=== PATIENT | female | born 1945 | race Caucasian/White ===

== ENCOUNTER 2020-05-02 13:46 | Outpatient (CLI) | payer MEDICARE, SELFPAY ==
--- NOTE | 2020-05-02 14:16 | XR_ITS ---
WS: [id number] DEXA (DUAL ENERGY X-RAY ABSORPTIOMETRY) Bone mineral density was performed using a Mavin machine. HISTORY: HISTORY OF TRAUMATIC VERTEBRAL FRACTURE, OSTEOPOROSIS COMPARISON: None available. Lumbar spine BMD (L1-L4): 1.082 g/cm2 T score: -0.8 Z score: 0.8 Total hip BMD: Left: 0.765 g/cm2. T score: -1.9 Z score: -0.2 Right: 0.757 g/cm2. T score: -2.0 Z score: -0.2 10 year probability of a major osteoporotic fracture is 25%. Suspect mild compression fracture at L2. XR/XR DEXA axial skeleton* [id number] IMPRESSION: OSTEOPENIA based upon the WHO classification for females.
== END 2020-05-02 13:47 | disposition home or self-care (01) ==
LOC: RADWPI 13:51
PROVIDERS: Visit Provider Electrodiagnostic Medicine
DX: Z87.81 Personal history of (healed) traumatic fracture (principal); M81.0 Age-related osteoporosis without current pathological fracture; M85.89 Other specified disorders of bone density and structure, multiple sites
CPT/HCPCS: 77080

== ENCOUNTER 2021-01-09 12:25 | Outpatient (CLI) | payer MEDICARE, SELFPAY ==
--- NOTE | 2021-01-09 12:31 | XRR_ITS ---
PROCEDURE INFORMATION: Exam: XR Chest Exam date and time: 01/09/2021 12:31 PM Age: 75 years old Clinical indication: Condition or disease; Other: Acute bronchitis; Cough and shortness of breath TECHNIQUE: Imaging protocol: XR of the chest. Views: Frontal and lateral upright, views. COMPARISON: No relevant prior studies available. FINDINGS: Lungs: Medial-posterior right basilar pulmonary infiltrate. Left mid lung zone calcified pulmonary parenchymal granuloma. The pulmonary vasculature is normal. The lungs are otherwise peripherally clear bilaterally. Pleural spaces: No pleural effusion. No pneumothorax. Heart/Mediastinum: The heart is normal in size and contour. Bones/joints: Right proximal humeral greater tuberosity suture anchors. Diffuse osteopenia. XR/XR chest 2V* [id number] IMPRESSION: Medial-posterior right basilar pulmonary infiltrate. Pneumonitis is difficult to exclude. Clinical correlation is recommended.
== END 2021-01-09 12:26 | disposition home or self-care (01) ==
PROVIDERS: PCP Electrodiagnostic Medicine; Visit Provider Electrodiagnostic Medicine
DX: J20.9 Acute bronchitis, unspecified (principal); R05 Cough; R06.02 Shortness of breath; R91.8 Other nonspecific abnormal finding of lung field
CPT/HCPCS: 71046

== ENCOUNTER 2021-01-11 12:05 | Inpatient (IN) | payer MEDICARE, OTHER, SELFPAY ==
[2021-01-11] VITALS (11 sets, daily range): BP systolic 149–180; BP diastolic 77–114; PULSE 87–101; RESP 16–26; TEMP 36.6–36.9; O2SAT 94–98; BMI 28.3
--- NOTE | 2021-01-11 12:54 | CT_ITS ---
WS: [id number] CT CHEST TECHNIQUE: Noncontrast CT of the chest with coronal and sagittal reformatted images. CLINICAL INFORMATION: RLL PNA. PE? presents with Covid/bronchitis/pna sx. COMPARISON: None. DLP: 362.[address] scans at [facility] use at least one of these dose optimization techniques: automat ed exposure control; mA and/or kV adjustment per patient size (includes targeted exams where dose is matched to clinical indication); or iterative reconstruction. FINDINGS: Moderate chronic emphysematous changes. Patchy infiltrates in the right greater than left lung base w ith partially consolidation and hazy groundglass infiltrates. Additional patchy infiltrates in the ri ght hilum. Hazy groundglass infiltrates in the subpleural upper lobes bilaterally. No mediastinal or hilar lymphadenopathy. A few reactive mediastinal lymph nodes. No axillary lymphade nopathy. Small esophageal hiatal hernia with air-fluid level. Cholecystectomy clips. Left hepatic cys t measuring 2.4 cm. Splenic granulomas. Thoracic curve. Chronic compression fracture L1. Mild retropulsion with mild central canal stenosis a t this level with loss of approximately 70% vertebral body height centrally. CT/CT chest wo con [id number] IMPRESSION: 1. Patchy ground glass infiltrates within the right greater than left lower lo bes with partial airspace consolidation 2. Additional patchy groundglass infiltrates along the right hilum and right f issure. 3. Additional hazy groundglass infiltrates in the subpleural upper lobes bilat erally. 4. Above findings suspicious for COVID 19 pneumonia. 5. A few reactive mediastinal lymph nodes. 6. Chronic appearing compression fracture L1 with loss of approximately 70% ve rtebral body height centrally and mild central canal stenosis.
--- NOTE | 2021-01-11 12:56 | ECG_ITS ---
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 Measurements Intervals [place] Rate: 98 P: 72 OR: 156 QRS: 30 QRSD: 113 T: 83 QT: 354 QTc: 452 Interpretive Statements SINUS RHYTHM MODERATE INTRAVENTRICULAR CONDUCTION DELAY [110+ ms QRS DURATION] No previous ECG available for comparison Electronically Signed On 01-12-2021 7:02:15 CDT by Tiffanie Leija M.D. [id number]
--- NOTE | 2021-01-11 13:08 | W.ED.SOB ---
HPI - SOB/Dyspnea General: Chief Complaint: Shortness of Breath/Dyspnea Stated Complaint: SOB, WEAK Time Seen by Provider: 01/11/21 12:41 History of Present Illness: HPI Narrative: The patient is a 75-year-old female with past medical history hypertension, coronary artery disease, and old [place] in 2007. She is been complaining of shortness of breath on and off for the past month. She was seen by her primary care physician Saturday and swabbed for Covid which came back negative during the visit. Also did a chest x-ray. My review of the chest x-ray today shows right lower lobe pneumonia or pneumonitis. She was started on prednisone and levofloxacin at that visit. She comes to the ER short of breath, tachypneic, satting 96 on room air. Blood pressure is elevated 220/103 shortly after arrival. She denies chest pain and headache. She admits to taking her metoprolol and lisinopril this morning. She says sometimes she coughs until she vomits at home and she admits a couple loose bowels here and there over the last several days. She was previously a smoker of 20 years but has not smoked for more than a decade. Denies COPD history. Denies CHF as well. MD elicited complaint: shortness of breath Pertinent past history: pneumonia Context: recent illness Severity: moderate Exacerbating factors: exertion and coughing Relieving factors: nothing Associated symptoms: Reports cough; Deny abdominal pain, chest pain, dizziness, extremity pain, fever(s), nausea, polyuria or vomiting Review of Systems General: Reports: 10 or more systems reviewed and unremarkable except in HPI and below Const: Denies: fever(s) Eyes: Denies: change in vision, blurry vision or eye redness ENMT: Denies: throat pain, swelling of lips/tongue, ear or mastoid pain or nasal congestion Card: Denies: chest pain Resp: Reports: dyspnea and non-productive cough; Denies: productive cough or wheezing GI: Denies: abdominal pain, nausea or vomiting : Denies: flank pain, difficulty voiding, urinary frequency or urinary urgency Musc: Denies: neck pain, back pain, extremity pain, joint pain, joint redness, limited range of motion or muscle weakness Skin/Breast: Denies: rash, pruritus, erythema, skin pain or skin tenderness Neuro: Denies: headache(s), numbness in extremities, weakness in extremities, sensory changes, difficulty walking, dizziness, confusion or Slurred speech present Psych: Denies: anxiety or depression Endo: Denies: polyuria All/Imm: Denies: urticaria, throat swelling or tongue swelling PFSH ED PFSH: Medical History (Updated 01/11/21 @ 18:26 by Zay Belle MD) CAD (coronary artery disease) Depression with anxiety Hypertension Surgical History (Updated 01/11/21 @ 16:31 by Dar Dutta MD) History of cholecystectomy History of total hysterectomy Family History (Updated 01/11/21 @ 16:32 by Dar Dutta MD) Mother CAD (coronary artery disease) Diabetes Hypertension Alzheimer's dementia Father CAD (coronary artery disease) Diabetes Hypertension Dementia Social History (Updated 01/11/21 @ 16:32 by Dar Dutta MD) Smoking and tobacco status: former smoker Alcohol intake: never Substance/Drug Use: never Physical Exam Const: COMMON NORMALS: no acute distress, average body habitus, patient oriented x3, no limitations, healthy appearing, alert and well nourished GENERAL APPEARANCE: cooperative, comfortable, well kempt and well developed ORIENTATION/CONSCIOUSNESS: Yes awake, Yes oriented to person, Yes oriented to place and Yes oriented to time HENMT: COMMON NORMALS: normocephalic, external ears normal and Normal external nose present HEAD & SCALP: normal to inspection and normocephalic NOSE: Normal external nose present EXTERNAL EAR: Yes external ears normal MOUTH: Normal oral and palatal mucosa present THROAT: posterior oropharynx normal Eye: COMMON NORMALS: Equal, round and reactive pupils present and EOMs intact bilaterally GENERAL EYE: appearance normal, both eyes and all related structures PUPIL: Yes Equal, round and reactive pupils present Neck/C-Spine: COMMON NORMALS: full ROM, no lymphadenopathy, no meningeal signs and no JVD GENERAL: Yes normal visual inspection Lymph: LYMPHATIC: no lymphadenopathy noted Chest: COMMONS NORMALS: normal inspection of the chest and normal palpation of entire chest wall Resp: COMMON NORMALS: normal respiratory effort, No retractions, No use of accessory muscles, clear to auscultation bilaterally and percussion normal EFFORT & INSPECTION: Yes able to speak in complete sentences AUSCULTATION: clear to auscultation bilaterally PERCUSSION: percussion normal Cardio: COMMON NORMALS: no JVD, regular rate, regular rhythm, S1 normal heart sound present, S2 normal heart sound present and Peripheral pulses 2+ throughout RATE: regular rate RHYTHM: regular rhythm HEART SOUNDS: S1 normal heart sound present and S2 normal heart sound present PERIPHERAL PULSES: Peripheral pulses 2+ throughout GI: COMMON NORMALS: Normal to inspection, nondistended, normoactive bowel sounds present, Soft to palpation, non-tender and no masses INSPECTION: Yes normal to inspection PALPATION: Yes Soft to palpation : COMMON NORMALS: Yes no CVA tenderness BLADDER/KIDNEY EXAM: Yes no CVA tenderness Back/Pelvis: COMMON NORMALS: no CVA tenderness, thoracic and lumbar spine normal to inspection, no thoracic nor lumbar tenderness and thoraco-lumbar ROM normal Extremity: COMMON NORMALS: normal to inspection, full ROM, capillary refill normal, no joint enlargement and no pedal edema GENERAL: Yes normal exam except as noted Neuro: COMMON NORMALS: patient oriented x3, CN's II-XII intact bilaterally, moves all extremities, no focal motor deficits, no sensory deficits noted and gait normal SENSORIUM/ORIENTATION: Yes alert, Yes oriented to person, Yes oriented to place and Yes oriented to time MENINGEAL SIGNS: Yes no meningeal signs Psych: COMMON NORMALS: mental status grossly normal, Normal thought process present, cooperative, normal affect and speech normal APPEARANCE: Yes well kempt ATTITUDE: Yes calm SPEECH: Yes normal speech THOUGHT PROCESS: Normal thought process present Skin: COMMON NORMALS: no rashes or lesions noted GENERAL SKIN EXAM: no rashes or lesions noted Course Vital Signs: Vital signs: Vital Signs Temperature 98.3 F 01/11/21 12:32 Pulse Rate 101 H 01/11/21 17:48 Respiratory Rate 22 H 01/11/21 17:48 Blood Pressure 178/92 01/11/21 17:48 Pulse Oximetry 98 01/11/21 17:48 MDM - SOB/Dyspnea MDM Narrative: Medical decision making narrative: Patient is a 75-year-old female who came to the ER feeling sick for the past month. She says she is coughing and it makes her vomit as well as having loose stools. Likely very dehydrated and she is sick enough not requiring oxygen but sick enough to cause significant metabolic abnormalities. Creatinine 3.4 and BUN 49. No history of acute renal failure. Potassium 5.3 as well. Sodium 127. White count 16.9. She was started on outpatient levofloxacin and prednisone 2 days ago. Started azithromycin here, IV fluids, and admitted to the hospitalist Dr. Luzmaria echeverria. Lab Data: Labs: Lab Results 01/11/21 01/11/21 01/11/21 Range/Units 13:00 13:00 13:00 WBC 16.9 H (4.0-10.0) 10^3/ uL RBC 3.87 L (4.1-5.3) 10^6/u L Hgb 11.4 L (11.5-15.3) g/dL Hct 35.3 L (37.0-47.0) % MCV 91.2 (81-99) fL MCH 29.5 (28.0-34.0) pg MCHC 32.3 (30.0-36.0) g/dL RDW 14.8 (12.1-15.1) % Plt Count 322 (130-400) 10^3/c mm MPV 9.6 (7.4-10.4) fL Neut % (Auto) 93.0 % Lymph % (Auto) 3.1 % Burnett % (Auto) 2.3 % Eos % (Auto) 0.0 % Baso % (Auto) 0.2 % Neut # (Auto) 15.74 H (1.8-7.7) 10^3/u L Lymph # (Auto) 0.5 L (0.8-4.8) 10^3/u L Burnett # (Auto) 0.4 (0.2-0.9) 10^3/u L Eos # (Auto) 0.0 (0.0-0.8) 10^3/u L Baso # (Auto) 0.0 (0.0-0.1) 10^3/u L Nucleated RBC % (a uto) 0 % Nucleated RBCs # 0.0 /100WBC D-Dimer (0-0.59) ug/mIFE U Specimen Type Sample Site ABG pH (7.35-7.45) ABG pCO2 (35-45) mmHg ABG pO2 (80.0-100.0) mmH g ABG HCO3 (22-26) mmol/L ABG O2 Saturation ABG Base Excess (-2.0-2.0) mmol/ L [place] Test A-a O2 Gradient (5-10) mmHg Hematocrit (37-47) % Hgb O2 Saturation (95-100) % Carboxyhemoglobin (0.4-20.1) %THgb Methemoglobin (0.4-1.5) % Total Hemoglobin (12-16) g/dL Ionized Calcium (1.1-1.4) mmol/L O2 Delivery Device FiO2 % Automobile Body Worker ID Sodium Cancelled Potassium Cancelled Chloride Cancelled Carbon Dioxide Cancelled Anion Gap Cancelled BUN Cancelled Creatinine Cancelled GFR Calculation Cancelled Glucose Cancelled Calculated Osmolal ity Cancelled Lactic Acid Cancelled Lactic Acid (Sepsi s) (0.5-2.2) mmol/L Lactate (0.5-2.2) mmol/L Calcium Cancelled Total Bilirubin Cancelled AST Cancelled ALT Cancelled Alkaline Phosphata se Cancelled Creatine Kinase (26-192) U/L Troponin T Baselin e Troponin T 120 Min [place] (0-10) ng/L Delta Troponin T (0-10) ABS# NT-Pro-B Natriuret Pep Cancelled Total Protein Cancelled Albumin Cancelled Globulin Cancelled Procalcitonin (0-0.5) ng/mL 01/11/21 01/11/21 01/11/21 Range/Units 13:00 13:17 13:38 WBC (4.0-10.0) 10^3/ uL RBC (4.1-5.3) 10^6/u L Hgb (11.5-15.3) g/dL Hct (37.0-47.0) % MCV (81-99) fL MCH (28.0-34.0) pg MCHC (30.0-36.0) g/dL RDW (12.1-15.1) % Plt Count (130-400) 10^3/c mm MPV (7.4-10.4) fL Neut % (Auto) % Lymph % (Auto) % Burnett % (Auto) % Eos % (Auto) % Baso % (Auto) % Neut # (Auto) (1.8-7.7) 10^3/u L Lymph # (Auto) (0.8-4.8) 10^3/u L Burnett # (Auto) (0.2-0.9) 10^3/u L Eos # (Auto) (0.0-0.8) 10^3/u L Baso # (Auto) (0.0-0.1) 10^3/u L Nucleated RBC % (a uto) % Nucleated RBCs # /100WBC D-Dimer 2.21 H (0-0.59) ug/mIFE U Specimen Type Sample Site ABG pH (7.35-7.45) ABG pCO2 (35-45) mmHg ABG pO2 (80.0-100.0) mmH g ABG HCO3 (22-26) mmol/L ABG O2 Saturation ABG Base Excess (-2.0-2.0) mmol/ L Jefferson Test A-a O2 Gradient (5-10) mmHg Hematocrit (37-47) % Hgb O2 Saturation (95-100) % Carboxyhemoglobin (0.4-20.1) %THgb Methemoglobin (0.4-1.5) % Total Hemoglobin (12-16) g/dL Ionized Calcium (1.1-1.4) mmol/L O2 Delivery Device FiO2 % Automobile Body Worker ID Sodium Potassium Chloride Carbon Dioxide Anion Gap BUN Creatinine GFR Calculation Glucose Calculated Osmolal ity Lactic Acid Lactic Acid (Sepsi s) (0.5-2.2) mmol/L Lactate (0.5-2.2) mmol/L Calcium Total Bilirubin AST ALT Alkaline Phosphata se Creatine Kinase (26-192) U/L Troponin T Baselin e Cancelled 27 H Troponin T 120 Min [place] (0-10) ng/L Delta Troponin T (0-10) ABS# NT-Pro-B Natriuret Pep Total Protein Albumin Globulin Procalcitonin (0-0.5) ng/mL 01/11/21 01/11/21 01/11/21 Range/Units 13:38 13:38 13:38 WBC (4.0-10.0) 10^3/ uL RBC (4.1-5.3) 10^6/u L Hgb (11.5-15.3) g/dL Hct (37.0-47.0) % MCV (81-99) fL MCH (28.0-34.0) pg MCHC (30.0-36.0) g/dL RDW (12.1-15.1) % Plt Count (130-400) 10^3/c mm MPV (7.4-10.4) fL Neut % (Auto) % Lymph % (Auto) % Burnett % (Auto) % Eos % (Auto) % Baso % (Auto) % Neut # (Auto) (1.8-7.7) 10^3/u L Lymph # (Auto) (0.8-4.8) 10^3/u L Burnett # (Auto) (0.2-0.9) 10^3/u L Eos # (Auto) (0.0-0.8) 10^3/u L Baso # (Auto) (0.0-0.1) 10^3/u L Nucleated RBC % (a uto) % Nucleated RBCs # /100WBC D-Dimer (0-0.59) ug/mIFE U Specimen Type Sample Site ABG pH (7.35-7.45) ABG pCO2 (35-45) mmHg ABG pO2 (80.0-100.0) mmH g ABG HCO3 (22-26) mmol/L ABG O2 Saturation ABG Base Excess (-2.0-2.0) mmol/ L Jefferson Test A-a O2 Gradient (5-10) mmHg Hematocrit (37-47) % Hgb O2 Saturation (95-100) % Carboxyhemoglobin (0.4-20.1) %THgb Methemoglobin (0.4-1.5) % Total Hemoglobin (12-16) g/dL Ionized Calcium (1.1-1.4) mmol/L O2 Delivery Device FiO2 % Automobile Body Worker ID Sodium 127 L Potassium 5.3 H Chloride 94 L Carbon Dioxide 16 L Anion Gap 22.3 H BUN 49 H Creatinine 3.4 H GFR Calculation Not Reportable Glucose 125 H Calculated Osmolal ity 278 L Lactic Acid Lactic Acid (Sepsi s) (0.5-2.2) mmol/L Lactate 1.6 (0.5-2.2) mmol/L Calcium 9.0 Total Bilirubin 0.2 AST 20 ALT 10 Alkaline Phosphata se 71 Creatine Kinase 110 (26-192) U/L Troponin T Baselin e Troponin T 120 Min [place] (0-10) ng/L Delta Troponin T (0-10) ABS# NT-Pro-B Natriuret Pep 8143 H Total Protein 7.4 Albumin 3.3 L Globulin 4.1 Procalcitonin 1.01 H (0-0.5) ng/mL 01/11/21 01/11/21 01/11/21 Range/Units 13:53 14:50 16:25 WBC (4.0-10.0) 10^3/ uL RBC (4.1-5.3) 10^6/u L Hgb (11.5-15.3) g/dL Hct (37.0-47.0) % MCV (81-99) fL MCH (28.0-34.0) pg MCHC (30.0-36.0) g/dL RDW (12.1-15.1) % Plt Count (130-400) 10^3/c mm MPV (7.4-10.4) fL Neut % (Auto) % Lymph % (Auto) % Burnett % (Auto) % Eos % (Auto) % Baso % (Auto) % Neut # (Auto) (1.8-7.7) 10^3/u L Lymph # (Auto) (0.8-4.8) 10^3/u L Burnett # (Auto) (0.2-0.9) 10^3/u L Eos # (Auto) (0.0-0.8) 10^3/u L Baso # (Auto) (0.0-0.1) 10^3/u L Nucleated RBC % (a uto) % Nucleated RBCs # /100WBC D-Dimer (0-0.59) ug/mIFE U Specimen Type Arterial Sample Site Radial, left ABG pH 7.36 (7.35-7.45) ABG pCO2 25.9 L (35-45) mmHg ABG pO2 71.9 L (80.0-100.0) mmH g ABG HCO3 14.7 L (22-26) mmol/L ABG O2 Saturation 94.9 ABG Base Excess -9.0 L (-2.0-2.0) mmol/ L Jefferson Test Pos A-a O2 Gradient 5.8 (5-10) mmHg Hematocrit 42.6 (37-47) % Hgb O2 Saturation 93.7 L (95-100) % Carboxyhemoglobin 0.4 (0.4-20.1) %THgb Methemoglobin 0.9 (0.4-1.5) % Total Hemoglobin 13.9 (12-16) g/dL Ionized Calcium 1.2 (1.1-1.4) mmol/L O2 Delivery Device Room air FiO2 21.0 % Automobile Body Worker ID glc Sodium 127.0 L Potassium 5.0 Chloride Carbon Dioxide Anion Gap BUN Creatinine GFR Calculation Glucose 113.0 Calculated Osmolal ity Lactic Acid Lactic Acid (Sepsi s) 1.8 (0.5-2.2) mmol/L Lactate (0.5-2.2) mmol/L Calcium Total Bilirubin AST ALT Alkaline Phosphata se Creatine Kinase (26-192) U/L Troponin T Baselin e Troponin T 120 Min [place] 23.80 H (0-10) ng/L Delta Troponin T -3.20 L (0-10) ABS# NT-Pro-B Natriuret Pep Total Protein Albumin Globulin Procalcitonin (0-0.5) ng/mL Discharge Plan Discharge Patient Disposition: Admitted As Inpatient Admit Provider: Dar Dutta Clinical Impression: Hyponatremia, Hyperkalemia, Hypertension, Pneumonia, Acute kidney injury Condition: Stable Coding Level of Care Code ED Engine Assembly Supervisor for Kaitling Fwd Exam Comprehensive
[2021-01-11 13:14] LABS: Basophils % 0.2 %; Hematocrit 35.3 % (37.0-47.0); Hemoglobin 11.4 g/dL (11.5-15.3); Lymphocytes # 0.5 10^3/uL (0.8-4.8); Lymphocytes % 3.1 %; Mean Corpuscular HGB Conc 32.3 g/dL (30.0-36.0); Mean Corpuscular Hemoglobin 29.5 pg (28.0-34.0); Mean Corpuscular Volume 91.2 fL (81-99); Mean Platelet Volume 9.6 fL (7.4-10.4); Monocytes # 0.4 10^3/uL (0.2-0.9); Monocytes % 2.3 %; Neutrophils # 15.74 10^3/uL (1.8-7.7); Nucleated Red Blood Cells % 0 %; Platelet Count 322 10^3/cmm (130-400); Red Blood Count 3.87 10^6/uL (4.1-5.3); Red Cell Distribution Width 14.8 % (12.1-15.1); White Blood Count 16.9 10^3/uL (4.0-10.0)
[2021-01-11] MEDS: albuterol 8 gm MDI 2 PUFF INHALATION (13:36)
[2021-01-11 13:38] LABS: D Dimer 2.21 ug/mIFEU (0-0.59)
[2021-01-11] MEDS: labetalol 5 mg/mL SDV 20mL 10 MG IVP (13:38)
[2021-01-11 14:03] LABS: Lactate (Lactic Acid level) 1.6 mmol/L (0.5-2.2)
[2021-01-11 14:05] LABS: ABG PCO2 25.9 mmHg (35-45); ABG PH Result 7.36 (7.35-7.45); Alveolar-Arterial Oxygen Gradi 5.8 mmHg (5-10); Arterial Blood Gas Hematocrit 42.6 % (37-47); Blood Gas Allen Test Pos; Blood Gas Operator Identificat glc; Blood Gas Sample Site Radial, left; Blood Gas Sample Type Arterial; Carboxyhemoglobin 0.4 %THgb (0.4-20.1); HCO3 ABG 14.7 mmol/L (22-26); HGB O2 Sat 93.7 % (95-100); Ionized Calcium Level - ABG 1.2 mmol/L (1.1-1.4); Methemoglobin 0.9 % (0.4-1.5); Oxygen Device ROOM AIR; Oxygen Saturation ABG 94.9; PO2 ABG 71.9 mmHg (80.0-100.0); Total Hemoglobin 13.9 g/dL (12-16)
[2021-01-11 14:13] LABS: Alanine Aminotransferase 10 U/L (0-33); Albumin Level 3.3 g/dL (3.5-5.2); Alkaline Phosphatase 71 IU/L (35-105); Anion Gap 22.3 (5-19); Aspartate Amino Transferase 20 U/L (0-32); Blood Urea Nitrogen 49 mg/dL (8-23); Carbon Dioxide 16 mmol/L (22-29); Chloride 94 mmol/L (98-107); Globulin 4.1 g/dL (1.3-4.6); Glucose 125 mg/dL (65-115); NT Pro B Type Natriuretic Pept 8143 pg/mL (0-450); Osmolality Calculated 278 mOsm/kg (285-295); Potassium 5.3 mmol/L (3.5-5.1); Sodium 127 mmol/L (136-145); Total Bilirubin 0.2 mg/dL (0.15-1.2); Total Protein 7.4 g/dL (6.6-8.7)
[2021-01-11 14:32] LABS: Troponin(5th) Baseline 27 ng/L (0-10)
--- NOTE | 2021-01-11 14:56 | ECG_ITS ---
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 Measurements Intervals [place] Rate: 95 P: 87 MA: 160 QRS: 76 QRSD: 104 T: 89 QT: 372 QTc: 468 Interpretive Statements SINUS RHYTHM INCOMPLETE RIGHT BUNDLE BRANCH BLOCK [90+ ms QRS DURATION, TERMINAL R IN V1/V2, 40+ ms S IN I/aVL/V4/V5/V6] Compared to ECG 01/11/2021 13:32:52 Incomplete right bundle-branch block now present Intraventricular conduction delay no longer present Electronically Signed On 01-12-2021 7:15:00 CDT by Tiffanie Lejia M.D. [id number]
[2021-01-11] MEDS: sodium chloride 0.9% 1,000 ML 999 ML IV (15:12)
[2021-01-11 15:28] LABS: Reflex Lactate Order REFLEX LACTIC ORDERD
[2021-01-11] MEDS: azithromycin 500 MG in sodium chloride 0.9% 250 ML 250 MG IV (16:01)
--- NOTE | 2021-01-11 16:26 | P.HP_ITS ---
Providers/Chief Complaint Primary Care Provider: Clayton Umana DO Chief Complaint: SOB, WEAK History of Present Illness Hamida Saha is a 75 year old female with a past medical history of CAD, history of [place] in 2007, history of smoking quit over 20 years ago, hypertension, depression, who presents to [facility] due to complaints of cough, shortness of breath, fatigue, malaise, diarrhea. Patient tells me that her symp toms started roughly 3 to 4 weeks ago with coughing and sneezing, which progressed to fatigue, malaise, shortness of breath. She currently tells me that her cough is quite severe, quite productive, yellow-green sputum, she tells me that her shortness of breath has progressed to shortness of breath at the end of sentences, when she is talking with me, she has to take long pauses that she feels short of breath, but her saturations are in the high 90s on room air. She denies any known exposure to COVID-19, did not get the Covid vaccine, did get the flu vaccine. No recent travel, no calf pain, no calf swelling, no hemoptysis. No recent surgery. No history of heart failure, no orthopnea, no proximal nocturnal dyspnea, no lower extremity edema. No history of COPD, quit smoking over 20 years ago. Review of Systems Const: Reports: fatigue and malaise; Denies: fever(s) or chills Eyes: Denies: change in vision or blurry vision ENMT: Reports: nasal congestion Resp: Reports: dyspnea and productive cough; Denies: non-productive cough or wheezing GI: Reports: diarrhea; Denies: abdominal pain, nausea, vomiting, hematemesis, constipation, hematochezia or melena : Denies: flank pain, dysuria or urinary frequency Musc: Denies: neck pain or back pain Skin/Breast: Denies: rash Neuro: Denies: headache(s), dizziness or vertigo Endo: Denies: polyuria or polydipsia Medications/Allergies Home Medications Medication Instructions Recorded Confirmed Last Taken Type amitriptyline 25 mg PO DAILY 01/11/21 01/11/21 01/10/21 History fluoxetine 40 mg PO DAILY 01/11/21 01/11/21 01/11/21 History levofloxacin 500 mg PO DAILY 01/11/21 01/11/21 01/11/21 History lisinopril 10 mg PO BID 01/11/21 01/11/21 01/11/21 History metoprolol tartrate 25 mg PO BID 01/11/21 01/11/21 01/11/21 History naproxen 500 mg PO BID 01/11/21 01/11/21 01/10/21 History omeprazole 20 mg PO DAILY 01/11/21 01/11/21 01/11/21 History prednisone 40 mg PO DAILY 01/11/21 01/11/21 01/11/21 History tizanidine See Rx Instructions .ROUTE .COMPLEX 01/11/21 01/11/21 01/10/21 H istory Allergies Allergy/AdvReac Type Severity Reaction Status Date / Time codeine Allergy Intermediate ALGY-Joint Verified 01/11/21 15:09 Pain Penicillins Allergy Intermediate ALGY-Rash Verified 01/11/21 15:09 propoxyphene [From Darvon] Allergy Intermediate Unknown Verified 01/11/21 15:09 PFSH Acute PFSH: Medical History (Updated 01/11/21 @ 16:33 by Dar Dutta MD) CAD (coronary artery disease) Depression with anxiety Hypertension Surgical History (Updated 01/11/21 @ 16:31 by Dar Dutta MD) History of cholecystectomy History of total hysterectomy Family History (Updated 01/11/21 @ 16:32 by Dar Dutta MD) Mother CAD (coronary artery disease) Diabetes Hypertension Alzheimer's dementia Father CAD (coronary artery disease) Diabetes Hypertension Dementia Social History (Updated 01/11/21 @ 16:32 by Dar Dutta MD) Smoking and tobacco status: former smoker Alcohol intake: never Substance/Drug Use: never Vitals/I&O/Wt Last Vital Signs Temp 98.3 F 01/11/21 12:32 Pulse 95 01/11/21 16:14 Resp 20 H 01/11/21 16:14 BP 171/98 01/11/21 16:14 Pulse Ox 95 01/11/21 16:14 01/11/21 01/11/21 01/11/21 06:59 14:59 22:59 Intake Total 1000 / 1000 Balance 1000 / 1000 Weight last 48 hrs Weight 72.575 kg Physical Exam Const: COMMON NORMALS: no acute distress and patient oriented x3 GENERAL APPEARANCE: cooperative and comfortable Eye: COMMON NORMALS: Equal, round and reactive pupils present GENERAL EYE: appearance normal, both eyes and all related structures Neck/C-Spine: COMMON NORMALS: no lymphadenopathy THYROID: Thyroid normal Lymph: LYMPHATIC: no lymphadenopathy noted Resp: COMMON NORMALS: normal respiratory effort, No retractions and No use of accessory muscles AUSCULTATION: diminished lung sounds diffuse Cardio: COMMON NORMALS: regular rate, regular rhythm, S1 normal heart sound present, S2 normal heart sound present, No gallops present (Cardio), No clicks present (Cardio) and No murmurs present (Cardio) RATE: regular rate RHYTHM: regular rhythm HEART SOUNDS: S1 normal heart sound present and S2 normal heart sound present GI: COMMON NORMALS: Normal to inspection, nondistended, normoactive bowel s ounds present and Soft to palpation Extremity: COMMON NORMALS: no pedal edema Neuro: COMMON NORMALS: patient oriented x3, CN's II-XII intact bilaterally, moves all extremities and no focal motor deficits Psych: COMMON NORMALS: mental status grossly normal, Normal thought process present and cooperative THOUGHT PROCESS: Normal thought process present Data : 01/11/21 13:00 01/11/21 13:38 A&P Assessment and plan (1) Pneumonia: -With white blood cell count over 16,000, sodium 127, creatinine 3.4, BNP 843, rapid Covid negative, -Currently on room air, short of breath with a few words, no evidence of respiratory distress, -CT of the chest 1. Patchy ground glass infiltrates within the right greater than left lower lobes with partial airspace consolidation 2. Additional patchy groundglass infiltrates along the right hilum and right fissure. 3. Additional hazy groundglass infiltrates in the subpleural upper lobes gunjan aterally. 4. Above findings suspicious for COVID 19 pneumonia. 5. A few reactive mediastinal lymph nodes. Plan: -Admit to general medical floors -COVID-19 precautions, Covid PCR pending -Rocephin, azithromycin -Sputum cultures, blood cultures, urine cultures -Monitor respiratory status, oxygen therapy, albuterol, Advair -Vitamin C, zinc, vitamin D -Continue gentle IV hydration -Cardiac echocardiogram, telemetry monitoring -Receiving Kayexalate for hyperkalemia - full code -Lovenox for DVT prophylaxis Status: Acute (2) Acute kidney injury: Status: Acute (3) Hyponatremia: Status: Acute (4) Hyperkalemia: Status: Acute Attestations Medical Necessity Statement*: Patient requires hospital inpatient, greater than 2 midnights, for pneumonia, acute kidney injury, hyponatremia Coding Level of Care Code Acute Weight Reduction Specialist for [facility] Diagnoses Pneumonia J18.9 Acute kidney injury N17.9 Hyponatremia E87.1 Hyperkalemia E87.5
[2021-01-11 16:57] LABS: Creatine Phosphokinase 110 U/L (26-192)
[2021-01-11 16:58] LABS: Procalcitonin 1.01 ng/mL (0-0.5)
[2021-01-11 17:03] LABS: Lactic Acid level (Lactate) 1.8 mmol/L (0.5-2.2)
[2021-01-11] MEDS: sodium polystyrene sulfonate 15 gm/60 mL Btl PO (17:47)
--- NOTE | 2021-01-11 18:19 | PC.NURSE ---
Patient admitted from ER, transferred to stretcher X2 assist, patient is coughing and oxygen is applied at 2L NC, lab in to see patient, [facility] DIRECTOR obtained vitals, stable as documented. Discussed plan of care and safety precautions, patient placed on bed alarm due to weakness with ambulation.
[2021-01-11] MEDS: dexamethasone 4 mg/mL INJ 6 MG IVP (18:31)
[2021-01-11] MEDS: benzonatate 100 mg Capsule 200 MG PO (18:32)
[2021-01-11] MEDS: sodium chloride 0.9% 1,000 ML 100 ML IV (18:32)
[2021-01-11] MEDS: enoxaparin 40 mg/0.4 mL Syringe SUBCUT (18:32)
[2021-01-11] MEDS: ascorbic acid 500 mg Tablet 1000 MG PO (18:32)
[2021-01-11] MEDS: metoprolol tartrate 25 mg Tablet PO (18:37)
[2021-01-11] MEDS: cefTRIAXone 1,000 MG in sodium chloride 0.9% (plus) 50 ML 100 MG IV (18:55)
[2021-01-11 18:56] LABS: Troponin 5 6HR 30.46 ng/L (0-10); Troponin 5 6HR Delta 3.46 ng/L (0-12)
--- NOTE | 2021-01-11 18:56 | ECG_ITS ---
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 Measurements Intervals [place] Rate: 95 P: 56 IA: 171 QRS: 39 QRSD: 110 T: 73 QT: 394 QTc: 497 Interpretive Statements SINUS RHYTHM Compared to ECG 01/11/2021 15:46:31 Incomplete right bundle-branch block no longer present Electronically Signed On 01-12-2021 7:06:27 CDT by Tiffanie Leija M.D. [id number]
[2021-01-11 19:43] LABS: Add Urine Microscopic? YES; Amorphous Sediment Urine 1+ /hpf; Bacteria Urine 1+ /hpf; Bilirubin Urine 1+ (Negative); Blood Urine 2+ (Negative); Glucose Urine UA Norm (Normal); Ketones Urine Negative (Negative); Leukocyte Esterase Urine Negative (Negative); Mucus Urine 1+ /hpf; Nitrate Urine Negative (Negative); Protein Urine 1+ (Negative); RBC Urine 0-4 /hpf (0-2); Specific Gravity, Urine 1.005 (1.005-1.030); Squamous Epithelial Cell Urine 0-4 /hpf (0-5); Urine Appearance SL Hazy (CLEAR); Urine Color Yellow (Yellow); Urobilinogen Urine Norm (Negative); WBC Urine 0-4 /hpf (0-5); pH Urine 5 (5-7)
[2021-01-11 20:17] LABS: Thyroid Stimulating Hormone 6.98 uIU/mL (0.27-4.20)
[2021-01-11] MEDS: albuterol 8 gm MDI 1 PUFF INHALATION (21:13)
[2021-01-12] VITALS (13 sets, daily range): BP systolic 122–180; BP diastolic 72–96; PULSE 63–104; RESP 17–21; TEMP 36.6–37.4; O2SAT 92–98
--- NOTE | 2021-01-12 05:00 | USCV_ITS ---
Hamida Saha Age: 75 Gender: F : 1945 Exam Date: 01/12/2021 09:43 Ordering Phys: Dar Dutta MD Technologist: Jose Angel Nelson Exam Location: [facility] [place] Indication: SOB, WEAK BP: 147 / 82 HR: 96 Rhythm: Sinus Technical Quality: Adequate MEASUREMENTS (Male / Female) Normal Values 2D ECHO LV Diastolic Diameter PLAX 4.6 cm 4.2 - 5.9 / 3.9 - 5.3 cm LV Systolic Diameter PLAX 2.8 cm IVS Diastolic Thickness 1.0 cm 0.6 - 1.0 / 0.6 - 0.9 cm IVS Systolic Thickness 1.3 cm LVPW Diastolic Thickness 0.9 cm 0.6 - 1.0 / 0.6 - 0.9 cm LVPW Systolic Thickness 1.6 cm LVOT Diameter 2.0 cm LV Ejection Fraction 2D Teich 70.6 % LV Ejection Fraction MOD 2C 59.9 % LV Ejection Fraction 2C AL 58.3 % LA Diameter 3.4 cm LA Width 3.8 cm LA Height 4.7 cm RA Width 3.5 cm RA Height 4.8 cm DOPPLER AV Peak Velocity 113.4 cm/s LVOT Peak Velocity 71.8 cm/s AV Area Cont Eq vti 2.1 cm squared AV Area Cont Eq pk 2.0 cm squared MV Area PHT 5.5 cm squared Mitral E to A Ratio 1.0 MV E' Velocity 55.5 cm/s Mitral E to MV E' Ratio 9.2 Mitral E to LV E' Lateral Ratio 10.6 Mitral E to LV E' Septal Ratio 8.3 TR Peak Velocity 313.0 cm/s TR Peak Gradient 39.2 mmHg TV Peak E Velocity 100.0 cm/s Right Atrial Pressure 3.0 mmHg Pulmonary Artery Systolic Pressu 42.2 mmHg PV Peak Velocity 135.0 cm/s FINDINGS Left Ventricle Normal left ventricular size. LV systolic function is normal with EF of 55-60%. No regional wall motion abnormalities. Normal diastolic filling pattern. Right Ventricle The right ventricle is normal in size and function. Right Atrium The right atrium is normal in size. Left Atrium The left atrium is normal in size. Mitral Valve Structurally normal mitral valve without significant stenosis or prolapse. There is mild mitral regurgitation. Aortic Valve Structurally normal aortic valve without significant sclerosis or stenosis. There is no aortic regurgitation. Tricuspid Valve Structurally normal tricuspid valve without significant stenosis or regurgitation. Insufficient TR jet to calculate RVSP Pulmonic Valve Structurally normal pulmonic valve without significant stenosis. There is no pulmonic regurgitation. Pericardium Normal pericardium without effusion. Aorta Normal ascending aorta dimension. CONCLUSIONS LV systolic function is normal with EF of 55-60% Diastolic function is normal Mild mitral regurgitation No comparison study available Alexy Guillen MD (Electronically Signed) Final Date: 12 January 2021 17:03 S
--- NOTE | 2021-01-12 05:00 | US_ITS ---
WS: [id number] ULTRASOUND RENAL TECHNIQUE: Ultrasound examination of both kidneys. CLINICAL INFORMATION: richard COMPARISON: None. FINDINGS: RIGHT: Right kidney is normal in size and appearance. Echogenicity: Normal. Hydronephrosis: None. Perinephric fluid: None. Right kidney measures: 11.4 cm x 4.6 cm x 3.8 cm. LEFT: Left kidney is normal in size and appearance. Echogenicity: Normal. Hydronephrosis: None. Perinephric fluid: None. Left kidney measures: 9.9 cm x 5.2 cm x 4.9 cm. Normal visualized aorta. Normal bladder. US/US renal BI* [id number] IMPRESSION: Normal renal ultrasound
[2021-01-12] MEDS: sodium chloride 0.9% 1,000 ML 100 ML IV (05:13)
[2021-01-12 06:26] LABS: Basophils % 0.2 %; Hematocrit 32.5 % (37.0-47.0); Hemoglobin 10.1 g/dL (11.5-15.3); Lymphocytes # 0.5 10^3/uL (0.8-4.8); Lymphocytes % 4.1 %; Mean Corpuscular HGB Conc 31.1 g/dL (30.0-36.0); Mean Corpuscular Hemoglobin 28.9 pg (28.0-34.0); Mean Corpuscular Volume 93.1 fL (81-99); Mean Platelet Volume 9.3 fL (7.4-10.4); Monocytes # 0.6 10^3/uL (0.2-0.9); Monocytes % 4.9 %; Neutrophils # 11.45 10^3/uL (1.8-7.7); Neutrophils % 90.1 %; Nucleated Red Blood Cells % 0 %; Platelet Count 301 10^3/cmm (130-400); Red Blood Count 3.49 10^6/uL (4.1-5.3); White Blood Count 12.7 10^3/uL (4.0-10.0)
[2021-01-12 06:50] LABS: Alanine Aminotransferase 9 U/L (0-33); Albumin Level 2.2 g/dL (3.5-5.2); Alkaline Phosphatase 54 IU/L (35-105); Anion Gap 18.7 (5-19); Aspartate Amino Transferase 15 U/L (0-32); Blood Urea Nitrogen 44 mg/dL (8-23); Calcium 7.9 mg/dL (8.5-10.5); Carbon Dioxide 13 mmol/L (22-29); Chloride 104 mmol/L (98-107); Globulin 3.6 g/dL (1.3-4.6); Glucose 128 mg/dL (65-115); Magnesium 1.9 mg/dL (1.7-2.3); Osmolality Calculated 285 mOsm/kg (285-295); Phosphorus 4.7 mg/dL (2.5-4.5); Potassium 4.7 mmol/L (3.5-5.1); Sodium 131 mmol/L (136-145); Total Bilirubin 0.2 mg/dL (0.15-1.2); Total Protein 5.8 g/dL (6.6-8.7)
[2021-01-12 07:54] LABS: NT Pro B Type Natriuretic Pept 35521 pg/mL (0-450)
[2021-01-12] MEDS: albuterol 8 gm MDI 1 PUFF INHALATION ×2 (08:14→19:34)
[2021-01-12] MEDS: amlodipine 10 mg Tablet PO (09:03)
[2021-01-12] MEDS: zinc gluconate 50 mg Tablet PO (09:03)
[2021-01-12] MEDS: metoprolol tartrate 25 mg Tablet PO ×2 (09:03→17:37)
[2021-01-12] MEDS: ascorbic acid 500 mg Tablet 1000 MG PO ×2 (09:03→17:36)
[2021-01-12] MEDS: cholecalciferol (vitamin D3) 1,000 unit Tablet 1000 UNIT PO (09:03)
[2021-01-12] MEDS: pantoprazole DR 40 mg Tablet PO (09:04)
[2021-01-12] MEDS: benzonatate 100 mg Capsule 200 MG PO ×2 (09:07→21:19)
--- NOTE | 2021-01-12 11:11 | PC.CHAP ---
Pastoral Care Encounter/Spiritual Assessment Type of Contact [] Declined engine installer visit [] Patient/Family/Request visit [] Outpatient visit [] Follow-up visit [] Physician referral [] Code/Alert [] Routine visit [] Staff referral [] Actively dying [] Patient sleeping [] Family support [] [] Out of room [] Palliative care [] [] Receiving care in room [] Pre-surgical visit [] Trauma [] Long length of stay [] ICU visit [x] Other: Isolation Relational/Emotional Strength [] Patient feels connected with others/family/visitors/staff [] Distress [] Loneliness/isolation [] Abandonment Spirituality of Patient [] Person of Trisha [] Attends Baptist of their Trisha [] Believes in Prayer [] Reads Bible or Restorationism materials [] There are Spiritual issues to be addressed Wing Commander Interventions [] Prayer [] Active listening [] Non-anxious presence [] Spiritual/emotional support [] Crisis/trauma care [] Spiritual counseling [] Bereavement support [] Provided bereavement packet [] Provided Bible/devotional materials [] Provided toy/stuffed animal, coloring book to patient or family member [] Provided Communion [] Anointing/[place] [] Salvation [] Completed spiritual assessment [] Other: Impact on Illness or Injury [] Angry [] Fearful [] Anxious [] Often cries [] Exhaustion [] Unable to work [] Unable to attend rastafari [] Unable to walk/stand [] Unable to read [] Unable to drive [] Unable to eat/drink [] Unable to sleep [] Unable to be with family [] Patient intubated [] Other: Summary Isolation Time spent with patient 5 mins
--- NOTE | 2021-01-12 15:07 | P.PN_ITS ---
Subjective Subjective: Interval history: Patient was seen this morning, she tells me that she continues to feel unwell, she is on 2 L, has a cough, no chest pain, has some shortness of breath this morning Vitals/I&O/Wt Last Vital Signs Temp 99.3 F 01/12/21 11:49 Pulse 63 01/12/21 11:49 Resp 18 01/12/21 11:49 BP 122/76 01/12/21 11:49 Pulse Ox 92 01/12/21 11:49 01/12/21 01/12/21 01/12/21 06:59 14:59 22:59 Intake Total 1000 / 2540 868.333 / 868.333 Output Total 500 / 900 100 / 100 Balance 500 / 1640 768.333 / 768.333 Weight last 48 hrs Weight 72.575 kg Physical Exam Const: COMMON NORMALS: no acute distress and patient oriented x3 Resp: COMMON NORMALS: normal respiratory effort, No retractions and No use of accessory muscles AUSCULTATION: crackles Cardio: COMMON NORMALS: regular rate, regular rhythm, S1 normal heart sound present and S2 normal heart sound present RATE: regular rate RHYTHM: regular rhythm HEART SOUNDS: S1 normal heart sound present and S2 normal heart sound present GI: COMMON NORMALS: Normal to inspection, nondistended, normoactive bowel sounds present, Soft to palpation, non-tender and No hepatosplenomegaly present PALPATION: Yes Soft to palpation and Yes No hepatosplenomegaly present Extremity: COMMON NORMALS: no pedal edema Neuro: COMMON NORMALS: patient oriented x3 Psych: COMMON NORMALS: mental status grossly normal Data : 01/12/21 06:18 01/12/21 06:18 Micro: Microbiology 01/11/21 19:07 Blood Culture - Preliminary Blood SPECIMEN COLLECTED 01/11/21 13:38 Blood Culture - Preliminary Blood SPECIMEN COLLECTED A&P Assessment and plan (1) Pneumonia: -With white blood cell count over 12.7, sodium 131, creatinine 2.6, BNP 05498, rapid Covid negative, -Currently on 2L, short of breath with a few words, no evidence of respiratory distress, has crackles on exam, evidence of fluid overload -CT of the chest 1. Patchy ground glass infiltrates within the right greater than left lower lobes with partial airspace consolidation 2. Additional patchy groundglass infiltrates along the right hilum and right fissure. 3. Additional hazy groundglass infiltrates in the subpleural upper lobes bilaterally. 4. Above findings suspicious for COVID 19 pneumonia. 5. A few reactive mediastinal lymph nodes. Plan: -Admit to general medical floors -COVID-19 precautions, Covid PCR pending -Rocephin, azithromycin -Continue Decadron -Sputum cultures, blood cultures, urine cultures -Monitor respiratory status, oxygen therapy, albuterol, Advair -Vitamin C, zinc, vitamin D - hold IV hydration as concerns for fluid overload, creatinine 2.6, continue to monitor, will hold off on Lasix therapy -Cardiac echocardiogram, telemetry monitoring -Renal ultrasound - full code -Lovenox for DVT prophylaxis Plan for today discontinue fluids, encourage oral hydration, monitor for respiratory distress, monitor for fluid overload, cardiac echo, renal ultrasound, follow cultures, continue antibiotics, await Covid PCR Status: Acute (2) Acute kidney injury: Status: Acute (3) Hyponatremia: Status: Acute (4) Hyperkalemia: Status: Acute Attestations Medical Necessity Statement*: Patient requires hospitalization for pneumonia, hyponatremia, HAKEEM Coding Level of Care Code Acute Assistant Statistician for [facility] Diagnoses Pneumonia J18.9 Acute kidney injury N17.9 Hyponatremia E87.1 Hyperkalemia E87.5
[2021-01-12 15:36] LABS: Coronavirus Test Green County Not Detected
[2021-01-12] MEDS: enoxaparin 40 mg/0.4 mL Syringe SUBCUT (17:37)
[2021-01-12] MEDS: dexamethasone 4 mg/mL INJ 6 MG IVP (17:37)
[2021-01-12] MEDS: cefTRIAXone 1,000 MG in sodium chloride 0.9% (plus) 50 ML 100 MG IV (17:37)
--- NOTE | 2021-01-12 19:28 | PC.NURSE ---
[facility]
[2021-01-12] MEDS: acetaminophen 325 mg Tablet 650 MG PO (23:22)
[2021-01-13] VITALS (13 sets, daily range): BP systolic 120–159; BP diastolic 67–88; PULSE 80–108; RESP 14–20; TEMP 36.6–36.9; O2SAT 91–98
[2021-01-13 05:32] LABS: Basophils % 0.1 %; Hematocrit 31.8 % (37.0-47.0); Hemoglobin 10.2 g/dL (11.5-15.3); Lymphocytes # 0.5 10^3/uL (0.8-4.8); Lymphocytes % 4.1 %; Mean Corpuscular HGB Conc 32.1 g/dL (30.0-36.0); Mean Corpuscular Volume 90.3 fL (81-99); Mean Platelet Volume 9.2 fL (7.4-10.4); Monocytes # 0.7 10^3/uL (0.2-0.9); Monocytes % 6.7 %; Neutrophils # 9.78 10^3/uL (1.8-7.7); Neutrophils % 88.4 %; Nucleated Red Blood Cells % 0 %; Platelet Count 309 10^3/cmm (130-400); Red Blood Count 3.52 10^6/uL (4.1-5.3); Red Cell Distribution Width 15.1 % (12.1-15.1); White Blood Count 11.1 10^3/uL (4.0-10.0)
[2021-01-13 05:48] LABS: Alanine Aminotransferase 10 U/L (0-33); Albumin Level 2.7 g/dL (3.5-5.2); Alkaline Phosphatase 49 IU/L (35-105); Anion Gap 18.5 (5-19); Aspartate Amino Transferase 12 U/L (0-32); Blood Urea Nitrogen 34 mg/dL (8-23); C Reactive Protein 81.2 mg/L (0.0-4.9); Calcium 8.3 mg/dL (8.5-10.5); Carbon Dioxide 18 mmol/L (22-29); Chloride 104 mmol/L (98-107); Globulin 3.1 g/dL (1.3-4.6); Glucose 131 mg/dL (65-115); Magnesium 1.9 mg/dL (1.7-2.3); Osmolality Calculated 291 mOsm/kg (285-295); Phosphorus 3.2 mg/dL (2.5-4.5); Potassium 4.5 mmol/L (3.5-5.1); Sodium 136 mmol/L (136-145); Total Bilirubin 0.2 mg/dL (0.15-1.2); Total Protein 5.8 g/dL (6.6-8.7)
[2021-01-13] MEDS: albuterol 8 gm MDI 1 PUFF INHALATION ×2 (07:40→19:37)
[2021-01-13] MEDS: benzonatate 100 mg Capsule 200 MG PO ×3 (08:04→22:39)
[2021-01-13] MEDS: ascorbic acid 500 mg Tablet 1000 MG PO ×2 (08:04→17:26)
[2021-01-13] MEDS: amlodipine 10 mg Tablet PO (08:04)
[2021-01-13] MEDS: zinc gluconate 50 mg Tablet PO (08:05)
[2021-01-13] MEDS: pantoprazole DR 40 mg Tablet PO (08:05)
[2021-01-13] MEDS: cholecalciferol (vitamin D3) 1,000 unit Tablet 1000 UNIT PO (08:05)
[2021-01-13] MEDS: metoprolol tartrate 25 mg Tablet PO ×2 (08:05→17:26)
[2021-01-13] MEDS: levothyroxine 25 mcg Tablet PO (10:33)
[2021-01-13] MEDS: azithromycin 500 MG in sodium chloride 0.9% 250 ML 250 MG IV (10:33)
--- NOTE | 2021-01-13 13:37 | P.PN_ITS ---
Subjective Subjective: Interval history: Patient was seen this morning, her daughter and granddaughter at bedside, she tells me that she is feeling better, she is on 1 to 2 L, continues to have some shortness of breath with exertion, tiredness, but overall doing better, Vitals/I&O/Wt Last Vital Signs Temp 98.2 F 01/13/21 12:00 Pulse 95 01/13/21 12:00 Resp 16 01/13/21 12:00 BP 147/84 01/13/21 12:00 Pulse Ox 92 01/13/21 12:00 01/12/21 01/13/21 01/13/21 22:59 06:59 14:59 Intake Total 410 / 1278.333 480 / 480 Output Total 500 / 600 1300 / 1900 300 / 300 Balance -90 / 678.333 -1300 / -621.667 180 / 180 Physical Exam Const: COMMON NORMALS: no acute distress and patient oriented x3 Neck/C-Spine: COMMON NORMALS: no JVD Resp: COMMON NORMALS: normal respiratory effort, No retractions, No use of accessory muscles and clear to auscultation bilaterally AUSCULTATION: clear to auscultation bilaterally Cardio: COMMON NORMALS: no JVD, regular rate, regular rhythm, S1 normal heart sound present and S2 normal heart sound present RATE: regular rate RHYTHM: regular rhythm HEART SOUNDS: S1 normal heart sound present and S2 normal heart sound present GI: COMMON NORMALS: Normal to inspection, nondistended, normoactive bowel sounds present, Soft to palpation and non-tender PALPATION: Yes Soft to palpation Extremity: COMMON NORMALS: no pedal edema Neuro: COMMON NORMALS: patient oriented x3 Psych: COMMON NORMALS: mental status grossly normal Data : 01/13/21 04:57 01/13/21 04:57 Micro: Microbiology 01/11/21 19:07 Blood Culture - Preliminary Blood NEGATIVE TO DATE 01/11/21 13:38 Blood Culture - Preliminary Blood NEGATIVE TO DATE A&P Assessment and plan (1) Pneumonia: -With white blood cell count over 11.1, sodium 136, creatinine 1.8, BNP 62838, rapid Covid negative, Covid PCR negative -Currently on 1-2L, short of breath with a few words, no evidence of respiratory distress, has crackles on exam, evidence of fluid overload -CT of the chest 1. Patchy ground glass infiltrates within the right greater than left lower lobes with partial airspace consolidation 2. Additional patchy groundglass infiltrates along the right hilum and right fissure. 3. Additional hazy groundglass infiltrates in the subpleural upper lobes bilaterally. 4. Above findings suspicious for COVID 19 pneumonia. 5. A few reactive mediastinal lymph nodes. Plan: -Admit to general medical floors -Rocephin, azithromycin -Has a history of smoking, continue Decadron -Sputum cultures, blood cultures, urine cultures -Monitor respiratory status, oxygen therapy, albuterol, Advair -Vitamin C, zinc, vitamin D - hold IV hydration as concerns for fluid overload, creatinine 1.8, renal ultrasound within normal limits, continue to monitor, will hold off on Lasix th erapy -Cardiac echocardiogram shows an EF of 55 to 60%, normal diastolic function - full code -Lovenox for DVT prophylaxis Plan for today encourage oral hydration, monitor for respiratory distress, monitor for fluid overload, continue antibiotics Status: Acute (2) Acute kidney injury: Status: Acute (3) Hyponatremia: Status: Acute (4) Hyperkalemia: Status: Acute Attestations Medical Necessity Statement*: Patient requires hospitalization for pneumonia, HAKEEM Coding Level of Care Code Acute Breakfast Server for [facility] Diagnoses Pneumonia J18.9 Acute kidney injury N17.9 Hyponatremia E87.1 Hyperkalemia E87.5
[2021-01-13] MEDS: enoxaparin 30 mg/0.3 mL Syringe SUBCUT (17:26)
[2021-01-13] MEDS: dexamethasone 4 mg/mL INJ 6 MG IVP (17:26)
[2021-01-13] MEDS: cefTRIAXone 1,000 MG in sodium chloride 0.9% (plus) 50 ML 100 MG IV (17:27)
--- NOTE | 2021-01-13 19:26 | PC.NURSE ---
Report to Juan J FRANZ at this time.
[2021-01-13] MEDS: acetaminophen 325 mg Tablet 650 MG PO (22:39)
[2021-01-14] VITALS (12 sets, daily range): BP systolic 135–172; BP diastolic 73–96; PULSE 69–108; RESP 14–20; TEMP 36.6–37.1; O2SAT 90–96
[2021-01-14 06:40] LABS: Basophils % 0.1 %; Lymphocytes # 0.4 10^3/uL (0.8-4.8); Mean Corpuscular HGB Conc 32.3 g/dL (30.0-36.0); Mean Corpuscular Volume 89.9 fL (81-99); Mean Platelet Volume 9.3 fL (7.4-10.4); Monocytes # 0.8 10^3/uL (0.2-0.9); Neutrophils # 6.69 10^3/uL (1.8-7.7); Neutrophils % 83.6 %; Nucleated Red Blood Cells % 0 %; Platelet Count 278 10^3/cmm (130-400); Red Blood Count 3.45 10^6/uL (4.1-5.3); Red Cell Distribution Width 15.1 % (12.1-15.1)
[2021-01-14] MEDS: levothyroxine 25 mcg Tablet PO (07:06)
[2021-01-14 07:12] LABS: Alanine Aminotransferase 10 U/L (0-33); Albumin Level 2.6 g/dL (3.5-5.2); Alkaline Phosphatase 50 IU/L (35-105); Anion Gap 17.8 (5-19); Aspartate Amino Transferase 12 U/L (0-32); Blood Urea Nitrogen 26 mg/dL (8-23); C Reactive Protein 30.6 mg/L (0.0-4.9); Calcium 8.7 mg/dL (8.5-10.5); Carbon Dioxide 18 mmol/L (22-29); Chloride 106 mmol/L (98-107); Globulin 3.4 g/dL (1.3-4.6); Glucose 141 mg/dL (65-115); Magnesium 1.7 mg/dL (1.7-2.3); NT Pro B Type Natriuretic Pept 8472 pg/mL (0-450); Osmolality Calculated 291 mOsm/kg (285-295); Phosphorus 2.7 mg/dL (2.5-4.5); Potassium 4.8 mmol/L (3.5-5.1); Sodium 137 mmol/L (136-145); Total Bilirubin 0.2 mg/dL (0.15-1.2)
[2021-01-14] MEDS: albuterol 8 gm MDI 1 PUFF INHALATION ×2 (07:57→19:46)
[2021-01-14] MEDS: zinc gluconate 50 mg Tablet PO (08:54)
[2021-01-14] MEDS: ascorbic acid 500 mg Tablet 1000 MG PO ×2 (08:54→17:31)
[2021-01-14] MEDS: pantoprazole DR 40 mg Tablet PO (08:54)
[2021-01-14] MEDS: amlodipine 10 mg Tablet PO (08:54)
[2021-01-14] MEDS: cholecalciferol (vitamin D3) 1,000 unit Tablet 1000 UNIT PO (08:54)
[2021-01-14] MEDS: metoprolol tartrate 25 mg Tablet PO ×2 (08:54→17:31)
[2021-01-14] MEDS: benzonatate 100 mg Capsule 200 MG PO ×2 (08:55→21:44)
[2021-01-14] MEDS: azithromycin 500 MG in sodium chloride 0.9% 250 ML 250 MG IV (10:03)
[2021-01-14] MEDS: FUROsemide 10 mg/mL SDV 4mL 40 MG IVP (10:03)
--- NOTE | 2021-01-14 11:13 | PC.SOCIAL ---
IMM UPDATE Gave patient IMM update with son at bedside. Provided copy of pg 2. Verbalized understanding. 01/14/21 @ 0698 Initialed, dated, timed and placed in chart.
--- NOTE | 2021-01-14 12:40 | PC.PT ---
Patient declined additional PT activity, due to fatigue & she did appear rather fatigued. Nurse reported they had assisted patient to / from restroom this AM & she had done very well. patient may have over done her activity yesterday , as nursing also confirmed patient had been up in the chair most of yesterday.
[2021-01-14] MEDS: acetaminophen 325 mg Tablet 650 MG PO ×2 (13:00→21:44)
--- NOTE | 2021-01-14 13:27 | P.PN_ITS ---
Subjective Subjective: Interval history: Patient was seen this morning, she tells me that she is not feeling well this morning, has some shortness of breath, cough, no fevers, chills, nausea, vomiting, Vitals/I&O/Wt Last Vital Signs Temp 98.6 F 01/14/21 11:23 Pulse 96 01/14/21 11:23 Resp 16 01/14/21 11:23 BP 139/76 01/14/21 11:23 Pulse Ox 92 01/14/21 11:23 01/13/21 01/14/21 01/14/21 22:59 06:59 14:59 Intake Total 250 / 1580 240 / 1820 200 / 200 Balance 250 / 1280 240 / 1520 200 / 200 Physical Exam Const: COMMON NORMALS: no acute distress and patient oriented x3 Resp: COMMON NORMALS: normal respiratory effort, No retractions and No use of accessory muscles AUSCULTATION: crackles Cardio: COMMON NORMALS: regular rate, regular rhythm, S1 normal heart sound present and S2 normal heart sound present RATE: regular rate RHYTHM: regular rhythm HEART SOUNDS: S1 normal heart sound present and S2 normal heart sound present GI: COMMON NORMALS: Normal to inspection, nondistended, normoactive bowel sounds present, Soft to palpation and non-tender PALPATION: Yes Soft to palpation Extremity: COMMON NORMALS: no pedal edema Neuro: COMMON NORMALS: patient oriented x3 Psych: COMMON NORMALS: mental status grossly normal Data : 01/14/21 04:53 01/14/21 04:53 A&P Assessment and plan (1) Pneumonia: -Currently on 1-2L, no evidence of respiratory distress, has crackles on exam, evidence of fluid overload -CT of the chest 1. Patchy ground glass infiltrates within the right greater than left lower lobes with partial airspace consolidation 2. Additional patchy groundglass infiltrates along the right hilum and right fissure. 3. Additional hazy groundglass infiltrates in the subpleural upper lobes bilaterally. 4. Above findings suspicious for COVID 19 pneumonia. 5. A few reactive mediastinal lymph nodes. Plan: -Admit to general medical floors -Rocephin, azithromycin -Has a history of smoking, continue Decadron -Sputum cultures, blood cultures, urine cultures -Monitor respiratory status, oxygen therapy, albuterol, Advair -Vitamin C, zinc, vitamin D - creatinine down to 1.3, will give 1 dose of Lasix -Cardiac echocardiogram shows an EF of 55 to 60%, normal diastolic function - full code -Lovenox for DVT prophylaxis Plan for today monitor respiratory status, will give dose of Lasix, Status: Acute (2) Acute kidney injury: Status: Acute (3) Hyponatremia: Status: Acute (4) Hyperkalemia: Status: Acute Attestations Medical Necessity Statement*: Patient has hospitalization for pneumonia, fluid overload Coding Level of Care Code Acute Outside Sales Representative for [facility] [employer] Diagnoses Pneumonia J18.9 Acute kidney injury N17.9 Hyponatremia E87.1 Hyperkalemia E87.5
[2021-01-14] MEDS: dexamethasone 4 mg/mL INJ 6 MG IVP (17:31)
[2021-01-14] MEDS: enoxaparin 40 mg/0.4 mL Syringe SUBCUT (17:31)
[2021-01-14] MEDS: cefTRIAXone 1,000 MG in sodium chloride 0.9% (plus) 50 ML 100 MG IV (17:37)
--- NOTE | 2021-01-14 19:10 | PC.NURSE ---
Report to Juan J FRANZ at this time.
[2021-01-15] VITALS (16 sets, daily range): BP systolic 119–164; BP diastolic 79–90; PULSE 78–108; RESP 16–22; TEMP 36.4–37; O2SAT 88–97
[2021-01-15 05:26] LABS: Basophils % 0.1 %; Hematocrit 31.9 % (37.0-47.0); Hemoglobin 10.2 g/dL (11.5-15.3); Lymphocytes # 0.4 10^3/uL (0.8-4.8); Lymphocytes % 5.3 %; Mean Corpuscular Hemoglobin 28.7 pg (28.0-34.0); Mean Corpuscular Volume 89.6 fL (81-99); Mean Platelet Volume 9.3 fL (7.4-10.4); Monocytes # 0.8 10^3/uL (0.2-0.9); Monocytes % 10.5 %; Neutrophils # 5.91 10^3/uL (1.8-7.7); Neutrophils % 82.7 %; Nucleated Red Blood Cells % 0 %; Platelet Count 275 10^3/cmm (130-400); Red Blood Count 3.56 10^6/uL (4.1-5.3); Red Cell Distribution Width 14.6 % (12.1-15.1); White Blood Count 7.2 10^3/uL (4.0-10.0)
[2021-01-15 06:03] LABS: NT Pro B Type Natriuretic Pept 5315 pg/mL (0-450); Procalcitonin 0.13 ng/mL (0-0.5)
[2021-01-15 06:16] LABS: Alanine Aminotransferase 9 U/L (0-33); Albumin Level 2.8 g/dL (3.5-5.2); Alkaline Phosphatase 47 IU/L (35-105); Anion Gap 16.1 (5-19); Aspartate Amino Transferase 9 U/L (0-32); Blood Urea Nitrogen 21 mg/dL (8-23); C Reactive Protein 19.3 mg/L (0.0-4.9); Calcium 8.6 mg/dL (8.5-10.5); Carbon Dioxide 22 mmol/L (22-29); Chloride 103 mmol/L (98-107); Globulin 3.3 g/dL (1.3-4.6); Glucose 151 mg/dL (65-115); Magnesium 1.4 mg/dL (1.7-2.3); Osmolality Calculated 290 mOsm/kg (285-295); Phosphorus 2.7 mg/dL (2.5-4.5); Potassium 4.1 mmol/L (3.5-5.1); Sodium 137 mmol/L (136-145); Total Bilirubin 0.3 mg/dL (0.15-1.2); Total Protein 6.1 g/dL (6.6-8.7)
[2021-01-15] MEDS: levothyroxine 25 mcg Tablet PO (06:21)
--- NOTE | 2021-01-15 07:00 | XRR_ITS ---
PROCEDURE INFORMATION: Exam: XR Chest Exam date and time: 01/15/2021 7:00 AM Age: 75 years old Clinical indication: Shortness of breath; Additional info: SOB TECHNIQUE: Imaging protocol: XR of the chest. Views: 1 view. COMPARISON: 1. CT chest wo con [id number] 01/11/2021 2:56 PM 2. CR XR chest 2V* [id number] 01/09/2021 12:44:29 PM FINDINGS: Lungs: There are bilateral worsening interstitial pulmonary infiltrates in the right lung. There are milder hazy interstitial infiltrates in the left upper lobe. These may be consistent with worsening interstitial pneumonia. This may be viral in etiology. Pleural spaces: Unremarkable. No pleural effusion. No pneumothorax. Heart/Mediastinum: Unremarkable. No cardiomegaly. Bones/joints: Unremarkable. XR/XR chest 1V portable [id number] IMPRESSION: Worsening interstitial pulmonary infiltrates especially in the right lung. This may be due to an interstitial viral pneumonia.
[2021-01-15] MEDS: albuterol 8 gm MDI 1 PUFF INHALATION ×3 (08:42→20:00)
[2021-01-15] MEDS: FUROsemide 10 mg/mL SDV 4mL 40 MG IVP ×2 (10:07→18:22)
--- NOTE | 2021-01-15 11:13 | PC.PT ---
Patient much more well rested presentation today, recommended remaining here for continued lasix to get her fluid reduced further before d/c. Patient request holding additional PT activity as she had already had to complete muliple trips to restroom , which she was doing independently with her w/w. Shanon had aquired a b/s commode for patient if it got to be too difficult to complete the mobility to the restroom. Formal PT held , however patient completing plenty of mobility.
[2021-01-15] MEDS: pantoprazole DR 40 mg Tablet PO (11:26)
[2021-01-15] MEDS: amlodipine 10 mg Tablet PO (11:28)
[2021-01-15] MEDS: azithromycin 500 MG in sodium chloride 0.9% 250 ML 250 MG IV (11:37)
[2021-01-15] MEDS: metoprolol tartrate 25 mg Tablet PO ×2 (11:49→20:33)
[2021-01-15] MEDS: zinc gluconate 50 mg Tablet PO (11:50)
[2021-01-15] MEDS: ascorbic acid 500 mg Tablet 1000 MG PO ×2 (11:50→18:22)
[2021-01-15] MEDS: cholecalciferol (vitamin D3) 1,000 unit Tablet 1000 UNIT PO (12:03)
[2021-01-15] MEDS: ondansetron 2 mg/ML SDV 2 mL 4 MG IVP (12:15)
--- NOTE | 2021-01-15 12:29 | PM.PN ---
Subjective Subjective: Interval history: This morning patient was examined, she is 1 to 2 L nasal cannula, afebrile overnight, she does complain of some shortness of breath, swelling of her legs, continues to feel fatigued, but was able to ambulate to the bathroom a few times Vitals/I&O/Wt Last Vital Signs Temp 97.5 F L 01/15/21 11:27 Pulse 79 01/15/21 11:27 Resp 18 01/15/21 11:27 BP 119/80 01/15/21 11:27 Pulse Ox 97 01/15/21 11:27 01/14/21 01/15/21 01/15/21 22:59 06:59 14:59 Intake Total 370 / 1070 120 / 120 Output Total 500 / 800 300 / 300 Balance -130 / 270 -180 / -180 Physical Exam Const: COMMON NORMALS: no acute distress and patient oriented x3 Resp: COMMON NORMALS: normal respiratory effort, No retractions and No use of accessory muscles AUSCULTATION: crackles Cardio: COMMON NORMALS: regular rate, regular rhythm, S1 normal heart sound present and S2 normal heart sound present RATE: regular rate RHYTHM: regular rhythm HEART SOUNDS: S1 normal heart sound present and S2 normal heart sound present GI: COMMON NORMALS: Normal to inspection, nondistended, normoactive bowel sounds present, Soft to palpation and non-tender PALPATION: Yes Soft to palpation Extremity: NARRATIVE EXTREMITY EXAM: 1+ edema Neuro: COMMON NORMALS: patient oriented x3 Psych: COMMON NORMALS: mental status grossly normal Data : 01/15/21 04:40 01/15/21 04:40 A&P Assessment and plan (1) Pneumonia: -Currently on 1-2L, no evidence of respiratory distress, has crackles on exam, evidence of fluid overload -CT of the chest 1. Patchy ground glass infiltrates within the right greater than left lower lobes with partial airspace consolidation 2. Additional patchy groundglass infiltrates along the right hilum and right fissure. 3. Additional hazy groundglass infiltrates in the subpleural upper lobes bilaterally. 4. Above findings suspicious for COVID 19 pneumonia. 5. A few reactive mediastinal lymph nodes. Plan: -Admit to general medical floors -Rocephin, azithromycin -Has a history of smoking, hold Decadron -Sputum cultures, blood cultures, urine cultures -Monitor respiratory status, oxygen therapy, albuterol, Advair -Vitamin C, zinc, vitamin D - creatinine down to 1.0, will give 2 doses of Lasix -Cardiac echocardiogram shows an EF of 55 to 60%, normal diastolic function - full code -Lovenox for DVT prophylaxis Plan for today monitor respiratory status, dose Lasix, likely discharge the next 24 hours Status: Acute (2) Acute kidney injury: Status: Acute (3) Hyponatremia: Status: Acute (4) Hyperkalemia: Status: Acute Attestations Medical Necessity Statement*: Patient requires hospitalization due to pneumonia, fluid overload Coding Level of Care Code Acute 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
[2021-01-15] MEDS: magnesium sulfate premix 2 GM/50 ML PIGGYBACK IV (13:31)
[2021-01-15] MEDS: potassium chloride ER 20 mEq Tablet PO (18:22)
[2021-01-15] MEDS: cefTRIAXone 1,000 MG in sodium chloride 0.9% (plus) 50 ML 100 MG IV (18:22)
[2021-01-15] MEDS: enoxaparin 40 mg/0.4 mL Syringe SUBCUT (18:22)
[2021-01-15] MEDS: acetaminophen 325 mg Tablet 650 MG PO (20:32)
[2021-01-15] MEDS: benzonatate 100 mg Capsule 200 MG PO (20:33)
[2021-01-16] VITALS (12 sets, daily range): BP systolic 106–145; BP diastolic 69–83; PULSE 86–110; RESP 15–20; TEMP 36.6–37.3; O2SAT 90–94
[2021-01-16] MEDS: levothyroxine 25 mcg Tablet PO (06:31)
[2021-01-16 07:06] LABS: Basophils % 0.1 %; Eosinophils % 0.2 %; Hematocrit 36.6 % (37.0-47.0); Hemoglobin 11.8 g/dL (11.5-15.3); Lymphocytes # 0.6 10^3/uL (0.8-4.8); Lymphocytes % 5.6 %; Mean Corpuscular HGB Conc 32.2 g/dL (30.0-36.0); Mean Corpuscular Hemoglobin 28.8 pg (28.0-34.0); Mean Corpuscular Volume 89.3 fL (81-99); Monocytes % 9.5 %; Neutrophils # 8.71 10^3/uL (1.8-7.7); Neutrophils % 81.5 %; Nucleated Red Blood Cells % 0 %; Platelet Count 321 10^3/cmm (130-400); Red Cell Distribution Width 14.5 % (12.1-15.1); White Blood Count 10.7 10^3/uL (4.0-10.0)
[2021-01-16 07:31] LABS: NT Pro B Type Natriuretic Pept 1769 pg/mL (0-450); Procalcitonin 0.11 ng/mL (0-0.5)
[2021-01-16 07:42] LABS: Alanine Aminotransferase 8 U/L (0-33); Albumin Level 3.1 g/dL (3.5-5.2); Alkaline Phosphatase 45 IU/L (35-105); Anion Gap 16.8 (5-19); Aspartate Amino Transferase 10 U/L (0-32); Blood Urea Nitrogen 20 mg/dL (8-23); C Reactive Protein 19.8 mg/L (0.0-4.9); Calcium 8.5 mg/dL (8.5-10.5); Carbon Dioxide 27 mmol/L (22-29); Chloride 97 mmol/L (98-107); Globulin 3.4 g/dL (1.3-4.6); Glucose 96 mg/dL (65-115); Magnesium 1.8 mg/dL (1.7-2.3); Osmolality Calculated 286 mOsm/kg (285-295); Phosphorus 2.7 mg/dL (2.5-4.5); Potassium 3.8 mmol/L (3.5-5.1); Sodium 137 mmol/L (136-145); Total Bilirubin 0.3 mg/dL (0.15-1.2); Total Protein 6.5 g/dL (6.6-8.7)
[2021-01-16] MEDS: albuterol 8 gm MDI 1 PUFF INHALATION ×2 (08:15→20:01)
[2021-01-16] MEDS: ascorbic acid 500 mg Tablet 1000 MG PO ×2 (09:13→18:24)
[2021-01-16] MEDS: pantoprazole DR 40 mg Tablet PO (09:14)
[2021-01-16] MEDS: cholecalciferol (vitamin D3) 1,000 unit Tablet 1000 UNIT PO (09:14)
[2021-01-16] MEDS: metoprolol tartrate 25 mg Tablet PO ×2 (09:14→20:15)
[2021-01-16] MEDS: amlodipine 10 mg Tablet PO (09:14)
[2021-01-16] MEDS: zinc gluconate 50 mg Tablet PO (09:14)
[2021-01-16] MEDS: azithromycin 500 MG in sodium chloride 0.9% 250 ML 250 MG IV (09:15)
--- NOTE | 2021-01-16 09:32 | CTR_ITS ---
PROCEDURE INFORMATION: Exam: CTA Chest With Contrast Exam date and time: 01/16/2021 9:32 AM Age: 75 years old Clinical indication: Dyspnea and shortness of breath; Additional info: SOB TECHNIQUE: Imaging protocol: Computed tomographic angiography of the chest with contrast. 3D rendering (Not supervised by radiologist): MIP and/or 3D reconstructed images were created by the technologist. Radiation optimization: All CT scans at this facility use at least one of these dose optimization techniques: automated exposure control; mA and/or kV adjustment per patient size (includes targeted exams where dose is matched to clinical indication); or iterative reconstruction. Contrast material: VISI 320; Contrast volume: 95 ml; Contrast route: INTRAVENOUS (IV); COMPARISON: CT chest [facility] [id number] 01/11/2021 2:56 PM RADIATION DOSE METRICS: Total DLP (mGy-cm): 551.67 FINDINGS: Pulmonary arteries: Normal. No pulmonary emboli. Aorta: Unremarkable. No aortic aneurysm. No aortic dissection. Lungs: Patulous peripheral ground-glass opacities within both lungs, right greater than left, which is increased from the recent comparison study 01/11/2021. Calcified granuloma noted in the left upper lobe. Pleural spaces: Unremarkable. No pneumothorax. No pleural effusion. Heart: Unremarkable. No cardiomegaly. No pericardial effusion. Lymph nodes: Mildly prominent mediastinal and right hilar lymph nodes again noted which are not significantly changed from previous examination and are likely reactive. Liver: Simple appearing cyst measuring 2.2 cm in the left hepatic lobe. Spleen: Numerous punctate calcifications within the spleen suggestive of prior granulomatous disease. Bones/joints: Severe chronic appearing compression deformity of T12, similar to previous exam. Soft tissues: Unremarkable. CT/CT angio chest PE protcl [id number] IMPRESSION: 1. Negative for pulmonary embolism. 2. Increasing patulous ground-glass opacities within both lungs from 01/11/2021 study. Imaging appearance is nonspecific but resembles a viral pneumonitis including but not limited to COVID-19 infection. Radiation Dose CTDIVOL = (mGy): DLP = 551.67 (mGy-cm)
[2021-01-16] MEDS: FUROsemide 10 mg/mL SDV 4mL 40 MG IVP ×2 (11:12→18:00)
[2021-01-16] MEDS: ondansetron 2 mg/ML SDV 2 mL 4 MG IVP (12:19)
[2021-01-16] MEDS: vancomycin 1,000 MG in sodium chloride 0.9% 250 ML 250 MG IV (12:54)
--- NOTE | 2021-01-16 13:25 | PM.PN ---
Subjective Subjective: Interval history: This morning, patient looks a bit short of breath, mild retractions, she does complain of some shortness of breath with exertion, she feels tired, proximal records have increased to 3 L, remains afebrile overnight, continues to have productive cough, appetite is improving somewhat, Vitals/I&O/Wt Last Vital Signs Temp 98.0 F 01/16/21 11:52 Pulse 108 H 01/16/21 11:52 Resp 19 H 01/16/21 11:52 BP 106/69 01/16/21 11:52 Pulse Ox 90 01/16/21 11:52 01/15/21 01/16/21 01/16/21 22:59 06:59 14:59 Intake Total 290 / 710 200 / 910 830 / 830 Output Total 400 / 1050 Balance 290 / 60 -200 / -140 830 / 830 Physical Exam Const: COMMON NORMALS: patient oriented x3 GENERAL APPEARANCE: ill appearing and frail appearing ORIENTATION/CONSCIOUSNESS: Yes awake, Yes oriented to person, Yes oriented to place and Yes oriented to time Resp: COMMON NORMALS: normal respiratory effort EFFORT & INSPECTION: Yes uses accessory muscles (Slight accessory muscle use, suprasternal retractions, internal retractions) AUSCULTATION: crackles and wheezes Cardio: COMMON NORMALS: regular rate, regular rhythm, S1 normal heart sound present and S2 normal heart sound present RATE: regular rate RHYTHM: regular rhythm HEART SOUNDS: S1 normal heart sound present and S2 normal heart sound present GI: COMMON NORMALS: Normal to inspection, nondistended, normoactive bowel sounds present, Soft to palpation and non-tender PALPATION: Yes Soft to palpation Extremity: COMMON NORMALS: no pedal edema Neuro: COMMON NORMALS: patient oriented x3 SENSORIUM/ORIENTATION: Yes oriented to person, Yes oriented to place and Yes oriented to time Data : 01/16/21 06:54 01/16/21 06:54 Micro: Microbiology 01/16/21 11:21 Blood Culture - Preliminary Blood SPECIMEN COLLECTED 01/16/21 11:10 Blood Culture - Preliminary Blood SPECIMEN COLLECTED A&P Assessment and plan (1) Pneumonia: -Currently on 3 L, has complaints of shortness of breath, has slight suprasternal retractions, internal retractions, nasal flaring, has crackles on exam, chest x-ray shows worsening pulmonary infiltrates especially right lung -CT of the chest 1. Patchy ground glass infiltrates within the right greater than left lower lobes with partial airspace consolidation 2. Additional patchy groundglass infiltrates along the right hilum and right fissure. 3. Additional hazy groundglass infiltrates in the subpleural upper lobes bilaterally. 4. Above findings suspicious for COVID 19 pneumonia. 5. A few reactive mediastinal lymph nodes. -Rapid Covid negative, first Covid PCR negative Plan: -Admit to general medical floors -Continue oxygen therapy, monitor respiratory status closely -As she has increased infiltrates on the right lung, possible aspiration, start aspiration precautions, dysphagia diet, consult speech therapy -Broaden antibiotic coverage to vancomycin and Zosyn, and azithromycin -Repeat blood cultures, sputum cultures -Continue to hold Decadron -Repeat COVID-19 PCR, start COVID-19 isolation -CT angiogram of the chest to evaluate for possible pulmonary emboli -Monitor respiratory status, oxygen therapy, albuterol, Advair -Vitamin C, zinc, vitamin D - is +3 L, BNP 1769, creatinine down to 1.0, will give 40 mg twice daily for today -Cardiac echocardiogram shows an EF of 55 to 60%, normal diastolic function - full code -Lovenox for DVT prophylaxis Plan for today monitor respiratory status, dose Lasix, broaden antibiotic coverage, repeat Covid testing, repeat blood cultures, sputum culture, CT angiogram of the chest Status: Acute (2) Acute kidney injury: Status: Acute (3) Hyponatremia: Status: Acute (4) Hyperkalemia: Status: Acute Attestations Medical Necessity Statement*: Patient requires hospitalization for pneumonia, worsening respiratory status, Coding Level of Care Code Acute 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
--- NOTE | 2021-01-16 13:30 | PC.SOCIAL ---
IMM UPDATE IMM updated with patient. Left copy at bedside. Verbalized understanding. Initialed, dated, timed and placed in chart.
--- NOTE | 2021-01-16 15:07 | ECG_ITS ---
[facility] ED Test Date: 2021-01-16 Pat Name: Hamida Saha Department: Room: 262 Gender: Female Drug Safety Specialist: : 1945 Requested By: Dar Dutta Order Number: [id number] Jeffy MD: Tiffanie Leija M.D. Measurements Intervals [place] Rate: 111 P: 35 [place]: 124 QRS: -26 QRSD: 95 T: 102 QT: 356 QTc: 484 Interpretive Statements SINUS TACHYCARDIA POSSIBLE LEFT ATRIAL ENLARGEMENT [-0.1mV P WAVE IN V1/V2] BORDERLINE LEFT AXIS DEVIATION [QRS AXIS < -20] ST DEVIATION AND MODERATE T-WAVE ABNORMALITY, CONSIDER LATERAL ISCHEMIA [-0.1+ mV T WAVE IN I/aVL/V5/V6] Compared to ECG 01/11/2021 21:32:37 T-wave abnormality now present Possible ischemia now present Sinus rhythm no longer present Electronically Signed On 01-20-2021 6:19:27 CDT by Tiffanie Leija M.D. [id number]
[2021-01-16] MEDS: iodixanol 320 mg/mL 100mL Btl IV (15:31)
--- NOTE | 2021-01-16 15:37 | PC.OT ---
OT attempted at 1500. Pt is off the floor to CT. Will attempt again later if possible.
[2021-01-16 16:41] LABS: Troponin(5th) Baseline 25 ng/L (0-10)
--- NOTE | 2021-01-16 17:07 | ECG_ITS ---
[facility] Test Date: 2021-01-16 Pat Name: Hamida Saha Department: Room: 262 Gender: Female Insolvency Consultant: : 1945 Requested By: Dar Dutta Order Number: [id number] Reading MD: KAREN GARRETT Measurements Intervals [place] Rate: 111 P: 26 [place]: 126 QRS: -18 QRSD: 101 T: 55 QT: 371 QTc: 506 Interpretive Statements SINUS TACHYCARDIA WITH FREQUENT SUPRAVENTRICULAR PREMATURE COMPLEXES POSSIBLE LEFT ATRIAL ENLARGEMENT [-0.1mV P WAVE IN V1/V2] NONSPECIFIC ST & T-WAVE ABNORMALITY ABNORMAL RHYTHM ECG Compared to ECG 01/16/2021 15:29:51 Possible ischemia no longer present T-wave abnormality still present Electronically Signed On 01-16-2021 18:51:17 CDT by KAREN GARRETT [id number]
[2021-01-16] MEDS: potassium chloride ER 20 mEq Tablet 40 MEQ PO (18:25)
[2021-01-16] MEDS: enoxaparin 40 mg/0.4 mL Syringe SUBCUT (18:25)
[2021-01-16 18:41] LABS: Troponin 5 2HR 26.93 ng/L (0-10); Troponin 5 2HR Delta 1.93 ABS# (0-10)
--- NOTE | 2021-01-16 21:07 | ECG_ITS ---
[facility] ED Test Date: 2021-01-16 Pat Name: Hamida Saha Department: Room: 262 Gender: Female Silver Cleaner: : 1945 Requested By: Dar Dutta Order Number: [id number] Jeffy MD: Tiffanie Leija M.D. Measurements Intervals [place] Rate: 121 P: 38 [place]: 177 QRS: -25 QRSD: 100 T: 76 QT: 404 QTc: 574 Interpretive Statements SINUS TACHYCARDIA WITH OCCASIONAL SUPRAVENTRICULAR PREMATURE COMPLEXES BORDERLINE LEFT AXIS DEVIATION [QRS AXIS < -20] MINIMAL VOLTAGE CRITERIA FOR LVH, CONSIDER NORMAL VARIANT ST DEVIATION AND MODERATE T-WAVE ABNORMALITY, CONSIDER LATERAL ISCHEMIA Compared to ECG 01/16/2021 17:45:40 Possible ischemia now present T-wave abnormality still present Electronically Signed On 01-20-2021 6:41:29 CDT by Tiffanie Leija M.D. [id number]
[2021-01-16 22:45] LABS: Troponin 5 6HR 28.07 ng/L (0-10); Troponin 5 6HR Delta 3.07 ng/L (0-12)
[2021-01-16] MEDS: acetaminophen 325 mg Tablet 650 MG PO (23:46)
[2021-01-17] VITALS (24 sets, daily range): BP systolic 103–145; BP diastolic 61–92; PULSE 87–130; RESP 15–22; TEMP 36.5–37.3; O2SAT 79–96
[2021-01-17] MEDS: levothyroxine 25 mcg Tablet PO (05:27)
[2021-01-17 07:00] LABS: Basophils % 0.1 %; Eosinophils # 0.1 10^3/uL (0.0-0.8); Eosinophils % 1.9 %; Hematocrit 34.8 % (37.0-47.0); Lymphocytes # 0.7 10^3/uL (0.8-4.8); Lymphocytes % 9.2 %; Mean Corpuscular HGB Conc 31.6 g/dL (30.0-36.0); Mean Corpuscular Hemoglobin 28.5 pg (28.0-34.0); Mean Corpuscular Volume 90.2 fL (81-99); Mean Platelet Volume 9.7 fL (7.4-10.4); Monocytes # 1.1 10^3/uL (0.2-0.9); Neutrophils # 5.27 10^3/uL (1.8-7.7); Nucleated Red Blood Cells % 0 %; Platelet Count 301 10^3/cmm (130-400); Red Blood Count 3.86 10^6/uL (4.1-5.3); Red Cell Distribution Width 14.4 % (12.1-15.1); White Blood Count 7.5 10^3/uL (4.0-10.0)
[2021-01-17 07:20] LABS: Alanine Aminotransferase 7 U/L (0-33); Alkaline Phosphatase 39 IU/L (35-105); Anion Gap 16.5 (5-19); Aspartate Amino Transferase 10 U/L (0-32); Blood Urea Nitrogen 23 mg/dL (8-23); C Reactive Protein 55.3 mg/L (0.0-4.9); Calcium 8.2 mg/dL (8.5-10.5); Carbon Dioxide 27 mmol/L (22-29); Chloride 100 mmol/L (98-107); Globulin 3.4 g/dL (1.3-4.6); Glucose 116 mg/dL (65-115); Magnesium 1.6 mg/dL (1.7-2.3); Osmolality Calculated 295 mOsm/kg (285-295); Phosphorus 3.5 mg/dL (2.5-4.5); Potassium 3.5 mmol/L (3.5-5.1); Sodium 140 mmol/L (136-145); Total Bilirubin 0.3 mg/dL (0.15-1.2); Total Protein 6.4 g/dL (6.6-8.7)
[2021-01-17 07:27] LABS: NT Pro B Type Natriuretic Pept 1328 pg/mL (0-450); Procalcitonin 0.25 ng/mL (0-0.5)
[2021-01-17] MEDS: metoprolol tartrate 25 mg Tablet PO ×2 (08:35→21:34)
[2021-01-17 08:41] LABS: ABG PCO2 37.5 mmHg (35-45); ABG PH Result 7.48 (7.35-7.45); Alveolar-Arterial Oxygen Gradi 3.5 mmHg (5-10); Arterial Blood Gas Hematocrit 36.6 % (37-47); Base Excess ABG 3.8 mmol/L (-2.0-2.0); Blood Gas Allen Test Pos; Blood Gas Operator Identificat MONRO; Blood Gas Sample Site Brachial, right; Blood Gas Sample Type Arterial; Carboxyhemoglobin 0.6 %THgb (0.4-20.1); HCO3 ABG 27.5 mmol/L (22-26); HGB O2 Sat 94.3 % (95-100); Ionized Calcium Level - ABG 1.1 mmol/L (1.1-1.4); Methemoglobin 0.8 % (0.4-1.5); Oxygen Device NRB; Oxygen Saturation ABG 95.7; PO2 ABG 76.1 mmHg (80.0-100.0); Potassium Level - ABG 3.3 mmol/L (3.5-5.0); Total Hemoglobin 11.9 g/dL (12-16)
[2021-01-17] MEDS: FUROsemide 10 mg/mL SDV 4mL 40 MG IVP (08:41)
[2021-01-17] MEDS: pantoprazole DR 40 mg Tablet PO (08:47)
[2021-01-17] MEDS: zinc gluconate 50 mg Tablet PO (08:47)
[2021-01-17] MEDS: cholecalciferol (vitamin D3) 1,000 unit Tablet 1000 UNIT PO (08:47)
[2021-01-17] MEDS: ascorbic acid 500 mg Tablet 1000 MG PO ×2 (08:47→17:33)
[2021-01-17] MEDS: azithromycin 500 MG in sodium chloride 0.9% 250 ML 250 MG IV (10:35)
--- NOTE | 2021-01-17 11:30 | ECG_ITS ---
[facility] ED Test Date: 2021-01-17 Pat Name: Hamida Saha Department: Room: 262 Gender: Female Net Mender: : 1945 Requested By: Dar Dutta Order Number: [id number] Bardales MD: Tiffanie Leija M.D. Measurements Intervals [place] Rate: 131 P: 29 [place]: 175 QRS: -9 QRSD: 92 T: 107 QT: 360 QTc: 532 Interpretive Statements SINUS TACHYCARDIA WITH OCCASIONAL SUPRAVENTRICULAR PREMATURE COMPLEXES LEFT VENTRICULAR HYPERTROPHY AND ST-T CHANGE [VOLTAGE CRITERIA PLUS ST/T ABNORMALITY] Compared to ECG 01/16/2021 20:09:54 ST (T wave) deviation now present T-wave abnormality no longer present Possible ischemia no longer present Electronically Signed On 01-20-2021 6:19:16 CDT by Tiffanie Leija M.D. [id number]
[2021-01-17] MEDS: diphenhydrAMINE 50 mg/mL SDV 1mL 25 MG IVP ×2 (12:20→19:15)
[2021-01-17] MEDS: vancomycin 1,000 MG in sodium chloride 0.9% 250 ML 250 MG IV (12:26)
--- NOTE | 2021-01-17 12:55 | P.PN_ITS ---
Subjective Subjective: Interval history: Early this morning, patient was sitting up in a chair, when her oxygen saturations dropped into the low 70s, was put on 7 L nonrebreather, but saturations were still in the low 80s, rapid response was called, I was able to see the patient, she was denied any shortness of breath, alert oriented x3, following all commands, some crackles on examination, kym erating nonrebreather well, her saturations were in the low 90s, no fevers overnight, still having a cough, still reporting fatigue, malaise, no diarrhea, still having some shortness of breath with exertion, she did have a diffuse macular rash over her back, none on her chest, and on her arms, and on her face, no swelling of her face, no swelling over throat, Vitals/I&O/Wt Last Vital Signs Temp 97.7 F 01/17/21 11:48 Pulse 98 01/17/21 11:59 Resp 20 H 01/17/21 11:59 BP 103/61 01/17/21 11:48 Pulse Ox 94 01/17/21 11:59 01/16/21 01/17/21 01/17/21 22:59 06:59 14:59 Intake Total 340 / 1420 250 / 1670 490 / 490 Output Total 600 / 1700 Balance -260 / -280 250 / -30 490 / 490 Physical Exam Const: COMMON NORMALS: no acute distress and patient oriented x3 GENERAL APPEARANCE: ill appearing and frail appearing Resp: COMMON NORMALS: normal respiratory effort, No retractions and No use of accessory muscles AUSCULTATION: crackles Cardio: COMMON NORMALS: regular rate, regular rhythm, S1 normal heart sound present and S2 normal heart sound present RATE: regular rate RHYTHM: regular rhythm HEART SOUNDS: S1 normal heart sound present and S2 normal heart sound present GI: COMMON NORMALS: Normal to inspection, nondistended, normoactive bowel sounds present, Soft to palpation and non-tender PALPATION: Yes Soft to palpation Extremity: COMMON NORMALS: no pedal edema Neuro: COMMON NORMALS: patient oriented x3 Psych: COMMON NORMALS: mental status grossly normal Skin: NARRATIVE SKIN EXAM: Diffuse macular rash, slightly raised, irregular, over back, sacrum, Data : 01/17/21 06:30 01/17/21 06:30 Micro: Microbiology 01/16/21 11:10 Blood Culture - Preliminary Blood NEGATIVE TO DATE 01/16/21 11:21 Blood Culture - Preliminary Blood NEGATIVE TO DATE 01/11/21 19:07 Blood Culture - Final Blood NO GROWTH AFTER 5 DAYS 01/11/21 13:38 Blood Culture - Final Blood NO GROWTH AFTER 5 DAYS A&P Assessment and plan (1) Pneumonia: -Currently on heated high flow, 30 L, has complaints of shortness of breath, no evidence of respiratory distress this morning, has crackles on exam -CT of the chest 1. Patchy ground glass infiltrates within the right greater than left lower lobes with partial airspace consolidation 2. Additional patchy groundglass infiltrates along the right hilum and right fissure. 3. Additional hazy groundglass infiltrates in the subpleural upper lobes bilaterally. 4. Above findings suspicious for COVID 19 pneumonia. 5. A few reactive mediastinal lymph nodes. -Rapid Covid negative, first Covid PCR negative -CT angiogram of the chest does not show pulmonary embolism, Increasing patulous ground-glass opacities within both lungs from 01/11/2021 study. Imaging ap pearance is nonspecific but resembles a viral pneumonitis including but not limited to COVID-19 infection. Plan: -We will moved to ICU for closer monitoring -Continue Covid 19 isolation, until second Covid PCR comes back hopefully later on tonight -Continue oxygen therapy, monitor respiratory status closely -As she has increased infiltrates on the right lung, possible aspiration, start aspiration precautions, dysphagia diet, consult speech therapy -Broaden antibiotic coverage to Zosyn, Levaquin -Repeat blood cultures, sputum cultures, MRSA PCR, viral respiratory panel -Continue Decadron 6 mg IV push daily -Monitor respiratory status, oxygen therapy, albuterol, Advair -Vitamin C, zinc, vitamin D - is +3 L, BNP 1328, creatinine 1.1, will give another 40 mg of IV Lasix today -Cardiac echocardiogram shows an EF of 55 to 60%, normal diastolic function -Consult pulmonary service - full code -Lovenox for DVT prophylaxis Plan for today monitor respiratory status, dose Lasix, broaden antibiotic coverage, repeat Covid testing pending, moved to ICU Status: Acute (2) Acute kidney injury: Status: Acute (3) Hyponatremia: Status: Acute (4) Hyperkalemia: Status: Acute Additional A&P Information TSH, 6.8, start 25 mcg of levothyroxine Diffuse macular rash over the back, possible contact rashes only over the back, will give 125 mg of Solu-Medrol with Benadryl, continue to monitor Attestations Medical Necessity Statement*: Patient requires hospitalization for acute respiratory failure secondary to pneumonia, possible COVID-19 Coding Level of Care Code Acute Info Specialist for [employer] [facility] Diagnoses Pneumonia J18.9 Acute kidney injury N17.9 Hyponatremia E87.1 Hyperkalemia E87.5
[2021-01-17] MEDS: levofloxacin-dextrose 5 % 750 MG/150 ML PREMIX 100 MG IV (14:19)
[2021-01-17 15:53] LABS: Coronavirus Test Green County Not Detected
--- NOTE | 2021-01-17 17:14 | PC.OT ---
Rapid response called on pt this morning and she has been transferred to ICU for monitoring. OT services held at this time due to decline in status. OTR to reassess pts status/OT goals to determine continuation of services.
--- NOTE | 2021-01-17 17:33 | P.CONIM_ITS ---
Providers/Reason For Consult Consulting Physician/Specialty*: Pulmonary critical care medicine Reason for Consult*: Bilateral multilobar pneumonia with acute hypoxic respiratory failure. Attending Physician: Dar Dutta MD Primary Care Provider: Clayton Umana DO History of Present Illness History of Present Illness Hamida Saha is a 75 year old female who presented to the hospital on January 11 with cough, shortness of breath, fatigue, malaise and diarrhea. According to the patient, she had been suffering from cough and fatigue for more than 6 weeks. The patient went to see her primary care doctor approximately 3 days prior to presenting to the hospital. The chest x-ray obtained on January 09 revealed questionable right lower lung zone infiltrate. In addition, she was found to have bilateral hyperinflation and flattened diaphragm likely consistent with emphysema. The patient was given levofloxacin and prednisone. However, her respiratory status worsened prompting her hospital admission on January 11. The patient has a past history of smoking. She smoked for about 40 years and quit in . The patient does not give any history of respiratory difficulty from before. She does not carry a diagnosis of COPD and I could not find any previous pulmonary function test. CT scan of the chest on January 11 revealed patchy groundglass opacities in bilateral upper lobes. In addition there was an area of consolidation in the posterior segment of the right upper lobe abutting on the fissure. There was also right lower lobe infiltrates. The patient was tested for COVID-19 several times that have all returned negative. She was treated with antibiotics and diuresis with some improvement of her respiratory status. She received ceftriaxone and azithromycin. The patient was on 1 to 2 L of oxygen but over the past 24 to 36 hours her oxygen requirement has increased significantly. Currently the patient is on 50% oxygen with 35 L flow on high flow nasal cannula. Her procalcitonin level had been negative. CT scan of the chest obtained on January 16 revealed significant progression of bilateral infiltrate. The patient primarily has right lung infiltrate. The areas of consolidation has resolved. The patient primarily has groundglass opacities. There is also some involvement of the left lung. There is no evidence of pulmonary embolism. When the patient first came in, she had elevated creatinine. Urinalysis revealed 2+ hemoglobin. No dysmorphic RBCs or reported. Since then, the hemoglobin has improved to 1.1. A renal ultrasound was normal. [place] work-up revealed resolution of mild neutrophilia. Elevated BNP which has come down with diuresis. The patient has a history of coronary artery disease. She suffered from myocardial infarction in 2007. The patient could not verify whether she had heart failure. However, according to the patient, she was told that her heart function was never going to get better but it did. The patient was seen and examined in the ICU today. She was resting in bed. She was tachypneic. She was not in acute distress. The patient reported some improvement in her overall condition since she presented to the hospital. I have performed a bedside ultrasound. The patient has bilateral B-lines. There is no pleural effusion. The IVC was less than 1.5 cm. The cardiac contractility was good. No significant valvular disease. There was no evidence of elevated E/E prime Review of Systems Narrative: Unable to obtain detailed review of system because of clinical condition. She however denied any chest pain, sputum production, hemoptysis, wheezing. Meds/Allergies Home Medications and Allergies Home Medications Medication Instructions Recorded Confirmed Last Taken Type amitriptyline 25 mg PO DAILY 01/11/21 01/11/21 01/10/21 History fluoxetine 40 mg PO DAILY 01/11/21 01/11/21 01/11/21 History levofloxacin 500 mg PO DAILY 01/11/21 01/11/21 01/11/21 History lisinopril 10 mg PO BID 01/11/21 01/11/21 01/11/21 History metoprolol tartrate 25 mg PO BID 01/11/21 01/11/21 01/11/21 History naproxen 500 mg PO BID 01/11/21 01/11/21 01/10/21 History omeprazole 20 mg PO DAILY 01/11/21 01/11/21 01/11/21 History prednisone 40 mg PO DAILY 01/11/21 01/11/21 01/11/21 History tizanidine See Rx Instructions .ROUTE .COMPLEX 01/11/21 01/11/21 01/10/21 History Allergies Allergy/AdvReac Type Severity Reaction Status Date / Time codeine Allergy Intermediate ALGY-Joint Verified 01/11/21 15:09 Pain Penicillins Allergy Intermediate ALGY-Rash Verified 01/11/21 15:09 propoxyphene [From Darvon] Allergy Intermediate Unknown Verified 01/11/21 15:09 Current Medications Current Medications Generic Name Dose Route Start Last Admin Trade Name Freq PRN Reason Stop Dose Admin Acetaminophen 650 mg 01/11/21 18:14 01/16/21 23:46 Acetaminophen 325 Mg Tablet PO 650 mg Q6H PRN Administration Mild/Mod Pain Or Temp >/= 101 Albuterol Sulfate 1 puff 01/11/21 18:14 01/16/21 20:01 Albuterol 8 Gm Mdi INHALATION 1 puff Q4H.RESPIRATORY PRN Administration sob Amlodipine Besylate 10 mg 01/12/21 09:00 01/17/21 08:48 Amlodipine 10 Mg Tablet PO Not Given DAILY OSVALDO Ascorbic Acid 1,000 mg 01/15/21 10:00 01/17/21 08:47 Ascorbic Acid 500 Mg Tablet PO 1,000 mg BID OSVALDO Administration Benzonatate 200 mg 01/11/21 18:14 01/15/21 20:33 Benzonatate 100 Mg Capsule PO 200 mg TID PRN Administration COUGH Diphenhydramine HCl 25 mg 01/17/21 11:45 01/17/21 12:20 Diphenhydramine 50 Mg/Ml Sdv 1ml IVP 25 mg Q6H PRN Administration ITCHING Enoxaparin Sodium 40 mg 01/14/21 17:00 01/16/21 18:25 Enoxaparin 40 Mg/0.4 Ml Syringe SUBCUT 40 mg Q24H OSVALDO Administration Imipenem/Cilastatin Sodium 500 100 mls @ 200 mls/hr 01/16/21 11:30 01/17/21 12:51 mg/ Sodium Chloride IV Infused Q8H OSVALDO Infusion Protocol Levofloxacin/Dextrose 750 mg in 150 mls @ 100 mls/hr 01/17/21 13:00 01/17/21 15:49 Levaquin-D5w IV Infused Q24H OSVALDO Infusion Protocol Levothyroxine Sodium 25 mcg 01/13/21 10:00 01/17/21 05:27 Levothyroxine 25 Mcg Tablet PO 25 mcg QAM OSVALDO Administration Metoprolol Tartrate 25 mg 01/15/21 11:30 01/17/21 08:35 Metoprolol Tartrate 25 Mg Tablet PO 25 mg BID@0900,2100 OSVALDO Administration Ondansetron HCl 4 mg 01/11/21 18:14 01/16/21 12:19 Ondansetron 2 Mg/Ml Sdv 2 Ml IVP 4 mg Q8H PRN Administration vomiting, or N/V if npo Pantoprazole Sodium 40 mg 01/12/21 09:00 01/17/21 08:[address] 40 Mg Tablet PO 40 mg DAILY OSVALDO Administration Fluticasone/Salmeterol 1 puff 01/11/21 20:00 01/17/21 08:54 Fluticasone-Salmeterol 250-50 Diskus INHALATION Not Given BID.RESPIRATORY OSVALDO Vitamin D 1,000 unit 01/12/21 09:00 01/17/21 08:47 Cholecalciferol (Vitamin D3) 1,000 Unit Tablet PO 1,000 unit DAILY OSVALDO Administration Zinc Gluconate 50 mg 01/15/21 11:30 01/17/21 08:47 Zinc Gluconate 50 Mg Tablet PO 50 mg DAILY OSVALDO Administration PFSH Acute PFSH: Medical History CAD (coronary artery disease) Depression with anxiety Hypertension Surgical History History of cholecystectomy History of total hysterectomy Family History Mother CAD (coronary artery disease) Diabetes Hypertension Alzheimer's dementia Father CAD (coronary artery disease) Diabetes Hypertension Dementia Social History Smoking and tobacco status: former smoker Alcohol intake: never Substance/Drug Use: never Vitals/I&O/Wt Last Vital Signs Temp 98.3 F 01/17/21 15:00 Pulse 99 01/17/21 17:00 Resp 19 H 01/17/21 17:00 BP 104/70 01/17/21 17:00 Pulse Ox 96 01/17/21 16:31 01/17/21 01/17/21 01/17/21 06:59 14:59 22:59 Intake Total 250 / 1670 1080 / 1080 150 / 1230 Output Total 500 / 500 Balance 250 / -30 580 / 580 150 / 730 Physical Exam Narrative: EXAM NARRATIVE: General: Patient is awake alert and oriented, in no significant distress Neck: No JVD Respiratory: Auscultation: Reduced breath sound bilaterally, no crackles or wheezing, occasional rhonchi Cardiovascular: Regular rate and rhythm, S1-S2 present, no murmur, no peripheral edema. Abdomen: Soft, nontender, nondistended, positive bowel sound Musculoskeletal: No obvious joint deformity Skin: No rash, no evidence of erythema nodosum or multiforme. Neuro: Mental status is normal, no gross cranial nerve deficit, normal motor and coordination. Data Micro: Micro: Microbiology 01/17/21 10:57 C.difficile Toxin B Gene (PCR) - Fin al Stool Routine Col lection 01/16/21 12:32 MRSA Culture - Fin al Nose 01/16/21 11:10 Blood Culture - Pr eliminary Blood NEGATIVE TO CHAUNCEY E 01/16/21 11:21 Blood Culture - Pr eliminary Blood NEGATIVE TO CHAUNCEY E 01/11/21 19:07 Blood Culture - Fi nal Blood NO GROWTH AFTER 5 DAYS 01/11/21 13:38 Blood Culture - Fi nal Blood NO GROWTH AFTER 5 DAYS Other Data: Attestation for Other Data: I personally reviewed and interpreted the following: Other data: I have reviewed the patient's laboratory, microbiologic and radiologic data. Please see the HPI for detail A&P Assessment and plan (1) Pneumonia: Status: Acute (2) Acute respiratory failure with hypoxia: This is a 75-year-old lady who has presented leading to acute hypoxic respiratory failure. There are several concerning parts in this patient's presentation. It appears that her symptoms have been ongoing for a few weeks prior to her presenting to the hospital. Moreover, although she had been treated for community-acquired pneumonia with appropriate antibiotics, there had been radiologic progression of disease as well as clinical worsening of the patient's status. The patient was requiring only 1 to 2 L of oxygen on admission, currently she is requiring 50% oxygen on high flow nasal cannula. The chest infiltrate has worsened significantly on the repeat imaging. The concerns are whether the patient is not getting treated with appropriate antibiotics or if the patient has a pathogen for which the appropriate antimicrobial has not been introduced. Moreover, a noninfectious inflammatory condition could also be responsible. I did have concerns for pulmonary renal syndrome however her creatinine is improving. There had also been no documentation of dysmorphic RBC. The patient had a normal CPK level on admission. This is unusual as she had 2+ blood on urine analysis without significant RBCs. She had been tested negative for Covid multiple times. Her nasal MRSA PCR is negative. Her anti-MRSA coverage has been discontinued. The patient is currently on Primaxin. She had been on steroid for more than a week. I do have concerns whether the patient had a fungal infection that has worsened with the use of systemic corticosteroid. This is a histoplasma endemic area and he would not be unusual for the patient to suffer for a few weeks with systemic symptoms with histoplasma. I am going to discontinue the corticosteroid. We are going to start the patient on levofloxacin in addition to the Primaxin to cover for atypical pathogens including Legionella. A comprehensive viral panel PCR is pending. If the patient does not make a significant recovery over the next 48 hours, she may require a bronchoscopic evaluation. There had been no evidence of pulmonary edema based on the echocardiographic findings. Thank you for the consultation. I will continue to follow the patient. Status: Acute Coding Level of Care Code Acute Pyridine Operator for [facility] Diagnoses Pneumonia J18.9 Acute respiratory failure with hypoxia J96.01
[2021-01-17] MEDS: enoxaparin 40 mg/0.4 mL Syringe SUBCUT (17:34)
[2021-01-17] MEDS: albuterol 8 gm MDI 1 PUFF INHALATION (20:18)
[2021-01-17] MEDS: benzonatate 100 mg Capsule 200 MG PO (23:53)
[2021-01-18] VITALS (25 sets, daily range): BP systolic 131–162; BP diastolic 67–104; PULSE 84–106; RESP 12–25; TEMP 36.7–37.1; O2SAT 88–96
[2021-01-18] MEDS: acetaminophen 325 mg Tablet 650 MG PO (01:03)
[2021-01-18] MEDS: diphenhydrAMINE 50 mg/mL SDV 1mL 25 MG IVP (01:47)
--- NOTE | 2021-01-18 01:52 | PC.NURSE ---
Rash; Generalized body itching and rash noted at shift change. Dayshift RN reported that patient was admitted onto floor with rash covering her body. Rash is circular in nature, raised and red in color that covers body on extremities and trunk. Machine Container Washer asked patient if she was currently itching, and patient verbalized that she was currently itching. RN gave PRN Benadryl IVP. During pain reassessment this early AM patient verbalized worsening itching. RN observed what appears to be spreading of circular lesions/rash, and gave second PRN dose of Benadryl.
[2021-01-18 04:06] LABS: ABG PCO2 37.1 mmHg (35-45); Arterial Blood Gas Hematocrit 36.1 % (37-47); Base Excess ABG 5.1 mmol/L (-2.0-2.0); Blood Gas Allen Test Pos; Blood Gas Operator Identificat JB; Blood Gas Sample Site Brachial, right; Blood Gas Sample Type Arterial; HCO3 ABG 28.6 mmol/L (22-26); Oxygen Device HAG
[2021-01-18 05:12] LABS: Basophils % 0.1 %; Hematocrit 33.5 % (37.0-47.0); Hemoglobin 10.9 g/dL (11.5-15.3); Lymphocytes # 0.5 10^3/uL (0.8-4.8); Lymphocytes % 5.9 %; Mean Corpuscular HGB Conc 32.5 g/dL (30.0-36.0); Mean Corpuscular Hemoglobin 29.5 pg (28.0-34.0); Mean Corpuscular Volume 90.5 fL (81-99); Mean Platelet Volume 10.5 fL (7.4-10.4); Monocytes # 0.6 10^3/uL (0.2-0.9); Monocytes % 7.7 %; Neutrophils # 6.77 10^3/uL (1.8-7.7); Nucleated Red Blood Cells % 0 %; Platelet Count 359 10^3/cmm (130-400); Red Cell Distribution Width 14.1 % (12.1-15.1); White Blood Count 8.2 10^3/uL (4.0-10.0)
[2021-01-18 05:31] LABS: Lactate (Lactic Acid level) 1.2 mmol/L (0.5-2.2)
[2021-01-18] MEDS: levothyroxine 25 mcg Tablet PO (05:51)
--- NOTE | 2021-01-18 07:00 | XR_ITS ---
WS: [id number] Portable AP semiupright chest, 01/18/2021 Clinical Data: sob Comparison: Portable chest, 01/15/2021. Findings: The right pulmonary opacities remain the same. There is a faint opacity in the left upper l obe unchanged. The heart is normal. The aortic arch and descending thoracic aorta show tortuosity. No nodules or masses are seen. Monitor leads are on the chest wall. 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 There is an orthopedic anchor in the right coracoid process. XR/XR chest 1V portable [id number] Impression: No change in bilateral pulmonary opacities with more opacity on the right than the left.
[2021-01-18] MEDS: albuterol 8 gm MDI 1 PUFF INHALATION (07:37)
--- NOTE | 2021-01-18 09:20 | P.PN_ITS ---
Subjective Subjective: Interval history: The patient was seen and examined this morning. She appeared comfortable while resting. The patient tells me that she is doing better than yesterday. Her oxygen requirement came down this morning. However there was significant desaturation with minimal exertion. The patient had been suffering from rash that has started yesterday. I have reviewed her antibiotic regimen with the pharmacy department. The patient did receive a dose of Primaxin prior to her rash. The Levaquin was given after the occurrence of the rash. I am going to switch the imipenem to aztreonam and continue with levofloxacin. Medications: Reviewed: Yes Vitals/I&O/Wt Last Vital Signs Temp 98.2 F 01/18/21 08:00 Pulse 97 01/18/21 08:00 Resp 25 H 01/18/21 08:00 BP 139/104 01/18/21 08:00 Pulse Ox 93 01/18/21 08:00 01/17/21 01/18/21 01/18/21 22:59 06:59 14:59 Intake Total 500 / 1580 250 / 1830 Output Total 500 / 1000 350 / 1350 Balance 0 / 580 -100 / 480 Physical Exam Narrative: EXAM NARRATIVE: General: Patient is awake alert and oriented, in no significant distress Neck: No JVD Respiratory: Auscultation: Reduced breath sound bilaterally, crackles at the right lung base, no wheezing or rhonchi Cardiovascular: Regular rate and rhythm, S1-S2 present, no murmur, no peripheral edema. Abdomen: Soft, nontender, nondistended, positive bowel sound Musculoskeletal: No obvious joint deformity Skin: Diffuse itchy rash on the extremities and the torso Neuro: Mental status is normal, no gross cranial nerve deficit, normal motor and coordination. Data : 01/18/21 04:32 01/17/21 06:30 Micro: Microbiology 01/17/21 10:57 C.difficile Toxin B Gene (PCR) - Final Stool Routine Collection 01/16/21 12:32 MRSA Culture - Final Nose 01/16/21 11:10 Blood Culture - Preliminary Blood NEGATIVE TO DATE 01/16/21 11:21 Blood Culture - Preliminary Blood NEGATIVE TO DATE Attestation for Other Data: I personally reviewed and interpreted the following: Other data: I have reviewed the patient's laboratory, microbiologic and radiologic data. The chest x-ray from this morning was similar to yesterday. A&P Assessment and plan (1) Pneumonia: The patient is being treated for community-acquired pneumonia. Status: Acute (2) Acute respiratory failure with hypoxia: For now, I will continue with aztreonam and Levaquin. If she does not improve as predicted, she will need bronchoscopic evaluation. I do have concerns for a fungal infection. The work-up was sent. No corticosteroid. Status: Acute (3) Skin rash: This is likely secondary to a drug reaction. Going to change the imipenem to aztreonam. Status: Acute Attestations Medical Necessity Statement*: Will defer to the primary team Coding Level of Care Code Acute Supervisor Engine Repair for [facility] [place] Diagnoses Pneumonia J18.9 Acute respiratory failure with hypoxia J96.01 Skin rash R21
[2021-01-18] MEDS: metoprolol tartrate 25 mg Tablet PO ×2 (09:44→21:16)
[2021-01-18] MEDS: amlodipine 10 mg Tablet PO (09:45)
[2021-01-18] MEDS: fluoxetine 20 mg Capsule 40 MG PO (09:45)
[2021-01-18] MEDS: cholecalciferol (vitamin D3) 1,000 unit Tablet 1000 UNIT PO (09:45)
[2021-01-18] MEDS: pantoprazole DR 40 mg Tablet PO (09:45)
[2021-01-18] MEDS: aztreonam 2,000 MG in sodium chloride 0.9% (plus) 100 ML 200 MG IV ×2 (09:50→18:34)
[2021-01-18 09:52] LABS: Alanine Aminotransferase 7 U/L (0-33); Albumin Level 2.8 g/dL (3.5-5.2); Alkaline Phosphatase 38 IU/L (35-105); Aspartate Amino Transferase 10 U/L (0-32); Blood Urea Nitrogen 26 mg/dL (8-23); Calcium 8.6 mg/dL (8.5-10.5); Carbon Dioxide 23 mmol/L (22-29); Chloride 98 mmol/L (98-107); Creatinine Clr Calc Pharmacy 49.9717; Globulin 3.6 g/dL (1.3-4.6); Glucose 130 mg/dL (65-115); Magnesium 1.6 mg/dL (1.7-2.3); Osmolality Calculated 291 mOsm/kg (285-295); Phosphorus 3.3 mg/dL (2.5-4.5); Sodium 137 mmol/L (136-145); Total Bilirubin 0.3 mg/dL (0.15-1.2); Total Protein 6.4 g/dL (6.6-8.7)
[2021-01-18 09:57] LABS: Anion Gap 19.5 (5-19); Potassium 3.5 mmol/L (3.5-5.1)
--- NOTE | 2021-01-18 10:17 | PC.CHAP ---
Pastoral Care Encounter/Spiritual Assessment Type of Contact [] Declined feed mill supervisor visit [] Patient/Family/Request visit [] Outpatient visit [] Follow-up visit [] Physician referral [] Code/Alert [x] Routine visit [] Staff referral [] Actively dying [] Patient sleeping [] Family support [] [] Out of room [] Palliative care [] [] Receiving care in room [] Pre-surgical visit [] Trauma [] Long length of stay [x] ICU visit [x] Other: oxygen Relational/Emotional Strength [] Patient feels connected with others/family/visitors/staff [] Distress [] Loneliness/isolation [] Abandonment Spirituality of Patient [] Person of Trisha [] Attends Yazidi of their Trisha [] Believes in Prayer [] Reads Bible or Catholic materials [] There are Spiritual issues to be addressed Assistant Fitness Manager Interventions [x] Prayer [] Active listening [] Non-anxious presence [] Spiritual/emotional support [] Crisis/trauma care [] Spiritual counseling [] Bereavement support [] Provided bereavement packet [] Provided Bible/devotional materials [] Provided toy/stuffed animal, coloring book to patient or family member [] Provided Communion [] Anointing/[place] [] Salvation [x] Completed spiritual assessment [] Other: Impact on Illness or Injury [] Angry [] Fearful [] Anxious [] Often cries [] Exhaustion [] Unable to work [] Unable to attend scientologist [] Unable to walk/stand [] Unable to read [] Unable to drive [] Unable to eat/drink [] Unable to sleep [] Unable to be with family [] Patient intubated [] Other: Summary Time spent with patient
[2021-01-18 10:29] LABS: INR 1.05 (0.8-1.2)
--- NOTE | 2021-01-18 10:33 | PC.SOCIAL ---
IMM Updated Updated pt on Pg 2 IMM. No questions voiced. Provided pt a copy. Signed, dated, & timed copy in chart.
--- NOTE | 2021-01-18 15:30 | P.PN_ITS ---
Subjective Subjective: Interval history: 75 year old female with a past medical history of CAD, history of [place] in 2007, history of smoking quit over 20 years ago, hypertension, depression, who presents to [facility] due to complaints of cough, shortness of breath, fatigue, malaise, diarrhea. Patient tells me that her symptoms started roughly 3 to 4 weeks ago with coughing and sneezing, which progressed to fatigue, malaise, shortness of breath. She currently tells me that her cough is quite severe, quite productive, yellow- green sputum, she tells me that her shortness of breath has progressed to shortness of breath at the end of sentences, when she is talking with me, she has to take long pauses that she feels short of breath, but her saturations are in the high 90s on room air. She denies any known exposure to COVID-19, did not get the Covid vaccine, did get the flu vaccine. No recent travel, no calf pain, no calf swelling, no hemoptysis. No recent surgery. No history of heart failure, no orthopnea, no proximal nocturnal dyspnea, no lower extremity edema. No history of COPD, quit smoking over 20 years ago. 01/18 Patient noted improvement in respiratory status however remained on airvo. Noted to have marginal u/o. No fever, chills, nausea or vomiting. Patient was noted to have urticarial rash suspected to be do to abx. Medications: Reviewed: Yes Vitals/I&O/Wt Last Vital Signs Temp 98.3 F 01/18/21 19:00 Pulse 96 01/18/21 20:14 Resp 17 01/18/21 20:14 BP 157/94 01/18/21 21:00 Pulse Ox 93 01/18/21 21:00 01/18/21 01/18/21 01/18/21 06:59 14:59 22:59 Intake Total 250 / 1830 420 / 420 100 / 520 Output Total 350 / 1350 250 / 250 Balance -100 / 480 170 / 170 100 / 270 Physical Exam Narrative: EXAM NARRATIVE: General : Chronically ill appearing, NAD on HFNC HEENT - Grossly unremarkable CVS: Tachycardia Chest: Decrease bases Abd: Soft, NT, ND Ext: B/L Le edema Data : 01/18/21 04:32 01/18/21 08:58 Micro: Microbiology 01/17/21 10:57 C.difficile Toxin B Gene (PCR) - Final Stool Routine Collection A&P Assessment and plan (1) Pneumonia: Acute respiratory failure with hypoxia due to suspected CAP Pulmonary consulted Abx changed to levaquin 750 mg daily plus Aztreonam On HFNC wean as tolerated Repeat respiratory PCR pending Aspergillus / Histoplasma / PCP pending May need to consider Bronchoscopy CT of the chest 1. Patchy ground glass infiltrates within the right greater than left lower lobes with partial airspace consolidation 2. Additional patchy groundglass infiltrates along the right hilum and right fissure. 3. Additional hazy groundglass infiltrates in the subpleural upper lobes bilaterally. 4. Above findings suspicious for COVID 19 pneumonia. 5. A few reactive mediastinal lymph nodes. -Rapid Covid negative, first Covid PCR negative -CT angiogram of the chest does not show pulmonary embolism, Increasing patulous ground-glass opacities within both lungs from 01/11/2021 study. Imaging appearance is nonspecific but resembles a viral pneumonitis including but not limited to COVID-19 infection. Status: Acute (2) Acute kidney injury: Status: Acute (3) Hyponatremia: Status: Acute (4) Hyperkalemia: Status: Acute Additional A&P Information Hypertension Norvasc 10 mg PO daily Metoprolol 25 mg PO BID Hypothyroidism Levothyroxine 25 mcg PO daily GI ppx Protonix 40 mg PO daily DVT ppx Lovenox 40 mg SQ daily Attestations Medical Necessity Statement*: Will continue current hospitalization for management of respiratory failrue, pneumonia on HFNC Time Spent in Patient Care: Greater than 35 minutes (>than 50% of time spent in counselling and/or direct pt care on unit) . Critical Care Time: Critical Care Time (min): 55 Coding Level of Care Code Acute Practical Nursing Teacher for [facility] Fwd Diagnoses Pneumonia J18.9 Acute kidney injury N17.9 Hyponatremia E87.1 Hyperkalemia E87.5
[2021-01-18] MEDS: enoxaparin 40 mg/0.4 mL Syringe SUBCUT (18:34)
[2021-01-18] MEDS: amitriptyline 25 mg Tablet PO (21:16)
[2021-01-19] VITALS (41 sets, daily range): BP systolic 115–163; BP diastolic 62–111; PULSE 79–107; RESP 13–29; TEMP 36.6–38; O2SAT 88–97
[2021-01-19] MEDS: aztreonam 2,000 MG in sodium chloride 0.9% (plus) 100 ML 200 MG IV ×3 (02:18→17:23)
[2021-01-19 06:00] LABS: Basophils % 0.2 %; Eosinophils # 0.1 10^3/uL (0.0-0.8); Eosinophils % 0.6 %; Hematocrit 35.7 % (37.0-47.0); Hemoglobin 11.3 g/dL (11.5-15.3); Lymphocytes # 0.8 10^3/uL (0.8-4.8); Lymphocytes % 5.8 %; Mean Corpuscular HGB Conc 31.7 g/dL (30.0-36.0); Mean Corpuscular Hemoglobin 29.4 pg (28.0-34.0); Monocytes # 1.4 10^3/uL (0.2-0.9); Monocytes % 10.4 %; Neutrophils # 10.61 10^3/uL (1.8-7.7); Neutrophils % 81.2 %; Nucleated Red Blood Cells % 0 %; Platelet Count 441 10^3/cmm (130-400); Red Blood Count 3.84 10^6/uL (4.1-5.3); Red Cell Distribution Width 14.4 % (12.1-15.1); White Blood Count 13.1 10^3/uL (4.0-10.0)
[2021-01-19 06:10] LABS: ABG PCO2 38.8 mmHg (35-45); ABG PH Result 7.48 (7.35-7.45); Arterial Blood Gas Hematocrit 37.1 % (37-47); Base Excess ABG 4.9 mmol/L (-2.0-2.0); Blood Gas Operator Identificat JB; Blood Gas Sample Site Brachial, right; Blood Gas Sample Type Arterial; HCO3 ABG 28.8 mmol/L (22-26); PO2 ABG 64.2 mmHg (80.0-100.0)
[2021-01-19 06:11] LABS: Oxygen Device HAG
[2021-01-19 06:15] LABS: Alanine Aminotransferase 8 U/L (0-33); Albumin Level 2.9 g/dL (3.5-5.2); Alkaline Phosphatase 39 IU/L (35-105); Anion Gap 16.3 (5-19); Aspartate Amino Transferase 12 U/L (0-32); Blood Urea Nitrogen 27 mg/dL (8-23); Calcium 8.3 mg/dL (8.5-10.5); Carbon Dioxide 26 mmol/L (22-29); Chloride 102 mmol/L (98-107); Creatinine Clr Calc Pharmacy 56.2182; Globulin 3.2 g/dL (1.3-4.6); Glucose 113 mg/dL (65-115); Magnesium 1.5 mg/dL (1.7-2.3); Osmolality Calculated 298 mOsm/kg (285-295); Phosphorus 2.9 mg/dL (2.5-4.5); Potassium 3.3 mmol/L (3.5-5.1); Sodium 141 mmol/L (136-145); Total Bilirubin 0.2 mg/dL (0.15-1.2); Total Protein 6.1 g/dL (6.6-8.7)
[2021-01-19 06:20] LABS: Procalcitonin 0.14 ng/mL (0-0.5)
[2021-01-19] MEDS: levothyroxine 25 mcg Tablet PO (06:34)
--- NOTE | 2021-01-19 06:48 | PC.NURSE ---
Shift Summary; Patient slept well throughout shift after assisted bed bath, and PRN meds given for sleep assistance. No events to report. Patient resting with no needs at this time.
[2021-01-19] MEDS: albuterol 8 gm MDI 1 PUFF INHALATION (07:54)
[2021-01-19] MEDS: metoprolol tartrate 25 mg Tablet PO ×2 (08:09→20:01)
[2021-01-19] MEDS: cholecalciferol (vitamin D3) 1,000 unit Tablet 1000 UNIT PO (08:09)
[2021-01-19] MEDS: amlodipine 10 mg Tablet PO (08:10)
[2021-01-19] MEDS: fluoxetine 20 mg Capsule 40 MG PO (08:10)
[2021-01-19] MEDS: pantoprazole DR 40 mg Tablet PO (08:10)
--- NOTE | 2021-01-19 08:51 | PC.CHAP ---
Pastoral Care Encounter/Spiritual Assessment Type of Contact [] Declined inspector bicycle visit [] Patient/Family/Request visit [] Outpatient visit [] Follow-up visit [] Physician referral [] Code/Alert [x] Routine visit [] Staff referral [] Actively dying [] Patient sleeping [] Family support [] [] Out of room [] Palliative care [] [] Receiving care in room [] Pre-surgical visit [] Trauma [] Long length of stay [x] ICU visit [] Other: Relational/Emotional Strength [] Patient feels connected with others/family/visitors/staff [] Distress [] Loneliness/isolation [] Abandonment Spirituality of Patient [x] Person of Trisha [] Attends Taoism of their Trisha [] Believes in Prayer [] Reads Bible or Jewish materials [] There are Spiritual issues to be addressed Qa Test Analyst Interventions [x] Prayer [x] Active listening [x] Non-anxious presence [x] Spiritual/emotional support [] Crisis/trauma care [] Spiritual counseling [] Bereavement support [] Provided bereavement packet [] Provided Bible/devotional materials [] Provided toy/stuffed animal, coloring book to patient or family member [] Provided Communion [] Anointing/[place] [] Salvation [x] Completed spiritual assessment [] Other: Impact on Illness or Injury [] Angry [] Fearful [] Anxious [] Often cries [] Exhaustion [] Unable to work [] Unable to attend evangelical [] Unable to walk/stand [] Unable to read [] Unable to drive [] Unable to eat/drink [] Unable to sleep [] Unable to be with family [] Patient intubated [] Other: Summary patient doesn't care for breakfast... waiting for lunch.. feeling much stronger. Time spent with patient 10 min
--- NOTE | 2021-01-19 09:22 | PC.OT ---
OT TREATMENT ATTEMPTED THIS A.M. PATIENT IS SLEEPING SOUNDLY. WILL ATTEMPT AGAIN IN P.M.
[2021-01-19] MEDS: levofloxacin-dextrose 5 % 750 MG/150 ML PREMIX 100 MG IV (10:57)
--- NOTE | 2021-01-19 16:39 | P.PN_ITS ---
Subjective Subjective: Interval history: The patient was seen and examined. She appears to be doing similar to yesterday. Oxygen requirement has stayed similar. The patient tells me that she is better than yesterday but I am not sure about this. Her rash is improved after the discontinuation of imipenem. She is currently on aztreonam and Levaquin. The vital and fungal studies are pending. Vitals/I&O/Wt Last Vital Signs Temp 98.6 F 01/19/21 15:00 Pulse 100 01/19/21 15:00 Resp 20 H 01/19/21 15:00 BP 149/83 01/19/21 15:00 Pulse Ox 91 01/19/21 12:21 01/19/21 01/19/21 01/19/21 06:59 14:59 22:59 Intake Total 225 / 995 1210 / 1210 Output Total 350 / 1000 550 / 550 Balance -125 / -5 660 / 660 Physical Exam Narrative: EXAM NARRATIVE: General: Patient is awake alert and oriented, in no significant distress while resting Neck: No JVD Respiratory: Auscultation: Reduced breath sound bilaterally, crackles at the right lung base with rhonchi, no wheezing Cardiovascular: Regular rate and rhythm, S1-S2 present, no murmur, no peripheral edema. Abdomen: Soft, nontender, nondistended, positive bowel sound Musculoskeletal: No obvious joint deformity Skin: The rash has improved Neuro: Mental status is normal, no gross cranial nerve deficit, normal motor and coordination. Data : 01/19/21 05:05 01/19/21 05:05 Attestation for Other Data: I personally reviewed and interpreted the following: Other data: I have reviewed the patient's laboratory, microbiologic and radiologic data. There is mild leukocytosis. No evidence of worsening infection otherwise. A&P Assessment and plan (1) Pneumonia: The patient is being treated for community-acquired pneumonia. Status: Acute (2) Acute respiratory failure with hypoxia: For now, I will continue with aztreonam and Levaquin. If she does not improve as predicted, she will need bronchoscopic evaluation. Fungal and viral work-up is pending. We will start the patient on DuoNeb and Pulmicort nebulization. Status: Acute (3) Skin rash: Resolved after discontinuation of imipenem. Status: Acute Attestations Medical Necessity Statement*: Will defer to the primary team Coding Level of Care Code Acute Rf Technician for [facility]g Fwd Diagnoses Pneumonia J18.9 Acute respiratory failure with hypoxia J96.01 Skin rash R21
--- NOTE | 2021-01-19 16:40 | PM.PN ---
Subjective Subjective: Interval history: 75 year old female with a past medical history of CAD, history of [place] in 2007, history of smoking quit over 20 years ago, hypertension, depression, who presents to [facility] due to complaints of cough, shortness of breath, fatigue, malaise, diarrhea. Patient tells me that her symptoms started roughly 3 to 4 weeks ago with coughing and sneezing, which progressed to fatigue, malaise, shortness of breath. She currently tells me that her cough is quite severe, quite productive, yellow-green sputum, she tells me that her shortness of breath has progressed to shortness of breath at the end of sentences, when she is talking with me, she has to take long pauses that she feels short of breath, but her saturations are in the high 90s on room air. She denies any known exposure to COVID-19, did not get the Covid vaccine, did get the flu vaccine. No recent travel, no calf pain, no calf swelling, no hemoptysis. No recent surgery. No history of heart failure, no orthopnea, no proximal nocturnal dyspnea, no lower extremity edema. No history of COPD, quit smoking over 20 years ago. 01/18 Patient noted improvement in respiratory status however remained on airvo. Noted to have marginal u/o. No fever, chills, nausea or vomiting. Patient was noted to have urticarial rash suspected to be do to abx. 01/19 No new clinical events overnight. Patient stated that she was feeling somewhat better. Remained on high-flow nasal cannula. No fever, chills, nausea vomiting. Medications: Reviewed: Yes Vitals/I&O/Wt Last Vital Signs Temp 98.6 F 01/19/21 15:00 Pulse 100 01/19/21 15:00 Resp 20 H 01/19/21 15:00 BP 149/83 01/19/21 15:00 Pulse Ox 91 01/19/21 12:21 01/19/21 01/19/21 01/19/21 06:59 14:59 22:59 Intake Total 225 / 995 1210 / 1210 Output Total 350 / 1000 550 / 550 Balance -125 / -5 660 / 660 Physical Exam Narrative: EXAM NARRATIVE: General : Chronically ill appearing, NAD on HFNC HEENT - Grossly unremarkable CVS: Tachycardia Chest: Decrease bases Abd: Soft, NT, ND Ext: B/L Le edema Data : 01/19/21 05:05 01/19/21 05:05 A&P Assessment and plan (1) Pneumonia: Acute respiratory failure with hypoxia due to suspected CAP Pulmonary consulted Abx changed to levaquin 750 mg daily plus Aztreonam(D2) Suspected allergic reaction to imipenum On HFNC wean as tolerated - Repeat respiratory PCR pending Aspergillus / Histoplasma / PCP pending May need to consider Bronchoscopy CT of the chest 1. Patchy ground glass infiltrates within the right greater than left lower lobes with partial airspace consolidation 2. Additional patchy groundglass infiltrates along the right hilum and right fissure. 3. Additional hazy groundglass infiltrates in the subpleural upper lobes bilaterally. 4. Above findings suspicious for COVID 19 pneumonia. 5. A few reactive mediastinal lymph nodes. -Rapid Covid negative, Covid PCR negative -CT angiogram of the chest does not show pulmonary embolism, Increasing patulous ground-glass opacities within both lungs from 01/11/2021 study. Imaging appearance is nonspecific but resembles a viral pneumonitis including but not limited to COVID-19 infection. Repeat Chest x-ray unchanged May consider additional diuresis Status: Acute (2) Acute kidney injury: Status: Acute (3) Hyponatremia: Status: Acute (4) Hyperkalemia: Status: Acute Additional A&P Information Hypertension Norvasc 10 mg PO daily Metoprolol 25 mg PO BID Hypothyroidism Levothyroxine 25 mcg PO daily GI ppx Protonix 40 mg PO daily DVT ppx Lovenox 40 mg SQ daily Care plan discussed with patients family at bedside today Attestations Medical Necessity Statement*: Continue hospitalization for management of respiratory failure requiring high-flow nasal cannula and IV antibiotic Time Spent in Patient Care: Greater than 35 minutes Critical Care Time: Critical Care Time (min): 40 Coding Level of Care Code Acute Staff Physical Therapy Assistant for [facility] Fwd Diagnoses Pneumonia J18.9 Acute kidney injury N17.9 Hyponatremia E87.1 Hyperkalemia E87.5
--- NOTE | 2021-01-19 16:48 | PC.NUTR ---
Nutrition follow up: Supplement changed per nurse recommendation/pt preference. Will try Ensure Clear (apple). See RD assessment for further details.
[2021-01-19] MEDS: enoxaparin 40 mg/0.4 mL Syringe SUBCUT (17:23)
[2021-01-19] MEDS: potassium chloride ER 20 mEq Tablet PO (17:23)
[2021-01-19] MEDS: magnesium sulfate premix 2 GM/50 ML PIGGYBACK IV (17:23)
[2021-01-19] MEDS: acetaminophen 325 mg Tablet 650 MG PO (20:01)
[2021-01-19] MEDS: amitriptyline 25 mg Tablet PO (20:02)
[2021-01-19] MEDS: ipratropium-albuterol 3 mL Neb INHALATION (20:26)
[2021-01-19] MEDS: budesonide 0.5 mg/2 mL Neb INHALATION (20:26)
[2021-01-20] VITALS (58 sets, daily range): BP systolic 113–158; BP diastolic 56–84; PULSE 81–131; RESP 15–29; TEMP 36.6–37.7; O2SAT 82–97
[2021-01-20] MEDS: aztreonam 2,000 MG in sodium chloride 0.9% (plus) 100 ML 200 MG IV ×3 (01:33→16:59)
[2021-01-20] MEDS: ipratropium-albuterol 3 mL Neb INHALATION ×4 (03:32→20:28)
[2021-01-20 04:18] LABS: Basophils % 0.3 %; Eosinophils # 0.2 10^3/uL (0.0-0.8); Eosinophils % 1.8 %; Hematocrit 31.3 % (37.0-47.0); Hemoglobin 9.8 g/dL (11.5-15.3); Lymphocytes # 0.7 10^3/uL (0.8-4.8); Lymphocytes % 6.7 %; Mean Corpuscular HGB Conc 31.3 g/dL (30.0-36.0); Mean Corpuscular Hemoglobin 29.2 pg (28.0-34.0); Mean Corpuscular Volume 93.2 fL (81-99); Mean Platelet Volume 9.8 fL (7.4-10.4); Monocytes # 1.4 10^3/uL (0.2-0.9); Monocytes % 13.6 %; Neutrophils # 8.01 10^3/uL (1.8-7.7); Nucleated Red Blood Cells % 0 %; Platelet Count 441 10^3/cmm (130-400); Red Blood Count 3.36 10^6/uL (4.1-5.3); Red Cell Distribution Width 14.3 % (12.1-15.1); White Blood Count 10.5 10^3/uL (4.0-10.0)
[2021-01-20 04:37] LABS: Alanine Aminotransferase 7 U/L (0-33); Albumin Level 2.4 g/dL (3.5-5.2); Alkaline Phosphatase 36 IU/L (35-105); Aspartate Amino Transferase 10 U/L (0-32); Blood Urea Nitrogen 23 mg/dL (8-23); Calcium 8.1 mg/dL (8.5-10.5); Carbon Dioxide 24 mmol/L (22-29); Chloride 104 mmol/L (98-107); Creatinine Clr Calc Pharmacy 56.2182; Globulin 3.1 g/dL (1.3-4.6); Glucose 108 mg/dL (65-115); Osmolality Calculated 292 mOsm/kg (285-295); Phosphorus 2.6 mg/dL (2.5-4.5); Sodium 139 mmol/L (136-145); Total Bilirubin 0.3 mg/dL (0.15-1.2); Total Protein 5.5 g/dL (6.6-8.7)
[2021-01-20 04:40] LABS: Anion Gap 14.4 (5-19); Potassium 3.4 mmol/L (3.5-5.1)
[2021-01-20] MEDS: levothyroxine 25 mcg Tablet PO (05:56)
--- NOTE | 2021-01-20 06:00 | XR_ITS ---
WS: [id number] Portable AP semiupright chest, 01/20/2021 Clinical Data: pneumonia Comparison: Portable chest, 01/18/2021. Findings: The pulmonary opacities have not changed. The right upper lobe and right lower lobe show th e greatest involvement. There is minimal patchy opacity in the left upper lobe. The heart is normal. The aortic arch is tortuous. No pneumothorax is present. Monitor leads are on the chest wall. The 3 o rthopedic anchors remain in the right humeral head and there is one in the right coracoid process. XR/XR chest 1V [id number] Impression: No change from yesterday's portable chest.
[2021-01-20] MEDS: amlodipine 10 mg Tablet PO (08:05)
[2021-01-20] MEDS: fluoxetine 20 mg Capsule 40 MG PO (08:05)
[2021-01-20] MEDS: pantoprazole DR 40 mg Tablet PO (08:05)
[2021-01-20] MEDS: cholecalciferol (vitamin D3) 1,000 unit Tablet 1000 UNIT PO (08:05)
[2021-01-20] MEDS: metoprolol tartrate 25 mg Tablet PO ×2 (08:05→19:36)
[2021-01-20] MEDS: budesonide 0.5 mg/2 mL Neb INHALATION ×2 (08:07→20:28)
--- NOTE | 2021-01-20 10:42 | PC.SOCIAL ---
IMM Updated Updated pt on Pg 2 IMM. No questions voiced. Provided pt a copy. Signed, dated, & timed copy in chart.
[2021-01-20] MEDS: levofloxacin-dextrose 5 % 750 MG/150 ML PREMIX 100 MG IV (11:04)
--- NOTE | 2021-01-20 15:27 | PM.PN ---
Subjective Subjective: Interval history: 75 year old female with a past medical history of CAD, history of [place] in 2007, history of smoking quit over 20 years ago, hypertension, depression, who presents to [facility] due to complaints of cough, shortness of breath, fatigue, malaise, diarrhea. Patient tells me that her symptoms started roughly 3 to 4 weeks ago with coughing and sneezing, which progressed to fatigue, malaise, shortness of breath. She currently tells me that her cough is quite severe, quite productive, yellow-green sputum, she tells me that her shortness of breath has progressed to shortness of breath at the end of sentences, when she is talking with me, she has to take long pauses that she feels short of breath, but her saturations are in the high 90s on room air. She denies any known exposure to COVID-19, did not get the Covid vaccine, did get the flu vaccine. No recent travel, no calf pain, no calf swelling, no hemoptysis. No recent surgery. No history of heart failure, no orthopnea, no proximal nocturnal dyspnea, no lower extremity edema. No history of COPD, quit smoking over 20 years ago. 01/18 Patient noted improvement in respiratory status however remained on airvo. Noted to have marginal u/o. No fever, chills, nausea or vomiting. Patient was noted to have urticarial rash suspected to be do to abx. 01/19 No new clinical events overnight. Patient stated that she was feeling somewhat better. Remained on high-flow nasal cannula. No fever, chills, nausea vomiting. 01/20 Noted improvement, attempting to wean to NC, NO fever, chills, nausea or vomiting. Still up in chair Medications: Reviewed: Yes Vitals/I&O/Wt Last Vital Signs Temp 98.1 F 01/20/21 14:00 Pulse 102 H 01/20/21 15:10 Resp 20 H 01/20/21 15:10 BP 142/75 01/20/21 14:00 Pulse Ox 92 01/20/21 15:10 01/20/21 01/20/21 01/20/21 06:59 14:59 22:59 Intake Total 100 / 2065 1210 / 1210 Output Total 100 / 825 600 / 600 Balance 0 / 1240 610 / 610 Weight last 48 hrs Weight 77.383 kg Physical Exam Narrative: EXAM NARRATIVE: General : Chronically ill appearing, NAD on HFNC HEENT - Grossly unremarkable CVS: Tachycardia Chest: Decrease bases Abd: Soft, NT, ND Ext: B/L Le edema Data : 01/20/21 03:32 01/20/21 03:32 A&P Assessment and plan (1) Pneumonia: Acute respiratory failure with hypoxia due to suspected CAP Pulmonary consulted Abx changed to levaquin 750 mg daily plus Aztreonam(D2) Suspected allergic reaction to imipenum On HFNC wean as tolerated - Repeat respiratory PCR pending Aspergillus / Histoplasma / PCP pending May need to consider Bronchoscopy CT of the chest 1. Patchy ground glass infiltrates within the right greater than left lower lobes with partial airspace consolidation 2. Additional patchy groundglass infiltrates along the right hilum and right fissure. 3. Additional hazy groundglass infiltrates in the subpleural upper lobes bilaterally. 4. Above findings suspicious for COVID 19 pneumonia. 5. A few reactive mediastinal lymph nodes. -Rapid Covid negative, Covid PCR negative -CT angiogram of the chest does not show pulmonary embolism, Increasing patulous ground-glass opacities within both lungs from 01/11/2021 study. Imaging appearance is nonspecific but resembles a viral pneumonitis including but not limited to COVID-19 infection. Repeat Chest x-ray unchanged May consider additional diuresis Continue current management course Slow to improve. Status: Acute (2) Acute kidney injury: Stable - Resolved. Status: Acute (3) Hyponatremia: Status: Acute (4) Hyperkalemia: Status: Acute Additional A&P Information Hypertension Norvasc 10 mg PO daily Metoprolol 25 mg PO BID Hypothyroidism Levothyroxine 25 mcg PO daily GI ppx Protonix 40 mg PO daily DVT ppx Lovenox 40 mg SQ daily Ok to transfer to [facility] Attestations Medical Necessity Statement*: Continue hospitalization for management of respiratory failrue on HFNC Time Spent in Patient Care: Greater than 35 minutes (>than 50% of time spent in counselling and/or direct pt care on unit). Critical Care Time: Critical Care Time (min): 35 Coding Level of Care Code Acute Mercerizing Range Feeder for [facility] Diagnoses Pneumonia J18.9 Acute kidney injury N17.9 Hyponatremia E87.1 Hyperkalemia E87.5
[2021-01-20 15:58] LABS: Adenovirus Not Detected (Not Detected); Human Metapneumovirus Not Detected (Not Detected); Human Parainflu Virus 1 Not Detected (Not Detected); Human Parainflu Virus 2 Not Detected (Not Detected); Human Parainflu Virus 3 Not Detected (Not Detected); Human Rsv A Not Detected (Not Detected); Influenza A Not Detected (Not Detected); Influenza B Not Detected (Not Detected); Rhinovirus/Enterovirus Not Detected (Not Detected)
[2021-01-20] MEDS: enoxaparin 40 mg/0.4 mL Syringe SUBCUT (17:00)
--- NOTE | 2021-01-20 18:17 | PM.PN ---
Subjective Subjective: Interval history: The patient was seen and examined. She looked significantly better today. Not complaining of any significant shortness of breath. Oxygen saturation is in the mid 90s. Chest x-ray this morning revealed similar findings. The patient has predominantly right lung involvement. The viral PCR panel has been negative. The fungal work-up has not returned yet. Medications: Reviewed: Yes Vitals/I&O/Wt Last Vital Signs Temp 98.1 F 01/20/21 18:00 Pulse 102 H 01/20/21 18:00 Resp 20 H 01/20/21 18:00 BP 142/75 01/20/21 18:00 Pulse Ox 92 01/20/21 18:00 01/20/21 01/20/21 01/20/21 06:59 14:59 22:59 Intake Total 100 / 2065 1210 / 1210 580 / 1790 Output Total 100 / 825 600 / 600 Balance 0 / 1240 610 / 610 580 / 1190 Weight last 48 hrs Weight 170 lb 9.6 oz Physical Exam Narrative: EXAM NARRATIVE: General: Patient is awake alert and oriented, in no distress. Sitting in a chair Neck: No JVD Respiratory: Auscultation: Reduced breath sound bilaterally, coarse crackles at the right lung base with rhonchi, no wheezing Cardiovascular: Regular rate and rhythm, S1-S2 present, no murmur, no peripheral edema. Abdomen: Soft, nontender, nondistended, positive bowel sound Musculoskeletal: No obvious joint deformity Skin: No rash Neuro: Mental status is normal, no gross cranial nerve deficit, normal motor and coordination. Data : 01/20/21 03:32 01/20/21 03:32 Attestation for Other Data: I personally reviewed and interpreted the following: Other data: Have reviewed laboratory, microbiologic and radiologic data. A&P Assessment and plan (1) Pneumonia: The patient is being treated for community-acquired pneumonia. Status: Acute (2) Acute respiratory failure with hypoxia: For now, I will continue with aztreonam and Levaquin. The patient is improving. No further necessity of bronchoscopic evaluation. The viral PCR panel has been negative. I am awaiting the fungal panel. We will continue with DuoNeb and Pulmicort nebulization. Status: Acute (3) Skin rash: Resolved after discontinuation of imipenem. Status: Acute Attestations Medical Necessity Statement*: Will defer to the primary team Coding Level of Care Code Acute Purchasing Administrator for [facility] Fwd Diagnoses Pneumonia J18.9 Acute respiratory failure with hypoxia J96.01 Skin rash R21
[2021-01-20] MEDS: acetaminophen 325 mg Tablet 650 MG PO (19:35)
[2021-01-20] MEDS: amitriptyline 25 mg Tablet PO (19:36)
[2021-01-20 21:33] LABS: Fungitell 1-3-B Glucan Assay <31; Interpretation NEGATIVE
[2021-01-21] VITALS (34 sets, daily range): BP systolic 117–140; BP diastolic 64–86; PULSE 87–124; RESP 14–26; TEMP 36.7–38.2; O2SAT 80–98
[2021-01-21] MEDS: aztreonam 2,000 MG in sodium chloride 0.9% (plus) 100 ML 200 MG IV ×3 (01:07→20:24)
[2021-01-21] MEDS: ipratropium-albuterol 3 mL Neb INHALATION ×4 (02:51→20:26)
[2021-01-21] MEDS: levothyroxine 25 mcg Tablet PO (05:37)
--- NOTE | 2021-01-21 07:00 | PC.NURSE ---
bedside report received. pt on heated high flow. iv to right wrist. no c/o pain. no needs at this time.
[2021-01-21] MEDS: budesonide 0.5 mg/2 mL Neb INHALATION ×2 (09:21→20:26)
[2021-01-21] MEDS: amlodipine 10 mg Tablet PO (10:05)
[2021-01-21] MEDS: fluoxetine 20 mg Capsule 40 MG PO (10:06)
[2021-01-21] MEDS: cholecalciferol (vitamin D3) 1,000 unit Tablet 1000 UNIT PO (10:07)
[2021-01-21] MEDS: metoprolol tartrate 25 mg Tablet PO ×2 (10:07→20:32)
[2021-01-21] MEDS: pantoprazole DR 40 mg Tablet PO (10:08)
[2021-01-21] MEDS: levofloxacin-dextrose 5 % 750 MG/150 ML PREMIX 100 MG IV (11:41)
--- NOTE | 2021-01-21 16:09 | PC.NURSE ---
pt transferred to [facility] via bed. report given to kulwant wall on [facility].
--- NOTE | 2021-01-21 17:57 | PM.PN ---
Subjective Subjective: Interval history: no new clinical events overnight. Oxygen requirements fairly unchanged. No fever, chills, nausea vomiting. Medications: Reviewed: Yes Vitals/I&O/Wt Last Vital Signs Temp 98.5 F 01/21/21 16:00 Pulse 119 H 01/21/21 16:00 Resp 18 01/21/21 16:00 BP 117/66 01/21/21 16:00 Pulse Ox 93 01/21/21 16:00 01/21/21 01/21/21 01/21/21 06:59 14:59 22:59 Intake Total 100 / 1890 490 / 490 Output Total 350 / 950 350 / 350 150 / 500 Balance -250 / 940 140 / 140 -150 / -10 Weight last 48 hrs Weight 77.383 kg Physical Exam Narrative: EXAM NARRATIVE: General : Chronically ill appearing, NAD on HFNC HEENT - Grossly unremarkable CVS: Tachycardia Chest: Decrease bases Abd: Soft, NT, ND Ext: B/L Le edema Data : 01/20/21 03:32 01/20/21 03:32 Micro: Microbiology 01/16/21 11:10 Blood Culture - Final Blood NO GROWTH AFTER 5 DAYS 01/16/21 11:21 Blood Culture - Final Blood NO GROWTH AFTER 5 DAYS A&P Assessment and plan (1) Pneumonia: Acute respiratory failure with hypoxia due to suspected CAP Pulmonary consulted Abx changed to levaquin 750 mg daily plus Aztreonam(D2) Suspected allergic reaction to imipenum On HFNC wean as tolerated - Repeat respiratory PCR pending Aspergillus / Histoplasma / PCP pending May need to consider Bronchoscopy CT of the chest 1. Patchy ground glass infiltrates within the right greater than left lower lobes with partial airspace consolidation 2. Additional patchy groundglass infiltrates along the right hilum and right fissure. 3. Additional hazy groundglass infiltrates in the subpleural upper lobes bilaterally. 4. Above findings suspicious for COVID 19 pneumonia. 5. A few reactive mediastinal lymph nodes. -Rapid Covid negative, Covid PCR negative -CT angiogram of the chest does not show pulmonary embolism, Increasing patulous ground-glass opacities within both lungs from 01/11/2021 study. Imaging appearance is nonspecific but resembles a viral pneumonitis including but not limited to COVID-19 infection. Repeat Chest x-ray unchanged May consider additional diuresis Continue current management course Slow to improve. Awaiting fungal cultures Status: Acute (2) Acute kidney injury: Stable - Resolved. Status: Acute (3) Hyponatremia: Status: Acute (4) Hyperkalemia: Status: Acute Additional A&P Information Hypertension Norvasc 10 mg PO daily Metoprolol 25 mg PO BID Hypothyroidism Levothyroxine 25 mcg PO daily GI ppx Protonix 40 mg PO daily DVT ppx Lovenox 40 mg SQ daily Ok to transfer to [facility] Attestations Medical Necessity Statement*: require further hospitalization for management of respiratory failure requiring high-flow nasal cannula Time Spent in Patient Care: Greater than 35 minutes (>than 50% of time spent in counselling and/or direct pt care on unit). Coding Level of Care Code Acute Marine Pipefitter Helper for [facility] Diagnoses Pneumonia J18.9 Acute kidney injury N17.9 Hyponatremia E87.1 Hyperkalemia E87.5
[2021-01-21] MEDS: enoxaparin 40 mg/0.4 mL Syringe SUBCUT (19:12)
[2021-01-21] MEDS: acetaminophen 325 mg Tablet 650 MG PO (20:32)
[2021-01-21] MEDS: amitriptyline 25 mg Tablet PO (22:20)
[2021-01-22] VITALS (16 sets, daily range): BP systolic 121–149; BP diastolic 63–78; PULSE 96–130; RESP 17–22; TEMP 36.8–37.8; O2SAT 90–95
[2021-01-22] MEDS: aztreonam 2,000 MG in sodium chloride 0.9% (plus) 100 ML 200 MG IV ×2 (01:51→18:08)
[2021-01-22] MEDS: ipratropium-albuterol 3 mL Neb INHALATION ×4 (03:00→20:37)
[2021-01-22] MEDS: levothyroxine 25 mcg Tablet PO (05:52)
[2021-01-22 06:42] LABS: Basophils % 0.3 %; Eosinophils # 0.2 10^3/uL (0.0-0.8); Eosinophils % 1.7 %; Hematocrit 33.4 % (37.0-47.0); Hemoglobin 10.2 g/dL (11.5-15.3); Lymphocytes # 0.8 10^3/uL (0.8-4.8); Lymphocytes % 6.5 %; Mean Corpuscular HGB Conc 30.5 g/dL (30.0-36.0); Mean Corpuscular Hemoglobin 29.2 pg (28.0-34.0); Mean Corpuscular Volume 95.7 fL (81-99); Mean Platelet Volume 9.5 fL (7.4-10.4); Monocytes # 1.3 10^3/uL (0.2-0.9); Monocytes % 10.3 %; Neutrophils # 9.86 10^3/uL (1.8-7.7); Neutrophils % 79.7 %; Nucleated Red Blood Cells % 0 %; Platelet Count 460 10^3/cmm (130-400); Red Blood Count 3.49 10^6/uL (4.1-5.3); Red Cell Distribution Width 14.2 % (12.1-15.1); White Blood Count 12.4 10^3/uL (4.0-10.0)
[2021-01-22 07:03] LABS: Blood Urea Nitrogen 13 mg/dL (8-23); Calcium 8.2 mg/dL (8.5-10.5); Carbon Dioxide 21 mmol/L (22-29); Chloride 103 mmol/L (98-107); Glucose 95 mg/dL (65-115); Osmolality Calculated 284 mOsm/kg (285-295); Sodium 137 mmol/L (136-145)
[2021-01-22] MEDS: budesonide 0.5 mg/2 mL Neb INHALATION ×2 (08:10→20:37)
[2021-01-22] MEDS: cholecalciferol (vitamin D3) 1,000 unit Tablet 1000 UNIT PO (10:15)
[2021-01-22] MEDS: metoprolol tartrate 25 mg Tablet PO ×2 (10:15→20:20)
[2021-01-22] MEDS: amlodipine 10 mg Tablet PO (10:16)
[2021-01-22] MEDS: fluoxetine 20 mg Capsule 40 MG PO (10:16)
[2021-01-22] MEDS: pantoprazole DR 40 mg Tablet PO (10:16)
--- NOTE | 2021-01-22 11:46 | PC.SOCIAL ---
IMM Update Pg. 2 of IMM updated and reviewed with patient who verbalized understanding. Copy provided.
[2021-01-22] MEDS: acetaminophen 325 mg Tablet 650 MG PO ×2 (11:52→22:12)
[2021-01-22] MEDS: levofloxacin-dextrose 5 % 750 MG/150 ML PREMIX 100 MG IV (14:07)
--- NOTE | 2021-01-22 15:06 | PM.PN ---
Subjective Subjective: Interval history: Patient continued to have high-flow nasal cannula overnight. Also started to have fevers again. T-max a 100.7. Feeling weak. Medications: Reviewed: Yes Vitals/I&O/Wt Last Vital Signs Temp 100.0 F H 01/22/21 11:20 Pulse 101 H 01/22/21 14:50 Resp 20 H 01/22/21 14:50 BP 127/70 01/22/21 11:20 Pulse Ox 92 01/22/21 14:50 01/22/21 01/22/21 01/22/21 06:59 14:59 22:59 Intake Total 580 / 1410 120 / 120 Output Total 300 / 800 Balance 280 / 610 120 / 120 Physical Exam Narrative: EXAM NARRATIVE: General : Chronically ill appearing, NAD on HFNC HEENT - Grossly unremarkable CVS: Tachycardia Chest: Decrease bases Abd: Soft, NT, ND Ext: B/L Le edema Data : 01/22/21 06:28 01/22/21 06:28 Micro: Microbiology 01/16/21 11:10 Blood Culture - Final Blood NO GROWTH AFTER 5 DAYS 01/16/21 11:21 Blood Culture - Final Blood NO GROWTH AFTER 5 DAYS A&P Assessment and plan (1) Pneumonia: Acute respiratory failure with hypoxia due to suspected CAP Pulmonary consulted Abx changed to levaquin 750 mg daily plus Aztreonam(D2) Suspected allergic reaction to imipenum On HFNC wean as tolerated - Repeat respiratory PCR pending Aspergillus / Histoplasma / PCP pending - Less likely- b-glucan negative. May need to consider Bronchoscopy CT of the chest 1. Patchy ground glass infiltrates within the right greater than left lower lobes with partial airspace consolidation 2. Additional patchy groundglass infiltrates along the right hilum and right fissure. 3. Additional hazy groundglass infiltrates in the subpleural upper lobes bilaterally. 4. Above findings suspicious for COVID 19 pneumonia. 5. A few reactive mediastinal lymph nodes. -Rapid Covid negative, Covid PCR negative -CT angiogram of the chest does not show pulmonary embolism, Increasing patulous ground-glass opacities within both lungs from 01/11/2021 study. Imaging appearance is nonspecific but resembles a viral pneumonitis including but not limited to COVID-19 infection. Repeat Chest x-ray unchanged May consider additional diuresis Continue current management course Slow to improve. Awaiting fungal cultures Will add flagyl to regimen - anaerobic coverage Status: Acute (2) Acute kidney injury: Stable - Resolved. Status: Acute (3) Hyponatremia: Status: Acute (4) Hyperkalemia: Status: Acute Additional A&P Information Hypertension Norvasc 10 mg PO daily Metoprolol 25 mg PO BID Hypothyroidism Levothyroxine 25 mcg PO daily GI ppx Protonix 40 mg PO daily DVT ppx Lovenox 40 mg SQ daily Attestations Medical Necessity Statement*: Will require further hospitalization for management of pneumonia requiring IV antibiotics and persistent fevers Time Spent in Patient Care: Greater than 35 minutes (>than 50% of time spent in counselling and/or direct pt care on unit). 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
[2021-01-22] MEDS: metroNIDAZOLE IV 500 MG/100 ML PREMIX 100 MG IV (17:00)
[2021-01-22] MEDS: enoxaparin 40 mg/0.4 mL Syringe SUBCUT (18:13)
[2021-01-22] MEDS: potassium chloride premix 100 ML 25 MEQ IV (18:54)
[2021-01-22] MEDS: amitriptyline 25 mg Tablet PO (22:12)
[2021-01-23] VITALS (22 sets, daily range): BP systolic 114–132; BP diastolic 68–91; PULSE 91–120; RESP 14–22; TEMP 36.3–38.2; O2SAT 87–93
[2021-01-23] MEDS: metroNIDAZOLE IV 500 MG/100 ML PREMIX 100 MG IV ×2 (00:18→08:22)
[2021-01-23] MEDS: aztreonam 2,000 MG in sodium chloride 0.9% (plus) 100 ML 200 MG IV ×3 (03:00→18:16)
[2021-01-23] MEDS: ipratropium-albuterol 3 mL Neb INHALATION ×2 (03:07→08:03)
[2021-01-23 06:00] LABS: Basophils # 0.1 10^3/uL (0.0-0.1); Basophils % 0.3 %; Eosinophils # 0.2 10^3/uL (0.0-0.8); Eosinophils % 1.3 %; Hematocrit 30.1 % (37.0-47.0); Hemoglobin 9.4 g/dL (11.5-15.3); Lymphocytes # 0.8 10^3/uL (0.8-4.8); Lymphocytes % 5.2 %; Mean Corpuscular HGB Conc 31.2 g/dL (30.0-36.0); Mean Corpuscular Hemoglobin 29.1 pg (28.0-34.0); Mean Corpuscular Volume 93.2 fL (81-99); Mean Platelet Volume 9.4 fL (7.4-10.4); Monocytes # 1.4 10^3/uL (0.2-0.9); Monocytes % 9.5 %; Neutrophils # 12.29 10^3/uL (1.8-7.7); Neutrophils % 82.6 %; Nucleated Red Blood Cells % 0 %; Platelet Count 450 10^3/cmm (130-400); Red Blood Count 3.23 10^6/uL (4.1-5.3); Red Cell Distribution Width 14.2 % (12.1-15.1); White Blood Count 14.9 10^3/uL (4.0-10.0)
[2021-01-23 06:20] LABS: Anion Gap 14.7 (5-19); Blood Urea Nitrogen 13 mg/dL (8-23); Carbon Dioxide 22 mmol/L (22-29); Chloride 106 mmol/L (98-107); Glucose 98 mg/dL (65-115); Osmolality Calculated 288 mOsm/kg (285-295); Potassium 3.7 mmol/L (3.5-5.1); Sodium 139 mmol/L (136-145)
[2021-01-23] MEDS: levothyroxine 25 mcg Tablet PO (06:33)
[2021-01-23] MEDS: budesonide 0.5 mg/2 mL Neb INHALATION ×2 (08:02→20:31)
[2021-01-23] MEDS: metoprolol tartrate 25 mg Tablet PO ×2 (08:23→20:46)
[2021-01-23] MEDS: amlodipine 10 mg Tablet PO (08:23)
[2021-01-23] MEDS: fluoxetine 20 mg Capsule 40 MG PO (08:23)
[2021-01-23] MEDS: pantoprazole DR 40 mg Tablet PO (08:23)
[2021-01-23] MEDS: cholecalciferol (vitamin D3) 1,000 unit Tablet 1000 UNIT PO (08:23)
[2021-01-23] MEDS: ondansetron 2 mg/ML SDV 2 mL 4 MG IVP (10:43)
[2021-01-23] MEDS: levofloxacin-dextrose 5 % 750 MG/150 ML PREMIX 100 MG IV (11:28)
--- NOTE | 2021-01-23 11:39 | PC.NURSE ---
Temperature was high, informed nurse
[2021-01-23 13:25] LABS: Ferritin 279 ng/mL (15-150); Lactate Dehydrogenase 318 U/L (135-214)
[2021-01-23 13:32] LABS: Procalcitonin 0.26 ng/mL (0-0.5)
[2021-01-23] MEDS: acetaminophen 325 mg Tablet 650 MG PO ×2 (13:45→22:23)
--- NOTE | 2021-01-23 14:26 | PC.NUTR ---
Nutrition follow up: Although overall average po intakes improving since last review, past 1-2 days with very poor intake. Recommend to encourage intakes of meals and Ensure Clear supplements and to provide preferences as available and appropriate for diet. Recommend monitor weight as gain of 10.5 lbs noted since admission. See RD assessments for further details.
[2021-01-23] MEDS: glycerin adult supp 1 EACH PR (14:44)
[2021-01-23] MEDS: ipratropium 0.5 mg/2.5 mL Neb INHALATION ×3 (15:15→23:44)
[2021-01-23] MEDS: levalbuterol 0.63 mg/3 mL Neb INHALATION ×3 (15:15→23:44)
--- NOTE | 2021-01-23 17:06 | P.PN_ITS ---
Subjective Subjective: Interval history: The patient was seen and examined. Over the past couple of nights the patient has been having low-grade fever. Overall the patient looks comfortable however continues to have significant oxygen requirement. The patient is not progressing the way I had hoped for her. Her white count is also slowly going up. The patient likely had a chest x-ray today however I do not have access to that because of issues with radiology. Medications: Reviewed: Yes Vitals/I&O/Wt Last Vital Signs Temp 98.9 F 01/23/21 15:00 Pulse 108 H 01/23/21 15:27 Resp 20 H 01/23/21 15:27 BP 115/72 01/23/21 15:00 Pulse Ox 90 01/23/21 15:27 01/23/21 01/23/21 01/23/21 06:59 14:59 22:59 Intake Total 600 / 1070 910 / 910 240 / 1150 Output Total 150 / 250 300 / 300 200 / 500 Balance 450 / 820 610 / 610 40 / 650 Physical Exam Narrative: EXAM NARRATIVE: General: Patient is awake alert and oriented, in no distress. In bed Neck: No JVD Respiratory: Auscultation: Reduced breath sound bilaterally, reduced crackles at the right lung base, no wheezing or rhonchi Cardiovascular: Regular rate and rhythm, S1-S2 present, no murmur, no peripheral edema. Abdomen: Soft, nontender, nondistended, positive bowel sound Musculoskeletal: No obvious joint deformity Skin: No rash Neuro: Mental status is normal, no gross cranial nerve deficit, normal motor and coordination. Data : 01/23/21 05:39 01/23/21 05:39 Attestation for Other Data: I personally reviewed and interpreted the following: Other data: I have reviewed her laboratory, microbiologic and radiologic data. A&P Assessment and plan (1) Pneumonia: The patient is being treated for community-acquired pneumonia. However, her recovery is not progressing at an expected rate. Additionally, the patient has developed low-grade fever and worsening leukocytosis. Status: Acute (2) Acute respiratory failure with hypoxia: I am going to perform bronchoscopic evaluation tomorrow morning. I have discussed the risks and complications in detail with the patient. For the time being we will continue with the same antibiotics. Status: Acute Attestations Medical Necessity Statement*: Will defer to the primary team Coding Level of Care Code Acute Pipe Line Inspector for [facility] Diagnoses Pneumonia J18.9 Acute respiratory failure with hypoxia J96.01
--- NOTE | 2021-01-23 17:38 | PM.PN ---
Subjective Subjective: Interval history: Hospital course appreciated. Labs reviewed. Over the past couple of nights the patient has been having low-grade fever. Overall the patient looks comfortable however continues to have significant oxygen requirement. The patient is not progressing the way I had hoped for her. Her white count is also slowly going up. Tmax in last 24 hrs 100.7 F, On 11 L HFNC saturating 92%, HR elevated. Pt states wants to go home kizzy. Denies any N/V, WOOD, diarrhea, runny nose, dizziness. Medications: Reviewed: Yes Vitals/I&O/Wt Last Vital Signs Temp 98.9 F 01/23/21 15:00 Pulse 108 H 01/23/21 15:27 Resp 20 H 01/23/21 15:27 BP 115/72 01/23/21 15:00 Pulse Ox 90 01/23/21 15:27 01/23/21 01/23/21 01/23/21 06:59 14:59 22:59 Intake Total 600 / 1070 910 / 910 240 / 1150 Output Total 150 / 250 300 / 300 200 / 500 Balance 450 / 820 610 / 610 40 / 650 Physical Exam Const: COMMON NORMALS: no acute distress and patient oriented x3 GENERAL APPEARANCE: cooperative, comfortable, ill appearing and frail appearing ORIENTATION/CONSCIOUSNESS: Yes awake, Yes oriented to person, Yes oriented to place and Yes oriented to time Eye: COMMON NORMALS: Equal, round and reactive pupils present GENERAL EYE: appearance normal, both eyes and all related structures PUPIL: Yes Equal, round and reactive pupils present Neck/C-Spine: COMMON NORMALS: no lymphadenopathy, no JVD and Thyroid normal THYROID: Thyroid normal Lymph: LYMPHATIC: no lymphadenopathy noted Resp: COMMON NORMALS: normal respiratory effort, No retractions and No use of accessory muscles EFFORT & INSPECTION: Yes uses accessory muscles (Slight accessory muscle use, suprasternal retractions, internal retractions) AUSCULTATION: crackles, wheezes and diminished lung sounds diffuse Cardio: COMMON NORMALS: no JVD, regular rate, regular rhythm, S1 normal heart sound present, S2 normal heart sound present, No gallops present (Cardio), No clicks present (Cardio) and No murmurs present (Cardio) RATE: regular rate RHYTHM: regular rhythm HEART SOUNDS: S1 normal heart sound present and S2 normal heart sound present GI: COMMON NORMALS: Normal to inspection, nondistended, normoactive bowel sounds present, Soft to palpation and non-tender PALPATION: Yes Soft to palpation Extremity: COMMON NORMALS: no pedal edema NARRATIVE EXTREMITY EXAM: 1+ edema Neuro: COMMON NORMALS: patient oriented x3, CN's II-XII intact bilaterally, moves all extremities and no focal motor deficits SENSORIUM/ORIENTATION: Yes oriented to person, Yes oriented to place and Yes oriented to time Psych: COMMON NORMALS: mental status grossly normal, Normal thought process present and cooperative THOUGHT PROCESS: Normal thought process present Skin: NARRATIVE SKIN EXAM: Diffuse macular rash, slightly raised, irregular, over back, sacrum, Data : 01/23/21 05:39 01/23/21 05:39 A&P Assessment and plan (1) Acute respiratory failure with hypoxia: Acute hypoxic respiratory failure: Etiology unknown. Patient has been on multiple rounds of antibiotics since admission. Including aztreonam, levoflox and flagyl currently. COVID 19 negative, MRSA negative. Sputum Cx not available, Bcx negative. PJP less likley- Fungitell negative. Check Urine legionella, Bacterial antigen, Sputum Cx, HIV, Quantiferon, Hepatitis panel. UA shows blood and protein- R/o autoimmune. Check AVERY panel. Check BNP, ECHO. Can not r/o funagl infection. Case d/w Dr. Abad, Will plan for Bronch in AM. NPO after midnight. Status: Acute (2) Pneumonia: Status: Acute (3) Acute kidney injury: Stable - Resolved. Status: Acute (4) Hyponatremia: Status: Acute (5) Hyperkalemia: Status: Acute Additional A&P Information Hypertension Norvasc 10 mg PO daily Persistently tachycardic. Increase Metoprolol to 50 mg PO BID Hypothyroidism Levothyroxine 25 mcg PO daily GI ppx Protonix 40 mg PO daily Dysphagia III diet DVT ppx Lovenox 40 mg SQ daily Attestations Medical Necessity Statement*: Requires hospitalization for persistent acute hypoxic respiratory failure Time Spent in Patient Care: Greater than 35 minutes (>than 50% of time spent in counselling and/or direct pt care on unit). Coding Level of Care Code Acute Director Of Tax Services for Zay Casanova Diagnoses Acute respiratory failure with hypoxia J96.01 Pneumonia J18.9 Acute kidney injury N17.9 Hyponatremia E87.1 Hyperkalemia E87.5
[2021-01-23] MEDS: enoxaparin 40 mg/0.4 mL Syringe SUBCUT (18:16)
[2021-01-23 19:54] LABS: HIV 1 & 2 Antibody Non-Reactive (Non-Reactiv); HIV 1 & 2 Antigen Non-Reactive (Non-Reactiv)
[2021-01-23 20:17] LABS: Hepatitis A Antibody IgM Non-Reactive (Nonreactive); Hepatitis B Core AB, Total Non-Reactive (Nonreactive); Hepatitis B Surface AB 3.5 (11.5-1000); Hepatitis B Surface Antigen Non-Reactive (Nonreactive); Hepatitis C Virus Antibody Non-Reactive (Nonreactive)
[2021-01-23] MEDS: amitriptyline 25 mg Tablet PO (22:23)
[2021-01-24] VITALS (37 sets, daily range): BP systolic 100–137; BP diastolic 61–90; PULSE 76–167; RESP 16–34; TEMP 36.7–36.8; O2SAT 82–98
[2021-01-24] MEDS: aztreonam 2,000 MG in sodium chloride 0.9% (plus) 100 ML 200 MG IV (01:58)
[2021-01-24] MEDS: ipratropium 0.5 mg/2.5 mL Neb INHALATION ×3 (03:08→23:06)
[2021-01-24] MEDS: levalbuterol 0.63 mg/3 mL Neb INHALATION ×3 (03:08→23:06)
--- NOTE | 2021-01-24 04:00 | USCV_ITS ---
Hamida Saha Age: 75 Gender: F : 1945 Exam Date: 01/24/2021 06:33 Ordering Phys: Darcy Abad MD Technologist: Exam Location: [facility] [place] Indication: HX OF DVT HISTORY: History of deep venous thrombosis. PROCEDURES: The venous duplex Doppler examination of both lower extremities was performed in the standard fashion. The following venous structures were evaluated: common femoral vein, profunda vein, proximal portion of the greater saphenous vein, superficial femoral vein, and the popliteal vein. In addition, the posterior tibial and peroneal trunk were evaluated. Bilaterally, the common femoral, superficial femoral, profunda femoral, popliteal, posterior tibial, greater saphenous veins, and the peroneal trunk were identified and interrogated in the standard fashion. These veins were found to be easily compressible with spontaneous blood flow. No evidence of insufficiency or thrombus noted. FINDINGS: Normal 2-D Doppler and augmentation and compressibility throughout the lower extremity venous structures. Additional imaging through the proximal calf veins also reveals no thrombus. Limited evaluation of the greater saphenous vein is patent with no thrombus.. CONCLUSIONS No evidence of right lower extremity DVT. No evidence of left lower extremity DVT. Manjinder Duran MD (Electronically Signed) Final Date: 24 January 2021 12:27 S
[2021-01-24 07:14] LABS: Basophils # 0.1 10^3/uL (0.0-0.1); Basophils % 0.3 %; Eosinophils # 0.1 10^3/uL (0.0-0.8); Eosinophils % 0.7 %; Hematocrit 31.7 % (37.0-47.0); Hemoglobin 9.5 g/dL (11.5-15.3); Lymphocytes # 0.8 10^3/uL (0.8-4.8); Lymphocytes % 3.9 %; Mean Corpuscular Hemoglobin 29.1 pg (28.0-34.0); Mean Corpuscular Volume 96.9 fL (81-99); Mean Platelet Volume 9.7 fL (7.4-10.4); Monocytes # 1.5 10^3/uL (0.2-0.9); Monocytes % 8.1 %; Neutrophils # 16.41 10^3/uL (1.8-7.7); Neutrophils % 86.2 %; Nucleated Red Blood Cells % 0 %; Platelet Count 422 10^3/cmm (130-400); Red Blood Count 3.27 10^6/uL (4.1-5.3); Red Cell Distribution Width 14.6 % (12.1-15.1); White Blood Count 19.1 10^3/uL (4.0-10.0)
[2021-01-24 07:41] LABS: Alanine Aminotransferase 6 U/L (0-33); Alkaline Phosphatase 45 IU/L (35-105); Anion Gap 14.5 (5-19); Aspartate Amino Transferase 6 U/L (0-32); Blood Urea Nitrogen 15 mg/dL (8-23); Calcium 8.1 mg/dL (8.5-10.5); Carbon Dioxide 21 mmol/L (22-29); Chloride 110 mmol/L (98-107); Glucose 98 mg/dL (65-115); NT Pro B Type Natriuretic Pept 1856 pg/mL (0-450); Osmolality Calculated 295 mOsm/kg (285-295); Potassium 3.5 mmol/L (3.5-5.1); Sodium 142 mmol/L (136-145); Total Bilirubin 0.3 mg/dL (0.15-1.2)
--- NOTE | 2021-01-24 07:58 | ANES.PREANE2 ---
Pre-Anesthetic Assessment Pre-Anesthetic Assessment: Height/Weight: Height 1.6 m Weight 77.383 kg Temp Pulse Resp BP Pulse Ox 98.0 F 118 H 20 H 137/73 90 01/24/21 07:32 01/24/21 07:32 01/24/21 07:32 01/24/21 07:32 01/24/21 07:32 Proposed Procedure: Operation Date: 01/24/21 07:00 Proposed Procedures p Bronchoscopy(Not Applicable) - Bipisaac Abad MD Was Beta Obdulia taken within 24 hours: Yes Was Clonidine taken within 24 hours: N/A Social: Social History: No alcohol and No tobacco (H/o smoking quit in 90's) Exam: Pre-Anes Outpt Exam: alert, oriented x 3 and regular rate & rhythm Additional Exam Findings (including area of procedure): wheezing/rhonchi on right Airway: Submandibular: WNL Cervical ROM: WNL MP: 2 Dentition: False Pulmonary: Pulmonary: COPD Comments: CAP, high flow O2 requirement CV/HEM: CV/HEM: Arrythmia (tachy), CAD, HTN and OR GI: GI: GERD Anesthetic Plan: ASA status: 4 Anesthesia: General Risk of > 500 ml blood loss (7ml/kg in children): No Meds/Allergies Current Medications: Current Medications Generic Name Dose Route Start Last Admin Trade Name Freq PRN Reason Stop Dose Admin Acetaminophen 650 mg 01/11/21 18:14 01/23/21 22:23 Acetaminophen 32 5 Mg Tablet PO 650 mg Q6H PRN Administration Mild/Mod Pain Or Temp >/= 101 Albuterol Sulfate 1 puff 01/11/21 18:14 01/19/21 07:54 Albuterol 8 Gm M di INHALATION 1 puff Q4H.RESPIRATORY P RN Administration sob Amitriptyline HCl 25 mg 01/18/21 19:45 01/23/21 22:23 Amitriptyline 25 Mg Tablet PO 25 mg BEDTIME PRN Administration INSOMNIA Amlodipine Besylat e 10 mg 01/12/21 09:00 01/23/21 08:23 Amlodipine 10 Mg Tablet PO 10 mg DAILY OSVALDO Administration Benzonatate 200 mg 01/11/21 18:14 01/17/21 23:53 Benzonatate 100 Mg Capsule PO 200 mg TID PRN Administration COUGH Budesonide 0.5 mg 01/19/21 20:00 01/23/21 20:31 Budesonide 0.5 M g/2 Ml Neb INHALATION 0.5 mg BID.RESPIRATORY S CH Administration Diphenhydramine HC l 25 mg 01/17/21 11:45 01/18/21 01:47 Diphenhydramine 50 Mg/Ml Sdv 1ml IVP 25 mg Q6H PRN Administration ITCHING Enoxaparin Sodium 40 mg 01/14/21 17:00 01/23/21 18:16 Enoxaparin 40 Mg /0.4 Ml Syringe SUBCUT 40 mg Q24H OSVALDO Administration Fluoxetine HCl 40 mg 01/18/21 09:00 01/23/21 08:23 Fluoxetine 20 Mg Capsule PO 40 mg DAILY OSVALDO Administration Glycerin 1 each 01/23/21 11:27 01/23/21 14:44 Glycerin Adult S upp CO 1 each DAILY PRN Administration CONSTIPATION Aztreonam 2,000 mg / Sodium 100 mls @ 200 mls /hr 01/18/21 10:00 01/24/21 02:32 Chloride IV Infused Q8H OSVALDO Infusion Levofloxacin/Dextr ose 750 mg in 150 mls @ 100 mls/hr 01/19/21 11:30 01/23/21 13:18 Levaquin-D5w IV Infused Q24H OSVALDO Infusion Protocol Ipratropium Bromid e 0.5 mg 01/23/21 16:00 01/24/21 03:08 Ipratropium 0.5 Mg/2.5 Ml Neb INHALATION 0.5 mg Q4H.RESPIRATORY S CH Administration Levalbuterol HCl 0.63 mg 01/23/21 16:00 01/24/21 03:08 Levalbuterol 0.6 3 Mg/3 Ml Neb INHALATION 0.63 mg Q4H.RESPIRATORY S CH Administration Levothyroxine Sodi um 25 mcg 01/13/21 10:00 01/24/21 05:10 Levothyroxine 25 Mcg Tablet PO Not Given QAM OSVALDO Ondansetron HCl 4 mg 01/11/21 18:14 01/23/21 10:43 Ondansetron 2 Mg /Ml Sdv 2 Ml IVP 4 mg Q8H PRN Administration vomiting, or N/V if npo Pantoprazole Sodiu m 40 mg 01/12/21 09:00 01/23/21 08:[address] 40 Mg Tablet PO 40 mg DAILY OSVALDO Administration Vitamin D 1,000 unit 01/12/21 09:00 01/23/21 08:23 Cholecalciferol (Vitamin D3) 1,000 Unit Tablet PO 1,000 unit DAILY OSVALDO Administration PFSH Anesthesia PFSH: Medical History CAD (coronary artery disease) Depression with anxiety Hypertension Surgical History History of cholecystectomy History of total hysterectomy Family History Mother CAD (coronary artery disease) Diabetes Hypertension Alzheimer's dementia Father CAD (coronary artery disease) Diabetes Hypertension Dementia Social History Smoking and tobacco status: former smoker Alcohol intake: never Substance/Drug Use: never Data Anesthesia CBC & Chem 7: 01/24/21 07:03 01/24/21 07:03 Other Labs: Laboratory Results - last 48 hr 01/18/21 01/23/21 01/23/21 08:58 05:39 05:39 WBC 14.9 H RBC 3.23 L Hgb 9.4 L Hct 30.1 L MCV 93.2 MCH 29.1 MCHC 31.2 RDW 14.2 Plt Count 450 H MPV 9.4 Neut % (Auto) 82.6 Lymph % (Auto) 5.2 [place] % (Auto) 9.5 Eos % (Auto) 1.3 Baso % (Auto) 0.3 Neut # (Auto) 12.29 H Lymph # (Auto) 0.8 [place] # (Auto) 1.4 H Eos # (Auto) 0.2 Baso # (Auto) 0.1 Nucleated RBC % (auto) 0 Nucleated RBCs # 0.0 Sodium 139 Potassium 3.7 Chloride 106 Carbon Dioxide 22 Anion Gap 14.7 BUN 13 Creatinine 0.6 GFR Calculation Not Reportable Glucose 98 Calculated Osmolality 288 Calcium 8.0 L Ferritin Total Bilirubin AST ALT Alkaline Phosphatase Lactate Dehydrogenase NT-Pro-B Natriuret Pep Total Protein Albumin Globulin Procalcitonin Hepatitis A IgM Ab Hep Bs Antigen Hep Bs Antibody Hep B Core Total Ab Hepatitis C Antibody Histoplasma Antibody Negative HIV 1&2 Ab & HIV 1 Ag HIV 1&2 Antibody 01/23/21 01/23/21 01/23/21 05:39 05:39 05:39 WBC RBC Hgb Hct MCV MCH MCHC RDW Plt Count MPV Neut % (Auto) Lymph % (Auto) [place] % (Auto) Eos % (Auto) Baso % (Auto) Neut # (Auto) Lymph # (Auto) [place] # (Auto) Eos # (Auto) Baso # (Auto) Nucleated RBC % (auto) Nucleated RBCs # Sodium Potassium Chloride Carbon Dioxide Anion Gap BUN Creatinine GFR Calculation Glucose Calculated Osmolality Calcium Ferritin 279 H Total Bilirubin AST ALT Alkaline Phosphatase Lactate Dehydrogenase 318 H NT-Pro-B Natriuret Pep Total Protein Albumin Globulin Procalcitonin 0.26 Hepatitis A IgM Ab Non-reactive Hep Bs Antigen Non-reactive Hep Bs Antibody 3.5 L Hep B Core Total Ab Non-reactive Hepatitis C Antibody Non-reactive Histoplasma Antibody HIV 1&2 Ab & HIV 1 Ag Non-reactive HIV 1&2 Antibody Non-reactive 01/24/21 01/24/21 07:03 07:03 WBC 19.1 H RBC 3.27 L Hgb 9.5 L Hct 31.7 L MCV 96.9 MCH 29.1 MCHC 30.0 RDW 14.6 Plt Count 422 H MPV 9.7 Neut % (Auto) 86.2 Lymph % (Auto) 3.9 [place] % (Auto) 8.1 Eos % (Auto) 0.7 Baso % (Auto) 0.3 Neut # (Auto) 16.41 H Lymph # (Auto) 0.8 [place] # (Auto) 1.5 H Eos # (Auto) 0.1 Baso # (Auto) 0.1 Nucleated RBC % (auto) 0 Nucleated RBCs # 0.0 Sodium 142 Potassium 3.5 Chloride 110 H Carbon Dioxide 21 L Anion Gap 14.5 BUN 15 Creatinine 0.7 GFR Calculation Not Reportable Glucose 98 Calculated Osmolality 295 Calcium 8.1 L Ferritin Total Bilirubin 0.3 AST 6 ALT 6 Alkaline Phosphatase 45 Lactate Dehydrogenase NT-Pro-B Natriuret Pep 1856 H Total Protein 6.0 L Albumin 2.0 L Globulin 4.0 Procalcitonin Hepatitis A IgM Ab Hep Bs Antigen Hep Bs Antibody Hep B Core Total Ab Hepatitis C Antibody Histoplasma Antibody HIV 1&2 Ab & HIV 1 Ag HIV 1&2 Antibody Micro: Microbiology 01/24/21 07:03 Blood Culture - Preliminary Blood SPECIMEN COLLECTED 01/24/21 07:01 Blood Culture - Preliminary Blood SPECIMEN COLLECTED Cardiac Studies: Echocardiogram 01/12/21
[2021-01-24] MEDS: sodium chloride 0.9% 1,000 ML 30 ML IV (07:59)
--- NOTE | 2021-01-24 08:30 | SUR.PREOP ---
Surgery delayed due to lack of anesthesia. Procedure now to go at 1200. Pt family notified and brought down to GI lab to sit with patient. Pt connected to monitor with VSS. O2 via high flow nasal cannula at 10 L with Sao2 90%.
--- NOTE | 2021-01-24 10:15 | PC.SOCIAL ---
IMM not updated Pt is off unit, in OR, having a Bronchosopy done. IMM not updated at this time. Pt is not expected to d/c within the next 48hrs.
--- NOTE | 2021-01-24 10:29 | ECG_ITS ---
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 Measurements Intervals [place] Rate: 136 P: [place]: QRS: -9 QRSD: 97 T: 82 QT: 301 QTc: 454 Interpretive Statements ATRIAL FIBRILLATION WITH RAPID VENTRICULAR RESPONSE NONSPECIFIC ST & T-WAVE ABNORMALITY ABNORMAL RHYTHM ECG Compared to ECG 01/17/2021 08:43:37 T-wave abnormality now present Sinus tachycardia no longer present Left ventricular hypertrophy no longer present ST (T wave) deviation no longer present Electronically Signed On 01-25-2021 22:07:12 CDT by Tiffanie Leija M.D. [id number]
--- NOTE | 2021-01-24 10:36 | SUR.PREOP ---
This nurse called to pt room by family stating the patient's monitor going off. HR noted at 150. Pt denies chest pain but states she feels like she is having a spasm in her right shoulder. Anesthesia at bedside and assessing patient. Sao2 at 86% on High flow nasal cannula. O2 switched to 15 L via mask. Metoprolol 4 mg IVP given per anesthesia. 12 lead EKG ordered. Respiratory at bedside performing EKG. Pt moved to procedure room 3 and attached to 5 lead EKG. Anesthesia at bedside monitoring airway.
--- NOTE | 2021-01-24 10:37 | PC.OT ---
OT tx attempted. Pt off the unit in surgery for procedure. Will attempt again later if possible.
--- NOTE | 2021-01-24 10:54 | XRR_ITS ---
PROCEDURE INFORMATION: Exam: XR Chest Exam date and time: 01/24/2021 10:54 AM Age: 75 years old Clinical indication: Shortness of breath; Patient HX: History--sob, weak; Additional info: Tachycardia, SOB TECHNIQUE: Imaging protocol: XR of the chest. Views: 1 view. COMPARISON: MS XR chest 1V [id number] 01/20/2021 5:33 AM FINDINGS: Lungs: There is bilateral airspace disease, more prominent on the right. The airspace disease has worsened. This is likely due to pneumonia. Pleural spaces: No left pleural effusion. Trace right pleural effusion. No pneumothorax. Heart/Mediastinum: The cardiac silhouette is not enlarged. Vasculature: The trachea is deviated to the right, potentially due to an ectatic and/or tortuous thoracic aorta. Bones/joints: Chronic right rotator cuff tear. Prior surgery with right humeral and scapular anchors present. XR/XR chest 1V portable [id number] IMPRESSION: Interval worsening of bilateral, asymmetric pneumonia.
--- NOTE | 2021-01-24 11:35 | PC.NURSE ---
Pt transferred to ICU 10 via stretcher. Amiodarone 150 mg IVPB infused as ordered per hospitalist. Pt HR now 140. Pt denies chest pain. Sao2 98% on Bipap. Report given to ALCIRA Chiu. Dr. Abad updated on pt condition and transfer to ICU. Bronchoscopy cancelled at this time. Pt daughter updated on pt condition and escorted to ICU waiting room.
--- NOTE | 2021-01-24 11:40 | PC.NURSE ---
Pt here from GI lab via gurney. BIPAP in place. pt is alert and oriented x4 no c/o pain at this time. pt transferred to ICU bed and placed on monitor. Bedside report received from Dafne ELI from GI lab. Will closely monitor
--- NOTE | 2021-01-24 12:16 | PC.NURSE ---
Dr. Morley on the unit. Orders received. Daughter at bedside speaking with Physician.
[2021-01-24] MEDS: FUROsemide 10 mg/mL SDV 4mL 40 MG IVP ×2 (13:08→19:36)
--- NOTE | 2021-01-24 14:41 | PC.NURSE ---
switched to heated high flow at this time .. small amts of ice given heart rate remains about 150 afib
--- NOTE | 2021-01-24 15:00 | PC.NURSE ---
noted increase in resp distress requesting more oxygen now at 100 high flow o2 .. placed back on bipap Dr Novoa here orders and talked with daughter who is in room
[2021-01-24 15:13] LABS: Aspergillus AG,EIA,Serum NOT DETECTED; Aspergillus Galactomannan Inde <0.50
[2021-01-24] MEDS: metoprolol tartrate 50 mg Tablet PO (15:29)
--- NOTE | 2021-01-24 15:30 | PC.NURSE ---
geller inserted for urinary frequency post lasix with resulting with dyspnea and short of breath ammio gtt infusing at this time noted pvc multifocal
[2021-01-24 16:42] LABS: ABG PH Result 7.45 (7.35-7.45); Alveolar-Arterial Oxygen Gradi 62.4 mmHg (5-10); Arterial Blood Gas Hematocrit 30.2 % (37-47); Base Excess ABG -1.3 mmol/L (-2.0-2.0); Blood Gas Allen Test Pos; Blood Gas Operator Identificat CAK; Blood Gas Sample Site Radial, left; Blood Gas Sample Type Arterial; Carboxyhemoglobin 0.9 %THgb (0.4-20.1); HCO3 ABG 22.2 mmol/L (22-26); HGB O2 Sat 86.6 % (95-100); Ionized Calcium Level - ABG 1.2 mmol/L (1.1-1.4); Methemoglobin 0.6 % (0.4-1.5); Oxygen Device HAG; Oxygen Saturation ABG 87.9; PO2 ABG 51.9 mmHg (80.0-100.0); Potassium Level - ABG 3.6 mmol/L (3.5-5.0); Total Hemoglobin 9.9 g/dL (12-16)
--- NOTE | 2021-01-24 16:46 | PM.PN ---
Subjective Subjective: Interval history: No acute events overnight. Patient maintained her saturations in high 80s on 11 L high flow nasal cannula. Today morning patient was due for bronchoscopy. While in bronchoscopy suite patient went into A. fib with RVR after which she was in acute respiratory failure for which she was placed on BiPAP and transition to ICU. In ICU she was on amiodarone drip with her heart rate coming down to 110s but patient was having biphasic VPCs with elevated QTC amiodarone was stopped with concerns for possible Evaristo T leading to torsades. Medications: Reviewed: Yes Vitals/I&O/Wt Last Vital Signs Temp 98.0 F 01/24/21 07:32 Pulse 144 H 01/24/21 15:26 Resp 18 01/24/21 15:26 BP 121/86 01/24/21 12:30 Pulse Ox 90 01/24/21 15:26 01/24/21 01/24/21 01/24/21 06:59 14:59 22:59 Intake Total 100 / 1590 406 / 406 Output Total 200 / 200 Balance 100 / 690 206 / 206 Physical Exam Const: COMMON NORMALS: no acute distress and patient oriented x3 GENERAL APPEARANCE: cooperative, comfortable, ill appearing and frail appearing ORIENTATION/CONSCIOUSNESS: Yes awake, Yes oriented to person, Yes oriented to place and Yes oriented to time Eye: COMMON NORMALS: Equal, round and reactive pupils present GENERAL EYE: appearance normal, both eyes and all related structures PUPIL: Yes Equal, round and reactive pupils present Neck/C-Spine: COMMON NORMALS: no lymphadenopathy, no JVD and Thyroid normal THYROID: Thyroid normal Lymph: LYMPHATIC: no lymphadenopathy noted Resp: COMMON NORMALS: normal respiratory effort, No retractions and No use of accessory muscles EFFORT & INSPECTION: Yes uses accessory muscles (Slight accessory muscle use, suprasternal retractions, internal retractions) AUSCULTATION: crackles, wheezes and diminished lung sounds diffuse Cardio: COMMON NORMALS: no JVD, regular rate, regular rhythm, S1 normal heart sound present, S2 normal heart sound present, No gallops present (Cardio), No clicks present (Cardio) and No murmurs present (Cardio) RATE: regular rate RHYTHM: regular rhythm HEART SOUNDS: S1 normal heart sound present and S2 normal heart sound present GI: COMMON NORMALS: Normal to inspection, nondistended, normoactive bowel sounds present, Soft to palpation and non-tender PALPATION: Yes Soft to palpation Extremity: COMMON NORMALS: no pedal edema NARRATIVE EXTREMITY EXAM: 1+ edema Neuro: COMMON NORMALS: patient oriented x3, CN's II-XII intact bilaterally, moves all extremities and no focal motor deficits SENSORIUM/ORIENTATION: Yes oriented to person, Yes oriented to place and Yes oriented to time Psych: COMMON NORMALS: mental status grossly normal, Normal thought process present and cooperative THOUGHT PROCESS: Normal thought process present Skin: NARRATIVE SKIN EXAM: Diffuse macular rash, slightly raised, irregular, over back, sacrum, Urinary Catheter Management^: Ramirez: Cath Placed During This Visit: yes Urinary Catheter Date of Insertion: 01/24/21 Urinary Catheter Time of Insertion: 15:29 Data : 01/24/21 07:03 01/24/21 07:03 Micro: Microbiology 01/24/21 07:03 Blood Culture - Preliminary Blood SPECIMEN COLLECTED 01/24/21 07:01 Blood Culture - Preliminary Blood SPECIMEN COLLECTED A&P Assessment and plan (1) ARDS (adult respiratory distress syndrome): Status: Acute (2) Acute respiratory failure with hypoxia: Status: Acute (3) Pneumonia: Status: Acute (4) New onset a-fib: Status: Acute (5) Acute kidney injury: Stable - Resolved. Status: Acute (6) Hyponatremia: Status: Acute (7) Hyperkalemia: Status: Acute Additional A&P Information ARDS: Etiology unknown for now. Patient has had multiple rounds of antibiotics since admission including estrogen, levofloxacin and Flagyl. COVID-19 negative, MRSA negative, pneumocystis likely Fungitell negative. Galactomannan negative, histoplasma antibody negative, respiratory viral panel negative. Sputum culture not available yet, blood cultures so far negative. Beta D glucan negative hepatitis panel, HIV, bacterial antigen, urine Legionella negative. QuantiFERON pending, AVERY pending, procalcitonin negative. Echocardiogram shows an EF of 60% with normal diastolic function, normal right sided functions, no pericardial effusion. Continue oxygen supplementation keeping saturation at 90. Currently patient is on 85% BiPAP. Early intubation. Continue with aztreonam, levofloxacin. High likely patient has fungal pneumonia. For now we will hold off on starting voriconazole as QTC is prolonged at 534. Patient is getting intubated over once hemodynamically stable will plan for bronchoscopy. Ipratropium every 4 hours, Xopenex every 4 hours, budesonide twice daily. Atrial fibrillation with rapid ventricular response: Stop amiodarone drip as patient is at high risk of torsades with elevated QTC. Metoprolol 50 mg twice daily if BP permissible, hold for systolic blood pressure less than 1 mmHg. Digoxin load placed 500 mcg start followed by 125 mcg every 6 hours for 2 doses. Patient would benefit from anticoagulation. After bronchoscopy we will start patient on full dose Lovenox. Hypertension: Goal blood pressure less than 140/90 mmHg. Norvasc 10 mg PO daily Persistently tachycardic. Increase Metoprolol to 50 mg PO BID Hypothyroidism Levothyroxine 25 mcg PO daily GI ppx Protonix 40 mg PO daily Dysphagia III diet DVT ppx Lovenox 40 mg SQ daily Continue with ICU care. Attestations Medical Necessity Statement*: Requires further hospitalization for management of ARDS, atrial fibrillation with rapid ventricular response Critical Care Time: The high probability of a clinically significant, sudden or life threatening deterioration of the patient's [cardiac, respiratory] system(s) required my full and direct attention, intervention and personal management. The critical care time is as shown. This time is in addition to time spent performing any reported procedures but includes the following: [x] Data and vital sign review and interpretation [x] Patient assessment, examination and intervention [x] Documentation [x] Medication orders and management Critical Care Time (min): 90 Coding Level of Care Code Acute Global Marketing Operations Manager for Zay Fwanh Diagnoses ARDS (adult respiratory distress syndrome) J80 Acute respiratory failure with hypoxia J96.01 Pneumonia J18.9 New onset a-fib I48.91 Acute kidney injury N17.9 Hyponatremia E87.1 Hyperkalemia E87.5
--- NOTE | 2021-01-24 17:52 | PC.NURSE ---
Dr Abad here talked with daughter inserting central line at this time also preparing for intubation
--- NOTE | 2021-01-24 18:17 | XRR_ITS ---
PROCEDURE INFORMATION: Exam: XR Chest Exam date and time: 01/24/2021 6:17 PM Age: 75 years old Clinical indication: Device placement; Ng tube; Additional info: Post et tube, ng tube, central line placement TECHNIQUE: Imaging protocol: XR of the chest. Views: 1 view. COMPARISON: CR XR chest 1V portable [id number] 01/24/2021 11:05 AM FINDINGS: Tubes, catheters and devices: Intubation with tip 5.7 cm above the alexa. Right subclavian central line which extends up the right neck, off the field of view. NG tube with tip near the GE junction. Lungs: Stable dense consolidation throughout the right lung. Increased patchy airspace opacities throughout the left lung. Pleural spaces: Unremarkable. No pleural effusion. No pneumothorax. Heart/Mediastinum: Unremarkable. No cardiomegaly. Bones/joints: Unremarkable. XR/XR chest 1V portable [id number] IMPRESSION: 1. The right subclavian central line extends up the right internal jugular vein. This catheter should be repositioned. 2. Tip of the nasogastric tube is near the GE junction. 3. Multilobar pneumonia, increased in the left lung.
[2021-01-24] MEDS: midazolam 1 mg/mL INJ 2 mL 2 MG IVP ×2 (18:36→18:47)
[2021-01-24] MEDS: succinylcholine 20 mg/mL SDV 10mL 116.0745 MG IV (18:38)
[2021-01-24] MEDS: fentaNYL 50 mcg/mL INJ 2mL IVP (18:39)
[2021-01-24] MEDS: lidocaine 1% INJ 20 mL 5 ML IV (18:40)
[2021-01-24] MEDS: propofol 1,000 MG/100 ML INJ 2.32 MG IV (18:41)
[2021-01-24] MEDS: rocuronium 10 mg/mL INJ 5mL 80 MG IVP (19:35)
--- NOTE | 2021-01-24 19:46 | PC.NURSE ---
Dr. Abad gave v.o. not to administer amphotericin, start Propofolol at 50 mcg/kg/min, start levophed at 25 mcg/min and okay to go up to 50 mcg/min, start fentanyl at 75 mcg/hr
[2021-01-24] MEDS: budesonide 0.5 mg/2 mL Neb INHALATION (19:48)
--- NOTE | 2021-01-24 19:50 | PC.NURSE ---
Dr. Abad gave v.o. to increase Fentanyl up to 200 mcg/hr if needed
--- NOTE | 2021-01-24 19:56 | PM.PN ---
Subjective Subjective: Interval history: The patient was seen and examined in the ICU. She was supposed to get bronchoscopic evaluation this morning. However, due to scheduling reason this was pushed back to 12:15 PM. While waiting in the Endo suite, the patient developed A. fib with RVR with a heart rate in 170s. At this time, the patient also decompensated. She became hypoxic requiring BiPAP. When I saw her in the ICU, the patient was saturating in the high 80s to low 90s with 80% FiO2 on BiPAP. The patient was tired. Chest x-ray obtained after the patient went into A. fib revealed bilateral alveolar infiltrate predominantly on the right side. I performed a bedside ultrasound which revealed at least moderate mitral regurgitation. The patient had dilated IVC without any respiratory variation and dilated hepatic vein. An arterial blood gas revealed a PO2 of 52 on 80% oxygen on BiPAP. The patient had received amiodarone followed by digoxin for control of the heart rate. I have decided to intubate the patient for cardiogenic pulmonary edema resulting in acute hypoxic respiratory failure, A. fib with RVR. After intubation, the follow-up chest x-ray revealed symmetric pulmonary edema. A bronchoscopic evaluation revealed noninflamed airways. The fluid return from the right middle lobe bronchoalveolar lavage was cloudy. There was no evidence of diffuse alveolar hemorrhage. Medications: Reviewed: Yes Vitals/I&O/Wt Last Vital Signs Temp 98.0 F 01/24/21 07:32 Pulse 122 H 01/24/21 19:50 Resp 18 01/24/21 19:52 BP 115/65 01/24/21 16:30 Pulse Ox 94 01/24/21 19:52 01/24/21 01/24/21 01/24/21 06:59 14:59 22:59 Intake Total 100 / 1590 406 / 406 100 / 506 Output Total 200 / 200 350 / 550 Balance 100 / 690 206 / 206 -250 / -44 Physical Exam Narrative: EXAM NARRATIVE: General: Patient is intubated and sedated Neck: No JVD Respiratory: Auscultation: Bilateral diffuse crackles Cardiovascular: Variable first heart sound, no murmur Abdomen: Soft, nondistended, positive bowel sound Musculoskeletal: No obvious joint deformity Skin: No rash Neuro: The patient is intubated and sedated Urinary Catheter Management^: Ramirez: Cath Placed During This Visit: yes Reason for Continuing Indwelling Catheter: Accurate Measurement of Urinary Output in Critically Ill Patients Urinary Catheter Date of Insertion: 01/24/21 Urinary Catheter Time of Insertion: 15:29 Data : 01/24/21 07:03 01/24/21 07:03 Micro: Microbiology 01/23/21 13:55 Gram Stain - Final Sputum - Expectorated Sputum 01/24/21 07:03 Blood Culture - Preliminary Blood SPECIMEN COLLECTED 01/24/21 07:01 Blood Culture - Preliminary Blood SPECIMEN COLLECTED Attestation for Other Data: I personally reviewed and interpreted the following: Other data: I have reviewed the patient's laboratory, microbiologic and radiologic data. Please see the HPI for detail. A&P Assessment and plan (1) Acute respiratory failure: The patient has developed acute pulmonary edema in the setting of A. fib with RVR. The patient required intubation mechanical ventilation. Currently the patient is on volume control mechanical ventilation. Her tidal volume is 350, respiratory rate 18, PEEP of 10, FiO2 100%. The patient was paralyzed with one-time dose of rocuronium 80 mg. She is sedated with fentanyl and propofol. Status: Acute (2) Cardiogenic pulmonary edema: The patient is going to undergo aggressive diuresis. The patient has significant mitral regurgitation. I think that the regurgitation jet was initially directed towards the right pulmonary veins resulting in asymmetric pulmonary edema. With time, this has equilibrated and now the patient has bilateral pulmonary edema. The patient had been suffering from bilateral infiltrate and had been getting treated for pneumonia due to the presence of predominantly right-sided infiltrate. When the patient was initially in the hospital, she was diuresed because of elevated BNP. The patient does not carry a diagnosis of heart failure. Patients with asymmetric pulmonary edema in the setting of mitral regurgitation jet predominantly directed towards the right sided pulmonary veins could present the way the patient is behaving. However, I do have significant concern with that the patient has an infection that is untreated so far. The patient has received broad-spectrum antibiotic. Her antibiotic coverage has been broadened. Currently the patient is on aztreonam, vancomycin and Levaquin. I performed a bronchoscopy and bronchoalveolar lavage from right middle lobe and we have sent out an extensive work-up. I am going to diurese the patient aggressively overnight. My goal is to have her 2 L negative by tomorrow morning. We will repeat a chest x-ray. The patient will receive electrolyte replacement as necessary. We will use the vasopressor Levophed as necessary. Status: Acute (3) New onset a-fib: The patient had received amiodarone. However she had significantly prolonged QTC and due to concerns for QT prolongation the amiodarone was discontinued. The patient is currently getting dig load. After intubation and control of her ventilation her heart rate has settled around 110-115's. Status: Acute (4) Mitral regurgitation: The patient is getting an echocardiographic evaluation. Status: Acute (5) Pneumonia: The patient is on broad-spectrum antibiotic. I believe once the pulmonary edema has resolved there will be improvement in the patient's clinical status. We have obtained bronchoscopic sample for further microbiologic studies. 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
[2021-01-24 19:59] LABS: Apprearance, Bronch Wash Clear (CLEAR); Color, Bronc Wash Colorless
[2021-01-24 20:03] LABS: PATH Referral Yes
[2021-01-24] MEDS: digoxin 250 mcg/ml INJ 2 mL 500 MCG IVP (20:05)
[2021-01-24] MEDS: enoxaparin 80 mg/0.8 mL Syringe SUBCUT (20:14)
--- NOTE | 2021-01-24 20:14 | PM.ACPR ---
Procedure/Consent Time out: Time Out Performed: Yes Consent: Consent for Procedure: Consent obtained from other (indicate) (Daughter) Procedure Narrative: Name of the Procedure: Right subclavian central venous catheter placement Indication: IV access and need for pressors. Anesthesiia: Lidocaine 1%, 10 ml Description of the procedure: The site was prepared using sterile technique. The skin and subcuteneous tissue was anesthetized using lidocaine. The introducer needle was advanced under the clavicle and directed towards the suprasternal notch till flash back was noted. Dark, non pulsatile blood noted. Using seldinger technique the CVC was put in.Blood return was noted in all ports. Catheter was secured with suture and covered with transparent dressing. Complications: None X-ray: Chest x-ray revealed the central venous catheter was located in the internal jugular vein. Plan was made to insert a right femoral line and take this line out. Acute Procedures Epistaxis Control: Time out performed: Yes
[2021-01-24] MEDS: lidocaine 1% 5 ML in potassium chloride premix 100 ML 50 ML IV (20:15)
--- NOTE | 2021-01-24 20:16 | PM.ACPR ---
Procedure/Consent Time out: Time Out Performed: Yes Consent: Consent for Procedure: Consent obtained from other (indicate) (Daughter) Procedure Narrative: Name of the Procedure: Right femoral Central venous catheter placement under ultrasound guidance. Indication: IV access and need for pressors Anesthesiia: Lidocaine 1%, 5 ml Description of the procedure: The right femoral vein was identified with the Ultrasound from collapsibility and lack of pulsatility. The site was prepared using sterile technique. The skin and subcuteneous tissue was anesthetized using lidocaine. The introducer needle was advanced under US guidance till flash back was noted. Dark, non pulsatile blood noted. Using seldinger technique the CVC was put in.Blood return was noted in all ports. Catheter was secured with suture and covered with transparent dressing. Complications: None Acute Procedures Epistaxis Control: Time out performed: Yes
--- NOTE | 2021-01-24 20:17 | PM.ACPR ---
Procedure/Consent Time out: Time Out Performed: Yes Consent: Consent for Procedure: Emergency procedure Procedure Narrative: Name of the procedure: Endotracheal intubation. Indication: Hypoxic respiratory failure. Medications: Versed: 2 mg IV, fentanyl 25 mcg IV, etomidate 20 mg IV, succinylcholine 100 mg. Procedure: Following administration of the appropriate IV medications, the patient was positioned optimally. The patient was oxygenated with 100% oxygen with noninvasive ventilator. The glide scope blade was introduced and advanced till vocal cords are visualized. The endotracheal tube was advanced through the vocal cords under direct visualization. There was fogging of the ET tube, positive change in end-tidal CO2 monitor, bilateral chest rise, bilateral positive breath sound. The ET tube was secured at 19 cm at the lips. Complications: There was no immediate complications. Chest x-ray: The ET tube is appropriately placed. Acute Procedures Epistaxis Control: Time out performed: Yes
--- NOTE | 2021-01-24 20:19 | PM.ACPR ---
Procedure/Consent Time out: Time Out Performed: Yes Consent: Consent for Procedure: Consent obtained from other (indicate) Procedure Narrative: Name of the procedure: Bronchoscopy with inspection of the airway, bronchoalveolar lavage and control of bleeding. Indication: Acute hypoxic respiratory failure in the setting of multifocal pneumonia and pulmonary edema requiring intubation. Medication: The patient is on intravenous fentanyl and propofol drip. Description of the procedure: Consent was obtained for the bronchoscopy procedure from her daughter. The patient was intubated for acute hypoxic respiratory failure. 1% lidocaine 5 mL was introduced through the ET tube. The bronchoscope was advanced through the ET tube to the alexa was visualized. The trachea appeared normal. There was no erythema. Frothy secretion was noted in the lower trachea. The tracheobronchial tree was then examined in a systematic manner. The bronchoscope was introduced into the left mainstem bronchus. The left upper lobe, lingula and lower lobe bronchi were examined up to the third subsegmental level. No endobronchial lesion, mucus or erythema was noted. Frothy secretion was noted throughout the airways. The bronchoscope was then introduced into the right mainstem bronchus. Frothy secretion was noted throughout the right lung, right upper lobe, middle lobe and lower lobe bronchi were examined up to the third subsegmental level without any other abnormalities. Bronchoalveolar lavage was performed from the medial segment of the right middle lobe. 60 cc of fluid was instilled, fluid return was 25 mL. The fluid was cloudy. No mucous plug, blood or pus was noted. Specimen was sent for Gram stain and culture, Fungal stain and culture, viral PCR, PCP PCR, beta D glucan, Aspergillus galactomannan was also sent for. Complications: No immediate complication was noted. Acute Procedures Epistaxis Control: Time out performed: Yes
[2021-01-24 21:09] LABS: ABG PCO2 49.9 mmHg (35-45); ABG PH Result 7.27 (7.35-7.45); Alveolar-Arterial Oxygen Gradi 72.7 mmHg (5-10); Arterial Blood Gas Hematocrit 31.6 % (37-47); Base Excess ABG -4.3 mmol/L (-2.0-2.0); Blood Gas Allen Test Pos; Blood Gas Sample Site Radial, right; Blood Gas Sample Type Arterial; Blood Gas Tidal Volume 0.35; Carboxyhemoglobin 0.7 %THgb (0.4-20.1); HCO3 ABG 22.7 mmol/L (22-26); HGB O2 Sat 95.2 % (95-100); Ionized Calcium Level - ABG 1.2 mmol/L (1.1-1.4); Methemoglobin 0.7 % (0.4-1.5); Oxygen Device VENT; Oxygen Saturation ABG 96.6; PO2 ABG 95.9 mmHg (80.0-100.0); Potassium Level - ABG 4.3 mmol/L (3.5-5.0); Total Hemoglobin 10.3 g/dL (12-16)
[2021-01-24 22:26] LABS: Total Cells Counted Bronch 200
--- NOTE | 2021-01-24 22:28 | PC.PHAR ---
Pharmacokinetic dosing service Date: 01/24/21 Time: 1999 Objective: Patient: Hamida Saha Floor: ICU-10 Age: 75 yo Serum creatinine: 0.7 mg/dL Height: 63.0 Inches Weight (kg): 77.383 Diagnosis: Relevant medical/social history: Cultures and sensitivities: Other labs: Assessment: IBW (kg): 52.40 Dosing wt(kg): 77.383 Estimated Creatinine clearance (ml/min): 55.7 CRCL method: Cockcroft and Gault using ibw(default). Drug selected: Vancomycin Loading dose (mg): 0 Vd (liters): 69.6 (factor used: 0.9 L/kg) Zeus (hr-1): 0.051 Half life (hrs): 13.59 Recommended dose: 1500 mg Interval: 18 hrs Infusion time (hrs): 1.5 Predicted peak (mcg/mL): 34.5 Predicted trough (mcg/mL): 14.87 Total body weight is being used for vancomycin dosing. Renal function is stable [ ] /unstable [ ] Recommendations: Give Vancomycin 1500 mg q 18 hrs with an expected Cpeak of 34.5 mcg/ml and an expected Ctrough of 14.87 mcg/ml Renal dosing of other antibiotics (review renal dosing of other medications and list guidelines here): Thank you for the consult, will continue to follow. Signature: Imelda Hernadez [facility]
--- NOTE | 2021-01-24 23:02 | USCV_ITS ---
Hamida Saha Age: 75 Gender: F : 1945 Exam Date: 01/24/2021 06:17 Ordering Phys: Primo Isbell MD Technologist: Exam Location: [facility] [place] Indication: PRE OP LV FUNCTION BP: 117 / 76 HR: 117 Rhythm: Sinus Technical Quality: Adequate MEASUREMENTS (Male / Female) Normal Values 2D ECHO LV Diastolic Diameter PLAX 4.1 cm 4.2 - 5.9 / 3.9 - 5.3 cm LV Systolic Diameter PLAX 2.2 cm IVS Diastolic Thickness 0.9 cm 0.6 - 1.0 / 0.6 - 0.9 cm IVS Systolic Thickness 1.6 cm LVPW Diastolic Thickness 1.3 cm 0.6 - 1.0 / 0.6 - 0.9 cm LVPW Systolic Thickness 1.6 cm LVOT Diameter 2.0 cm LV Ejection Fraction 2D Teich 78.7 % LV Ejection Fraction MOD 2C 74.3 % LV Ejection Fraction 2C AL 75.4 % LA Diameter 3.4 cm LA Width 4.1 cm LA Height 4.4 cm RA Width 4.0 cm RA Height 4.1 cm Aorta at Sinotubular Diameter 2.8 cm DOPPLER AV Peak Velocity 140.0 cm/s LVOT Peak Velocity 96.0 cm/s AV Area Cont Eq vti 2.3 cm squared AV Area Cont Eq pk 2.2 cm squared MV Area PHT 5.0 cm squared Mitral E to A Ratio 0.7 MV E' Velocity 42.5 cm/s Mitral E to MV E' Ratio 6.8 Mitral E to LV E' Lateral Ratio 7.3 Mitral E to LV E' Septal Ratio 6.4 TR Peak Velocity 233.0 cm/s TR Peak Gradient 21.7 mmHg TV Peak E Velocity 78.0 cm/s Right Atrial Pressure 3.0 mmHg Pulmonary Artery Systolic Pressu 24.7 mmHg FINDINGS Left Ventricle Normal left ventricular size, systolic function and wall thickness, with no regional wall motion abnormalities. Left ventricular ejection fraction is estimated at 60 %. Normal diastolic function. Right Ventricle Normal right ventricular size and systolic function. RVSP could not be calculated due to incomplete tricuspid regurgitation velocity profile. Right Atrium Normal right atrial size. Left Atrium Normal left atrial size. Mitral Valve Structurally normal mitral valve. No mitral valve stenosis. Trace mitral valve regurgitation. Aortic Valve Probably trileaflet aortic valve. No aortic valve stenosis. No aortic valve regurgitation. Tricuspid Valve Structurally normal tricuspid valve. Trace-mild tricuspid valve regurgitation. Pulmonic Valve Pulmonic valve not well visualized. No pulmonary valve stenosis. Pericardium No pericardial effusion. Aorta Normal size aortic root. CONCLUSIONS 1. Normal left ventricular size, systolic function and wall thickness, with no regional wall motion abnormalities. Left ventricular ejection fraction is estimated at 60 %. Normal diastolic function. 2. Normal right ventricular size and systolic function. 3. Trace-mild tricuspid valve regurgitation. 4. No pericardial effusion. 5. No significant change when compared to echocardiogram dated 01/12/2021. Tiffanie Leija MD (Electronically Signed) Final Date: 24 January 2021 12:32 S
[2021-01-24] MEDS: propofol 1,000 MG/100 ML INJ 23.22 MG IV (23:27)
[2021-01-24] MEDS: vancomycin 1,500 MG/300 ML PIGGYBACK 200 MG IV (23:32)
[2021-01-25] VITALS (40 sets, daily range): BP systolic 89–136; BP diastolic 50–80; PULSE 75–161; RESP 18–22; TEMP 36.4–38.1; O2SAT 89–97
[2021-01-25] MEDS: digoxin 250 mcg/ml INJ 2 mL 125 MCG IVP ×2 (02:00→06:36)
[2021-01-25] MEDS: aztreonam 2,000 MG in sodium chloride 0.9% (plus) 100 ML 200 MG IV ×2 (02:50→17:22)
[2021-01-25] MEDS: propofol 1,000 MG/100 ML INJ 23.22 MG IV ×2 (02:52→09:47)
[2021-01-25] MEDS: FUROsemide 10 mg/mL SDV 2mL 20 MG IVP (03:01)
[2021-01-25] MEDS: ipratropium 0.5 mg/2.5 mL Neb INHALATION ×6 (03:36→23:29)
[2021-01-25] MEDS: levalbuterol 0.63 mg/3 mL Neb INHALATION ×6 (03:36→23:29)
[2021-01-25 04:09] LABS: ABG PCO2 44.2 mmHg (35-45); ABG PH Result 7.31 (7.35-7.45); Arterial Blood Gas Hematocrit 35.4 % (37-47); Base Excess ABG -4.2 mmol/L (-2.0-2.0); Blood Gas Sample Site Brachial, right; Blood Gas Sample Type Arterial; Carboxyhemoglobin 0.4 %THgb (0.4-20.1); HCO3 ABG 22.1 mmol/L (22-26); HGB O2 Sat 97.3 % (95-100); Ionized Calcium Level - ABG 1.2 mmol/L (1.1-1.4); Methemoglobin 1.1 % (0.4-1.5); Oxygen Saturation ABG 98.7; Potassium Level - ABG 3.8 mmol/L (3.5-5.0); Total Hemoglobin 11.5 g/dL (12-16)
[2021-01-25 04:10] LABS: Alveolar-Arterial Oxygen Gradi 63.9 mmHg (5-10); Blood Gas Tidal Volume 0.35; Oxygen Device VENT
--- NOTE | 2021-01-25 05:19 | PC.NURSE ---
Dr. Marcano gave t.o. for 20 mg lasix IVP to attempt to achieve a negative 2L I/O status per Dr. Abad
[2021-01-25 05:29] LABS: Basophils % 0.2 %; Eosinophils # 0.3 10^3/uL (0.0-0.8); Eosinophils % 1.5 %; Hematocrit 28.7 % (37.0-47.0); Hemoglobin 8.8 g/dL (11.5-15.3); Lymphocytes # 1.1 10^3/uL (0.8-4.8); Lymphocytes % 5.3 %; Mean Corpuscular HGB Conc 30.7 g/dL (30.0-36.0); Mean Corpuscular Volume 94.7 fL (81-99); Mean Platelet Volume 9.4 fL (7.4-10.4); Monocytes # 1.6 10^3/uL (0.2-0.9); Monocytes % 7.6 %; Neutrophils # 17.39 10^3/uL (1.8-7.7); Neutrophils % 84.2 %; Nucleated Red Blood Cells % 0 %; Platelet Count 431 10^3/cmm (130-400); Red Blood Count 3.03 10^6/uL (4.1-5.3); Red Cell Distribution Width 14.5 % (12.1-15.1); White Blood Count 20.7 10^3/uL (4.0-10.0)
--- NOTE | 2021-01-25 05:33 | PC.NURSE ---
Dr. Abad called and updated with patient status, gave t.o. for 2 mg Bumex IVP x1
--- NOTE | 2021-01-25 05:41 | PC.NURSE ---
unable to titrate levophed bag on sep after 354, titrated kojo to 8 mcg/min per protocol
[2021-01-25] MEDS: levothyroxine 25 mcg Tablet PO (05:43)
[2021-01-25] MEDS: bumetanide 0.25 mg/mL SDV 10 mL 2 MG IV ×3 (05:44→17:55)
[2021-01-25 05:50] LABS: Alanine Aminotransferase 6 U/L (0-33); Albumin Level 2.2 g/dL (3.5-5.2); Alkaline Phosphatase 62 IU/L (35-105); Anion Gap 14.7 (5-19); Aspartate Amino Transferase 10 U/L (0-32); Blood Urea Nitrogen 23 mg/dL (8-23); Carbon Dioxide 23 mmol/L (22-29); Chloride 105 mmol/L (98-107); Globulin 3.5 g/dL (1.3-4.6); Glucose 125 mg/dL (65-115); Osmolality Calculated 293 mOsm/kg (285-295); Potassium 3.7 mmol/L (3.5-5.1); Sodium 139 mmol/L (136-145); Total Bilirubin 0.3 mg/dL (0.15-1.2); Total Protein 5.7 g/dL (6.6-8.7)
[2021-01-25 05:51] LABS: D Dimer 3.47 ug/mIFEU (0-0.59)
[2021-01-25 06:21] LABS: Erythrocyte Sedimentation Rate > 120 mm/hr (0-15)
[2021-01-25] MEDS: enoxaparin 80 mg/0.8 mL Syringe SUBCUT ×2 (06:37→19:40)
--- NOTE | 2021-01-25 08:18 | PC.OT ---
OT NOTE: OT TREATMENT WITHHELD DUE TO PATIENT ON VENT. WILL ATTEMPT AGAIN TOMORROW.
[2021-01-25] MEDS: fluoxetine 20 mg Capsule 40 MG PO (09:02)
[2021-01-25] MEDS: pantoprazole DR 40 mg Tablet PO (09:02)
[2021-01-25] MEDS: budesonide 0.5 mg/2 mL Neb INHALATION ×2 (09:04→20:12)
--- NOTE | 2021-01-25 09:24 | PC.CHAP ---
Pastoral Care Encounter/Spiritual Assessment Type of Contact [] Declined mobile developer visit [] Patient/Family/Request visit [] Outpatient visit [] Follow-up visit [] Physician referral [] Code/Alert [x] Routine visit [] Staff referral [] Actively dying [] Patient sleeping [x] Family support [] [] Out of room [] Palliative care [] [] Receiving care in room [] Pre-surgical visit [] Trauma [] Long length of stay [x] ICU visit [x] Other: ventilator Relational/Emotional Strength [] Patient feels connected with others/family/visitors/staff [] Distress [] Loneliness/isolation [] Abandonment Spirituality of Patient [] Person of Trisha [] Attends Restoration of their Trisha [] Believes in Prayer [] Reads Bible or Rastafari materials [] There are Spiritual issues to be addressed Front Desk Specialist Interventions [x] Prayer [x] Active listening [x] Non-anxious presence [x] Spiritual/emotional support [] Crisis/trauma care [] Spiritual counseling [] Bereavement support [] Provided bereavement packet [] Provided Bible/devotional materials [] Provided toy/stuffed animal, coloring book to patient or family member [] Provided Communion [] Anointing/Mchenry [] Salvation [x] Completed spiritual assessment [] Other: Impact on Illness or Injury [] Angry [] Fearful [] Anxious [] Often cries [] Exhaustion [] Unable to work [] Unable to attend restorationist [] Unable to walk/stand [] Unable to read [] Unable to drive [] Unable to eat/drink [] Unable to sleep [] Unable to be with family [] Patient intubated [] Other: Summary daughter states patient had a rough time yesterday.. resting better this AM Time spent with patient 10 min
--- NOTE | 2021-01-25 10:25 | ECG_ITS ---
[facility] Test Date: 2021-01-25 Pat Name: Hamida Saha Department: Room: ICU10 Gender: Female Pr Intern: : 1945 Requested By: Primo Isbell Order Number: [id number] Jeffy MD: Alexy Guillen M.D. Measurements Intervals [place] Rate: 116 P: PA: QRS: -5 QRSD: 105 T: 29 QT: 338 QTc: 470 Interpretive Statements ATRIAL FIBRILLATION WITH RAPID VENTRICULAR RESPONSE NONSPECIFIC ST & T-WAVE ABNORMALITY Compared to ECG 01/24/2021 10:42:24 No significant changes Electronically Signed On 01-26-2021 23:43:56 CDT by Alexy Guillen M.D. [id number]
[2021-01-25] MEDS: levofloxacin-dextrose 5 % 750 MG/150 ML PREMIX 100 MG IV (11:07)
[2021-01-25 11:10] LABS: Digoxin 1.6 ng/mL (0.6-1.2)
[2021-01-25 11:27] LABS: Troponin(5th) Baseline 21 ng/L (0-10)
--- NOTE | 2021-01-25 12:44 | PC.NURSE ---
AMio gtt started at 1mg/min per MD order, albumin infused, levo at 10mcg/min, fentanyl at 75mcg/h, propofol at 25mcg/kg/min, mag sulfate infusing per MD order. ABT missed d/t other meds needing infused. Family in waiting room. Vent setting remain the same. Will monitor.
[2021-01-25 13:03] LABS: Anti-Double Strand DNA AB <1 IU/mL; Jo-1 Antibody <1.0 NEG AI (<1.0 NEG); SM/RNP Antibodies <1.0 NEG AI (<1.0 NEG); SS-B/LA IGG <1.0 NEG AI (<1.0 NEG); Scleroderma Ab(Scl-70) Ab <1.0 NEG AI (<1.0 NEG); Ss-A/Ro Igg <1.0 NEG AI (<1.0 NEG)
--- NOTE | 2021-01-25 13:04 | PC.NURSE ---
ángel performed, 29.4%. notified.
[2021-01-25 13:27] LABS: Troponin 5 2HR 21.16 ng/L (0-10); Troponin 5 2HR Delta 0.16 ABS# (0-10)
--- NOTE | 2021-01-25 16:52 | PM.PN ---
Subjective Subjective: Interval history: Note entered at 1800 hrs. Patient seen multiple times during the day, multiple discussions with hat parts cutter machine. Overnight patient remained on the ventilator. Currently she is on fentanyl, propofol, Levophed at 10. Ventilator setting currently VC-AC 350/18/10/85% FiO2. She has been saturating in the low 90s. Patient had multiple episodes of tachycardia which were consistent with intermittent atrial fibrillation and atrial tachycardia. CT exam done during the day shows SVR of 29%, bedside IVC at 1 cm collapsible to 0.6. She was later started on amiodarone drip and after that heart rate became better running in high 90s to low 105. Documented urine output since morning around 1400 cc. Medications: Reviewed: Yes Vitals/I&O/Wt Last Vital Signs Temp 98.1 F 01/25/21 12:00 Pulse 143 H 01/25/21 14:00 Resp 20 H 01/25/21 12:30 BP 89/64 01/25/21 12:00 Pulse Ox 94 01/25/21 12:30 01/25/21 01/25/21 01/25/21 06:59 14:59 22:59 Intake Total 765.883 / 1274.938 649.583 / 649.583 Output Total 1350 / 1900 700 / 700 Balance -584.117 / -625.062 -50.417 / -50.417 Physical Exam Const: COMMON NORMALS: no acute distress GENERAL APPEARANCE: comfortable, well developed and frail appearing OTHER: intubated, sedated Eye: COMMON NORMALS: Equal, round and reactive pupils present GENERAL EYE: appearance normal, both eyes and all related structures PUPIL: Yes Equal, round and reactive pupils present Neck/C-Spine: COMMON NORMALS: no lymphadenopathy, no JVD and Thyroid normal THYROID: Thyroid normal Lymph: LYMPHATIC: no lymphadenopathy noted Resp: COMMON NORMALS: normal respiratory effort, No retractions and No use of accessory muscles EFFORT & INSPECTION: Yes uses accessory muscles (Slight accessory muscle use, suprasternal retractions, internal retractions) AUSCULTATION: crackles, rales, wheezes and diminished lung sounds diffuse Cardio: COMMON NORMALS: no JVD, regular rate, regular rhythm, S1 normal heart sound present, S2 normal heart sound present, No gallops present (Cardio), No clicks present (Cardio) and No murmurs present (Cardio) RATE: regular rate RHYTHM: regular rhythm HEART SOUNDS: S1 normal heart sound present and S2 normal heart sound present GI: COMMON NORMALS: Normal to inspection, nondistended, normoactive bowel sounds present, Soft to palpation and non-tender PALPATION: Yes Soft to palpation Extremity: COMMON NORMALS: no pedal edema NARRATIVE EXTREMITY EXAM: 1+ edema Neuro: NELDA COMA SCALE: GCS not evaluated COMMON NORMALS: moves all extremities and no focal motor deficits SENSORIUM/ORIENTATION: Yes somnolent Psych: COMMON NORMALS: mental status grossly normal, Normal thought process present and cooperative THOUGHT PROCESS: Normal thought process present Urinary Catheter Management^: Ramirez: Cath Placed During This Visit: yes Reason for Continuing Indwelling Catheter: Accurate Measurement of Urinary Output in Critically Ill Patients Urinary Catheter Date of Insertion: 01/24/21 Urinary Catheter Time of Insertion: 15:29 Data : 01/25/21 05:00 01/25/21 16:38 Micro: Microbiology 01/23/21 13:55 Gram Stain - Final Sputum - Expectorated Sputum Sputum Culture - Preliminary 01/24/21 17:00 Gram Stain - Final Lung Right Lower Lobe 01/24/21 07:03 Blood Culture - Preliminary Blood NEGATIVE TO DATE 01/24/21 07:01 Blood Culture - Preliminary Blood NEGATIVE TO DATE A&P Assessment and plan (1) Cardiogenic shock: Status: Acute (2) ARDS (adult respiratory distress syndrome): Status: Acute (3) Pneumonia: Status: Acute (4) New onset a-fib: Status: Acute (5) Mitral regurgitation: Status: Acute Qualifiers: Cardiac valve disease etiology: etiology unspecified Qualified Code(s): I34.0 - Nonrheumatic mitral (valve) insufficiency (6) Cardiogenic pulmonary edema: Status: Acute (7) Acute kidney injury: Stable - Resolved. Status: Acute (8) Hyperkalemia: Status: Acute (9) Hyponatremia: Status: Acute (10) Acute respiratory failure with hypoxia: Status: Acute Additional A&P Information ARDS: Most likely a combination of bacterial pneumonia complicated by acute exacerbation of CHF. Patient has had multiple rounds of antibiotics since admission including afternoon, levofloxacin and Flagyl. COVID-19 negative, MRSA negative, pneumocystis unlikely Fungitell negative. Galactomannan negative, histoplasma antibody negative, respiratory viral panel negative. Beta D glucan negative hepatitis panel, HIV, bacterial antigen, urine Legionella negative. QuantiFERON negative, AVERY negative, procalcitonin negative. Echocardiogram shows an EF of 60% with normal diastolic function, mild MR, trace TR, normal right sided functions, no pericardial effusion. Continue with aztreonam, vancomycin. Stop levofloxacin as she has had levofloxacin for more than 10 days now. Still possibility of fungal pneumonia. Infective work-up from BAL sent including galactomannan, pneumocystis PCR, viral cultures, bacterial cultures. Continue with Ipratropium every 4 hours, Xopenex every 4 hours, budesonide twice daily. Aggressive diuresis depending on blood pressure and repeat renal functions in evening. Renal functions worsening today as compared to baseline. For now continue Bumex 1 mg every 8 hourly. Intermittent atrial fibrillation with rapid ventricular response: Stop metoprolol given low blood pressures, cardiogenic shock. Digoxin level elevated. Amiodarone drip. Monitor for VPCs, bradycardia, QTC. Continue with full dose Lovenox 1 mg/kg body weight every 12 hourly. Cardiology consulted by hat parts cutter machine team for possible cardioversion. Shock: Most likely cardiogenic: Keep mean arterial pressure 65. Wean Levophed accordingly. Acute kidney injury: Baseline creatinine 0.7. 1.1 today morning. Continue with gentle diuresis for now. Repeat Cheetah examination in evening. Cheetah exam done today morning shows SVR of 29%. Repeat BMP in evening. Medical reconciliation done for nephrotoxic drugs. Hypertension: Goal blood pressure less than 140/90 mmHg with mean over 65. Hypothyroidism Levothyroxine 25 mcg PO daily GI ppx Protonix 40 mg iv daily NPO. Full dose Lovenox possible DVT prophylaxis. Attestations Medical Necessity Statement*: Requires further hospitalization for management of shock, atrial fibrillation, ARDS secondary to pneumonia and congestive heart failure. Critical Care Time: The high probability of a clinically significant, sudden or life threatening deterioration of the patient's [multiorgan] system(s) required my full and direct attention, intervention and personal management. The critical care time is as shown. This time is in addition to time spent performing any reported procedures but includes the following: [x] Data and vital sign review and interpretation [x] Patient assessment, examination and intervention [x] Documentation [x] Medication orders and management Critical Care Time (min): 110 Coding Level of Care Code Acute Factory Lay Out Engineer for [facility] Fwd Exam Comprehensive Diagnoses Cardiogenic shock R57.0 ARDS (adult respiratory distress syndrome) J80 Pneumonia J18.9 New onset a-fib I48.91 Mitral regurgitation I34.0 Cardiac valve disease etiology: etiology unspecified Cardiogenic pulmonary edema I50.1 Acute kidney injury N17.9 Hyperkalemia E87.5 Hyponatremia E87.1 Acute respiratory failure with hypoxia J96.01
--- NOTE | 2021-01-25 17:05 | PM.PN ---
Subjective Subjective: Interval history: -Covering for Dr. Parnell today -Patient seen at bedside today -On mechanical ventilator VC-AC 350/18/10/85% FiO2 -Patient on propofol gtt. and fentanyl GTT, Levophed at 10 MCG/ hour -Heart rate still uncontrolled and started on amiodarone drip -TTE reported trace mitral valve regurgitation In view of unilateral infiltrates-high suspicion for valvular dysfunction especially mitral valve regurgitation being the most likely etiology - consulted cardiology for possible TUAN to assess mitral valve pathology and synchronized cardioversion for unstable A. fib -Labs and other imaging reviewed and pertinent findings incorporated in assessment and plan Medications: Reviewed: Yes Vitals/I&O/Wt Last Vital Signs Temp 98.1 F 01/25/21 12:00 Pulse 143 H 01/25/21 14:00 Resp 20 H 01/25/21 12:30 BP 89/64 01/25/21 12:00 Pulse Ox 94 01/25/21 12:30 01/25/21 01/25/21 01/25/21 06:59 14:59 22:59 Intake Total 765.883 / 1274.938 649.583 / 649.583 Output Total 1350 / 1900 700 / 700 Balance -584.117 / -625.062 -50.417 / -50.417 Physical Exam Narrative: EXAM NARRATIVE: PHYSICAL EXAM: General: lying in bed, sedated and intubated. HEENT:NCAT, PERRLA, EOMI Neck: Supple Lungs: Diffuse crackles Heart: s1/s2, RRR Abd: soft, NT, ND, BS + Normoactive Extremities: No edema EDITOR IN CHIEF NEWSPAPER: sedated and limited EDITOR IN CHIEF NEWSPAPER exam possible. SKIN: no rash LDA: # CVC: Right femoral catheter 01/24/2021 # Ramirez: 01/24/2021 Urinary Catheter Management^: Ramirez: Cath Placed During This Visit: yes Reason for Continuing Indwelling Catheter: Accurate Measurement of Urinary Output in Critically Ill Patients Urinary Catheter Date of Insertion: 01/24/21 Urinary Catheter Time of Insertion: 15:29 Data : 01/25/21 05:00 01/25/21 05:00 Other Labs: Laboratory Results WBC 20.7 10^3/uL (4.0-10.0) H 01/25/21 05:00 RBC 3.03 10^6/uL (4.1-5.3) L 01/25/21 05:00 Hgb 8.8 g/dL (11.5-15.3) L 01/25/21 05:00 Hct 28.7 % (37.0-47.0) L 01/25/21 05:00 MCV 94.7 fL (81-99) 01/25/21 05:00 MCH 29.0 pg (28.0-34.0) 01/25/21 05:00 MCHC 30.7 g/dL (30.0-36.0) 01/25/21 05:00 RDW 14.5 % (12.1-15.1) 01/25/21 05:00 Plt Count 431 10^3/cmm (130-400) H 01/25/21 05:00 MPV 9.4 fL (7.4-10.4) 01/25/21 05:00 Neut % (Auto) 84.2 % 01/25/21 05:00 Lymph % (Auto) 5.3 % 01/25/21 05:00 [place] % (Auto) 7.6 % 01/25/21 05:00 Eos % (Auto) 1.5 % 01/25/21 05:00 Baso % (Auto) 0.2 % 01/25/21 05:00 Neut # (Auto) 17.39 10^3/uL (1.8-7.7) H 01/25/21 05:00 Lymph # (Auto) 1.1 10^3/uL (0.8-4.8) 01/25/21 05:00 [place] # (Auto) 1.6 10^3/uL (0.2-0.9) H 01/25/21 05:00 Eos # (Auto) 0.3 10^3/uL (0.0-0.8) 01/25/21 05:00 Baso # (Auto) 0.0 10^3/uL (0.0-0.1) 01/25/21 05:00 Nucleated RBC % (auto) 0 % 01/25/21 05:00 Nucleated RBCs # 0.0 /100WBC 01/25/21 05:00 ESR > 120 mm/hr (0-15) H 01/25/21 05:00 PT 14.00 SECONDS (12.1-14.9) 01/18/21 08:58 INR 1.05 (0.8-1.2) 01/18/21 08:58 D-Dimer 3.47 ug/mIFEU (0-0.59) H 01/25/21 05:00 Specimen Type Arterial 01/25/21 04:00 Sample Site Brachial, right 01/25/21 04:00 ABG pH 7.31 (7.35-7.45) L 01/25/21 04:00 ABG pCO2 44.2 mmHg (35-45) 01/25/21 04:00 ABG pO2 133.0 mmHg (80.0-100.0) H 01/25/21 04:00 ABG HCO3 22.1 mmol/L (22-26) 01/25/21 04:00 ABG O2 Saturation 98.7 01/25/21 04:00 ABG Base Excess -4.2 mmol/L (-2.0-2.0) L 01/25/21 04:00 [place] Test N/a 01/25/21 04:00 A-a O2 Gradient 63.9 mmHg (5-10) H 01/25/21 04:00 Hematocrit 35.4 % (37-47) L 01/25/21 04:00 Hgb O2 Saturation 97.3 % (95-100) 01/25/21 04:00 Carboxyhemoglobin 0.4 %THgb (0.4-20.1) 01/25/21 04:00 Methemoglobin 1.1 % (0.4-1.5) 01/25/21 04:00 Total Hemoglobin 11.5 g/dL (12-16) L 01/25/21 04:00 Sodium 139.0 mmol/L (131-143) 01/25/21 04:00 Potassium 3.8 mmol/L (3.5-5.0) 01/25/21 04:00 Glucose 144.0 mg/dL (70-115) H 01/25/21 04:00 Ionized Calcium 1.2 mmol/L (1.1-1.4) 01/25/21 04:00 O2 Delivery Device Vent 01/25/21 04:00 O2 Liters/Min 45.0 % 01/24/21 16:31 FiO2 95.0 % 01/25/21 04:00 Tidal Volume 0.35 01/25/21 04:00 PEEP 10.0 cmH20 01/25/21 04:00 Cable Machine Operator ID Hinja 01/25/21 04:00 Sodium 139 mmol/L (136-145) 01/25/21 05:00 Potassium 3.7 mmol/L (3.5-5.1) 01/25/21 05:00 Chloride 105 mmol/L (98-107) 01/25/21 05:00 Carbon Dioxide 23 mmol/L (22-29) 01/25/21 05:00 Anion Gap 14.7 (5-19) 01/25/21 05:00 BUN 23 mg/dL (8-23) 01/25/21 05:00 Creatinine 1.1 mg/dL (0.5-0.9) H 01/25/21 05:00 GFR Calculation Not Reportable 01/25/21 05:00 Glucose 125 mg/dL (65-115) H 01/25/21 05:00 Calculated Osmolality 293 mOsm/kg (285-295) 01/25/21 05:00 Lactic Acid Cancelled 01/11/21 13:00 Lactic Acid (Sepsis) 1.8 mmol/L (0.5-2.2) 01/11/21 16:25 Lactate 1.2 mmol/L (0.5-2.2) 01/18/21 04:32 Calcium 8.0 mg/dL (8.5-10.5) L 01/25/21 05:00 Phosphorus 2.6 mg/dL (2.5-4.5) 01/20/21 03:32 Magnesium 2.0 mg/dL (1.7-2.3) 01/20/21 03:32 Ferritin 279 ng/mL (15-150) H 01/23/21 05:39 Total Bilirubin 0.3 mg/dL (0.15-1.2) 01/25/21 05:00 AST 10 U/L (0-32) 01/25/21 05:00 ALT 6 U/L (0-33) 01/25/21 05:00 Alkaline Phosphatase 62 IU/L (35-105) 01/25/21 05:00 Lactate Dehydrogenase 318 U/L (135-214) H 01/23/21 05:39 Creatine Kinase Cancelled 01/18/21 08:58 Troponin T Baseline 21 ng/L (0-10) H 01/25/21 10:42 Troponin T 120 Minute 21.16 ng/L (0-10) H 01/25/21 12:53 Delta Troponin T 0.16 ABS# (0-10) 01/25/21 12:53 Troponin T Hi Sens 6Hr 28.07 ng/L (0-10) H 01/16/21 22:15 Troponin T Hi Sens 6Hr Delta 3.07 ng/L (0-12) 01/16/21 22:15 C-Reactive Protein Cancelled 01/18/21 08:58 NT-Pro-B Natriuret Pep 1856 pg/mL (0-450) H 01/24/21 07:03 Total Protein 5.7 g/dL (6.6-8.7) L 01/25/21 05:00 Albumin 2.2 g/dL (3.5-5.2) L 01/25/21 05:00 Globulin 3.5 g/dL (1.3-4.6) 01/25/21 05:00 Procalcitonin 0.26 ng/mL (0-0.5) 01/23/21 05:39 TSH 6.98 uIU/mL (0.27-4.20) H 01/11/21 13:38 Urine Color Yellow (Yellow) 01/11/21 17:49 Urine Appearance Sl hazy (CLEAR) 01/11/21 17:49 Urine pH 5 (5-7) 01/11/21 17:49 Ur Specific [place] 1.005 (1.005-1.030) 01/11/21 17:49 Urine Protein 1+ (Negative) H 01/11/21 17:49 Urine Glucose (UA) Norm (Normal) 01/11/21 17:49 Urine Ketones Negative (Negative) 01/11/21 17:49 Urine Blood 2+ (Negative) H 01/11/21 17:49 Urine Nitrate Negative (Negative) 01/11/21 17:49 Urine Bilirubin 1+ (Negative) H 01/11/21 17:49 Urine Urobilinogen Norm mg/dL (Negative) 01/11/21 17:49 Ur Leukocyte Esterase Negative (Negative) 01/11/21 17:49 Urine RBC 0-4 /hpf (0-2) H 01/11/21 17:49 Urine WBC 0-4 /hpf (0-5) H 01/11/21 17:49 Ur Squamous Epith Cells 0-4 /hpf (0-5) H 01/11/21 17:49 Amorphous Sediment 1+ /hpf 01/11/21 17:49 Urine Bacteria 1+ /hpf (NONE) H 01/11/21 17:49 Urine Mucus 1+ /hpf 01/11/21 17:49 RSV Nasal Swab Not detected (Not Detected) 01/16/21 12:32 RSV Nasal Swab Int Cntl Not detected (Not Detected) 01/16/21 12:32 Bronch Specimen Source . 01/24/21 17:00 Bronchial Fluid Color Colorless 01/24/21 17:00 Bronchial Fluid Appearance Clear (CLEAR) 01/24/21 17:00 Bronchial Fluid WBC 113 /uL 01/24/21 17:00 Bronchial Fluid RBC 1 10^3/uL 01/24/21 17:00 Bronch Cells Counted 200 01/24/21 17:00 Bronchial Neutrophils 95.00 % (0.9-2.3) H 01/24/21 17:00 Bronchial Lymphocytes 2.00 % (10.71-12.91) L 01/24/21 17:00 Bronchial Eosinophils 1.00 % (0.13-0.25) H 01/24/21 17:00 Bronchial Macrophages 2.00 % (83.6-86.8) L 01/24/21 17:00 Bronchial Diff Comment Yes 01/24/21 17:00 Digoxin 1.6 ng/mL (0.6-1.2) H 01/25/21 10:42 JAZIEL-1 Antibody <1.0 neg AI (<1.0 NEG) 01/24/21 15:10 SS-A/Ro IgG Antibody <1.0 neg AI (<1.0 NEG) 01/24/21 15:10 SS-B/La IgG Antibody <1.0 neg AI (<1.0 NEG) 01/24/21 15:10 Anti-nRNP/Sm IgG Ab <1.0 neg AI (<1.0 NEG) 01/24/21 15:10 Scl-70 Scleroderma Ab <1.0 neg AI (<1.0 NEG) 01/24/21 15:10 Anti-ds DNA IgG Ab <1 IU/mL 01/24/21 15:10 Adenovirus (PCR) Not detected (Not Detected) 01/16/21 12:32 Nasal/Oral COVID-19 PCR Not detected 01/16/21 10:20 Hepatitis A IgM Ab Non-reactive (Nonreactive) 01/23/21 05:39 Hep Bs Antigen Non-reactive (Nonreactive) 01/23/21 05:39 Hep Bs Antibody 3.5 (11.5-1000) L 01/23/21 05:39 Hep B Core Total Ab Non-reactive (Nonreactive) 01/23/21 05:39 Hepatitis C Antibody Non-reactive (Nonreactive) 01/23/21 05:39 Histoplasma Antibody Negative 01/18/21 08:58 HIV 1&2 Ab & HIV 1 Ag Non-reactive (Non-Reactiv) 01/23/21 05:39 HIV 1&2 Antibody Non-reactive (Non-Reactiv) 01/23/21 05:39 Human Metapneumovir PCR Not detected (Not Detected) 01/16/21 12:32 Influenza A (RT-PCR) Not detected (Not Detected) 01/16/21 12:32 Influenza A (H1) PCR Not detected (Not Detected) 01/16/21 12:32 Influenza A (H3) PCR Not detected (Not Detected) 01/16/21 12:32 Influenza B (RT-PCR) Not detected (Not Detected) 01/16/21 12:32 Parainfluenzae Type 1 Not detected (Not Detected) 01/16/21 12:32 Parainfluenzae Type 2 Not detected (Not Detected) 01/16/21 12:32 Parainfluenzae Type 3 Not detected (Not Detected) 01/16/21 12:32 A. galactomannan Ag EIA Not detected 01/18/21 08:58 A. galactomannan Ag Idx <0.50 01/18/21 08:58 RSV Ab Comment see note 01/16/21 12:32 Rhinovirus (PCR) Not detected (Not Detected) 01/16/21 12:32 TB (QFT) Gold In Tube TNP 01/23/21 07:01 TB Test (QFT) Nil Not Reportable 01/23/21 07:01 TB Test (QFT) Mitogen Not Reportable 01/23/21 07:01 TB Test Mitogen - Nil Not Reportable 01/23/21 07:01 TB Test TB - Nil Not Reportable 01/23/21 07:01 Beta-(1,3)-D-Glucan <31 01/18/21 08:58 B-(1,3)-D-Glucan Intrp Negative 01/18/21 08:[address] 01/11/21 12:54 IMPRESSION: 1. Patchy ground glass infiltrates within the right greater than left lower lobes with partial airspace consolidation 2. Additional patchy groundglass infiltrates along the right hilum and right fissure. 3. Additional hazy groundglass infiltrates in the subpleural upper lobes bilaterally. 4. Above findings suspicious for COVID 19 pneumonia. 5. A few reactive mediastinal lymph nodes. 6. Chronic appearing compression fracture L1 with loss of approximately 70% vertebral body height centrally and mild central canal stenosis. Renal Ultrasound 01/12/21 05:00 IMPRESSION: Normal renal ultrasound Chest CTA 01/16/21 09:32 IMPRESSION: 1. Negative for pulmonary embolism. 2. Increasing patulous ground-glass opacities within both lungs from 01/11/2021 study. Imaging appearance is nonspecific but resembles a viral pneumonitis including but not limited to COVID-19 infection. Radiation Dose CTDIVOL = (mGy): DLP = 551.67 (mGy-cm) Chest X-Ray 01/24/21 18:17 IMPRESSION: 1. The right subclavian central line extends up the right internal jugular vein. This catheter should be repositioned. 2. Tip of the nasogastric tube is near the GE junction. 3. Multilobar pneumonia, increased in the left lung. ADDENDUM: 01/24/211917 THIS REPORT CONTAINS FINDINGS THAT MAY BE CRITICAL TO PATIENT CARE. The findings were verbally communicated via telephone conference with JEREMI PARNELL at 7:17 PM CDT on 01/24/2021. The findings were acknowledged and understood. Micro: Microbiology 01/23/21 13:55 Gram Stain - Final Sputum - Expectorated Sputum Sputum Culture - Preliminary 01/24/21 17:00 Gram Stain - Final Lung Right Lower Lobe 01/24/21 07:03 Blood Culture - Preliminary Blood NEGATIVE TO DATE 01/24/21 07:01 Blood Culture - Preliminary Blood NEGATIVE TO DATE A&P Assessment and plan (1) Acute respiratory failure with hypoxia: Status: Acute (2) Mitral regurgitation: Status: Acute Qualifiers: Cardiac valve disease etiology: etiology unspecified Qualified Code(s): I34.0 - Nonrheumatic mitral (valve) insufficiency (3) New onset a-fib: Status: Acute (4) Cardiogenic pulmonary edema: Status: Acute (5) Pneumonia: Status: Acute Qualifiers: Pneumonia type: aspiration pneumonia Aspiration pneumonia type: unspecified Laterality: right Lung location: lower lobe of lung Qualified Code(s): J69.0 - Pneumonitis due to inhalation of food and vomit (6) Acute kidney injury: Status: Acute #Acute hypoxic respiratory failure secondary to ARDS-unilateral infiltrates on imaging fluid overload secondary to congestive heart failure/A. fib RVR/mitral valve regurgitation patient with underlying CAD #Cannot rule out underlying pneumonia - #Inciting event may be a pneumonia-especially with small hiatal hernia-aspiration cannot be ruled out -Currently intubated and mechanically ventilated on AC VC 350/18/10/85% FiO2 -ABG today morning 7.3 1/44/133/20 2/98% on 95% FiO2-improving PaO2 and gradually reducing FiO2 requirement -Currently on propofol gtt., fentanyl gtt, Levophed 10 MCG/hour -Net +6 L since admission-net even since morning-currently significantly tachycardic -Digoxin 1.6, hold digoxin, started on amiodarone drip -Serial troponins were not impressive of any ongoing ischemic event -On Bumex 2 mg 3 times daily; held afternoon dose, recommended to increase sedation and once heart rate is controlled-check IVC and Cheetah to assess volume status and resume Bumex -Monitor input output and keep patient net negative by at least 3 to 4 L -Monitor electrolytes and keep K > 3.6 and Mg > 2 and supplement if necessary -TTE showed trace mitral valve regurgitation; -Cardiology consulted for possible TUAN to check to better assess mitral valve pathology, rule out clot and possible synchronized cardioversion if patient continues to be in uncontrolled A. fib -Worsening leukocytosis-BAL cultures pending -Low suspicion for PCP as patient was not on chronic steroids or immunocompromised prior to admission -Also sputum galactomannan and beta D glucan were negative; however BAL PCR is pending -So far all the infectious work-up including viral panel, blood cultures are negative -Procalcitonin on admission was 1.01 and she received ceftriaxone azithromycin for community-acquired pneumonia at that time -Currently covered with aztreonam, vancomycin; received 10 days of Levaquin -Continue Atrovent, Xopenex, Pulmicort nebulizations Given extensive infectious work-up being negative, high BNP, unilateral infiltrates on imaging-its prudent to control atrial fibrillation and diurese patient aggressively. If atrial fibrillation is difficult to control with medication-I would recommend cardioversion followed by aggressive diuresis. Continue antibiotics until final culture results and discontinue if negative or completes 10-day course. Recommendations conveyed to hospitalist, consulted trust administrator and will convey to Dr. Parnell. Refractory Mixer on the case. Attestations Medical Necessity Statement*: Requires further hospitalization for management of ARDS, atrial fibrillation with rapid ventricular response Time Spent in Patient Care: (>than 50% of time spent in counselling and/or direct pt care on unit). Critical Care Time: The high probability of a clinically significant, sudden or life threatening deterioration of the patient's [cardiac, respiratory] system(s) required my full and direct attention, intervention and personal management. The critical care time is as shown. This time is in addition to time spent performing any reported procedures but includes the following: [x] Data and vital sign review and interpretation [x] Patient assessment, examination and intervention [x] Documentation [x] Medication orders and management Critical Care Time (min): 60 Coding Level of Care Code Established Pt Acute Traffic Signal Mechanic for g Fwd Patient Type Established History Comprehensive Exam Comprehensive Medical Decision Making High Complexity Diagnoses Acute respiratory failure with hypoxia J96.01 Mitral regurgitation I34.0 Cardiac valve disease etiology: etiology unspecified New onset a-fib I48.91 Cardiogenic pulmonary edema I50.1 Pneumonia J69.0 Pneumonia type: aspiration pneumonia Aspiration pneumonia type: unspecified Laterality: right Lung location: lower lobe of lung Acute kidney injury N17.9 Time Spent (min) 60
[2021-01-25 17:27] LABS: Troponin 5 6HR 27.15 ng/L (0-10); Troponin 5 6HR Delta 6.15 ng/L (0-12)
[2021-01-25] MEDS: propofol 1,000 MG/100 ML INJ 16.25 MG IV (17:52)
[2021-01-25] MEDS: vancomycin 1,500 MG/300 ML PIGGYBACK 200 MG IV (17:54)
--- NOTE | 2021-01-25 18:27 | PC.NURSE ---
Pt lying in bed, no s/s of pain or SOB. HR decreased slightly from earlier. Amio gtt infusing at 1mg/min per protocol. Vent settings per RT. Ramirez draining freely. Will monitor.
[2021-01-25 19:29] LABS: Anion Gap 18.7 (5-19); Blood Urea Nitrogen 23 mg/dL (8-23); Carbon Dioxide 21 mmol/L (22-29); Chloride 103 mmol/L (98-107); Glucose 138 mg/dL (65-115); Osmolality Calculated 294 mOsm/kg (285-295); Potassium 3.7 mmol/L (3.5-5.1); Sodium 139 mmol/L (136-145)
[2021-01-25] MEDS: acetaminophen 325 mg Tablet 650 MG PO (19:40)
--- NOTE | 2021-01-25 21:19 | PC.NURSE ---
Dr. Amaya at bedside consulting on patient, and updating family on current POC. V/O given for RN to attempt to decrease Levophed. Patient tolerated decrease for about an hour, then MAP results decreased below 60. Gtt titrated per protocol.
--- NOTE | 2021-01-25 21:35 | P.CONIM_ITS ---
Providers/Reason For Consult Consulting Physician/Specialty*: Alexy Guillen MD/ Cardiology Reason for Consult*: Afib with RVR Requesting Physician: Dr Gregoryr Attending Physician: Primo Isbell MD Primary Care Provider: Clayton Umana DO History of Present Illness History of Present Illness Hamida Saha is a 75 year old female with a past medical history of CAD, history of MS in 2007, history of smoking quit over 20 years ago, hypertension, depression, who presented to hospital with shortness of breath, cough, fatigue and diarrhea. She has possible ARDS secondary to bacterial pneumonia. Also there was concern later on of pulmonary edema. She developed atrial fibrillation for which cardiology has been consulted. Patient is currently intubated. On review of her echocardiogram, she does not have systolic or diastolic dysfunction. Mitral regurgitation is mild. She is in A. fib with RVR. On amiodarone drip and digoxin. She is requiring Levophed. Review of Systems General: Reports: ROS unobtainable due to endotracheal tube Meds/Allergies Home Medications and Allergies Home Medications Medication Instructions Recorded Confirmed Last Taken Type amitriptyline 25 mg PO DAILY 01/11/21 01/11/21 01/10/21 History fluoxetine 40 mg PO DAILY 01/11/21 01/11/21 01/11/21 History levofloxacin 500 mg PO DAILY 01/11/21 01/11/21 01/11/21 History lisinopril 10 mg PO BID 01/11/21 01/11/21 01/11/21 History metoprolol tartrate 25 mg PO BID 01/11/21 01/11/21 01/11/21 History naproxen 500 mg PO BID 01/11/21 01/11/21 01/10/21 History omeprazole 20 mg PO DAILY 01/11/21 01/11/21 01/11/21 History prednisone 40 mg PO DAILY 01/11/21 01/11/21 01/11/21 History tizanidine See Rx Instructions .ROUTE .COMPLEX 01/11/21 01/11/21 01/10/21 History Allergies Allergy/AdvReac Type Severity Reaction Status Date / Time codeine Allergy Intermediate ALGY-Joint Verified 01/11/21 15:09 Pain Penicillins Allergy Intermediate ALGY-Rash Verified 01/11/21 15:09 propoxyphene [From Darvon] Allergy Intermediate Unknown Verified 01/11/21 15:09 Current Medications Current Medications Generic Name Dose Route Start Last Admin Trade Name Freq PRN Reason Stop Dose Admin Acetaminophen 650 mg 01/11/21 18:14 01/25/21 19:40 Acetaminophen 325 Mg Tablet PO 650 mg Q6H PRN Administration Mild/Mod Pain Or Temp >/= 101 Albuterol Sulfate 1 puff 01/11/21 18:14 01/19/21 07:54 Albuterol 8 Gm Mdi INHALATION 1 puff Q4H.RESPIRATORY PRN Administration sob Budesonide 0.5 mg 01/19/21 20:00 01/25/21 20:12 Budesonide 0.5 Mg/2 Ml Neb INHALATION 0.5 mg BID.RESPIRATORY OSVALDO Administration Bumetanide 2 mg 01/25/21 10:00 01/25/21 17:55 Bumetanide 0.25 Mg/Ml Sdv 10 Ml IV 2 mg Q8H OSVALDO Administration Enoxaparin Sodium 80 mg 01/24/21 19:30 01/25/21 19:40 Enoxaparin 80 Mg/0.8 Ml Syringe SUBCUT 80 mg Q12H OSVALDO Administration Fluoxetine HCl 40 mg 01/18/21 09:00 01/25/21 09:02 Fluoxetine 20 Mg Capsule PO 40 mg DAILY OSVALDO Administration Glycerin 1 each 01/23/21 11:27 01/23/21 14:44 Glycerin Adult Supp GA 1 each DAILY PRN Administration CONSTIPATION Aztreonam 2,000 mg/ Sodium 100 mls @ 200 mls/hr 01/18/21 10:00 01/25/21 17:59 Chloride IV Infused Q8H OSVALDO Infusion Norepinephrine Bitartrate 4 mg 254 mls @ 0 mls/hr 01/24/21 17:00 01/25/21 20:37 / Dextrose IV 10 mcg/min .Q0M OSVALDO 38.1 mls/hr Titration Protocol Per Protocol Fentanyl 1,000 mcg/ Sodium 100 mls @ 0 mls/hr 01/24/21 17:00 01/25/21 14:20 Chloride IV 75 mcg/hr .Q0M OSVALDO 7.5 mls/hr Administration Protocol Per Protocol Propofol 1,000 mg in 100 mls @ 0 mls/hr 01/24/21 18:45 01/25/21 17:52 Diprivan IV 35 mcg/kg/min .Q0M OSVALDO 16.25 mls/hr Administration Protocol Per Protocol Vancomycin/PEG/NADA/Lysine/Water 1,500 mg in 300 mls @ 200 mls/hr 01/24/21 23 :00 01/25/21 20:01 Vancocin IV Infused Q18H OSVALDO Infusion Amiodarone HCl 900 mg/ 518 mls @ 0 mls/hr 01/25/21 12:00 01/25/21 12:02 Dextrose/ IV Miscellaneous IV 1 mg/min Supplies .Q0M OSVALDO 34.53 mls/hr Administration Protocol Per Protocol Ipratropium [place] 0.5 mg 01/23/21 16:00 01/25/21 20:11 Ipratropium 0.5 Mg/2.5 Ml Neb INHALATION 0.5 mg Q4H.RESPIRATORY OSVALDO Administration Levalbuterol HCl 0.63 mg 01/23/21 16:00 01/25/21 20:12 Levalbuterol 0.63 Mg/3 Ml Neb INHALATION 0.63 mg Q4H.RESPIRATORY OSVALDO Administration Levothyroxine Sodium 25 mcg 01/13/21 10:00 01/25/21 05:43 Levothyroxine 25 Mcg Tablet PO 25 mcg QAM OSVALDO Administration Pantoprazole Sodium 40 mg 01/12/21 09:00 01/25/21 09:[address] 40 Mg Tablet PO 40 mg DAILY OSVALDO Administration Rocuronium [place] 80 mg 01/24/21 19:17 01/24/21 19:35 Rocuronium 10 Mg/Ml Inj 5ml IVP 80 mg ONCE PRN Administration intubation/line PFSH Acute PFSH: Medical History CAD (coronary artery disease) Depression with anxiety Hypertension Surgical History History of cholecystectomy History of total hysterectomy Family History Mother CAD (coronary artery disease) Diabetes Hypertension Alzheimer's dementia Father CAD (coronary artery disease) Diabetes Hypertension Dementia Social History Smoking and tobacco status: former smoker Alcohol intake: never Substance/Drug Use: never Vitals/I&O/Wt Last Vital Signs Temp 100.6 F H 01/25/21 19:00 Pulse 105 H 01/25/21 20:33 Resp 21 H 01/25/21 20:12 BP 119/68 01/25/21 20:00 Pulse Ox 96 01/25/21 20:12 01/25/21 01/25/21 01/25/21 06:59 14:59 22:59 Intake Total 1065.883 / 1574.938 649.583 / 649.583 652.875 / 1302.458 Output Total 1350 / 1900 700 / 700 Balance -284.117 / -325.062 -50.417 / -50.417 652.875 / 602.458 Physical Exam Narrative: EXAM NARRATIVE: GENERAL: Patient is alert, awake and oriented x3. [] NECK: No jugular vein distension. [] HEENT: No cyanosis. No icterus. No pallor. [] HEART: Irregularly irregular, S1 and S2. grade 2/6 systolic murmur, rub or gallop. [] LUNGS: Clear to auscultate bilaterally. [] ABDOMEN: Soft, nontender and nondistended. Positive bowel sounds. No guarding, rebound or tenderness. [] CENTRAL NERVOUS SYSTEM: Grossly nonfocal. [] EXTREMITIES: Lower extremities with 1+ edema bilaterally. Pulses palpable in the lower extremities, both dorsalis pedis and posterior tibial. [] Urinary Catheter Management^: Ramirez: Cath Placed During This Visit: yes Reason for Continuing Indwelling Catheter: Accurate Measurement of Urinary Output in Critically Ill Patients Urinary Catheter Date of Insertion: 01/24/21 Urinary Catheter Time of Insertion: 15:29 Data Micro: Micro: Microbiology 01/23/21 13:55 Gram Stain - Final Sputum - Expector ated Sputum Sputum Culture - P reliminary 01/24/21 17:00 Gram Stain - Final Lung Right Lower Lobe 01/24/21 07:03 Blood Culture - Pr eliminary Blood NEGATIVE TO CHAUNCEY E 01/24/21 07:01 Blood Culture - Pr eliminary Blood NEGATIVE TO CHAUNCEY E A&P Assessment and plan (1) Mitral regurgitation: Status: Acute Qualifiers: Cardiac valve disease etiology: etiology unspecified Qualified Code(s): I34.0 - Nonrheumatic mitral (valve) insufficiency (2) Acute respiratory failure: Status: Acute Qualifiers: Respiratory failure complication: hypoxia Qualified Code(s): J96.01 - Acute respiratory failure with hypoxia (3) New onset a-fib: Status: Acute (4) ARDS (adult respiratory distress syndrome): Status: Acute (5) Pneumonia: Status: Acute Qualifiers: Aspiration pneumonia type: unspecified Laterality: right Lung location: lower lobe of lung Pneumonia type: aspiration pneumonia Qualified Code(s): J69.0 - Pneumonitis due to inhalation of food and vomit Patient has acute respiratory failure and is intubated. Underlying e tiology likely pneumonia with possibility of pulmonary edema from A. fib with RVR. Rapid ventricular rate is secondary to to lying pneumonia and pulmonary edema. We will conservatively manage at this time. Can continue amio drip. Continue anticoagulation. Chances of patient going back into A. fib with RVR after electrical cardioversion are high with her respiratory failure and underlying pneumonia. She does not appear to be in cardiogenic shock clinically. Her systolic and diastolic cardiac function normal. We will conservatively manage with rhythm controlling medications at this time as she is requiring levophed. However blood pressure is improved now, can downtitrate levophed. Mitral regurgitation is mild on transthoracic echocardiogram. Will hold off on further work-up for MR. Thank you for involving us with the care of this patient. We will continue to follow. Please call with questions. Coding Level of Care Code Acute Fisher Purse Seine for [facility] Fwd Diagnoses Mitral regurgitation I34.0 Cardiac valve disease etiology: etiology unspecified Acute respiratory failure J96.01 Respiratory failure complication: hypoxia New onset a-fib I48.91 ARDS (adult respiratory distress syndrome) J80 Pneumonia J69.0 Aspiration pneumonia type: unspecified Laterality: right Lung location: lower lobe of lung Pneumonia type: aspiration pneumonia
--- NOTE | 2021-01-25 21:39 | PC.NURSE ---
New orders; MD on floor. New orders given for RN to decrease Amio to 0.5mg/min from Dr. Marcano.
[2021-01-26] VITALS (54 sets, daily range): BP systolic 91–143; BP diastolic 47–72; PULSE 90–115; RESP 18–22; TEMP 37.1–37.8; O2SAT 86–97
[2021-01-26] MEDS: propofol 1,000 MG/100 ML INJ 16.25 MG IV ×2 (01:12→06:19)
[2021-01-26] MEDS: aztreonam 2,000 MG in sodium chloride 0.9% (plus) 100 ML 200 MG IV ×2 (01:34→10:03)
[2021-01-26] MEDS: acetaminophen 325 mg Tablet 650 MG PO (02:18)
[2021-01-26 03:34] LABS: ABG PCO2 43.2 mmHg (35-45); ABG PH Result 7.36 (7.35-7.45); Arterial Blood Gas Hematocrit 26.1 % (37-47); Base Excess ABG -0.8 mmol/L (-2.0-2.0); Blood Gas Allen Test Pos; Blood Gas Sample Site Radial, right; Blood Gas Sample Type Arterial; HCO3 ABG 24.6 mmol/L (22-26); Oxygen Device VENT; PO2 ABG 89.1 mmHg (80.0-100.0)
[2021-01-26] MEDS: levalbuterol 0.63 mg/3 mL Neb INHALATION ×6 (03:47→23:26)
[2021-01-26] MEDS: ipratropium 0.5 mg/2.5 mL Neb INHALATION ×6 (03:47→23:25)
[2021-01-26 05:14] LABS: Basophils # 0.1 10^3/uL (0.0-0.1); Basophils % 0.4 %; Eosinophils # 0.6 10^3/uL (0.0-0.8); Eosinophils % 3.2 %; Hematocrit 25.4 % (37.0-47.0); Hemoglobin 7.8 g/dL (11.5-15.3); Lymphocytes % 5.7 %; Mean Corpuscular HGB Conc 30.7 g/dL (30.0-36.0); Mean Corpuscular Hemoglobin 28.8 pg (28.0-34.0); Mean Corpuscular Volume 93.7 fL (81-99); Mean Platelet Volume 9.4 fL (7.4-10.4); Monocytes # 1.3 10^3/uL (0.2-0.9); Monocytes % 7.1 %; Neutrophils # 14.42 10^3/uL (1.8-7.7); Neutrophils % 82.1 %; Nucleated Red Blood Cells % 0 %; Platelet Count 345 10^3/cmm (130-400); Red Blood Count 2.71 10^6/uL (4.1-5.3); Red Cell Distribution Width 14.4 % (12.1-15.1); White Blood Count 17.6 10^3/uL (4.0-10.0)
[2021-01-26 05:42] LABS: Alanine Aminotransferase < 5 U/L (0-33); Albumin Level 2.3 g/dL (3.5-5.2); Alkaline Phosphatase 81 IU/L (35-105); Anion Gap 15.6 (5-19); Aspartate Amino Transferase 11 U/L (0-32); Blood Urea Nitrogen 20 mg/dL (8-23); Calcium 7.7 mg/dL (8.5-10.5); Carbon Dioxide 24 mmol/L (22-29); Chloride 102 mmol/L (98-107); Globulin 3.4 g/dL (1.3-4.6); Glucose 122 mg/dL (65-115); Osmolality Calculated 290 mOsm/kg (285-295); Potassium 3.6 mmol/L (3.5-5.1); Sodium 138 mmol/L (136-145); Total Bilirubin 0.2 mg/dL (0.15-1.2); Total Protein 5.7 g/dL (6.6-8.7)
[2021-01-26 05:48] LABS: NT Pro B Type Natriuretic Pept 2605 pg/mL (0-450)
[2021-01-26] MEDS: levothyroxine 25 mcg Tablet PO (05:56)
[2021-01-26] MEDS: budesonide 0.5 mg/2 mL Neb INHALATION ×2 (07:35→20:14)
[2021-01-26] MEDS: bumetanide 0.25 mg/mL SDV 10 mL 1 MG IV (07:38)
[2021-01-26] MEDS: enoxaparin 80 mg/0.8 mL Syringe SUBCUT ×2 (07:38→19:59)
[2021-01-26] MEDS: pantoprazole 40 mg SDV IVP (08:02)
--- NOTE | 2021-01-26 09:19 | PC.CHAP ---
Pastoral Care Encounter/Spiritual Assessment Type of Contact [] Declined form setter steel pan forms visit [] Patient/Family/Request visit [] Outpatient visit [] Follow-up visit [] Physician referral [] Code/Alert [x] Routine visit [] Staff referral [] Actively dying [] Patient sleeping [x] Family support [] [] Out of room [] Palliative care [] [] Receiving care in room [] Pre-surgical visit [] Trauma [] Long length of stay [x] ICU visit [] Other: Relational/Emotional Strength [] Patient feels connected with others/family/visitors/staff [] Distress [] Loneliness/isolation [] Abandonment Spirituality of Patient [] Person of Trisha [] Attends [employer]ian of their Trisha [] Believes in Prayer [] Reads Bible or Congregational materials [] There are Spiritual issues to be addressed Ticket Marker Interventions [x] Prayer [x] Active listening [x] Non-anxious presence [x] Spiritual/emotional support [] Crisis/trauma care [] Spiritual counseling [] Bereavement support [] Provided bereavement packet [] Provided Bible/devotional materials [] Provided toy/stuffed animal, coloring book to patient or family member [] Provided Communion [] Anointing/[place] [] Salvation [x] Completed spiritual assessment [] Other: Impact on Illness or Injury [] Angry [] Fearful [] Anxious [] Often cries [] Exhaustion [] Unable to work [] Unable to attend voodoo [] Unable to walk/stand [] Unable to read [] Unable to drive [] Unable to eat/drink [] Unable to sleep [] Unable to be with family [] Patient intubated [] Other: Summary patient eyes open.. family noted that patient knew her when she arrived this am... coloring improving... Time spent with patient 10 min
--- NOTE | 2021-01-26 09:59 | PC.NURSE ---
Double strength levophed started per MD order. Bag labeled, IV pump labeled. Pt sat on side of bed with max assist from therapy. Tolerated fair but was not able to participate. VSS. Will monitor.
--- NOTE | 2021-01-26 10:40 | XR_ITS ---
WS: [id number] Portable AP upright chest, 01/26/2021 Clinical Data: respiratory failure Comparison: Portable chest, 01/24/2021. Findings: The right subclavian catheter has been removed. The endotracheal tube and nasogastric tube remain in the same position. The nasogastric tube ends at the gastroesophageal junction. The bilatera l patchy opacities remain throughout both lungs. The heart remains the same. No nodules, masses or ef fusions are seen. Monitor leads are on the chest wall. XR/XR chest 1V portable [id number] Impression: 1. Removal right subclavian catheter. 2. Remainder the tubes are the same with the nasogastric tube ending at the gas troesophageal junction. 3. No change in bilateral pulmonary opacities.
--- NOTE | 2021-01-26 10:50 | PC.SOCIAL ---
IMM UPDATE Gave patient IMM update. Provided copy of pg 2. 01/26/21 @ 0837. Initialed, dated, timed and placed in chart.
--- NOTE | 2021-01-26 10:51 | ECG_ITS ---
[facility] Test Date: 2021-01-26 Pat Name: Hamida Saha Department: Room: ICU10 Gender: Female Seconds Inspector: : 1945 Requested By: Primo Isbell Order Number: [id number] Jeffy MD: Alexy Guillen M.D. Measurements Intervals [place] Rate: 96 P: 14 MO: 130 QRS: -7 QRSD: 106 T: 199 QT: 337 QTc: 426 Interpretive Statements SINUS RHYTHM WITH OCCASIONAL SUPRAVENTRICULAR PREMATURE COMPLEXES ST DEVIATION AND MODERATE T-WAVE ABNORMALITY, CONSIDER LATERAL ISCHEMIA [-0.1+ mV T WAVE IN I/aVL/V5/V6] ST DEVIATION AND MODERATE T-WAVE ABNORMALITY, CONSIDER INFERIOR ISCHEMIA [-0.1+ mV T WAVE IN II/aVF] Compared to ECG 01/25/2021 10:28:39 Possible ischemia now present Atrial fibrillation no longer present T-wave abnormality still present Electronically Signed On 01-26-2021 23:48:44 CDT by Alexy Guillen M.D. [id number]
[2021-01-26 11:21] LABS: Vancomycin Trough 6.1 ug/mL (10-15)
--- NOTE | 2021-01-26 11:38 | P.PN_ITS ---
Subjective Subjective: Interval history: Patient's condition has improved compared to yesterday. Has converted back to normal sinus rhythm Vitals/I&O/Wt Last Vital Signs Temp 98.9 F 01/26/21 08:00 Pulse 98 01/26/21 11:37 Resp 18 01/26/21 11:25 BP 126/68 01/26/21 08:00 Pulse Ox 95 01/26/21 11:25 01/25/21 01/26/21 01/26/21 22:59 06:59 14:59 Intake Total 1040.212 / 1746.795 682.894 / 2429.689 394.312 / 394.312 Output Total 100 / 800 1100 / 1900 Balance 940.212 / 946.795 -417.106 / 529.689 394.312 / 394.312 Physical Exam Narrative: EXAM NARRATIVE: NARRATIVE: GENERAL: Patient is intubated NECK: No jugular vein distension. [] HEENT: No cyanosis. No icterus. No pallor. [] HEART: Irregularly irregular, S1 and S2. grade 2/6 systolic murmur, rub or gallop. [] LUNGS: Clear to auscultate bilaterally. [] ABDOMEN: Soft, nontender and nondistended. Positive bowel sounds. No guarding, rebound or tenderness. [] CENTRAL NERVOUS SYSTEM: Grossly nonfocal. [] EXTREMITIES: Lower extremities with 1+ edema bilaterally. Pulses palpable in the lower extremities, both dorsalis pedis and posterior tibial. [] Urinary Catheter Management^: Ramirez: Cath Placed During This Visit: yes Reason for Continuing Indwelling Catheter: Accurate Measurement of Urinary Output in Critically Ill Patients Urinary Catheter Date of Insertion: 01/24/21 Urinary Catheter Time of Insertion: 15:29 Data : 01/27/21 09:18 01/27/21 09:18 Micro: Microbiology 01/24/21 17:00 Gram Stain - Final Lung Right Lower Lobe Bronchial Washings Culture - Preliminary 01/23/21 13:55 Gram Stain - Final Sputum - Expectorated Sputum Sputum Culture - Preliminary 01/24/21 07:03 Blood Culture - Preliminary Blood NEGATIVE TO DATE 01/24/21 07:01 Blood Culture - Preliminary Blood NEGATIVE TO DATE A&P Assessment and plan (1) Mitral regurgitation: Status: Acute Qualifiers: Cardiac valve disease etiology: etiology unspecified Qualified Code(s): I34.0 - Nonrheumatic mitral (valve) insufficiency (2) Acute respiratory failure: Status: Acute Qualifiers: Respiratory failure complication: hypoxia Qualified Code(s): J96.01 - Acute respiratory failure with hypoxia (3) New onset a-fib: Status: Acute (4) ARDS (adult respiratory distress syndrome): Status: Acute (5) Pneumonia: Status: Acute Qualifiers: Aspiration pneumonia type: unspecified Laterality: right Lung location: lower lobe of lung Pneumonia type: aspiration pneumonia Qualified Code(s): J69.0 - Pneumonitis due to inhalation of food and vomit Patient has acute respiratory failure and is intubated. Underlying etiology likely pneumonia with possibility of pulmonary edema from A. fib with RVR. Rapid ventricular rate is secondary to to lying pneumonia and pulmonary edema. Conservative management at this time. Conitnue amio drip. Switch to oral amiodarone once patient is extubated. Continue anticoagulation. Chances of patient going back into A. fib with RVR after electrical cardioversion are high with her respiratory failure and underlying pneumonia. She does not appear to be in cardiogenic shock clinically. Her systolic and diastolic cardiac function normal. We will conservatively manage with rhythm controlling medications at this time as she is requiring levophed. Levophed requirement is significantly lower compared to before. Mitral regurgitation is mild on transthoracic echocardiogram. Will hold off on further work-up for Thank you for involving us with the care of this patient. We will continue to follow. Please call with questions. Attestations Medical Necessity Statement*: Care expected to cross 2 midnights. Coding Level of Care Code Acute Hand Molder And Caster for [facility] Diagnoses Mitral regurgitation I34.0 Cardiac valve disease etiology: etiology unspecified Acute respiratory failure J96.01 Respiratory failure complication: hypoxia New onset a-fib I48.91 ARDS (adult respiratory distress syndrome) J80 Pneumonia J69.0 Aspiration pneumonia type: unspecified Laterality: right Lung location: lower lobe of lung Pneumonia type: aspiration pneumonia
[2021-01-26] MEDS: bumetanide 0.25 mg/mL SDV 10 mL 2 MG IV (11:42)
--- NOTE | 2021-01-26 11:47 | P.PN_ITS ---
Subjective Subjective: Interval history: The patient was seen and examined. She is compliant with the parent. Sedated with propofol and fentanyl. The patient is on 2 mcg of Levophed. Her oxygen requirement has come down to 75%. The Gram stain from bronchoalveolar lavage revealed no microgranulomas. Rare white blood cells are noted. The culture is negative so far. Her blood cultures from January 24 is also negative so far. Her autoimmune work-up has been negative. Respiratory viral panel was negative earlier. Beta D glucan and Aspergillus galactomannan levels are negative. Histoplasma antibody is also negative. An echocardiogram revealed mild mitral regurgitation. A bedside ultrasound revealed bilateral diffuse B-lines, no significant pleural effusion. Good cardiac contractility. Chest x-ray revealed improving bilateral infiltrate. The predominant infiltrate in the right upper lobe. Medications: Reviewed: Yes Vitals/I&O/Wt Last Vital Signs Temp 98.9 F 01/26/21 08:00 Pulse 98 01/26/21 11:37 Resp 18 01/26/21 11:25 BP 126/68 01/26/21 08:00 Pulse Ox 95 01/26/21 11:25 01/25/21 01/26/21 01/26/21 22:59 06:59 14:59 Intake Total 1040.212 / 1746.795 682.894 / 2429.689 394.312 / 394.312 Output Total 100 / 800 1100 / 1900 Balance 940.212 / 946.795 -417.106 / 529.689 394.312 / 394.312 Physical Exam Narrative: EXAM NARRATIVE: General: Patient is intubated and sedated, compliant with the vent Neck: No JVD Respiratory: Auscultation: Bilateral diffuse crackles predominantly at bilateral lung bases Cardiovascular: Variable first heart sound, no murmur Abdomen: Soft, nondistended, positive bowel sound Musculoskeletal: No obvious joint deformity Skin: No rash Neuro: The patient sedated Urinary Catheter Management^: Ramirez: Cath Placed During This Visit: yes Reason for Continuing Indwelling Catheter: Accurate Measurement of Urinary Output in Critically Ill Patients Urinary Catheter Date of Insertion: 01/24/21 Urinary Catheter Time of Insertion: 15:29 Data : 01/26/21 04:15 01/26/21 04:15 Micro: Microbiology 01/24/21 17:00 Gram Stain - Final Lung Right Lower Lobe Bronchial Washings Culture - Preliminary 01/23/21 13:55 Gram Stain - Final Sputum - Expectorated Sputum Sputum Culture - Preliminary 01/24/21 07:03 Blood Culture - Preliminary Blood NEGATIVE TO DATE 01/24/21 07:01 Blood Culture - Preliminary Blood NEGATIVE TO DATE Attestation for Other Data: I personally reviewed and interpreted the following: Other data: I have reviewed the patient's laboratory, microbiologic and radiologic data. Please see the HPI A&P Assessment and plan (1) Cardiogenic pulmonary edema: This is a 75-year-old lady who initially presented to the hospital with multilobar pneumonia. Her condition worsened despite adequate antibiotic therapy. Subsequently the plan was made to do a bronchoscopic evaluation. The patient developed A. fib RVR and went into cardiogenic pulmonary edema requiring intubation and mechanical ventilation. The patient is slowly improving. Her oxygen requirement has come down. The bilateral chest infiltrate is also improving in the setting of positive pressure ventilation. However, we still do not have a definitive reason why the patient had predominantly right lung infiltrate prior to her going into cardiogenic pulmonary edema. All microbiologic work-up has been negative so far including blood culture, testing for fungal antigen and antibodies, bronchoalveolar lavage fluid studies. There is no evidence of fungal infection. The patient does not have risk factors for PCP. At this point, the #1 intervention that the patient would benefit from is diuresis. The patient is currently more than 500 cc positive in the past 24 hours. I have reduced the sedation with propofol, the Levophed has changed to double strength which will cut down the amount of fluid by half. The patient also does not have any evidence of MRSA infection or gram-negative infection. She has received appropriate therapy for more than 10 days at this point. The patient is going to receive one-time bolus of Bumex and then I am going to start her on Bumex 2.5 mg/h. The goal is to make her 2 L negative by tomorrow morning. I am going to discontinue vancomycin and aztreonam. There is no evidence of a bacterial infection. I will continue with the Levaquin for the time being although she has received almost 10 days of therapy. I will likely continue it for 4 more days. I am hoping that once the patient is adequately diuresed we will be able to extubate her in the next 48 hours. I am going to start her on trickle feed. Status: Acute (2) New onset a-fib: The patient is currently on amiodarone. Her heart rate is better controlled. She is going in and out of A. fib with a heart rate around 100. We will continue the amiodarone drip for the time being. Status: Acute (3) Pneumonia: The current microbiologic work-up is completely negative. We have more samples from the bronchoalveolar lavage pending for additional fungal and viral work-up. At this point, I will only have the patient on Levaquin. Status: Acute Qualifiers: Aspiration pneumonia type: unspecified Laterality: right Lung location: lower lobe of lung Pneumonia type: aspiration pneumonia Qualified Code(s): J69.0 - Pneumonitis due to inhalation of food and vomit Attestations Medical Necessity Statement*: Will defer to the primary team Coding Level of Care Code Acute Pottery Machine Operator for [facility] Fwd Diagnoses Cardiogenic pulmonary edema I50.1 New onset a-fib I48.91 Pneumonia J69.0 Aspiration pneumonia type: unspecified Laterality: right Lung location: lower lobe of lung Pneumonia type: aspiration pneumonia
[2021-01-26] MEDS: bumetanide 25 MG in empty flexible container 1 EACH IV (12:21)
[2021-01-26] MEDS: propofol 1,000 MG/100 ML INJ 13.93 MG IV ×2 (12:41→19:06)
--- NOTE | 2021-01-26 12:57 | PC.NURSE ---
Tube feeding started per order. Bumex gtt infusing per orders. UOP increasing. Oral care and repositioning q2h and PRN. Will monitor
[2021-01-26 13:07] LABS: Cytomegalovirus Antibody (IGM) <30.00 AU/mL
[2021-01-26 15:08] LABS: SARS Covid-2 Antigen Negative (Negative)
--- NOTE | 2021-01-26 15:18 | PC.NUTR ---
Tube feeding consult: Received consult for TF, but found orders already in place for Jevity 1.2 at 15 ml/hr. Went to ICU to discuss with nurse, who stated consult sent by mistake, and MD does not want RD recs at this time. Appears that TF not planned as sole source of nutrition for extended time period, as current rate providing only 27% of estimated caloric needs. If TF to be provided as sole source of nutrition for greater than 3 days, with pt remaining on vent, recommend the following: Pulmocare at 40 ml/hr, with 180 ml H2O flushes q 6 hours, to provide 1440 kcal, 60 g protein, 1474 ml H2O (as 1500 ml fluid restriction is in place). See RD assessments for further details.
[2021-01-26] MEDS: potassium chloride premix 100 ML 25 MEQ IV (15:25)
--- NOTE | 2021-01-26 16:56 | PM.PN ---
Subjective Subjective: Interval history: Patient seen multiple times today. On examination she is alert for propofol and fentanyl and is continued to be remain on Levophed at 2 mics. Levophed was made double strength. Patient infectious work-up has so far remain negative. Oxygen requirements have come down to 75%. Heart rate is better controlled on amiodarone drip which is later transitioned to oral amiodarone. Patient was changed over to IV Bumex drip by pulmonary team with target to get her net negative by 1 L. Medications: Reviewed: Yes Vitals/I&O/Wt Last Vital Signs Temp 99.6 F 01/26/21 16:00 Pulse 102 H 01/26/21 16:00 Resp 21 H 01/26/21 15:11 BP 118/68 01/26/21 16:00 Pulse Ox 91 01/26/21 16:00 01/26/21 01/26/21 01/26/21 06:59 14:59 22:59 Intake Total 682.894 / 2429.689 851.847 / 851.847 70.917 / 922.764 Output Total 1100 / 1900 590 / 590 225 / 815 Balance -417.106 / 529.689 261.847 / 261.847 -154.083 / 107.764 Physical Exam Const: COMMON NORMALS: no acute distress GENERAL APPEARANCE: comfortable, well developed and frail appearing ORIENTATION/CONSCIOUSNESS: Yes awake OTHER: intubated, sedated Eye: COMMON NORMALS: Equal, round and reactive pupils present GENERAL EYE: appearance normal, both eyes and all related structures PUPIL: Yes Equal, round and reactive pupils present Neck/C-Spine: COMMON NORMALS: no lymphadenopathy, no JVD and Thyroid normal THYROID: Thyroid normal Lymph: LYMPHATIC: no lymphadenopathy noted Resp: COMMON NORMALS: normal respiratory effort, No retractions and No use of accessory muscles EFFORT & INSPECTION: Yes uses accessory muscles (Slight accessory muscle use, suprasternal retractions, internal retractions) AUSCULTATION: crackles, rales, wheezes and diminished lung sounds diffuse Cardio: COMMON NORMALS: no JVD, regular rate, regular rhythm, S1 normal heart sound present, S2 normal heart sound present, No gallops present (Cardio), No clicks present (Cardio) and No murmurs present (Cardio) RATE: regular rate RHYTHM: regular rhythm HEART SOUNDS: S1 normal heart sound present and S2 normal heart sound present GI: COMMON NORMALS: Normal to inspection, nondistended, normoactive bowel sounds present, Soft to palpation and non-tender PALPATION: Yes Soft to palpation Extremity: COMMON NORMALS: no pedal edema NARRATIVE EXTREMITY EXAM: 1+ edema Neuro: NELDA COMA SCALE: GCS not evaluated COMMON NORMALS: moves all extremities and no focal motor deficits SENSORIUM/ORIENTATION: Yes somnolent Psych: COMMON NORMALS: mental status grossly normal, Normal thought process present and cooperative THOUGHT PROCESS: Normal thought process present Skin: NARRATIVE SKIN EXAM: Diffuse macular rash, slightly raised, irregular, over back, sacrum, Urinary Catheter Management^: Ramirez: Cath Placed During This Visit: yes Reason for Continuing Indwelling Catheter: Accurate Measurement of Urinary Output in Critically Ill Patients Urinary Catheter Date of Insertion: 01/24/21 Urinary Catheter Time of Insertion: 15:29 Data : 01/26/21 04:15 01/26/21 22:35 Micro: Microbiology 01/25/21 12:15 MRSA Culture - Final Nose 01/24/21 17:00 Gram Stain - Final Lung Right Lower Lobe Bronchial Washings Culture - Preliminary 01/23/21 13:55 Gram Stain - Final Sputum - Expectorated Sputum Sputum Culture - Preliminary A&P Assessment and plan (1) Cardiogenic shock: Status: Acute (2) ARDS (adult respiratory distress syndrome): Status: Acute (3) Pneumonia: Status: Acute Qualifiers: Aspiration pneumonia type: unspecified Laterality: right Lung location: lower lobe of lung Pneumonia type: aspiration pneumonia Qualified Code(s): J69.0 - Pneumonitis due to inhalation of food and vomit (4) New onset a-fib: Status: Acute (5) Mitral regurgitation: Status: Acute Qualifiers: Cardiac valve disease etiology: etiology unspecified Qualified Code(s): I34.0 - Nonrheumatic mitral (valve) insufficiency (6) Cardiogenic pulmonary edema: Status: Acute (7) Acute kidney injury: Stable - Resolved. Status: Acute (8) Hyperkalemia: Status: Acute (9) Hyponatremia: Status: Acute (10) Acute respiratory failure with hypoxia: Status: Acute Additional A&P Information ARDS: Most likely a combination of bacterial pneumonia complicated by acute exacerbation of CHF. Patient has had multiple rounds of antibiotics since admission including afternoon, levofloxacin and Flagyl. COVID-19 negative, MRSA negative, pneumocystis unlikely Fungitell negative. Galactomannan negative, histoplasma antibody negative, respiratory viral panel negative. Repeat infectious work-up from bronchial lavage remains negative. Echocardiogram shows an EF of 60% with normal diastolic function, mild MR, trace TR, normal right sided functions, no pericardial effusion. Patient started on Bumex drip of 0.25/h as per pulmonology. Strict input output charting. Stop IV antibiotics other than levofloxacin for 3 more days. Monitor for fevers. Continue with Ipratropium every 4 hours, Xopenex every 4 hours, budesonide twice daily. Repeat BMP in evening. Replace potassium. Intermittent atrial fibrillation with rapid ventricular response: Stop metoprolol given low blood pressures, cardiogenic shock. Digoxin level elevated. Switch amiodarone drip to amiodarone 200 mg twice daily. Continue with full dose Lovenox 1 mg/kg body weight every 12 hourly. Cardiology consulted by head of strategy team for possible cardioversion. Shock: Most likely cardiogenic: Keep mean arterial pressure 65. Wean Levophed accordingly. Acute kidney injury: Baseline creatinine 0.7. 1.1 today morning. Continue with gentle diuresis for now. Repeat Cheetah examination in evening. Cheetah exam done today morning shows SVR of 29%. Repeat BMP in evening. Medical reconciliation done for nephrotoxic drugs. Hypertension: Goal blood pressure less than 140/90 mmHg with mean over 65. Hypothyroidism Levothyroxine 25 mcg PO daily GI ppx Protonix 40 mg iv daily NPO. Full dose Lovenox possible DVT prophylaxis. Attestations Medical Necessity Statement*: Requires further hospitalization for management of ARDS, shock, atrial fibrillation with rapid ventricular response Critical Care Time: The high probability of a clinically significant, sudden or life threatening deterioration of the patient's [multiorgan] system(s) required my full and direct attention, intervention and personal management. The critical care time is as shown. This time is in addition to time spent performing any reported procedures but includes the following: [x] Data and vital sign review and interpretation [x] Patient assessment, examination and intervention [x] Documentation [x] Medication orders and management Critical Care Time (min): 90 Coding Level of Care Code Acute Mill Platform Supervisor for [facility] Fwd Exam Comprehensive Diagnoses Cardiogenic shock R57.0 ARDS (adult respiratory distress syndrome) J80 Pneumonia J69.0 Aspiration pneumonia type: unspecified Laterality: right Lung location: lower lobe of lung Pneumonia type: aspiration pneumonia New onset a-fib I48.91 Mitral regurgitation I34.0 Cardiac valve disease etiology: etiology unspecified Cardiogenic pulmonary edema I50.1 Acute kidney injury N17.9 Hyperkalemia E87.5 Hyponatremia E87.1 Acute respiratory failure with hypoxia J96.01
[2021-01-26] MEDS: amiodarone 200 mg Tablet PO (17:36)
--- NOTE | 2021-01-26 18:28 | PC.NURSE ---
Pt resting in bed. Bumex gtt infusing per orders, wants neg 1500 balance overnight if possible, wants aggressively treated. Double strenght levo at 2mcg, fentanyl at 75mcg/hr, propofol at 30mcg/kg/min, and amio gtt infusing at 05mg/min per orders. Tube feeding tolerated well at 15ml/h. Will monitor.
[2021-01-26] MEDS: potassium chloride premix 100 ML 50 MEQ IV (19:07)
[2021-01-26 23:31] LABS: Anion Gap 11.4 (5-19); Blood Urea Nitrogen 19 mg/dL (8-23); Calcium 7.8 mg/dL (8.5-10.5); Carbon Dioxide 25 mmol/L (22-29); Chloride 104 mmol/L (98-107); Glucose 100 mg/dL (65-115); Magnesium 1.4 mg/dL (1.7-2.3); Osmolality Calculated 284 mOsm/kg (285-295); Phosphorus 2.9 mg/dL (2.5-4.5); Potassium 4.4 mmol/L (3.5-5.1); Sodium 136 mmol/L (136-145)
[2021-01-27] VITALS (111 sets, daily range): BP systolic 84–129; BP diastolic 45–73; PULSE 88–106; RESP 18–24; TEMP 36.7–37.9; O2SAT 90–96
[2021-01-27] MEDS: propofol 1,000 MG/100 ML INJ 13.93 MG IV ×3 (00:20→19:20)
[2021-01-27] MEDS: levalbuterol 0.63 mg/3 mL Neb INHALATION ×6 (03:36→23:27)
[2021-01-27] MEDS: ipratropium 0.5 mg/2.5 mL Neb INHALATION ×6 (03:36→23:27)
[2021-01-27] MEDS: levothyroxine 25 mcg Tablet PO (05:47)
[2021-01-27] MEDS: enoxaparin 80 mg/0.8 mL Syringe SUBCUT ×2 (06:30→18:33)
--- NOTE | 2021-01-27 06:55 | PC.NURSE ---
Report received from Genesis ELI, pt resting in bed. No s/s of pain or SOB, opens eyes to command but does not follow simple commands such as squeezing hands. VSS. Fentanyl gtt at 75mcg/h, propofol at 30mcg/kg/min, levophed at 3mcg, and amio gtt at 0.5mg/min per orders. Ramirez cath draining freely to BSD, clear, pale yellow urine. SCD's in place. HOPB elevated and bilateral wrist restraints in place. Will monitor.
[2021-01-27] MEDS: budesonide 0.5 mg/2 mL Neb INHALATION ×2 (07:54→19:42)
[2021-01-27] MEDS: amiodarone 200 mg Tablet PO (08:06)
[2021-01-27] MEDS: pantoprazole 40 mg SDV IVP (08:06)
--- NOTE | 2021-01-27 08:36 | XR_ITS ---
WS: [id number] Portable AP upright chest, 01/27/2021 Clinical Data: follow up Comparison: Portable chest, 01/26/2021 Findings: The endotracheal tube and nasogastric tube remain in the same position. Diffuse bilateral p atchy opacities remain the same throughout the lungs. The heart size is the same. There are monitor l farshad on the chest wall. There are orthopedic anchors in the right shoulder. XR/XR chest 1V portable [id number] Impression: 1. No change in endotracheal tube and nasogastric tube. 2. No change in diffuse bilateral pulmonary opacities.
[2021-01-27] MEDS: metOLazone 5 MG Tablet PO (09:00)
[2021-01-27] MEDS: bumetanide 0.25 mg/mL SDV 10 mL 2 MG IV ×2 (09:05→17:18)
[2021-01-27 09:46] LABS: Basophils % 0.3 %; Eosinophils # 0.6 10^3/uL (0.0-0.8); Eosinophils % 4.1 %; Hematocrit 26.6 % (37.0-47.0); Hemoglobin 8.3 g/dL (11.5-15.3); Lymphocytes # 0.8 10^3/uL (0.8-4.8); Lymphocytes % 5.9 %; Mean Corpuscular HGB Conc 31.2 g/dL (30.0-36.0); Mean Corpuscular Hemoglobin 29.7 pg (28.0-34.0); Mean Corpuscular Volume 95.3 fL (81-99); Mean Platelet Volume 9.5 fL (7.4-10.4); Monocytes # 0.8 10^3/uL (0.2-0.9); Monocytes % 5.7 %; Neutrophils # 11.73 10^3/uL (1.8-7.7); Neutrophils % 82.2 %; Nucleated Red Blood Cells % 0.1 %; Platelet Count 314 10^3/cmm (130-400); Red Blood Count 2.79 10^6/uL (4.1-5.3); Red Cell Distribution Width 14.4 % (12.1-15.1); White Blood Count 14.3 10^3/uL (4.0-10.0)
[2021-01-27 10:11] LABS: Alanine Aminotransferase < 5 U/L (0-33); Albumin Level 2.2 g/dL (3.5-5.2); Alkaline Phosphatase 72 IU/L (35-105); Anion Gap 11.8 (5-19); Aspartate Amino Transferase 7 U/L (0-32); Blood Urea Nitrogen 20 mg/dL (8-23); Calcium 7.9 mg/dL (8.5-10.5); Carbon Dioxide 27 mmol/L (22-29); Chloride 99 mmol/L (98-107); Globulin 3.5 g/dL (1.3-4.6); Glucose 112 mg/dL (65-115); Magnesium 1.7 mg/dL (1.7-2.3); Osmolality Calculated 281 mOsm/kg (285-295); Potassium 3.8 mmol/L (3.5-5.1); Sodium 134 mmol/L (136-145); Total Bilirubin 0.2 mg/dL (0.15-1.2); Total Protein 5.7 g/dL (6.6-8.7)
--- NOTE | 2021-01-27 11:00 | PM.PN ---
Subjective Subjective: Interval history: Patient is still intubated. Her rhythm has stated stable and she is in normal sinus rhythm. Heart rate in 90s. She was started on oral amiodarone. Currently also on amiodarone drip. Vitals/I&O/Wt Last Vital Signs Temp 99.0 F 01/27/21 10:00 Pulse 92 01/27/21 10:58 Resp 18 01/27/21 10:58 BP 129/73 01/27/21 10:00 Pulse Ox 95 01/27/21 10:58 01/26/21 01/27/21 01/27/21 22:59 06:59 14:59 Intake Total 389.759 / 1241.606 428.625 / 1670.231 59.746 / 59.746 Output Total 685 / 1275 600 / 1875 275 / 275 Balance -295.241 / -33.394 -171.375 / -204.769 -215.254 / -215.254 Physical Exam Narrative: EXAM NARRATIVE: NARRATIVE: GENERAL: Patient is intubated NECK: No jugular vein distension. [] HEENT: No cyanosis. No icterus. No pallor. [] HEART: Irregularly irregular, S1 and S2. grade 2/6 systolic murmur, rub or gallop. [] LUNGS: Clear to auscultate bilaterally. [] ABDOMEN: Soft, nontender and nondistended. Positive bowel sounds. No guarding, rebound or tenderness. [] CENTRAL NERVOUS SYSTEM: Grossly nonfocal. [] EXTREMITIES: Lower extremities with 1+ edema bilaterally. Pulses palpable in the lower extremities, both dorsalis pedis and posterior tibial. [] Urinary Catheter Management^: Ramirez: Cath Placed During This Visit: yes Reason for Continuing Indwelling Catheter: Accurate Measurement of Urinary Output in Critically Ill Patients Urinary Catheter Date of Insertion: 01/24/21 Urinary Catheter Time of Insertion: 15:29 Data : 01/27/21 09:18 01/27/21 15:56 Micro: Microbiology 01/25/21 12:15 MRSA Culture - Final Nose 01/24/21 17:00 Gram Stain - Final Lung Right Lower Lobe Bronchial Washings Culture - Preliminary A&P Assessment and plan (1) Mitral regurgitation: Status: Acute Qualifiers: Cardiac valve disease etiology: etiology unspecified Qualified Code(s): I34.0 - Nonrheumatic mitral (valve) insufficiency (2) Acute respiratory failure: Status: Acute Qualifiers: Respiratory failure complication: hypoxia Qualified Code(s): J96.01 - Acute respiratory failure with hypoxia (3) New onset a-fib: Status: Acute (4) ARDS (adult respiratory distress syndrome): Status: Acute (5) Pneumonia: Status: Acute Qualifiers: Aspiration pneumonia type: unspecified Laterality: right Lung location: lower lobe of lung Pneumonia type: aspiration pneumonia Qualified Code(s): J69.0 - Pneumonitis due to inhalation of food and vomit Patient has acute respiratory failure and is intubated. Underlying etiology likely pneumonia with possibility of pulmonary edema from A. fib with RVR. Rapid ventricular rate is secondary to to lying pneumonia and pulmonary edema. Conservative management at this time. Patient on oral amiodarone. Stop amio drip as well as it is increasing her intake volume. Continue anticoagulation for stroke prevention She does not appear to be in cardiogenic shock clinically. Her systolic and diastolic cardiac function normal. Blood pressure is stable now. Mitral regurgitation is mild on transthoracic echocardiogram. Will hold off on further work-up for MR. Thank you for involving us with the care of this patient. We will continue to follow. Please call with questions. Attestations Medical Necessity Statement*: Care expected to cross 2 midnights. Coding Level of Care Code Acute Cisco Consultant for [facility] Diagnoses Mitral regurgitation I34.0 Cardiac valve disease etiology: etiology unspecified Acute respiratory failure J96.01 Respiratory failure complication: hypoxia New onset a-fib I48.91 ARDS (adult respiratory distress syndrome) J80 Pneumonia J69.0 Aspiration pneumonia type: unspecified Laterality: right Lung location: lower lobe of lung Pneumonia type: aspiration pneumonia
--- NOTE | 2021-01-27 11:09 | PC.OT ---
OT TREATMENT HELD THIS DATE DUE TO SEDATION/SLEEPING. WILL ATTEMPT AGAIN TOMORROW.
[2021-01-27 12:03] LABS: ABG PCO2 47.1 mmHg (35-45); ABG PH Result 7.38 (7.35-7.45); Alveolar-Arterial Oxygen Gradi 47.5 mmHg (5-10); Arterial Blood Gas Hematocrit 25.1 % (37-47); Base Excess ABG 2.5 mmol/L (-2.0-2.0); Blood Gas Allen Test Pos; Blood Gas Operator Identificat BROMA; Blood Gas Sample Site Brachial, right; Blood Gas Sample Type Arterial; Carboxyhemoglobin 0.7 %THgb (0.4-20.1); HGB O2 Sat 94.5 % (95-100); Ionized Calcium Level - ABG 1.2 mmol/L (1.1-1.4); Methemoglobin 0.7 % (0.4-1.5); Oxygen Device VENT; Oxygen Saturation ABG 95.9; PO2 ABG 74.7 mmHg (80.0-100.0); Potassium Level - ABG 3.7 mmol/L (3.5-5.0); Total Hemoglobin 8.2 g/dL (12-16)
[2021-01-27 12:04] LABS: Blood Gas Tidal Volume 0.35
[2021-01-27] MEDS: propofol 1,000 MG/100 ML INJ 11.61 MG IV (14:17)
--- NOTE | 2021-01-27 14:50 | PC.NURSE ---
Paused levophed at 1420. MAP > 65. Informed Dr. Abad of current clinical picture. Will monitor.
--- NOTE | 2021-01-27 16:10 | P.PN_ITS ---
Subjective Subjective: Interval history: Patient seen multiple times today. Discussed in detail with pulmonology/college teacher. Has remained hemodynamically stable. T-max last 24-hour 100.2 Fahrenheit yesterday morning. Documented net negative around 1 L in last 24 hours. On examination on amnio drip with heart rate of 104 bpm, sinus. Also on propofol and fentanyl. Has been off Levophed since yesterday afternoon. Medications: Reviewed: Yes Vitals/I&O/Wt Last Vital Signs Temp 99.0 F 01/27/21 10:00 Pulse 94 01/27/21 13:59 Resp 19 H 01/27/21 13:27 BP 118/66 01/27/21 12:00 Pulse Ox 93 01/27/21 13:27 01/27/21 01/27/21 01/27/21 06:59 14:59 22:59 Intake Total 428.625 / 1670.231 434.065 / 434.065 16.448 / 450.513 Output Total 600 / 1875 915 / 915 225 / 1140 Balance -171.375 / -204.769 -480.935 / -480.935 -208.552 / -689.487 Physical Exam Const: COMMON NORMALS: no acute distress GENERAL APPEARANCE: comfortable, well developed and frail appearing ORIENTATION/CONSCIOUSNESS: Yes awake OTHER: intubated, sedated Eye: COMMON NORMALS: Equal, round and reactive pupils present GENERAL EYE: appearance normal, both eyes and all related structures PUPIL: Yes Equal, round and reactive pupils present Neck/C-Spine: COMMON NORMALS: no lymphadenopathy, no JVD and Thyroid normal THYROID: Thyroid normal Lymph: LYMPHATIC: no lymphadenopathy noted Resp: COMMON NORMALS: normal respiratory effort, No retractions and No use of accessory muscles EFFORT & INSPECTION: Yes uses accessory muscles (Slight accessory muscle use, suprasternal retractions, internal retractions) AUSCULTATION: crackles, rales, wheezes and diminished lung sounds diffuse Cardio: COMMON NORMALS: no JVD, regular rate, regular rhythm, S1 normal heart sound present, S2 normal heart sound present, No gallops present (Cardio), No clicks present (Cardio) and No murmurs present (Cardio) RATE: regular rate RHYTHM: regular rhythm HEART SOUNDS: S1 normal heart sound present and S2 normal heart sound present GI: COMMON NORMALS: Normal to inspection, nondistended, normoactive bowel sounds present, Soft to palpation and non-tender PALPATION: Yes Soft to palpation Extremity: COMMON NORMALS: no pedal edema NARRATIVE EXTREMITY EXAM: 1+ edema Neuro: NELDA COMA SCALE: GCS not evaluated COMMON NORMALS: moves all extremities and no focal motor deficits SENSORIUM/ORIENTATION: Yes somnolent Psych: COMMON NORMALS: mental status grossly normal, Normal thought process present and cooperative THOUGHT PROCESS: Normal thought process present Skin: NARRATIVE SKIN EXAM: Diffuse macular rash, slightly raised, irregular, over back, sacrum, Urinary Catheter Management^: Ramirez: Cath Placed During This Visit: yes Reason for Continuing Indwelling Catheter: Accurate Measurement of Urinary Output in Critically Ill Patients Urinary Catheter Date of Insertion: 01/24/21 Urinary Catheter Time of Insertion: 15:29 Data : 01/28/21 03:03 01/28/21 03:03 Micro: Microbiology 01/23/21 13:55 Gram Stain - Final Sputum - Expectorated Sputum Sputum Culture - Final Cherry albicans 01/24/21 17:00 Gram Stain - Final Lung Right Lower Lobe Bronchial Washings Culture - Final 01/25/21 12:15 MRSA Culture - Final Nose A&P Assessment and plan (1) Cardiogenic shock: Status: Acute (2) ARDS (adult respiratory distress syndrome): Status: Acute (3) Pneumonia: Status: Acute Qualifiers: Aspiration pneumonia type: unspecified Laterality: right Lung location: lower lobe of lung Pneumonia type: aspiration pneumonia Qualified Code(s): J69.0 - Pneumonitis due to inhalation of food and vomit (4) New onset a-fib: Status: Acute (5) Mitral regurgitation: Status: Acute Qualifiers: Cardiac valve disease etiology: etiology unspecified Qualified Code(s): I34.0 - Nonrheumatic mitral (valve) insufficiency (6) Cardiogenic pulmonary edema: Status: Acute (7) Acute kidney injury: Stable - Resolved. Status: Acute (8) Hyperkalemia: Status: Acute (9) Hyponatremia: Status: Acute (10) Acute respiratory failure with hypoxia: Status: Acute Additional A&P Information ARDS: Most likely a combination of bacterial pneumonia complicated by acute exacerbation of CHF. Patient has had multiple rounds of antibiotics since admission including aztreonam, vancomycin, levofloxacin and Flagyl. COVID-19 negative, MRSA negative, pneumocystis unlikely Fungitell negative. Galactomannan negative, histoplasma antibody negative, respiratory viral panel negative. Repeat infectious work-up from bronchial lavage remains negative. Sputum culture positive on Chrery. Echocardiogram shows an EF of 60% with normal diastolic function, mild MR, trace TR, normal right sided functions, no pericardial effusion. Patient started on Bumex drip of 0.25/h as per pulmonology. Continue the Bumex drip for now. No more boluses of metolazone for now. Looks intravolume depleted. Will give patient albumin every 8 hourly. Strict input output charting. Stop IV antibiotics other than levofloxacin for 3 more days. Monitor for fevers/worsening leukocytosis. Continue with Ipratropium every 4 hours, Xopenex every 4 hours, budesonide twice daily. Repeat BMP in evening. Replace potassium. Intermittent atrial fibrillation with rapid ventricular response: Continue with amiodarone drip. Amiodarone oral 200 mg daily. Digoxin level elevated. Continue with full dose Lovenox 1 mg/kg body weight every 12 hourly. Cardiology consulted by college teacher team for possible cardioversion. Believe not needed for now. Shock: Most likely cardiogenic: Keep mean arterial pressure 65. Wean Levophed accordingly. Acute kidney injury: Resolved. Baseline creatinine 0.7. 1.1 today morning. Repeat BMP daily. Medical reconciliation done for nephrotoxic drugs. Hypertension: Goal blood pressure less than 140/90 mmHg with mean over 65. Hypothyroidism Levothyroxine 25 mcg PO daily GI ppx Protonix 40 mg iv daily Tube feeds. Increase tube feeds 15 cc every 4 hours with free water flush 100 cc every 8 hours Full dose Lovenox possible DVT prophylaxis. Attestations Medical Necessity Statement*: Requires further hospitalization for management of ARDS, ventilator dependent currently, further diuresis. Critical Care Time: The high probability of a clinically significant, sudden or life threatening deterioration of the patient's [pulmonary, cardiac] system(s) required my full and direct attention, intervention and personal management. The critical care time is as shown. This time is in addition to time spent performing any reported procedures but includes the following: [x] Data and vital sign review and interpretation [x] Patient assessment, examination and intervention [x] Documentation [x] Medication orders and management Critical Care Time (min): 80 Coding Level of Care Code Acute Cardiopulmonary Technician And Eeg Tech for [facility] Fwd Exam Comprehensive Diagnoses Cardiogenic shock R57.0 ARDS (adult respiratory distress syndrome) J80 Pneumonia J69.0 Aspiration pneumonia type: unspecified Laterality: right Lung location: lower lobe of lung Pneumonia type: aspiration pneumonia New onset a-fib I48.91 Mitral regurgitation I34.0 Cardiac valve disease etiology: etiology unspecified Cardiogenic pulmonary edema I50.1 Acute kidney injury N17.9 Hyperkalemia E87.5 Hyponatremia E87.1 Acute respiratory failure with hypoxia J96.01
[2021-01-27 16:46] LABS: Anion Gap 10.8 (5-19); Blood Urea Nitrogen 20 mg/dL (8-23); Carbon Dioxide 29 mmol/L (22-29); Chloride 98 mmol/L (98-107); Glucose 102 mg/dL (65-115); Magnesium 1.6 mg/dL (1.7-2.3); Osmolality Calculated 281 mOsm/kg (285-295); Potassium 3.8 mmol/L (3.5-5.1); Sodium 134 mmol/L (136-145)
[2021-01-27] MEDS: potassium chloride oral liq 20 mEq/15 mL UDC 40 MEQ PO (17:18)
[2021-01-27] MEDS: magnesium sulfate premix 2 GM/50 ML PIGGYBACK IV (17:18)
[2021-01-27] MEDS: fluconazole premix 200 MG/100 ML PREMIX 100 MG IV (17:18)
--- NOTE | 2021-01-27 18:29 | PC.NURSE ---
PT resting in bed with family at bedside. Jenniffer Olea aware of fluid balance, would like -2L overnight Sedation remains the same. Levophed remains off. VSS. Frothy sputum noted at times to oral cavity. Some air leakage noted around ETT cuff. 1ml air added. No further air leakage noted. Excellent UOP noted. Mg and K replaced. ABT started per Dr. Morley. Bumex gtt remains in place. PO amio held until tomorrow AM. No other issues noted.
[2021-01-28] VITALS (110 sets, daily range): BP systolic 89–125; BP diastolic 47–71; PULSE 94–112; RESP 17–22; TEMP 37.3–38.2; O2SAT 90–99
[2021-01-28] MEDS: metOLazone 5 MG Tablet PO (00:48)
[2021-01-28] MEDS: propofol 1,000 MG/100 ML INJ 13.93 MG IV ×4 (02:42→21:04)
[2021-01-28] MEDS: ipratropium 0.5 mg/2.5 mL Neb INHALATION ×5 (03:08→20:39)
[2021-01-28] MEDS: levalbuterol 0.63 mg/3 mL Neb INHALATION ×5 (03:08→20:39)
[2021-01-28 04:04] LABS: Basophils # 0.1 10^3/uL (0.0-0.1); Basophils % 0.3 %; Eosinophils # 0.6 10^3/uL (0.0-0.8); Eosinophils % 3.9 %; Hematocrit 26.6 % (37.0-47.0); Hemoglobin 8.1 g/dL (11.5-15.3); Lymphocytes % 6.7 %; Mean Corpuscular HGB Conc 30.5 g/dL (30.0-36.0); Mean Corpuscular Hemoglobin 28.3 pg (28.0-34.0); Mean Platelet Volume 9.7 fL (7.4-10.4); Monocytes # 0.8 10^3/uL (0.2-0.9); Monocytes % 5.1 %; Neutrophils # 12.29 10^3/uL (1.8-7.7); Neutrophils % 82.2 %; Nucleated Red Blood Cells % 0 %; Platelet Count 323 10^3/cmm (130-400); Red Blood Count 2.86 10^6/uL (4.1-5.3); Red Cell Distribution Width 14.4 % (12.1-15.1)
[2021-01-28 04:25] LABS: Alanine Aminotransferase < 5 U/L (0-33); Albumin Level 2.5 g/dL (3.5-5.2); Alkaline Phosphatase 75 IU/L (35-105); Anion Gap 14.3 (5-19); Aspartate Amino Transferase 8 U/L (0-32); Blood Urea Nitrogen 23 mg/dL (8-23); Calcium 8.6 mg/dL (8.5-10.5); Carbon Dioxide 30 mmol/L (22-29); Chloride 97 mmol/L (98-107); Globulin 3.8 g/dL (1.3-4.6); Glucose 105 mg/dL (65-115); Magnesium 1.9 mg/dL (1.7-2.3); Osmolality Calculated 288 mOsm/kg (285-295); Potassium 4.3 mmol/L (3.5-5.1); Sodium 137 mmol/L (136-145); Total Bilirubin 0.2 mg/dL (0.15-1.2); Total Protein 6.3 g/dL (6.6-8.7)
[2021-01-28] MEDS: bumetanide 25 MG in empty flexible container 1 EACH IV (05:28)
[2021-01-28] MEDS: levothyroxine 25 mcg Tablet PO (05:35)
[2021-01-28] MEDS: enoxaparin 80 mg/0.8 mL Syringe SUBCUT ×2 (06:36→19:48)
[2021-01-28] MEDS: budesonide 0.5 mg/2 mL Neb INHALATION ×2 (07:12→20:39)
[2021-01-28] MEDS: pantoprazole 40 mg SDV IVP (08:26)
[2021-01-28] MEDS: amiodarone 200 mg Tablet PO (08:27)
--- NOTE | 2021-01-28 10:09 | PC.SOCIAL ---
IMM IMM not updated due to not being expected to DC in the next 48 hours.
--- NOTE | 2021-01-28 12:03 | P.PN_ITS ---
Subjective Subjective: Interval history: -Seen patient at bedside today morning -Heart rate between 100-1 05 on amnio drip -Hemodynamically stable-off pressors -Net -1.4 L over last 24 hours; still +6 L since admission -We will continue Bumex 0.25 mg/hour drip and another dose of metolazone -Bedside ultrasound showed collapsible IVC-we will give albumin -Labs and imaging reviewed Medications: Reviewed: Yes Vitals/I&O/Wt Last Vital Signs Temp 99.3 F 01/28/21 04:00 Pulse 105 H 01/28/21 11:21 Resp 18 01/28/21 11:18 BP 120/52 01/28/21 09:00 Pulse Ox 93 01/28/21 11:18 01/27/21 01/28/21 01/28/21 22:59 06:59 14:59 Intake Total 474.968 / 1427.033 391.390 / 1818.423 Output Total 1290 / 2205 1050 / 3255 Balance -815.032 / -777.967 -658.610 / -1436.577 Weight last 48 hrs Weight 154 lb 4.8 oz Physical Exam Narrative: EXAM NARRATIVE: General: Lying in bed, sedated and intubated. HEENT:NCAT, PERRLA, EOMI Neck: Supple Lungs: Diffuse crackles Heart: s1/s2, RRR Abd: soft, NT, ND, BS + Normoactive Extremities: No edema PATHOLOGY COLLECTOR: sedated and limited PATHOLOGY COLLECTOR exam possible. SKIN: no rash LDA: # CVC: Right femoral catheter 01/24/2021 # Ramirez: 01/24/2021 Urinary Catheter Management^: Ramirez: Cath Placed During This Visit: yes Reason for Continuing Indwelling Catheter: Accurate Measurement of Urinary Output in Critically Ill Patients Urinary Catheter Date of Insertion: 01/24/21 Urinary Catheter Time of Insertion: 15:29 Data : 01/28/21 03:03 01/28/21 03:03 Other Labs: Laboratory Results WBC 15.0 10^3/uL (4.0-10.0) H 01/28/21 03:03 RBC 2.86 10^6/uL (4.1-5.3) L 01/28/21 03:03 Hgb 8.1 g/dL (11.5-15.3) L 01/28/21 03:03 Hct 26.6 % (37.0-47.0) L 01/28/21 03:03 MCV 93.0 fL (81-99) 01/28/21 03:03 MCH 28.3 pg (28.0-34.0) 01/28/21 03:03 MCHC 30.5 g/dL (30.0-36.0) 01/28/21 03:03 RDW 14.4 % (12.1-15.1) 01/28/21 03:03 Plt Count 323 10^3/cmm (130-400) 01/28/21 03:03 MPV 9.7 fL (7.4-10.4) 01/28/21 03:03 Neut % (Auto) 82.2 % 01/28/21 03:03 Lymph % (Auto) 6.7 % 01/28/21 03:03 [place] % (Auto) 5.1 % 01/28/21 03:03 Eos % (Auto) 3.9 % 01/28/21 03:03 Baso % (Auto) 0.3 % 01/28/21 03:03 Neut # (Auto) 12.29 10^3/uL (1.8-7.7) H 01/28/21 03:03 Lymph # (Auto) 1.0 10^3/uL (0.8-4.8) 01/28/21 03:03 [place] # (Auto) 0.8 10^3/uL (0.2-0.9) 01/28/21 03:03 Eos # (Auto) 0.6 10^3/uL (0.0-0.8) 01/28/21 03:03 Baso # (Auto) 0.1 10^3/uL (0.0-0.1) 01/28/21 03:03 Nucleated RBC % (auto) 0 % 01/28/21 03:03 Nucleated RBCs # 0.0 /100WBC 01/28/21 03:03 ESR > 120 mm/hr (0-15) H 01/25/21 05:00 PT 14.00 SECONDS (12.1-14.9) 01/18/21 08:58 INR 1.05 (0.8-1.2) 01/18/21 08:58 D-Dimer 3.47 ug/mIFEU (0-0.59) H 01/25/21 05:00 Specimen Type Arterial 01/27/21 11:45 Sample Site Brachial, right 01/27/21 11:45 ABG pH 7.38 (7.35-7.45) 01/27/21 11:45 ABG pCO2 47.1 mmHg (35-45) H 01/27/21 11:45 ABG pO2 74.7 mmHg (80.0-100.0) L 01/27/21 11:45 ABG HCO3 28.0 mmol/L (22-26) H 01/27/21 11:45 ABG O2 Saturation 95.9 01/27/21 11:45 ABG Base Excess 2.5 mmol/L (-2.0-2.0) H 01/27/21 11:45 [place] Test Pos 01/27/21 11:45 A-a O2 Gradient 47.5 mmHg (5-10) H 01/27/21 11:45 Hematocrit 25.1 % (37-47) L 01/27/21 11:45 Hgb O2 Saturation 94.5 % (95-100) L 01/27/21 11:45 Carboxyhemoglobin 0.7 %THgb (0.4-20.1) 01/27/21 11:45 Methemoglobin 0.7 % (0.4-1.5) 01/27/21 11:45 Total Hemoglobin 8.2 g/dL (12-16) L 01/27/21 11:45 Sodium 137.0 mmol/L (131-143) 01/27/21 11:45 Potassium 3.7 mmol/L (3.5-5.0) 01/27/21 11:45 Glucose 105.0 mg/dL (70-115) 01/27/21 11:45 Ionized Calcium 1.2 mmol/L (1.1-1.4) 01/27/21 11:45 O2 Delivery Device Vent 01/27/21 11:45 O2 Liters/Min 45.0 % 01/24/21 16:31 FiO2 70.0 % 01/27/21 11:45 Tidal Volume 0.35 01/27/21 11:45 PEEP 10.0 cmH20 01/27/21 11:45 Senior Animal Trainer ID [place] 01/27/21 11:45 Sodium 137 mmol/L (136-145) 01/28/21 03:03 Potassium 4.3 mmol/L (3.5-5.1) 01/28/21 03:03 Chloride 97 mmol/L (98-107) L 01/28/21 03:03 Carbon Dioxide 30 mmol/L (22-29) H 01/28/21 03:03 Anion Gap 14.3 (5-19) 01/28/21 03:03 BUN 23 mg/dL (8-23) 01/28/21 03:03 Creatinine 0.9 mg/dL (0.5-0.9) 01/28/21 03:03 GFR Calculation Not Reportable 01/28/21 03:03 Glucose 105 mg/dL (65-115) 01/28/21 03:03 Calculated Osmolality 288 mOsm/kg (285-295) 01/28/21 03:03 Lactic Acid Cancelled 01/11/21 13:00 Lactic Acid (Sepsis) 1.8 mmol/L (0.5-2.2) 01/11/21 16:25 Lactate 1.2 mmol/L (0.5-2.2) 01/18/21 04:32 Calcium 8.6 mg/dL (8.5-10.5) 01/28/21 03:03 Phosphorus 2.9 mg/dL (2.5-4.5) 01/26/21 22:35 Magnesium 1.9 mg/dL (1.7-2.3) 01/28/21 03:03 Ferritin 279 ng/mL (15-150) H 01/23/21 05:39 Total Bilirubin 0.2 mg/dL (0.15-1.2) 01/28/21 03:03 AST 8 U/L (0-32) 01/28/21 03:03 ALT < 5 U/L (0-33) 01/28/21 03:03 Alkaline Phosphatase 75 IU/L (35-105) 01/28/21 03:03 Lactate Dehydrogenase 318 U/L (135-214) H 01/23/21 05:39 Creatine Kinase Cancelled 01/18/21 08:58 Troponin T Baseline 21 ng/L (0-10) H 01/25/21 10:42 Troponin T 120 Minute 21.16 ng/L (0-10) H 01/25/21 12:53 Delta Troponin T 0.16 ABS# (0-10) 01/25/21 12:53 Troponin T Hi Sens 6Hr 27.15 ng/L (0-10) H 01/25/21 16:38 Troponin T Hi Sens 6Hr Delta 6.15 ng/L (0-12) 01/25/21 16:38 C-Reactive Protein Cancelled 01/18/21 08:58 NT-Pro-B Natriuret Pep 2605 pg/mL (0-450) H 01/26/21 04:15 Total Protein 6.3 g/dL (6.6-8.7) L 01/28/21 03:03 Albumin 2.5 g/dL (3.5-5.2) L 01/28/21 03:03 Globulin 3.8 g/dL (1.3-4.6) 01/28/21 03:03 Procalcitonin 0.26 ng/mL (0-0.5) 01/23/21 05:39 TSH 6.98 uIU/mL (0.27-4.20) H 01/11/21 13:38 Urine Color Yellow (Yellow) 01/11/21 17:49 Urine Appearance Sl hazy (CLEAR) 01/11/21 17:49 Urine pH 5 (5-7) 01/11/21 17:49 Ur Specific [place] 1.005 (1.005-1.030) 01/11/21 17:49 Urine Protein 1+ (Negative) H 01/11/21 17:49 Urine Glucose (UA) Norm (Normal) 01/11/21 17:49 Urine Ketones Negative (Negative) 01/11/21 17:49 Urine Blood 2+ (Negative) H 01/11/21 17:49 Urine Nitrate Negative (Negative) 01/11/21 17:49 Urine Bilirubin 1+ (Negative) H 01/11/21 17:49 Urine Urobilinogen Norm mg/dL (Negative) 01/11/21 17:49 Ur Leukocyte Esterase Negative (Negative) 01/11/21 17:49 Urine RBC 0-4 /hpf (0-2) H 01/11/21 17:49 Urine WBC 0-4 /hpf (0-5) H 01/11/21 17:49 Ur Squamous Epith Cells 0-4 /hpf (0-5) H 01/11/21 17:49 Amorphous Sediment 1+ /hpf 01/11/21 17:49 Urine Bacteria 1+ /hpf (NONE) H 01/11/21 17:49 Urine Mucus 1+ /hpf 01/11/21 17:49 RSV Nasal Swab Not detected (Not Detected) 01/16/21 12:32 RSV Nasal Swab Int Cntl Not detected (Not Detected) 01/16/21 12:32 Bronch Specimen Source . 01/24/21 17:00 Bronchial Fluid Color Colorless 01/24/21 17:00 Bronchial Fluid Appearance Clear (CLEAR) 01/24/21 17:00 Bronchial Fluid WBC 113 /uL 01/24/21 17:00 Bronchial Fluid RBC 1 10^3/uL 01/24/21 17:00 Bronch Cells Counted 200 01/24/21 17:00 Bronchial Neutrophils 95.00 % (0.9-2.3) H 01/24/21 17:00 Bronchial Lymphocytes 2.00 % (10.71-12.91) L 01/24/21 17:00 Bronchial Eosinophils 1.00 % (0.13-0.25) H 01/24/21 17:00 Bronchial Macrophages 2.00 % (83.6-86.8) L 01/24/21 17:00 Bronchial Diff Comment Yes 01/24/21 17:00 Vancomycin Trough 6.1 ug/mL (10-15) L 01/26/21 10:34 Digoxin 1.6 ng/mL (0.6-1.2) H 01/25/21 10:42 JAZIEL-1 Antibody <1.0 neg AI (<1.0 NEG) 01/24/21 15:10 SS-A/Ro IgG Antibody <1.0 neg AI (<1.0 NEG) 01/24/21 15:10 SS-B/La IgG Antibody <1.0 neg AI (<1.0 NEG) 01/24/21 15:10 Anti-nRNP/Sm IgG Ab <1.0 neg AI (<1.0 NEG) 01/24/21 15:10 Scl-70 Scleroderma Ab <1.0 neg AI (<1.0 NEG) 01/24/21 15:10 Anti-ds DNA IgG Ab <1 IU/mL 01/24/21 15:10 Adenovirus (PCR) Not detected (Not Detected) 01/16/21 12:32 Nasal/Oral COVID-19 PCR Not detected 01/16/21 10:20 CMV IgG Ab 3.50 U/mL H 01/25/21 05:00 CMV IgM Ab <30.00 AU/mL 01/25/21 05:00 Hepatitis A IgM Ab Non-reactive (Nonreactive) 01/23/21 05:39 Hep Bs Antigen Non-reactive (Nonreactive) 01/23/21 05:39 Hep Bs Antibody 3.5 (11.5-1000) L 01/23/21 05:39 Hep B Core Total Ab Non-reactive (Nonreactive) 01/23/21 05:39 Hepatitis C Antibody Non-reactive (Nonreactive) 01/23/21 05:39 Histoplasma Antibody Negative 01/18/21 08:58 HIV 1&2 Ab & HIV 1 Ag Non-reactive (Non-Reactiv) 01/23/21 05:39 HIV 1&2 Antibody Non-reactive (Non-Reactiv) 01/23/21 05:39 Human Metapneumovir PCR Not detected (Not Detected) 01/16/21 12:32 Influenza A (RT-PCR) Not detected (Not Detected) 01/16/21 12:32 Influenza A (H1) PCR Not detected (Not Detected) 01/16/21 12:32 Influenza A (H3) PCR Not detected (Not Detected) 01/16/21 12:32 Influenza B (RT-PCR) Not detected (Not Detected) 01/16/21 12:32 Parainfluenzae Type 1 Not detected (Not Detected) 01/16/21 12:32 Parainfluenzae Type 2 Not detected (Not Detected) 01/16/21 12:32 Parainfluenzae Type 3 Not detected (Not Detected) 01/16/21 12:32 A. galactomannan Ag EIA Not detected 01/18/21 08:58 A. galactomannan Ag Idx <0.50 01/18/21 08:58 RSV Ab Comment see note 01/16/21 12:32 Rhinovirus (PCR) Not detected (Not Detected) 01/16/21 12:32 SARS-CoV-2 Ag (Rapid) Negative (Negative) 01/26/21 13:50 TB (QFT) Gold In Tube TNP 01/23/21 07:01 TB Test (QFT) Nil Not Reportable 01/23/21 07:01 TB Test (QFT) Mitogen Not Reportable 01/23/21 07:01 TB Test Mitogen - Nil Not Reportable 01/23/21 07:01 TB Test TB - Nil Not Reportable 01/23/21 07:01 Beta-(1,3)-D-Glucan <31 01/18/21 08:58 B-(1,3)-D-Glucan Intrp Negative 01/18/21 08:[address] 01/11/21 12:54 IMPRESSION: 1. Patchy ground glass infiltrates within the right greater than left lower lob es with partial airspace consolidation 2. Additional patchy groundglass infiltrates along the right hilum and right fissure. 3. Additional hazy groundglass infiltrates in the subpleural upper lobes bilaterally. 4. Above findings suspicious for COVID 19 pneumonia. 5. A few reactive mediastinal lymph nodes. 6. Chronic appearing compression fracture L1 with loss of approximately 70% vertebral body height centrally and mild central canal stenosis. Renal Ultrasound 01/12/21 05:00 IMPRESSION: Normal renal ultrasound Chest CTA 01/16/21 09:32 IMPRESSION: 1. Negative for pulmonary embolism. 2. Increasing patulous ground-glass opacities within both lungs from 01/11/2021 study. Imaging appearance is nonspecific but resembles a viral pneumonitis including but not limited to COVID-19 infection. Radiation Dose CTDIVOL = (mGy): DLP = 551.67 (mGy-cm) Chest X-Ray 01/27/21 08:36 Impression: 1. No change in endotracheal tube and nasogastric tube. 2. No change in diffuse bilateral pulmonary opacities. Micro: Microbiology 01/27/21 21:49 Legionella Urinary Antigen - Final Urine,Voided Bacterial Antigens - Final 01/23/21 13:55 Gram Stain - Final Sputum - Expectorated Sputum Sputum Culture - Final Cherry albicans 01/24/21 17:00 Gram Stain - Final Lung Right Lower Lobe Bronchial Washings Culture - Final A&P Assessment and plan (1) Acute respiratory failure with hypoxia: Status: Acute (2) Mitral regurgitation: Status: Acute Qualifiers: Cardiac valve disease etiology: etiology unspecified Qualified Code(s): I34.0 - Nonrheumatic mitral (valve) insufficiency (3) New onset a-fib: Status: Acute (4) Cardiogenic pulmonary edema: Status: Acute (5) Pneumonia: Status: Acute Qualifiers: Aspiration pneumonia type: unspecified Laterality: right Lung location: lower lobe of lung Pneumonia type: aspiration pneumonia Qualified Code(s): J69.0 - Pneumonitis due to inhalation of food and vomit (6) Acute kidney injury: Status: Acute #Acute hypoxic respiratory failure secondary to ARDS-unilateral infiltrates on imaging fluid overload secondary to congestive heart failure/A. fib RVR/mitral valve regurgitation patient with underlying CAD #Cannot rule out component of ARDS secondary to underlying pneumonia - #Inciting event may be a pneumonia-especially with small hiatal hernia- aspiration cannot be ruled out -ABG 01/27/2021 7.3 8/47/74/20 8/95% on 70% FiO2-improving PaO2 and gradually reducing FiO2 requirement -Currently intubated and mechanically ventilated on AC VC 350/18/10/65% FiO2 -Currently on propofol 20 MCG/hour gtt., fentanyl 75 MCG/hour gtt, off vasopressor -Net +6 L since admission-net -1.4 L over last 24 hours -Heart rate 100-105,on amiodarone drip -we will transition to p.o. amiodarone today; on Lovenox 80 every 12 hours -Bedside ultrasound today showed collapsing IVC with tachycardia; CMP showed normal sodium, BUN and creatinine -Recommend to continue Bumex 0.25 mg/hour; 1 dose of metolazone and give albumin to pull third spacing of fluid -Monitor input output and keep patient net negative by at least 3 to 4 L -Monitor electrolytes and keep K > 3.6 and Mg > 2 and supplement if necessary -TTE showed trace mitral valve regurgitation; -Cardiology consulted for possible TUAN to check to better assess mitral valve pathology, rule out clot and possible synchronized cardioversion if patient continues to be in uncontrolled A. fib -Worsening leukocytosis-BAL cultures negative -Low suspicion for PCP as patient was not on chronic steroids or immunocompromised prior to admission -Sputum culture positive for Cherry albicans likely commensal -Also sputum galactomannan and beta D glucan were negative; however BAL PCR is pending -So far all the infectious work-up including viral panel, blood cultures are negative -Procalcitonin on admission was 1.01 and she received ceftriaxone & azithromycin for community-acquired pneumonia at that time -S/p aztreonam, vancomycin x 10 days; received 10 days of Levaquin-to complete 14 days in 2 days -Continue Atrovent, Xopenex, Pulmicort nebulizations -On tricke feeds Given extensive infectious work-up being negative, high BNP, unilateral infiltrates on imaging-its prudent to control atrial fibrillation and diurese patient aggressively. However cannot rule out coexisting component of ARDS due to insult of CAP/ aspiration pneumonia as inciting event. However patient was treated with adequate antibiotic coverage for 10 days, currently on protective v entilator strategy for ARDS, being diuresed to keep her on kier drier side, heart rate rate being controlled with amiodarone drip and we can already see gradual improvement in FiO2. We will continue to diurese and monitor signs of dehydration and improvement of O2. Recommendations conveyed to hospitalist, RN, RT covering the patient. Attestations Medical Necessity Statement*: Requires further hospitalization for management of ARDS, ventilator dependent currently, further diuresis. Critical Care Time: The high probability of a clinically significant, sudden or life threatening deterioration of the patient's [pulmonary, cardiac] system(s) required my full and direct attention, intervention and personal management. The critical care time is as shown. 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
[2021-01-28] MEDS: fluconazole premix 200 MG/100 ML PREMIX 100 MG IV (17:25)
[2021-01-29] VITALS (55 sets, daily range): BP systolic 103–161; BP diastolic 47–88; PULSE 93–128; RESP 19–26; TEMP 36.6–38.2; O2SAT 90–98
[2021-01-29] MEDS: levalbuterol 0.63 mg/3 mL Neb INHALATION ×6 (00:05→20:08)
[2021-01-29] MEDS: ipratropium 0.5 mg/2.5 mL Neb INHALATION ×6 (00:05→20:08)
[2021-01-29] MEDS: propofol 1,000 MG/100 ML INJ 13.93 MG IV ×2 (02:44→09:21)
[2021-01-29] MEDS: bumetanide 25 MG in empty flexible container 1 EACH IV (03:01)
[2021-01-29] MEDS: levothyroxine 25 mcg Tablet PO (05:15)
[2021-01-29] MEDS: enoxaparin 80 mg/0.8 mL Syringe SUBCUT ×2 (06:32→19:37)
[2021-01-29 06:54] LABS: Basophils % 0.3 %; Eosinophils # 0.6 10^3/uL (0.0-0.8); Hematocrit 24.9 % (37.0-47.0); Hemoglobin 7.9 g/dL (11.5-15.3); Lymphocytes # 0.9 10^3/uL (0.8-4.8); Lymphocytes % 6.8 %; Mean Corpuscular HGB Conc 31.7 g/dL (30.0-36.0); Mean Corpuscular Hemoglobin 29.4 pg (28.0-34.0); Mean Corpuscular Volume 92.6 fL (81-99); Monocytes # 0.7 10^3/uL (0.2-0.9); Monocytes % 4.9 %; Neutrophils # 11.18 10^3/uL (1.8-7.7); Neutrophils % 82.2 %; Nucleated Red Blood Cells % 0 %; Platelet Count 300 10^3/cmm (130-400); Red Blood Count 2.69 10^6/uL (4.1-5.3); Red Cell Distribution Width 14.4 % (12.1-15.1); White Blood Count 13.6 10^3/uL (4.0-10.0)
[2021-01-29 07:14] LABS: Alanine Aminotransferase < 5 U/L (0-33); Albumin Level 3.6 g/dL (3.5-5.2); Alkaline Phosphatase 77 IU/L (35-105); Anion Gap 16.5 (5-19); Aspartate Amino Transferase 10 U/L (0-32); Blood Urea Nitrogen 31 mg/dL (8-23); Carbon Dioxide 35 mmol/L (22-29); Chloride 91 mmol/L (98-107); Globulin 3.4 g/dL (1.3-4.6); Glucose 122 mg/dL (65-115); Osmolality Calculated 296 mOsm/kg (285-295); Potassium 3.5 mmol/L (3.5-5.1); Sodium 139 mmol/L (136-145); Total Bilirubin 0.4 mg/dL (0.15-1.2)
[2021-01-29] MEDS: budesonide 0.5 mg/2 mL Neb INHALATION ×2 (07:52→20:08)
[2021-01-29] MEDS: pantoprazole 40 mg SDV IVP (08:43)
[2021-01-29] MEDS: amiodarone 200 mg Tablet PO (08:43)
--- NOTE | 2021-01-29 10:16 | PM.PN ---
Subjective Subjective: Interval history: - yesterday night she was down to 60% FIO2 at one point but then have to go up on FIO2 to 75% back again - morning chest x ray pending - Clinically appeared dehydrated - will slow down on diuresis today - labs and imaging reviewed Medications: Reviewed: Yes Vitals/I&O/Wt Last Vital Signs Temp 99.3 F 01/29/21 00:00 Pulse 119 H 01/29/21 09:00 Resp 21 H 01/29/21 07:52 BP 113/58 01/29/21 09:00 Pulse Ox 93 01/29/21 09:00 01/28/21 01/29/21 01/29/21 22:59 06:59 14:59 Intake Total 300 / 600 893.362 / 1493.362 92.17 / 92.17 Output Total 1000 / 1000 1200 / 2200 Balance -700 / -400 -306.638 / -706.638 92.17 / 92.17 Weight last 48 hrs Weight 157 lb 6 oz Weight 154 lb 4.8 oz Physical Exam Narrative: EXAM NARRATIVE: General: Lying in bed, sedated and intubated. HEENT:NCAT, PERRLA, EOMI Neck: Supple Lungs: Diffuse crackles Heart: s1/s2, RRR Abd: soft, NT, ND, BS + Normoactive Extremities: No edema DUCK OPERATOR: sedated and limited DUCK OPERATOR exam possible. SKIN: no rash LDA: # CVC: Right femoral catheter 01/24/2021 # Ramirez: 01/24/2021 Urinary Catheter Management^: Ramirez: Cath Placed During This Visit: yes Reason for Continuing Indwelling Catheter: Accurate Measurement of Urinary Output in Critically Ill Patients Urinary Catheter Date of Insertion: 01/24/21 Urinary Catheter Time of Insertion: 15:29 Data : 01/29/21 05:05 01/29/21 05:05 Other Labs: Laboratory Results WBC 13.6 10^3/uL (4.0-10.0) H 01/29/21 05:05 RBC 2.69 10^6/uL (4.1-5.3) L 01/29/21 05:05 Hgb 7.9 g/dL (11.5-15.3) L 01/29/21 05:05 Hct 24.9 % (37.0-47.0) L 01/29/21 05:05 MCV 92.6 fL (81-99) 01/29/21 05:05 MCH 29.4 pg (28.0-34.0) 01/29/21 05:05 MCHC 31.7 g/dL (30.0-36.0) 01/29/21 05:05 RDW 14.4 % (12.1-15.1) 01/29/21 05:05 Plt Count 300 10^3/cmm (130-400) 01/29/21 05:05 MPV 10.0 fL (7.4-10.4) 01/29/21 05:05 Neut % (Auto) 82.2 % 01/29/21 05:05 Lymph % (Auto) 6.8 % 01/29/21 05:05 [place] % (Auto) 4.9 % 01/29/21 05:05 Eos % (Auto) 4.0 % 01/29/21 05:05 Baso % (Auto) 0.3 % 01/29/21 05:05 Neut # (Auto) 11.18 10^3/uL (1.8-7.7) H 01/29/21 05:05 Lymph # (Auto) 0.9 10^3/uL (0.8-4.8) 01/29/21 05:05 [place] # (Auto) 0.7 10^3/uL (0.2-0.9) 01/29/21 05:05 Eos # (Auto) 0.6 10^3/uL (0.0-0.8) 01/29/21 05:05 Baso # (Auto) 0.0 10^3/uL (0.0-0.1) 01/29/21 05:05 Nucleated RBC % (auto) 0 % 01/29/21 05:05 Nucleated RBCs # 0.0 /100WBC 01/29/21 05:05 ESR > 120 mm/hr (0-15) H 01/25/21 05:00 PT 14.00 SECONDS (12.1-14.9) 01/18/21 08:58 INR 1.05 (0.8-1.2) 01/18/21 08:58 D-Dimer 3.47 ug/mIFEU (0-0.59) H 01/25/21 05:00 Specimen Type Arterial 01/27/21 11:45 Sample Site Brachial, right 01/27/21 11:45 ABG pH 7.38 (7.35-7.45) 01/27/21 11:45 ABG pCO2 47.1 mmHg (35-45) H 01/27/21 11:45 ABG pO2 74.7 mmHg (80.0-100.0) L 01/27/21 11:45 ABG HCO3 28.0 mmol/L (22-26) H 01/27/21 11:45 ABG O2 Saturation 95.9 01/27/21 11:45 ABG Base Excess 2.5 mmol/L (-2.0-2.0) H 01/27/21 11:45 [place] Test Pos 01/27/21 11:45 A-a O2 Gradient 47.5 mmHg (5-10) H 01/27/21 11:45 Hematocrit 25.1 % (37-47) L 01/27/21 11:45 Hgb O2 Saturation 94.5 % (95-100) L 01/27/21 11:45 Carboxyhemoglobin 0.7 %THgb (0.4-20.1) 01/27/21 11:45 Methemoglobin 0.7 % (0.4-1.5) 01/27/21 11:45 Total Hemoglobin 8.2 g/dL (12-16) L 01/27/21 11:45 Sodium 137.0 mmol/L (131-143) 01/27/21 11:45 Potassium 3.7 mmol/L (3.5-5.0) 01/27/21 11:45 Glucose 105.0 mg/dL (70-115) 01/27/21 11:45 Ionized Calcium 1.2 mmol/L (1.1-1.4) 01/27/21 11:45 O2 Delivery Device Vent 01/27/21 11:45 O2 Liters/Min 45.0 % 01/24/21 16:31 FiO2 70.0 % 01/27/21 11:45 Tidal Volume 0.35 01/27/21 11:45 PEEP 10.0 cmH20 01/27/21 11:45 Sound Recordist ID Broma 01/27/21 11:45 Sodium 139 mmol/L (136-145) 01/29/21 05:05 Potassium 3.5 mmol/L (3.5-5.1) 01/29/21 05:05 Chloride 91 mmol/L (98-107) L 01/29/21 05:05 Carbon Dioxide 35 mmol/L (22-29) H 01/29/21 05:05 Anion Gap 16.5 (5-19) 01/29/21 05:05 BUN 31 mg/dL (8-23) H 01/29/21 05:05 Creatinine 1.0 mg/dL (0.5-0.9) H 01/29/21 05:05 GFR Calculation Not Reportable 01/29/21 05:05 Glucose 122 mg/dL (65-115) H 01/29/21 05:05 Calculated Osmolality 296 mOsm/kg (285-295) H 01/29/21 05:05 Lactic Acid Cancelled 01/11/21 13:00 Lactic Acid (Sepsis) 1.8 mmol/L (0.5-2.2) 01/11/21 16:25 Lactate 1.2 mmol/L (0.5-2.2) 01/18/21 04:32 Calcium 9.0 mg/dL (8.5-10.5) 01/29/21 05:05 Phosphorus 2.9 mg/dL (2.5-4.5) 01/26/21 22:35 Magnesium 1.9 mg/dL (1.7-2.3) 01/28/21 03:03 Ferritin 279 ng/mL (15-150) H 01/23/21 05:39 Total Bilirubin 0.4 mg/dL (0.15-1.2) 01/29/21 05:05 AST 10 U/L (0-32) 01/29/21 05:05 ALT < 5 U/L (0-33) 01/29/21 05:05 Alkaline Phosphatase 77 IU/L (35-105) 01/29/21 05:05 Lactate Dehydrogenase 318 U/L (135-214) H 01/23/21 05:39 Creatine Kinase Cancelled 01/18/21 08:58 Troponin T Baseline 21 ng/L (0-10) H 01/25/21 10:42 Troponin T 120 Minute 21.16 ng/L (0-10) H 01/25/21 12:53 Delta Troponin T 0.16 ABS# (0-10) 01/25/21 12:53 Troponin T Hi Sens 6Hr 27.15 ng/L (0-10) H 01/25/21 16:38 Troponin T Hi Sens 6Hr Delta 6.15 ng/L (0-12) 01/25/21 16:38 C-Reactive Protein Cancelled 01/18/21 08:58 NT-Pro-B Natriuret Pep 2605 pg/mL (0-450) H 01/26/21 04:15 Total Protein 7.0 g/dL (6.6-8.7) 01/29/21 05:05 Albumin 3.6 g/dL (3.5-5.2) 01/29/21 05:05 Globulin 3.4 g/dL (1.3-4.6) 01/29/21 05:05 Procalcitonin 0.26 ng/mL (0-0.5) 01/23/21 05:39 TSH 6.98 uIU/mL (0.27-4.20) H 01/11/21 13:38 Urine Color Yellow (Yellow) 01/11/21 17:49 Urine Appearance Sl hazy (CLEAR) 01/11/21 17:49 Urine pH 5 (5-7) 01/11/21 17:49 Ur Specific [place] 1.005 (1.005-1.030) 01/11/21 17:49 Urine Protein 1+ (Negative) H 01/11/21 17:49 Urine Glucose (UA) Norm (Normal) 01/11/21 17:49 Urine Ketones Negative (Negative) 01/11/21 17:49 Urine Blood 2+ (Negative) H 01/11/21 17:49 Urine Nitrate Negative (Negative) 01/11/21 17:49 Urine Bilirubin 1+ (Negative) H 01/11/21 17:49 Urine Urobilinogen Norm mg/dL (Negative) 01/11/21 17:49 Ur Leukocyte Esterase Negative (Negative) 01/11/21 17:49 Urine RBC 0-4 /hpf (0-2) H 01/11/21 17:49 Urine WBC 0-4 /hpf (0-5) H 01/11/21 17:49 Ur Squamous Epith Cells 0-4 /hpf (0-5) H 01/11/21 17:49 Amorphous Sediment 1+ /hpf 01/11/21 17:49 Urine Bacteria 1+ /hpf (NONE) H 01/11/21 17:49 Urine Mucus 1+ /hpf 01/11/21 17:49 RSV Nasal Swab Not detected (Not Detected) 01/16/21 12:32 RSV Nasal Swab Int Cntl Not detected (Not Detected) 01/16/21 12:32 Bronch Specimen Source . 01/24/21 17:00 Bronchial Fluid Color Colorless 01/24/21 17:00 Bronchial Fluid Appearance Clear (CLEAR) 01/24/21 17:00 Bronchial Fluid WBC 113 /uL 01/24/21 17:00 Bronchial Fluid RBC 1 10^3/uL 01/24/21 17:00 Bronch Cells Counted 200 01/24/21 17:00 Bronchial Neutrophils 95.00 % (0.9-2.3) H 01/24/21 17:00 Bronchial Lymphocytes 2.00 % (10.71-12.91) L 01/24/21 17:00 Bronchial Eosinophils 1.00 % (0.13-0.25) H 01/24/21 17:00 Bronchial Macrophages 2.00 % (83.6-86.8) L 01/24/21 17:00 Bronchial Diff Comment Yes 01/24/21 17:00 Vancomycin Trough 6.1 ug/mL (10-15) L 01/26/21 10:34 Digoxin 1.6 ng/mL (0.6-1.2) H 01/25/21 10:42 JAZIEL-1 Antibody <1.0 neg AI (<1.0 NEG) 01/24/21 15:10 SS-A/Ro IgG Antibody <1.0 neg AI (<1.0 NEG) 01/24/21 15:10 SS-B/La IgG Antibody <1.0 neg AI (<1.0 NEG) 01/24/21 15:10 Anti-nRNP/Sm IgG Ab <1.0 neg AI (<1.0 NEG) 01/24/21 15:10 Scl-70 Scleroderma Ab <1.0 neg AI (<1.0 NEG) 01/24/21 15:10 Anti-ds DNA IgG Ab <1 IU/mL 01/24/21 15:10 Adenovirus (PCR) Not detected (Not Detected) 01/16/21 12:32 Nasal/Oral COVID-19 PCR Not detected 01/16/21 10:20 CMV IgG Ab 3.50 U/mL H 01/25/21 05:00 CMV IgM Ab <30.00 AU/mL 01/25/21 05:00 Hepatitis A IgM Ab Non-reactive (Nonreactive) 01/23/21 05:39 Hep Bs Antigen Non-reactive (Nonreactive) 01/23/21 05:39 Hep Bs Antibody 3.5 (11.5-1000) L 01/23/21 05:39 Hep B Core Total Ab Non-reactive (Nonreactive) 01/23/21 05:39 Hepatitis C Antibody Non-reactive (Nonreactive) 01/23/21 05:39 Histoplasma Antibody Negative 01/18/21 08:58 HIV 1&2 Ab & HIV 1 Ag Non-reactive (Non-Reactiv) 01/23/21 05:39 HIV 1&2 Antibody Non-reactive (Non-Reactiv) 01/23/21 05:39 Human Metapneumovir PCR Not detected (Not Detected) 01/16/21 12:32 Influenza A (RT-PCR) Not detected (Not Detected) 01/16/21 12:32 Influenza A (H1) PCR Not detected (Not Detected) 01/16/21 12:32 Influenza A (H3) PCR Not detected (Not Detected) 01/16/21 12:32 Influenza B (RT-PCR) Not detected (Not Detected) 01/16/21 12:32 Parainfluenzae Type 1 Not detected (Not Detected) 01/16/21 12:32 Parainfluenzae Type 2 Not detected (Not Detected) 01/16/21 12:32 Parainfluenzae Type 3 Not detected (Not Detected) 01/16/21 12:32 A. galactomannan Ag EIA Not detected 01/18/21 08:58 A. galactomannan Ag Idx <0.50 01/18/21 08:58 RSV Ab Comment see note 01/16/21 12:32 Rhinovirus (PCR) Not detected (Not Detected) 01/16/21 12:32 SARS-CoV-2 Ag (Rapid) Negative (Negative) 01/26/21 13:50 TB (QFT) Gold In Tube TNP 01/23/21 07:01 TB Test (QFT) Nil Not Reportable 01/23/21 07:01 TB Test (QFT) Mitogen Not Reportable 01/23/21 07:01 TB Test Mitogen - Nil Not Reportable 01/23/21 07:01 TB Test TB - Nil Not Reportable 01/23/21 07:01 Beta-(1,3)-D-Glucan <31 01/18/21 08:58 B-(1,3)-D-Glucan Intrp Negative 01/18/21 08:[address] 01/11/21 12:54 IMPRESSION: 1. Patchy ground glass infiltrates within the right greater than left lower lobes with partial airspace consolidation 2. Additional patchy groundglass infiltrates along the right hilum and right fissure. 3. Additional hazy groundglass infiltrates in the subpleural upper lobes bilaterally. 4. Above findings suspicious for COVID 19 pneumonia. 5. A few reactive mediastinal lymph nodes. 6. Chronic appearing compression fracture L1 with loss of approximately 70% vertebral body height centrally and mild central canal stenosis. Renal Ultrasound 01/12/21 05:00 IMPRESSION: Normal renal ultrasound Chest CTA 01/16/21 09:32 IMPRESSION: 1. Negative for pulmonary embolism. 2. Increasing patulous ground-glass opacities within both lungs from 01/11/2021 study. Imaging appearance is nonspecific but resembles a viral pneumonitis including but not limited to COVID-19 infection. Radiation Dose CTDIVOL = (mGy): DLP = 551.67 (mGy-cm) Chest X-Ray 01/27/21 08:36 Impression: 1. No change in endotracheal tube and nasogastric tube. 2. No change in diffuse bilateral pulmonary opacities. Micro: Microbiology 01/24/21 07:03 Blood Culture - Final Blood NO GROWTH AFTER 5 DAYS 01/24/21 07:01 Blood Culture - Final Blood NO GROWTH AFTER 5 DAYS 01/24/21 17:00 Fungal Smear - Preliminary Sputum - Endotracheal Wash Mycobacterial Smear - Preliminary 01/27/21 21:49 Legionella Urinary Antigen - Final Urine,Voided Bacterial Antigens - Final A&P Assessment and plan (1) Acute respiratory failure with hypoxia: Status: Acute (2) Mitral regurgitation: Status: Acute Qualifiers: Cardiac valve disease etiology: etiology unspecified Qualified Code(s): I34.0 - Nonrheumatic mitral (valve) insufficiency (3) New onset a-fib: Status: Acute (4) Cardiogenic pulmonary edema: Status: Acute (5) Pneumonia: Status: Acute Qualifiers: Aspiration pneumonia type: unspecified Laterality: right Lung location: lower lobe of lung Pneumonia type: aspiration pneumonia Qualified Code(s): J69.0 - Pneumonitis due to inhalation of food and vomit (6) Acute kidney injury: Status: Acute #Acute hypoxic respiratory failure secondary to ARDS-unilateral infiltrates on imaging fluid overload secondary to congestive heart failure/A. fib RVR/mitral valve regurgitation patient with underlying CAD #Cannot rule out component of ARDS secondary to underlying pneumonia - #Inciting event may be a pneumonia-especially with small hiatal hernia-aspiration cannot be ruled out -ABG 01/27/2021 7.3 8/47/74/20 8/95% on 70% FiO2-improving PaO2 and gradually reducing FiO2 requirement -Currently intubated and mechanically ventilated on AC VC 350/18/10/75% FiO2 -Currently on propofol 20 MCG/hour gtt., fentanyl 75 MCG/hour gtt, off vasopressor -Net +5.3 L since admission-net -700 mL over last 24 hours -Heart rate 100-105,on p.o. amiodarone 200mg PO daily; on Lovenox 80 every 12 hours -Bedside ultrasound today showed collapsing IVC with tachycardia; CMP showed normal sodium, slightly uptrending BUN and creatinine -Today chest x ray pending -appeared clinically dehydrated - Bumex 0.25 mg/hour (6mg/day) - cut down to 1 mg bid and will give; 1 dose of metolazone and give albumin to pull third spacing of fluid - will reassess -Monitor input output and keep patient net negative by at least 3 to 4 L -Monitor electrolytes and keep K > 3.6 and Mg > 2 and supplement if necessary -TTE showed trace mitral valve regurgitation; -Cardiology consulted for possible TUAN to check to better assess mitral valve pathology, rule out clot and possible synchronized cardioversion if patient continues to be in uncontrolled A. fib -all cultures including BAL negative -Low suspicion for PCP as patient was not on chronic steroids or immunocompromised prior to admission -Sputum culture positive for Cherry albicans likely commensal -Also sputum galactomannan and beta D glucan were negative; however BAL PCR is pending -So far all the infectious work-up including viral panel, blood cultures are negative -Procalcitonin on admission was 1.01 and she received ceftriaxone & azithromycin for community-acquired pneumonia at that time -S/p aztreonam, vancomycin x 10 days; received 10 days of Levaquin-to complete 14 days in 2 days -Continue Atrovent, Xopenex, Pulmicort nebulizations -On trickle feeds Given extensive infectious work-up being negative, high BNP, unilateral infiltrates on imaging-its prudent to control atrial fibrillation and diurese patient. However cannot rule out coexisting component of ARDS due to insult of CAP/ aspiration pneumonia as inciting event. However patient was treated with adequate antibiotic coverage for 10 days, currently on protective ventilator strategy for ARDS, being diuresed to keep her on continuous conveyor screen drier side, heart rate rate being controlled with amiodarone drip and we can already see gradual improvement in FiO2. We will continue to diurese carefully and monitor signs of dehydration and improvement of O2. Recommendations conveyed to hospitalist, RN, RT covering the patient. Attestations Medical Necessity Statement*: Requires further hospitalization for management of ARDS, ventilator dependent currently, further diuresis. Critical Care Time: The high probability of a clinically significant, sudden or life threatening deterioration of the patient's [pulmonary, cardiac] system(s) required my full and direct attention, intervention and personal management. The critical care time is as shown. 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
--- NOTE | 2021-01-29 13:04 | XRR_ITS ---
PROCEDURE INFORMATION: Exam: XR Chest Exam date and time: 01/29/2021 1:04 PM Age: 75 years old Clinical indication: Fever and shortness of breath. TECHNIQUE: Imaging protocol: XR of the chest. Views: 1 view. COMPARISON: CR XR chest 1V portable [id number] 01/27/2021 8:38 AM FINDINGS: Tubes, catheters and devices: Endotracheal tube with tip 3.3 cm above the alexa. Nasogastric tube with side port in the distal esophagus. Recommend advancement. Lungs: Extensive bilateral pulmonary opacities are similar to prior given differences in patient positioning Pleural spaces: No definite pleural effusion. No pneumothorax. Heart/Mediastinum: The cardiac silhouette is grossly unchanged. No gross evidence of pneumomediastinum. Bones/joints: No gross fracture. XR/XR chest 1V portable [id number] IMPRESSION: 1. Nasogastric tube with side port in the distal esophagus. Recommend advancement. 2. Extensive bilateral pulmonary opacities are similar to prior given differences in patient positioning
--- NOTE | 2021-01-29 13:49 | PC.OT ---
Treatment held on this date due to patient's current status. Patient also not an appropriate candidate for early mobility at this time due to her Fi02, fever, and lack of response to verbal stimuli.
--- NOTE | 2021-01-29 13:58 | PC.NURSE ---
daughter who has been staying this week home today with fever and not well. has other family member with covid pos now running temp of 100.6 orders to test covid and isolation
[2021-01-29 14:11] LABS: SARS Covid-2 Antigen Negative (Negative)
[2021-01-29 15:42] LABS: SARS Covid-2 Antigen Negative (Negative)
[2021-01-29 17:02] LABS: Pneumocystis Jirovecii DNA PCR NO DNA DETECTED copies/mL; Pneumocystis Jirovecii Source BRONCHIAL WASH
[2021-01-29] MEDS: fluconazole premix 200 MG/100 ML PREMIX 100 MG IV (17:33)
[2021-01-29] MEDS: bumetanide 0.25 mg/mL SDV 4 mL 1 MG IV (17:34)
[2021-01-29] MEDS: propofol 1,000 MG/100 ML INJ 9.29 MG IV (18:18)
[2021-01-29] MEDS: artificial tears Op Soln 15 mL Btl 1 DROP EYE-BOTH (18:26)
--- NOTE | 2021-01-29 22:36 | PM.PN ---
Subjective Subjective: Interval history: Patient seen multiple times during the day. Discussed multiple times with pulmonology. Clinically looking dehydrated today. Still sedated, intubated on 60% FiO2 during the day going up to 75% in the evening. As per the conversation with the nurse patient daughter who is bedside every day could not come in today because she is spiking fever at home and her daughter(patient's granddaughter) tested positive for COVID-19 yesterday evening. Patient T-max in last 24 hours 100.9 Fahrenheit. Has remained hemodynamically stable otherwise with some episodes of tachycardia. Bedside ultrasound done today shows IVC of 1 cm collapsing to 0.6 with inhalation. Medications: Reviewed: Yes Vitals/I&O/Wt Last Vital Signs Temp 100.4 F H 01/29/21 16:00 Pulse 99 01/29/21 22:00 Resp 26 H 01/29/21 20:08 BP 112/60 01/29/21 20:00 Pulse Ox 95 01/29/21 20:08 01/29/21 01/29/21 01/29/21 06:59 14:59 22:59 Intake Total 893.362 / 1493.362 377.638 / 377.638 206.576 / 584.214 Output Total 1200 / 2200 550 / 550 1000 / 1550 Balance -306.638 / -706.638 -172.362 / -172.362 -793.424 / -965.786 Weight last 48 hrs Weight 71.384 kg Weight 69.989 kg Physical Exam Const: COMMON NORMALS: no acute distress GENERAL APPEARANCE: comfortable, well developed and frail appearing ORIENTATION/CONSCIOUSNESS: Yes awake OTHER: intubated, sedated Eye: COMMON NORMALS: Equal, round and reactive pupils present GENERAL EYE: appearance normal, both eyes and all related structures PUPIL: Yes Equal, round and reactive pupils present Neck/C-Spine: COMMON NORMALS: no lymphadenopathy, no JVD and Thyroid normal THYROID: Thyroid normal Lymph: LYMPHATIC: no lymphadenopathy noted Resp: COMMON NORMALS: normal respiratory effort, No retractions and No use of accessory muscles EFFORT & INSPECTION: Yes uses accessory muscles (Slight accessory muscle use, suprasternal retractions, internal retractions) AUSCULTATION: crackles, rales, wheezes and diminished lung sounds diffuse Cardio: COMMON NORMALS: no JVD, regular rate, regular rhythm, S1 normal heart sound present, S2 normal heart sound present, No gallops present (Cardio), No clicks present (Cardio) and No murmurs present (Cardio) RATE: regular rate RHYTHM: regular rhythm HEART SOUNDS: S1 normal heart sound present and S2 normal heart sound present GI: COMMON NORMALS: Normal to inspection, nondistended, normoactive bowel sounds present, Soft to palpation and non-tender PALPATION: Yes Soft to palpation Extremity: COMMON NORMALS: no pedal edema NARRATIVE EXTREMITY EXAM: 1+ edema Neuro: NELDA COMA SCALE: GCS not evaluated COMMON NORMALS: moves all extremities and no focal motor deficits SENSORIUM/ORIENTATION: Yes somnolent Psych: COMMON NORMALS: mental status grossly normal, Normal thought process present and cooperative THOUGHT PROCESS: Normal thought process present Skin: NARRATIVE SKIN EXAM: Diffuse macular rash, slightly raised, irregular, over back, sacrum, Urinary Catheter Management^: Ramirez: Cath Placed During This Visit: yes Reason for Continuing Indwelling Catheter: Accurate Measurement of Urinary Output in Critically Ill Patients Urinary Catheter Date of Insertion: 01/24/21 Urinary Catheter Time of Insertion: 15:29 Data : 02/01/21 04:17 02/01/21 04:17 Micro: Microbiology 01/24/21 07:03 Blood Culture - Final Blood NO GROWTH AFTER 5 DAYS 01/24/21 07:01 Blood Culture - Final Blood NO GROWTH AFTER 5 DAYS A&P Assessment and plan (1) Cardiogenic shock: Status: Acute (2) ARDS (adult respiratory distress syndrome): Status: Acute (3) Pneumonia: Status: Acute Qualifiers: Aspiration pneumonia type: unspecified Laterality: right Lung location: lower lobe of lung Pneumonia type: aspiration pneumonia Qualified Code(s): J69.0 - Pneumonitis due to inhalation of food and vomit (4) New onset a-fib: Status: Acute (5) Mitral regurgitation: Status: Acute Qualifiers: Cardiac valve disease etiology: etiology unspecified Qualified Code(s): I34.0 - Nonrheumatic mitral (valve) insufficiency (6) Cardiogenic pulmonary edema: Status: Acute (7) Acute kidney injury: Stable - Resolved. Status: Acute (8) Hyperkalemia: Status: Acute (9) Hyponatremia: Status: Acute (10) Acute respiratory failure with hypoxia: Status: Acute Additional A&P Information ARDS: Most likely a combination of bacterial pneumonia complicated by acute exacerbation of CHF. Patient has had multiple rounds of antibiotics since admission including aztreonam, vancomycin, levofloxacin and Flagyl. COVID-19 negative, MRSA negative, pneumocystis unlikely Fungitell negative. Galactomannan negative, histoplasma antibody negative, respiratory viral panel negative. Repeat infectious work-up from bronchial lavage remains negative with some studies still pending. Sputum culture positive on [place]. Check COVID-19 antigen and PCR again given the above history. Echocardiogram shows an EF of 60% with normal diastolic function, mild MR, trace TR, normal right sided functions, no pericardial effusion. Stop Bumex drip as patient is clinically dry. Continue Bumex 1 mg IV every 12 hourly. Will monitor input output. No more boluses of metolazone for his own for now. Continue with IV albumin. Looks intravolume depleted. Strict input output charting. Stop IV antibiotics other than levofloxacin for 3 more days. Monitor for fevers/worsening leukocytosis. Continue with Ipratropium every 4 hours, Xopenex every 4 hours, budesonide twice daily. Repeat BMP in evening. Replace potassium. Appreciate pulmonology/computer system specialist recommendations. Intermittent atrial fibrillation with rapid ventricular response: Continue with amiodarone drip. Amiodarone oral 200 mg daily. Digoxin level elevated. Continue with full dose Lovenox 1 mg/kg body weight every 12 hourly. Cardiology consulted by computer system specialist team for possible cardioversion. Believe not needed for now. Appreciate cardiology recommendation. Shock: Most likely cardiogenic: Keep mean arterial pressure 65. Wean Levophed accordingly. Acute kidney injury: Resolved. Baseline creatinine 0.7. 1.1 today morning. Repeat BMP daily. Medical reconciliation done for nephrotoxic drugs. Hypertension: Goal blood pressure less than 140/90 mmHg with mean over 65. Hypothyroidism Levothyroxine 25 mcg PO daily GI ppx Protonix 40 mg iv daily Tube feeds. Increase tube feeds 15 cc every 4 hours with free water flush 100 cc every 8 hours Full dose Lovenox possible DVT prophylaxis. Attestations Medical Necessity Statement*: Needs further hospitalization for management of acute respiratory distress syndrome, ventilator dependent. Critical Care Time: The high probability of a clinically significant, sudden or life threatening deterioration of the patient's [pulmonary, cardiac, infectious] system(s) required my full and direct attention, intervention and personal management. The critical care time is as shown. 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
[2021-01-29] MEDS: propofol 1,000 MG/100 ML INJ 18.57 MG IV (23:14)
[2021-01-30] VITALS (45 sets, daily range): BP systolic 93–155; BP diastolic 61–91; PULSE 85–119; RESP 17–44; TEMP 36.7–38; O2SAT 89–95
[2021-01-30] MEDS: ipratropium 0.5 mg/2.5 mL Neb INHALATION ×7 (00:45→23:14)
[2021-01-30] MEDS: levalbuterol 0.63 mg/3 mL Neb INHALATION ×7 (00:45→23:14)
[2021-01-30] MEDS: propofol 1,000 MG/100 ML INJ 18.57 MG IV ×3 (03:57→16:10)
[2021-01-30] MEDS: levothyroxine 25 mcg Tablet PO (05:22)
[2021-01-30] MEDS: bumetanide 0.25 mg/mL SDV 4 mL 1 MG IV (05:22)
[2021-01-30 05:47] LABS: Basophils % 0.2 %; Eosinophils # 0.4 10^3/uL (0.0-0.8); Eosinophils % 2.4 %; Hematocrit 26.1 % (37.0-47.0); Hemoglobin 8.1 g/dL (11.5-15.3); Lymphocytes # 0.9 10^3/uL (0.8-4.8); Lymphocytes % 5.9 %; Mean Corpuscular Hemoglobin 29.1 pg (28.0-34.0); Mean Corpuscular Volume 93.9 fL (81-99); Monocytes # 0.6 10^3/uL (0.2-0.9); Monocytes % 3.8 %; Neutrophils # 12.73 10^3/uL (1.8-7.7); Neutrophils % 85.9 %; Nucleated Red Blood Cells % 0 %; Platelet Count 300 10^3/cmm (130-400); Red Blood Count 2.78 10^6/uL (4.1-5.3); Red Cell Distribution Width 14.1 % (12.1-15.1); White Blood Count 14.8 10^3/uL (4.0-10.0)
[2021-01-30 06:08] LABS: Alanine Aminotransferase < 5 U/L (0-33); Alkaline Phosphatase 96 IU/L (35-105); Anion Gap 18.3 (5-19); Aspartate Amino Transferase 17 U/L (0-32); Blood Urea Nitrogen 41 mg/dL (8-23); Calcium 9.3 mg/dL (8.5-10.5); Carbon Dioxide 36 mmol/L (22-29); Chloride 90 mmol/L (98-107); Globulin 3.3 g/dL (1.3-4.6); Glucose 101 mg/dL (65-115); Osmolality Calculated 302 mOsm/kg (285-295); Potassium 3.3 mmol/L (3.5-5.1); Sodium 141 mmol/L (136-145); Total Bilirubin 0.5 mg/dL (0.15-1.2); Total Protein 7.3 g/dL (6.6-8.7)
[2021-01-30] MEDS: enoxaparin 80 mg/0.8 mL Syringe SUBCUT ×2 (06:32→18:24)
--- NOTE | 2021-01-30 07:36 | XRR_ITS ---
PROCEDURE INFORMATION: Exam: XR Chest Exam date and time: 01/30/2021 7:36 AM Age: 75 years old Clinical indication: Device placement; Ng tube; Additional info: Ng placement TECHNIQUE: Imaging protocol: XR of the chest. Views: 1 view. COMPARISON: CR (CHEST, ) 01/29/2021 1:11 PM FINDINGS: Tubes, catheters and devices: Endotracheal tube is in satisfactory position. Feeding tube is in satisfactory position. Lungs: Persistent extensive bilateral airspace opacities. No large pleural effusion or pneumothorax. Pleural spaces: See Lungs finding. Heart/Mediastinum: Stable cardiomediastinal silhouette. Bones/joints: No acute osseous injury identified. Degenerative changes of the spine seen. XR/XR chest 1V portable [id number] IMPRESSION: Persistent extensive bilateral airspace opacities.
--- NOTE | 2021-01-30 08:18 | PC.SOCIAL ---
IMM Update PG. 2 of IMM not updated. Patient remains intubated at this time.
[2021-01-30] MEDS: budesonide 0.5 mg/2 mL Neb INHALATION ×2 (08:45→19:41)
--- NOTE | 2021-01-30 09:14 | P.PN_ITS ---
Subjective Subjective: Interval history: Intubated, sedated. Currently on propofol, fentanyl. Not awake to answer questions or follow commands. Has not been restless. Her nurse is reducing sedation slightly. Vitals/I&O/Wt Last Vital Signs Temp 100.4 F H 01/30/21 07:32 Pulse 92 01/30/21 08:46 Resp 22 H 01/30/21 08:46 BP 99/69 01/30/21 07:32 Pulse Ox 90 01/30/21 08:46 01/29/21 01/30/21 01/30/21 22:59 06:59 14:59 Intake Total 206.576 / 584.214 400 / 984.214 Output Total 1000 / 1550 650 / 2200 Balance -793.424 / -965.786 -250 / -1215.786 Weight last 48 hrs Weight 71.384 kg Physical Exam Const: COMMON NORMALS: no acute distress OTHER: Sedated HENMT: COMMON NORMALS: oropharynx normal Neck/C-Spine: COMMON NORMALS: no JVD Resp: COMMON NORMALS: normal respiratory effort AUSCULTATION: rales bilateral at the base Cardio: COMMON NORMALS: no JVD, regular rhythm, S1 normal heart sound present, S2 normal heart sound present and No murmurs present (Cardio) RHYTHM: regular rhythm HEART SOUNDS: S1 normal heart sound present and S2 normal heart sound present GI: COMMON NORMALS: Normal to inspection, nondistended, normoactive bowel sounds present, Soft to palpation and non-tender PALPATION: Yes Soft to palpation Extremity: COMMON NORMALS: no joint enlargement and no pedal edema Neuro: COMMON NORMALS: moves all extremities Skin: COMMON NORMALS: no rashes or lesions noted GENERAL SKIN EXAM: no rashes or lesions noted Urinary Catheter Management^: Ramirez: Cath Placed During This Visit: yes Reason for Continuing Indwelling Catheter: Accurate Measurement of Urinary Output in Critically Ill Patients Urinary Catheter Date of Insertion: 01/24/21 Urinary Catheter Time of Insertion: 15:29 Data : 01/30/21 04:16 01/30/21 04:16 Micro: Microbiology 01/24/21 07:03 Blood Culture - Final Blood NO GROWTH AFTER 5 DAYS 01/24/21 07:01 Blood Culture - Final Blood NO GROWTH AFTER 5 DAYS A&P Assessment and plan (1) Acute respiratory failure with hypoxia: Continues in negative balance, -1207 mL last 24 hours. Received this morning's dose of diuretic. Does not appear fluid overloaded. I do not appreciate JVD, no peripheral edema. Has bilateral crackles, but currently I do not think these are related to fluid overload. BUN appears to be rising, today up to 41. Rising sodium. Creatinine mildly higher than recent at 1. For now hold off additional dose of diuretics today. Follow-up pending COVID-19 PCR, viral panel. Low-grade temp currently 100.4 Fahrenheit. Persistent leukocytosis. Completed course of antibiotic. Sputum cultures with yeast, thought to be commensal, bacterial antigens negative. MRSA PCR neg. Status: Acute (2) ARDS (adult respiratory distress syndrome): Follow-up COVID-19 PCR. She continues negative balance. Obtain daily weights. For now hold off additional diuretic given she is becoming prerenal a nd does not appear fluid overloaded. Continue oxygen support. Status: Acute (3) Pneumonia: Has completed a 14-day course of antibiotics with aztreonam, vancomycin initially, then Levaquin, with persistent leukocytosis, today low-grade fever 100.4 Fahrenheit. Steroids originally held. ARDS suspected secondary to viral infection. Other infectious work-up so far unrevealing. Will discuss additional with Procrit additionally if utility to continued empiric antibiotic coverage and given severe pneumonia utility of addition of steroids. Status: Acute Qualifiers: Aspiration pneumonia type: unspecified Laterality: right Lung loca tion: lower lobe of lung Pneumonia type: aspiration pneumonia Qualified Code(s): J69.0 - Pneumonitis due to inhalation of food and vomit (4) New onset a-fib: Continue amiodarone. Monitor heart rates. Therapeutic Lovenox. Status: Acute (5) Cardiogenic shock: Resolved Status: Acute (6) Mitral regurgitation: Status: Acute Qualifiers: Cardiac valve disease etiology: etiology unspecified Qualified Code(s): I34.0 - Nonrheumatic mitral (valve) insufficiency (7) Cardiogenic pulmonary edema: Status: Acute (8) Acute kidney injury: Resolved. BUN increasing. Status: Acute (9) Hyperkalemia: Status: Acute (10) Hyponatremia: Resolved. Status: Acute Additional A&P Information HTN Hypothyroidism Attestations Medical Necessity Statement*: Continue admission for assessment of management of acute hypoxic respiratory failure, ARDS, atrial fibrillation with RVR. 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
[2021-01-30] MEDS: pantoprazole 40 mg SDV IVP (09:21)
[2021-01-30] MEDS: amiodarone 200 mg Tablet PO (09:21)
--- NOTE | 2021-01-30 10:28 | PC.OT ---
OT TREATMENT ATTEMPTED; PER NURSING O2 SATURATION LOW TODAY; REQUEST HOLD. WILL ATTEMPT AGAIN TOMORROW.
[2021-01-30 11:44] LABS: Magnesium 1.8 mg/dL (1.7-2.3)
[2021-01-30] MEDS: predniSONE 20 mg Tablet 40 MG PO (15:07)
--- NOTE | 2021-01-30 16:15 | P.PN_ITS ---
Subjective Subjective: Interval history: Patient is still intubated. Her heart rate is fluctuating however is in normal sinus rhythm at this time. Does go into A. fib periodically. She is on p.o. amiodarone. Vitals/I&O/Wt Last Vital Signs Temp 98.1 F 01/30/21 16:00 Pulse 86 01/30/21 16:00 Resp 19 H 01/30/21 16:00 BP 115/61 01/30/21 16:00 Pulse Ox 95 01/30/21 16:00 01/30/21 01/30/21 01/30/21 06:59 14:59 22:59 Intake Total 400 / 984.214 389.968 / 389.968 Output Total 650 / 2200 650 / 650 Balance -250 / -1215.786 -260.032 / -260.032 Weight last 48 hrs Weight 157 lb 6 oz Physical Exam Narrative: EXAM NARRATIVE: GENERAL: Patient is intubated NECK: No jugular vein distension. [] HEENT: No cyanosis. No icterus. No pallor. [] HEART: Irregularly irregular, S1 and S2. grade 2/6 systolic murmur, rub or gallop. [] LUNGS: Clear to auscultate bilaterally. [] ABDOMEN: Soft, nontender and nondistended. Positive bowel sounds. No guarding, rebound or tenderness. [] CENTRAL NERVOUS SYSTEM: Grossly nonfocal. [] EXTREMITIES: Lower extremities with 1+ edema bilaterally. Pulses palpable in the lower extremities, both dorsalis pedis and posterior tibial. [] Urinary Catheter Management^: Ramirez: Cath Placed During This Visit: yes Reason for Continuing Indwelling Catheter: Accurate Measurement of Urinary Output in Critically Ill Patients Urinary Catheter Date of Insertion: 01/24/21 Urinary Catheter Time of Insertion: 15:29 Data : 01/31/21 05:05 01/31/21 05:05 A&P Assessment and plan (1) Mitral regurgitation: Status: Acute Qualifiers: Cardiac valve disease etiology: etiology unspecified Qualified Code(s): I34.0 - Nonrheumatic mitral (valve) insufficiency (2) Acute respiratory failure: Status: Acute Qualifiers: Respiratory failure complication: hypoxia Qualified Code(s): J96.01 - Acute respiratory failure with hypoxia (3) New onset a-fib: Status: Acute (4) ARDS (adult respiratory distress syndrome): Status: Acute (5) Pneumonia: Status: Acute Qualifiers: Aspiration pneumonia type: unspecified Laterality: right Lung location: lower lobe of lung Pneumonia type: aspiration pneumonia Qualified Code(s): J69.0 - Pneumonitis due to inhalation of food and vomit Patient has acute respiratory failure and is intubated. Underlying etiology likely pneumonia with possibility of pulmonary edema from A. fib with RVR. Rapid ventricular rate is secondary to to lying pneumonia and pulmonary edema. Work-up for underlying cause of ARDS is going on. Conservative management at this time. Patient on oral amiodarone. Continue anticoagulation for stroke prevention Not in cardiogenic shock. Blood pressure is stable. Agree with holding off on diuretics at this time. Mitral regurgitation is mild on transthoracic echocardiogram. Will hold off on further work-up for MRRachel Thank you for involving us with the care of this patient. We will continue to follow. Please call with questions. Attestations Medical Necessity Statement*: Care expected to cross 2 midnights. 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
[2021-01-30] MEDS: fluconazole premix 200 MG/100 ML PREMIX 100 MG IV (17:38)
[2021-01-30 18:07] LABS: Quest SARS-CoV-2 RNA NOT DETECTED (NOT DETECTED)
[2021-01-30] MEDS: artificial tears Op Soln 15 mL Btl 1 DROP EYE-BOTH (20:40)
[2021-01-31] VITALS (45 sets, daily range): BP systolic 130–170; BP diastolic 68–91; PULSE 98–123; RESP 18–25; TEMP 36.8–37.3; O2SAT 91–99
[2021-01-31] MEDS: propofol 1,000 MG/100 ML INJ 13.93 MG IV ×2 (00:09→04:52)
[2021-01-31] MEDS: levalbuterol 0.63 mg/3 mL Neb INHALATION ×6 (03:33→23:32)
[2021-01-31] MEDS: ipratropium 0.5 mg/2.5 mL Neb INHALATION ×6 (03:33→23:32)
[2021-01-31] MEDS: levothyroxine 25 mcg Tablet PO (05:03)
--- NOTE | 2021-01-31 05:09 | PC.NURSE ---
No acute changes overnight. Patient resting in bed. Continue care.
[2021-01-31 05:42] LABS: Basophils % 0.2 %; Hematocrit 25.5 % (37.0-47.0); Hemoglobin 7.9 g/dL (11.5-15.3); Lymphocytes # 0.4 10^3/uL (0.8-4.8); Lymphocytes % 2.8 %; Mean Corpuscular Hemoglobin 29.2 pg (28.0-34.0); Mean Corpuscular Volume 94.1 fL (81-99); Mean Platelet Volume 10.3 fL (7.4-10.4); Monocytes # 0.5 10^3/uL (0.2-0.9); Monocytes % 3.1 %; Neutrophils # 14.38 10^3/uL (1.8-7.7); Neutrophils % 92.2 %; Nucleated Red Blood Cells % 0 %; Platelet Count 339 10^3/cmm (130-400); Red Blood Count 2.71 10^6/uL (4.1-5.3); Red Cell Distribution Width 14.2 % (12.1-15.1); White Blood Count 15.6 10^3/uL (4.0-10.0)
[2021-01-31 05:59] LABS: Alanine Aminotransferase < 5 U/L (0-33); Albumin Level 4.4 g/dL (3.5-5.2); Alkaline Phosphatase 51 IU/L (35-105); Aspartate Amino Transferase 13 U/L (0-32); Blood Urea Nitrogen 56 mg/dL (8-23); Calcium 9.6 mg/dL (8.5-10.5); Carbon Dioxide 39 mmol/L (22-29); Chloride 89 mmol/L (98-107); Creatinine Clr Calc Pharmacy 49.4187; Globulin 3.4 g/dL (1.3-4.6); Glucose 181 mg/dL (65-115); Osmolality Calculated 312 mOsm/kg (285-295); Sodium 141 mmol/L (136-145); Total Bilirubin 0.5 mg/dL (0.15-1.2); Total Protein 7.8 g/dL (6.6-8.7)
[2021-01-31] MEDS: enoxaparin 80 mg/0.8 mL Syringe SUBCUT ×2 (06:34→18:24)
[2021-01-31] MEDS: budesonide 0.5 mg/2 mL Neb INHALATION ×2 (07:35→20:01)
[2021-01-31] MEDS: potassium chloride oral liq 20 mEq/15 mL UDC 40 MEQ OG-TUBE (09:22)
[2021-01-31] MEDS: pantoprazole 40 mg SDV IVP (09:22)
[2021-01-31] MEDS: amiodarone 200 mg Tablet PO (09:22)
--- NOTE | 2021-01-31 09:42 | PC.CHAP ---
Pastoral Care Encounter/Spiritual Assessment Type of Contact [] Declined customer experience analyst visit [] Patient/Family/Request visit [] Outpatient visit [] Follow-up visit [] Physician referral [] Code/Alert [x] Routine visit [] Staff referral [] Actively dying [] Patient sleeping [] Family support [] [] Out of room [] Palliative care [] [] Receiving care in room [] Pre-surgical visit [] Trauma [] Long length of stay [x] ICU visit [] Other: Relational/Emotional Strength [] Patient feels connected with others/family/visitors/staff [] Distress [] Loneliness/isolation [] Abandonment Spirituality of Patient [] Person of Trisha [] Attends Alevism of their Trisha [] Believes in Prayer [] Reads Bible or Buddhist materials [] There are Spiritual issues to be addressed Spooling Supervisor Interventions [x] Prayer [] Active listening [] Non-anxious presence [] Spiritual/emotional support [] Crisis/trauma care [] Spiritual counseling [] Bereavement support [] Provided bereavement packet [] Provided Bible/devotional materials [] Provided toy/stuffed animal, coloring book to patient or family member [] Provided Communion [] Anointing/[place] [] Salvation [x] Completed spiritual assessment [] Other: Impact on Illness or Injury [] Angry [] Fearful [] Anxious [] Often cries [] Exhaustion [] Unable to work [] Unable to attend mu-ism [] Unable to walk/stand [] Unable to read [] Unable to drive [] Unable to eat/drink [] Unable to sleep [] Unable to be with family [] Patient intubated [] Other: Summary Time spent with patient
--- NOTE | 2021-01-31 09:46 | PM.PN ---
Subjective Subjective: Interval history: Intubated, sedated. Vitals/I&O/Wt Last Vital Signs Temp 98.3 F 01/31/21 07:23 Pulse 98 01/31/21 07:47 Resp 22 H 01/31/21 07:48 BP 159/81 01/31/21 07:23 Pulse Ox 99 01/31/21 07:48 01/30/21 01/31/21 01/31/21 22:59 06:59 14:59 Intake Total 510.725 / 389.089 9858.117 / 2192.477 Output Total 700 / 1350 Balance 510.725 / 317.360 525.117 / 842.477 Weight last 48 hrs Weight 70.902 kg Physical Exam Const: COMMON NORMALS: no acute distress OTHER: Sedated HENMT: COMMON NORMALS: oropharynx normal Neck/C-Spine: COMMON NORMALS: no JVD Resp: COMMON NORMALS: normal respiratory effort AUSCULTATION: rales bilateral at the base Cardio: COMMON NORMALS: no JVD, regular rhythm, S1 normal heart sound present, S2 normal heart sound present and No murmurs present (Cardio) RHYTHM: regular rhythm HEART SOUNDS: S1 normal heart sound present and S2 normal heart sound present GI: COMMON NORMALS: Normal to inspection, nondistended, normoactive bowel sounds present, Soft to palpation and non-tender PALPATION: Yes Soft to palpation Extremity: COMMON NORMALS: no joint enlargement and no pedal edema Neuro: COMMON NORMALS: moves all extremities Skin: COMMON NORMALS: no rashes or lesions noted GENERAL SKIN EXAM: no rashes or lesions noted Urinary Catheter Management^: Ramirez: Cath Placed During This Visit: yes Reason for Continuing Indwelling Catheter: Accurate Measurement of Urinary Output in Critically Ill Patients Urinary Catheter Date of Insertion: 01/24/21 Urinary Catheter Time of Insertion: 15:29 Data : 01/31/21 05:05 01/31/21 05:05 A&P Assessment and plan (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 Per discussion with pulmonology started on AmBisome, steroids, we are requesting also consultation with infectious disease services. Appreciate input from both. Monitor renal function. Updated her son and discussed her condition and treatment plans, possible risks, monitoring. Status: Acute (2) Acute respiratory failure with hypoxia: As above. 800 cc in positive balance. Monitor I&O. BUN higher still at 56. Sodium is elevated 141. Grossly does not yet look fluid overload. Monitor and avoid fluid overload, resume diuretic in case showing developing signs. Continue treatment as above. COVID-19 PCR negative. Status: Acute (3) ARDS (adult respiratory distress syndrome): As above. Status: Acute (4) Pneumonia: As above. Status: Acute Qualifiers: Aspiration pneumonia type: unspecified Laterality: right Lung location: lower lobe of lung Pneumonia type: aspiration pneumonia Qualified Code(s): J69.0 - Pneumonitis due to inhalation of food and vomit (5) New onset a-fib: Continue amiodarone. Monitor heart rates. Therapeutic Lovenox. Status: Acute (6) Cardiogenic shock: Resolved Status: Acute (7) Mitral regurgitation: Status: Acute Qualifiers: Cardiac valve disease etiology: etiology unspecified Qualified Code(s): I34.0 - Nonrheumatic mitral (valve) insufficiency (8) Cardiogenic pulmonary edema: Status: Acute (9) Acute kidney injury: Resolved. BUN increasing. Status: Acute (10) Hyperkalemia: Status: Acute (11) Hyponatremia: Resolved. Status: Acute Additional A&P Information HTN Hypothyroidism Attestations Medical Necessity Statement*: Continue admission for assessment of management of ARDS, respiratory failure secondary to histoplasma pneumonia requiring mechanical ventilatory support. 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
[2021-01-31] MEDS: propofol 1,000 MG/100 ML INJ 16.25 MG IV ×3 (10:09→22:42)
--- NOTE | 2021-01-31 16:05 | PC.OT ---
OT treatment held today d/t intubation and sedation.
--- NOTE | 2021-01-31 18:38 | PC.NURSE ---
Shift summary PT has remained unchanged for the shift. Family has been updated throughout the day.
--- NOTE | 2021-01-31 19:10 | PM.PN ---
Subjective Subjective: Interval history: Patient's condition is unchanged. She is still intubated. She is in normal sinus rhythm however intermittently goes into A. fib. Vitals/I&O/Wt Last Vital Signs Temp 98.3 F 01/31/21 16:00 Pulse 113 H 01/31/21 16:00 Resp 25 H 01/31/21 17:10 BP 159/81 01/31/21 16:00 Pulse Ox 93 01/31/21 17:10 01/31/21 01/31/21 01/31/21 06:59 14:59 22:59 Intake Total 1225.117 / 2192.477 1269.375 / 9792.892 8223.313 / 2507.688 Output Total 700 / 1350 2150 / 2150 500 / 2650 Balance 525.117 / 842.477 -880.625 / -880.625 738.313 / -142.312 Weight last 48 hrs Weight 156 lb 5 oz Physical Exam Narrative: EXAM NARRATIVE: GENERAL: Patient is intubated NECK: No jugular vein distension. [] HEENT: No cyanosis. No icterus. No pallor. [] HEART: Irregularly irregular, S1 and S2. grade 2/6 systolic murmur, rub or gallop. [] LUNGS: Clear to auscultate bilaterally. [] ABDOMEN: Soft, nontender and nondistended. Positive bowel sounds. No guarding, rebound or tenderness. [] CENTRAL NERVOUS SYSTEM: Grossly nonfocal. [] EXTREMITIES: Lower extremities with 1+ edema bilaterally. Pulses palpable in the lower extremities, both dorsalis pedis and posterior tibial. [] Urinary Catheter Management^: Ramirez: Cath Placed During This Visit: yes Reason for Continuing Indwelling Catheter: Accurate Measurement of Urinary Output in Critically Ill Patients Urinary Catheter Date of Insertion: 01/24/21 Urinary Catheter Time of Insertion: 15:29 Data : 01/31/21 05:05 01/31/21 05:05 A&P Assessment and plan (1) Mitral regurgitation: Status: Acute Qualifiers: Cardiac valve disease etiology: etiology unspecified Qualified Code(s): I34.0 - Nonrheumatic mitral (valve) insufficiency (2) Acute respiratory failure: Status: Acute Qualifiers: Respiratory failure complication: hypoxia Qualified Code(s): J96.01 - Acute respiratory failure with hypoxia (3) New onset a-fib: Status: Acute (4) ARDS (adult respiratory distress syndrome): Status: Acute (5) Pneumonia: Status: Acute Qualifiers: Aspiration pneumonia type: unspecified Laterality: right Lung location: lower lobe of lung Pneumonia type: aspiration pneumonia Qualified Code(s): J69.0 - Pneumonitis due to inhalation of food and vomit Patient has acute respiratory failure and is intubated. Underlying etiology likely pneumonia with possibility of pulmonary edema from A. fib with RVR. Rapid ventricular rate is secondary to to lying pneumonia and pulmonary edema. Patient has histoplasma infection and ARDS. Treatment started for it. Conservative management for atrial fibrillation at this time. Patient on oral amiodarone, continue. Continue anticoagulation for stroke prevention Not in cardiogenic shock. Blood pressure is stable. Agree with holding off on diuretics at this time. Mitral regurgitation is mild on transthoracic echocardiogram. Will hold off on further work-up for Thank you for involving us with the care of this patient. We will continue to follow. Please call with questions. Attestations Medical Necessity Statement*: Care expected to cross 2 midnights. Coding Level of Care Code Acute Storm Door Maker for [facility] Fwd Diagnoses Mitral regurgitation I34.0 Cardiac valve disease etiology: etiology unspecified Acute respiratory failure J96.01 Respiratory failure complication: hypoxia New onset a-fib I48.91 ARDS (adult respiratory distress syndrome) J80 Pneumonia J69.0 Aspiration pneumonia type: unspecified Laterality: right Lung location: lower lobe of lung Pneumonia type: aspiration pneumonia
[2021-01-31] MEDS: artificial tears Op Soln 15 mL Btl 1 DROP EYE-BOTH (20:21)
--- NOTE | 2021-01-31 22:59 | PM.CONSULT ---
Providers/Reason For Consult Consulting Physician/Specialty*: Porsha Marcano MD/ Infectious Disease Reason for Consult*: Histoplasmosis Requesting Physician: MD Israel Attending Physician: Baldemar Wood Primary Care Provider: Clayton Umana DO History of Present Illness History of Present Illness History obtained by chart review, patient currently intubated, unable to participate. Hamida Saha is a 75 year old female with PMH as outlined below who was admitted to the hospital on January 11 with approximately 6 weeks of worsening cough, shortness of breath, fatigue, malaise and diarrhea. 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 However, her respiratory status worsened prompting her hospital admission on January 11. CT chest upon admission showed patchy ground glass infiltrates within the right greater than left lower lobes with partial airspace consolidation. Multiple COVID 19 tests including rapid ag and PCR have been negative. Her hospital course has been marked by rapidly developing respiratory failure, increasing oxygen requirements, now with ARDS requiring mechanical ventilation. Serial CT on 01/16 showed worsening B/L pneumonitis, calcified granuloma, Numerous punctate calcifications within the spleen suggestive of prior granulomatous disease.On 01/24 she underwent bronchoscopy which did not show any endobronchial lesion, mucus or erythema. Frothy secretion was noted throughout the airways bilaterally. Gram stain and culture, Fungal stain and culture, viral PCR, PJP PCR, beta D glucan, Aspergillus galactomannan all returned negative. Similarly serum beta glucan and Aspergillus galactomannan are also negative. Yesterday her urine histoplasma antigen resulted positive from outside lab. ID is consulted to assist with management of histoplasmosis. Unable to gather any further history from family at this time. Review of Systems General: Reports: ROS unobtainable due to medical condition Meds/Allergies Home Medications and Allergies Home Medications Medication Instructions Recorded Confirmed Last Taken Type amitriptyline 25 mg PO DAILY 01/11/21 01/11/21 01/10/21 History fluoxetine 40 mg PO DAILY 01/11/21 01/11/21 01/11/21 History levofloxacin 500 mg PO DAILY 01/11/21 01/11/21 01/11/21 History lisinopril 10 mg PO BID 01/11/21 01/11/21 01/11/21 History metoprolol tartrate 25 mg PO BID 01/11/21 01/11/21 01/11/21 History naproxen 500 mg PO BID 01/11/21 01/11/21 01/10/21 History omeprazole 20 mg PO DAILY 01/11/21 01/11/21 01/11/21 History prednisone 40 mg PO DAILY 01/11/21 01/11/21 01/11/21 History tizanidine See Rx Instructions .ROUTE .COMPLEX 01/11/21 01/11/21 01/10/21 History Allergies Allergy/AdvReac Type Severity Reaction Status Date / Time codeine Allergy Intermediate ALGY-Joint Verified 01/11/21 15:09 Pain Penicillins Allergy Intermediate ALGY-Rash Verified 01/11/21 15:09 propoxyphene [From Darvon] Allergy Intermediate Unknown Verified 01/11/21 15:09 Current Medications Current Medications Generic Name Dose Route Start Last Admin Trade Name Freq PRN Reason Stop Dose Admin Acetaminophen 650 mg 01/11/21 18:14 01/26/21 02:18 Acetaminophen 325 Mg Tablet PO 650 mg Q6H PRN Administration Mild/Mod Pain Or Temp >/= 101 Albuterol Sulfate 1 puff 01/11/21 18:14 01/19/21 07:54 Albuterol 8 Gm Mdi INHALATION 1 puff Q4H.RESPIRATORY PRN Administration sob Amiodarone HCl 200 mg 01/29/21 09:00 01/31/21 09:22 Amiodarone 200 Mg Tablet PO 200 mg DAILY OSVALDO Administration Artificial Tears 1 drop 01/29/21 18:05 01/31/21 20:21 Artificial Tears Op Soln 15 Ml Btl EYE-BOTH 1 drop Q4H PRN Administration DRY EYE(S) Artificial Tears 1 applic 01/30/21 21:00 01/31/21 20:21 Artificial Tears Op Oint 3.5 Gm EYE-BOTH Not Given BEDTIME OSVALDO Budesonide 0.5 mg 01/19/21 20:00 01/31/21 20:01 Budesonide 0.5 Mg/2 Ml Neb INHALATION 0.5 mg BID.RESPIRATORY OSVALDO Administration Bumetanide 1 mg 01/29/21 18:00 01/30/21 05:22 Bumetanide 0.25 Mg/Ml Sdv 4 Ml IV 1 mg Q12H OSVALDO Administration Enoxaparin Sodium 80 mg 01/24/21 19:30 01/31/21 18:24 Enoxaparin 80 Mg/0.8 Ml Syringe SUBCUT 80 mg Q12H OSVALDO Administration Fluoxetine HCl 40 mg 01/18/21 09:00 01/25/21 09:02 Fluoxetine 20 Mg Capsule PO 40 mg DAILY OSVALDO Administration Glycerin 1 each 01/23/21 11:27 01/23/21 14:44 Glycerin Adult Supp [place] 1 each DAILY PRN Administration CONSTIPATION Fentanyl 1,000 mcg/ Sodium 100 mls @ 0 mls/hr 01/24/21 17:00 01/31/21 22:44 Chloride IV 100 mcg/hr .Q0M OSVALDO 10 mls/hr Titration Protocol Per Protocol Propofol 1,000 mg in 100 mls @ 0 mls/hr 01/24/21 18:45 01/31/21 22:42 Diprivan IV 35 mcg/kg/min .Q0M OSVALDO 16.25 mls/hr Administration Protocol Per Protocol Amiodarone HCl 900 mg/ 518 mls @ 0 mls/hr 01/25/21 12:00 01/29/21 03:02 Dextrose/ IV Miscellaneous IV Infused Supplies .Q0M OSVALDO Titration Protocol Per Protocol Norepinephrine Bitartrate 8 mg 258 mls @ 0 mls/hr 01/26/21 09:30 01/29/21 02:45 / Dextrose IV Infused .Q0M OSVALDO Titration Protocol Per Protocol Albumin Human 25 gm in 100 mls @ 60 mls/hr 01/28/21 10:00 01/31/21 20:20 Albumin IV Infused Q8H OSVALDO Infusion Amphotericin B 213 mg/ 250 mls @ 375 mls/hr 01/30/21 20:00 01/31/21 22:42 Dextrose IV Infused Q24H OSVALDO Infusion Ipratropium [place] 0.5 mg 01/23/21 16:00 01/31/21 20:01 Ipratropium 0.5 Mg/2.5 Ml Neb INHALATION 0.5 mg Q4H.RESPIRATORY OSVALDO Administration Levalbuterol HCl 0.63 mg 01/23/21 16:00 01/31/21 20:01 Levalbuterol 0.63 Mg/3 Ml Neb INHALATION 0.63 mg Q4H.RESPIRATORY OSVALDO Administration Levothyroxine Sodium 25 mcg 01/13/21 10:00 01/31/21 05:03 Levothyroxine 25 Mcg Tablet PO 25 mcg QAM OSVALDO Administration Methylprednisolone Sodium Succinate 40 mg 01/30/21 19:00 01/31/21 20:04 Methylprednisolone Sod Succ 40 Mg/Ml Inj IVP 40 mg Q24H OSVALDO Administration Metolazone 5 mg 01/28/21 00:45 01/28/21 00:48 Metolazone 5 Mg Tablet PO 5 mg ONCE OSVALDO Administration Pantoprazole Sodium 40 mg 01/26/21 09:00 01/31/21 09:22 Pantoprazole 40 Mg Sdv IVP 40 mg DAILY OSVALDO Administration PFSH Acute PFSH: Medical History CAD (coronary artery disease) Depression with anxiety Hypertension Surgical History History of cholecystectomy History of total hysterectomy Family History Mother CAD (coronary artery disease) Diabetes Hypertension Alzheimer's dementia Father CAD (coronary artery disease) Diabetes Hypertension Dementia Social History Smoking and tobacco status: former smoker Alcohol intake: never Substance/Drug Use: never Vitals/I&O/Wt Last Vital Signs Temp 99.2 F 01/31/21 20:21 Pulse 110 H 01/31/21 20:07 Resp 24 H 01/31/21 22:00 BP 160/70 01/31/21 20:00 Pulse Ox 93 01/31/21 22:00 01/31/21 01/31/21 01/31/21 06:59 14:59 22:59 Intake Total 1225.117 / 2192.477 1269.375 / 7878.197 7718.521 / 3008.896 Output Total 700 / 1350 2150 / 2150 500 / 2650 Balance 525.117 / 842.477 -880.625 / -260.775 6130.521 / 358.896 Weight last 48 hrs Weight 70.902 kg Physical Exam Narrative: EXAM NARRATIVE: GEN: Intubated, sedated CVS: S1S2 N RS: Bilateral crackles to auscultation diffusely anteriorly Abd: Soft, nt/nd , bs+ FINANCIAL REPORTING MANAGER: Unable to assess at this time Urinary Catheter Management^: Ramirez: Cath Placed During This Visit: yes Reason for Continuing Indwelling Catheter: Accurate Measurement of Urinary Output in Critically Ill Patients Urinary Catheter Date of Insertion: 01/24/21 Urinary Catheter Time of Insertion: 15:29 A&P Assessment and plan (1) Histoplasmosis: Patient presenting with symptoms of cough dyspnea for 6 weeks prior to admission, with rapidly developing respiratory failure during the course of admission. Currently with ARDS requiring mechanical ventilation. Bronchoscopy and peripheral work-up overall negative for infectious etiology. Multiple Covid PCR and antigens are negative, respiratory PCR is negative, CMV PCR from [facility] additionally negative. Histoplasma urine antigen resulted positive yesterday. 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 Recommend to start liposomal amphotericin B(AmBisome) 3 mg/kg/day. Closely monitor renal function, electrolytes, maintain adequate hydration. Additionally start methylprednisolone 0.5 to 1 mg/kg/day until clinically improving ARDS. Will follow Status: Acute (2) ARDS (adult respiratory distress syndrome): Status: Acute (3) Cardiogenic shock: Status: Acute Consult Attestations Medical Necessity Statement: per admitting note Coding Level of Care Code Acute Fuel Cell Test Engineer for [facility] Diagnoses Histoplasmosis B39.9 ARDS (adult respiratory distress syndrome) J80 Cardiogenic shock R57.0
[2021-02-01] VITALS (36 sets, daily range): BP systolic 125–180; BP diastolic 58–88; PULSE 92–128; RESP 18–30; TEMP 36.9–37.4; O2SAT 87–97
[2021-02-01] MEDS: ipratropium 0.5 mg/2.5 mL Neb INHALATION ×2 (03:16→07:33)
[2021-02-01] MEDS: levalbuterol 0.63 mg/3 mL Neb INHALATION ×3 (03:16→11:25)
[2021-02-01] MEDS: propofol 1,000 MG/100 ML INJ 16.25 MG IV (03:57)
[2021-02-01 04:54] LABS: Basophils % 0.2 %; Hematocrit 24.6 % (37.0-47.0); Hemoglobin 7.2 g/dL (11.5-15.3); Lymphocytes # 0.5 10^3/uL (0.8-4.8); Lymphocytes % 3.1 %; Mean Corpuscular HGB Conc 29.3 g/dL (30.0-36.0); Mean Corpuscular Hemoglobin 28.7 pg (28.0-34.0); Mean Platelet Volume 10.1 fL (7.4-10.4); Monocytes # 0.6 10^3/uL (0.2-0.9); Monocytes % 3.4 %; Neutrophils # 15.97 10^3/uL (1.8-7.7); Neutrophils % 91.7 %; Nucleated Red Blood Cells % 0 %; Platelet Count 407 10^3/cmm (130-400); Red Blood Count 2.51 10^6/uL (4.1-5.3); Red Cell Distribution Width 14.6 % (12.1-15.1); White Blood Count 17.4 10^3/uL (4.0-10.0)
[2021-02-01] MEDS: levothyroxine 25 mcg Tablet PO (05:06)
[2021-02-01 05:11] LABS: Alanine Aminotransferase 6 U/L (0-33); Albumin Level 4.7 g/dL (3.5-5.2); Alkaline Phosphatase 43 IU/L (35-105); Anion Gap 15.5 (5-19); Aspartate Amino Transferase 12 U/L (0-32); Blood Urea Nitrogen 73 mg/dL (8-23); Calcium 9.5 mg/dL (8.5-10.5); Chloride 94 mmol/L (98-107); Globulin 2.6 g/dL (1.3-4.6); Glucose 183 mg/dL (65-115); Osmolality Calculated 328 mOsm/kg (285-295); Potassium 4.5 mmol/L (3.5-5.1); Sodium 146 mmol/L (136-145); Total Bilirubin 0.3 mg/dL (0.15-1.2); Total Protein 7.3 g/dL (6.6-8.7)
[2021-02-01 05:35] LABS: Carbon Dioxide 41 mmol/L (22-29)
[2021-02-01] MEDS: enoxaparin 80 mg/0.8 mL Syringe SUBCUT ×2 (06:33→19:59)
[2021-02-01] MEDS: budesonide 0.5 mg/2 mL Neb INHALATION ×2 (07:34→19:51)
--- NOTE | 2021-02-01 08:11 | PC.SOCIAL ---
IMM Not Updated Pg. 2 of IMM Not updated, patient remains intubated at this time.
[2021-02-01] MEDS: pantoprazole 40 mg SDV IVP (08:22)
[2021-02-01] MEDS: amiodarone 200 mg Tablet PO (08:22)
[2021-02-01] MEDS: metoprolol tartrate 25 mg Tablet PO ×2 (10:02→19:58)
--- NOTE | 2021-02-01 10:07 | PC.CHAP ---
Pastoral Care Encounter/Spiritual Assessment Type of Contact [] Declined green feed attendant visit [] Patient/Family/Request visit [] Outpatient visit [] Follow-up visit [] Physician referral [] Code/Alert [x] Routine visit [] Staff referral [] Actively dying [] Patient sleeping [] Family support [] [] Out of room [] Palliative care [] [] Receiving care in room [] Pre-surgical visit [] Trauma [] Long length of stay [x] ICU visit [x] Other:ventilator.. Relational/Emotional Strength [] Patient feels connected with others/family/visitors/staff [] Distress [] Loneliness/isolation [] Abandonment Spirituality of Patient [] Person of Trisha [] Attends Druze of their Trisha [] Believes in Prayer [] Reads Bible or Anglican materials [] There are Spiritual issues to be addressed Machine Featheredger And Reducer Interventions [x] Prayer [] Active listening [] Non-anxious presence [] Spiritual/emotional support [] Crisis/trauma care [] Spiritual counseling [] Bereavement support [] Provided bereavement packet [] Provided Bible/devotional materials [] Provided toy/stuffed animal, coloring book to patient or family member [] Provided Communion [] Anointing/[place] [] Salvation [x] Completed spiritual assessment [] Other: Impact on Illness or Injury [] Angry [] Fearful [] Anxious [] Often cries [] Exhaustion [] Unable to work [] Unable to attend mandaeism [] Unable to walk/stand [] Unable to read [] Unable to drive [] Unable to eat/drink [] Unable to sleep [] Unable to be with family [] Patient intubated [] Other: Summary Time spent with patient
--- NOTE | 2021-02-01 12:04 | PC.NUTR ---
Nutrition follow up: Current TF of Jevity 1.2 at 55 ml/hr with 100 ml H2O flushes q 8 hours providing 1584 kcal, 73 g protein, 1365 ml fluid, with additional 429 kcal from propofol. Recommend decrease in TF rate to 40 ml/hr while pt receiving propofol, as current total calories exceed estimated needs. See RD assessment for further details.
--- NOTE | 2021-02-01 13:00 | XR_ITS ---
WS: [id number] Portable AP upright chest, 02/01/2021 Clinical Data: follow up Comparison: Portable chest, 01/30/2021. Findings: The endotracheal tube remains above the alexa. The nasogastric tube has retreated and the tip ends in the fundus of the stomach. The extensive bilateral pulmonary opacities have not changed. The heart remains the same. Monitor leads are on the chest wall. XR/XR chest 1V portable [id number] Impression: No change in extensive bilateral pulmonary opacities.
--- NOTE | 2021-02-01 13:24 | PM.PN ---
Subjective Subjective: Interval history: The patient was seen and examined. Currently she is sedated with fentanyl. The patient was able to respond to verbal commands earlier today. The patient is on Solu-Medrol and liposomal amphotericin B for ARDS secondary to acute diffuse pulmonary histoplasmosis. She continues to require high amount of oxygen. She was on 70% oxygen when I saw her. The patient seems to have developed metabolic alkalosis likely secondary to diuresis. The chest x-ray obtained today revealed less infiltrate compared to before according to my read. She has a significant amount of clear secretion through the ET tube. Medications: Reviewed: Yes Vitals/I&O/Wt Last Vital Signs Temp 99.3 F 02/01/21 12:00 Pulse 103 H 02/01/21 12:00 Resp 21 H 02/01/21 11:30 BP 143/59 02/01/21 12:00 Pulse Ox 92 02/01/21 12:00 01/31/21 02/01/21 02/01/21 22:59 06:59 14:59 Intake Total 1739.521 / 3008.896 1014.105 / 4023.001 551.667 / 551.667 Output Total 500 / 2650 800 / 3450 225 / 225 Balance 1239.521 / 358.896 214.105 / 573.001 326.667 / 326.667 Weight last 48 hrs Weight 157 lb 6 oz Weight 156 lb 5 oz Physical Exam Narrative: EXAM NARRATIVE: General: Patient is intubated and sedated, intermittently following simple commands Neck: No JVD Respiratory: Auscultation: Bilateral diffuse crackles Cardiovascular: Variable first heart sound, no murmur Abdomen: Soft, nontender, nondistended, positive bowel sound Skin: No rash Neuro: Patient is intermittently following commands Urinary Catheter Management^: Ramirez: Cath Placed During This Visit: yes Reason for Continuing Indwelling Catheter: Accurate Measurement of Urinary Output in Critically Ill Patients Urinary Catheter Date of Insertion: 01/24/21 Urinary Catheter Time of Insertion: 15:29 Data : 02/01/21 04:17 02/01/21 04:17 Attestation for Other Data: I personally reviewed and interpreted the following: Other data: I have reviewed the patient's laboratory, microbiologic and radiologic data. 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 The only positive test that indicated acute histoplasmosis is urinary antigen. The work-up from bronchoalveolar lavage had been negative. According to my read, the chest x-ray today looks better than 2 days ago. We will continue with the liposomal amphotericin and Solu-Medrol. Status: Acute (2) ARDS (adult respiratory distress syndrome): I was able to titrate down the FiO2 to 60%. We will aim for an oxygen saturation of 88% and above. Patient is currently on volume control with a PEEP of 10. I am going to start the patient on Precedex with the hope to reduce or completely discontinue the fentanyl. Once we are able to do that, we will be able to assess her mental status better. Endotracheal aspirate for Gram stain and culture. We will keep an eye for any new secondary bacterial infection. All her previous work-up had been negative. Status: Acute (3) New onset a-fib: Her heart rate is more or less controlled. Currently the heart rate is around 100 too 115. She is on amiodarone and metoprolol was added to her regimen today. The patient is on full dose anticoagulation. Status: Acute (4) Metabolic alkalosis: The patient has likely developed metabolic alkalosis. I am going to obtain an arterial blood gas and optimize the ventilator setting. I am going to give her a dose of Diamox. Based on the arterial blood gas, I will optimize the tube feed regimen as well. Status: Acute Attestations Medical Necessity Statement*: Will defer to the primary team Coding Level of Care Code Acute Stock Drier Tender for [facility] Jocelyne Diagnoses Histoplasmosis B39.9 ARDS (adult respiratory distress syndrome) J80 New onset a-fib I48.91 Metabolic alkalosis E87.3
[2021-02-01 14:48] LABS: ABG PH Result 7.34 (7.35-7.45); Alveolar-Arterial Oxygen Gradi 40.8 mmHg (5-10); Arterial Blood Gas Hematocrit 25.6 % (37-47); Blood Gas Allen Test Pos; Blood Gas Operator Identificat BD; Blood Gas Sample Site Brachial, right; Blood Gas Sample Type Arterial; Carboxyhemoglobin 1.2 %THgb (0.4-20.1); HCO3 ABG 45.3 mmol/L (22-26); HGB O2 Sat 81.1 % (95-100); Ionized Calcium Level - ABG 1.3 mmol/L (1.1-1.4); Methemoglobin 0.8 % (0.4-1.5); Oxygen Device VENT; Oxygen Saturation ABG 82.7; PO2 ABG 53.5 mmHg (80.0-100.0); Potassium Level - ABG 4.3 mmol/L (3.5-5.0); Total Hemoglobin 8.3 g/dL (12-16)
[2021-02-01 14:49] LABS: ABG PCO2 84.4 mmHg (35-45)
--- NOTE | 2021-02-01 15:07 | PM.PN ---
Subjective Subjective: Interval history: Intubated, sedated. Vitals/I&O/Wt Last Vital Signs Temp 99.3 F 02/01/21 12:00 Pulse 103 H 02/01/21 12:00 Resp 21 H 02/01/21 11:30 BP 143/59 02/01/21 12:00 Pulse Ox 92 02/01/21 12:00 02/01/21 02/01/21 02/01/21 06:59 14:59 22:59 Intake Total 1014.105 / 4023.001 551.667 / 551.667 Output Total 800 / 3450 225 / 225 Balance 214.105 / 573.001 326.667 / 326.667 Weight last 48 hrs Weight 71.384 kg Weight 70.902 kg Physical Exam Const: COMMON NORMALS: no acute distress OTHER: Sedated. Not in distress. HENMT: COMMON NORMALS: oropharynx normal Neck/C-Spine: COMMON NORMALS: no JVD Resp: COMMON NORMALS: normal respiratory effort AUSCULTATION: rales bilateral at the base Cardio: COMMON NORMALS: no JVD, regular rhythm, S1 normal heart sound present, S2 normal heart sound present and No murmurs present (Cardio) RHYTHM: regular rhythm HEART SOUNDS: S1 normal heart sound present and S2 normal heart sound present GI: COMMON NORMALS: Normal to inspection, nondistended, normoactive bowel sounds present, Soft to palpation and non-tender PALPATION: Yes Soft to palpation Extremity: COMMON NORMALS: no joint enlargement and no pedal edema Neuro: COMMON NORMALS: moves all extremities Skin: COMMON NORMALS: no rashes or lesions noted GENERAL SKIN EXAM: no rashes or lesions noted Urinary Catheter Management^: Ramirez: Cath Placed During This Visit: yes Reason for Continuing Indwelling Catheter: Accurate Measurement of Urinary Output in Critically Ill Patients Urinary Catheter Date of Insertion: 01/24/21 Urinary Catheter Time of Insertion: 15:29 Data : 02/01/21 04:17 02/01/21 04:17 A&P Assessment and plan (1) Histoplasmosis: Continue Diflucan. Methylprednisolone. Mechanical ventilatory support. Appreciate pulmonology recommendations. Decreasing hemoglobin today. Other cell lines appear unaffected. Monitor blood counts. Requested for Hemoccult today. Positive histoplasma galactomannan. Histoplasma infection with ARDS. Monitor renal function. Status: Acute (2) ARDS (adult respiratory distress syndrome): Pulmonology assessment appreciated. Trial of FiO2 60%. Wean down sedation as tolerating. As above. Status: Acute (3) Cardiogenic shock: Resolved Status: Acute (4) Acute respiratory failure with hypoxia: Additional endotracheal cultures. Status: Acute (5) Pneumonia: As above. Status: Acute Qualifiers: Aspiration pneumonia type: unspecified Laterality: right Lung location: lower lobe of lung Pneumonia type: aspiration pneumonia Qualified Code(s): J69.0 - Pneumonitis due to inhalation of food and vomit (6) New onset a-fib: Continue amiodarone. Status: Acute (7) Mitral regurgitation: Mild Status: Acute Qualifiers: Cardiac valve disease etiology: etiology unspecified Qualified Code(s): I34.0 - Nonrheumatic mitral (valve) insufficiency (8) Cardiogenic pulmonary edema: Status: Acute (9) Acute kidney injury: Resolved Noted rising BUN. Metabolic alkalosis. Hold additional diuresis. Status: Acute (10) Hyperkalemia: Resolved. Status: Acute (11) Hyponatremia: Resolved. Status: Acute Additional A&P Information HTN Hypothyroidism Attestations Medical Necessity Statement*: Continue admission for assessment management of ARDS with histoplasma pneumonia, hypoxic respiratory failure, mechanical ventilatory support. Coding Level of Care Code Acute Disability Counselor for [facility] Fwd Exam Comprehensive Diagnoses Histoplasmosis B39.9 ARDS (adult respiratory distress syndrome) J80 Cardiogenic shock R57.0 Acute respiratory failure with hypoxia J96.01 Pneumonia J69.0 Aspiration pneumonia type: unspecified Laterality: right Lung location: lower lobe of lung Pneumonia type: aspiration pneumonia New onset a-fib I48.91 Mitral regurgitation I34.0 Cardiac valve disease etiology: etiology unspecified Cardiogenic pulmonary edema I50.1 Acute kidney injury N17.9 Hyperkalemia E87.5 Hyponatremia E87.1
[2021-02-01] MEDS: acetaZOLAMIDE 250 mg Tablet 500 MG PO (16:48)
[2021-02-01] MEDS: dexmedetomidine 400 MCG in sodium chloride 0.9% (100 ml) 100 ML IV (16:49)
--- NOTE | 2021-02-01 18:01 | PM.PN ---
Subjective Subjective: Interval history: Infectious disease progress note Remains intubated, sedated FiO2 65%, PEEP 10 this evening Chest x-ray appears grossly stable. T-max 99.3 Fahrenheit Medications: Reviewed: Yes Vitals/I&O/Wt Last Vital Signs Temp 99.3 F 02/01/21 12:00 Pulse 103 H 02/01/21 14:00 Resp 24 H 02/01/21 17:49 BP 143/59 02/01/21 12:00 Pulse Ox 90 02/01/21 17:49 02/01/21 02/01/21 02/01/21 06:59 14:59 22:59 Intake Total 1014.105 / 4023.001 564.167 / 564.167 124.5 / 688.667 Output Total 800 / 3450 225 / 225 Balance 214.105 / 573.001 339.167 / 339.167 124.5 / 463.667 Weight last 48 hrs Weight 71.384 kg Weight 70.902 kg Physical Exam Narrative: EXAM NARRATIVE: GEN: Intubated, sedated CVS: S1S2 N RS: Bilateral crackles to auscultation diffusely anteriorly Abd: Soft, nt/nd , bs+ LINESPERSON: Unable to assess at this time Urinary Catheter Management^: Ramirez: Cath Placed During This Visit: yes Reason for Continuing Indwelling Catheter: Accurate Measurement of Urinary Output in Critically Ill Patients Urinary Catheter Date of Insertion: 01/24/21 Urinary Catheter Time of Insertion: 15:29 Data : 02/01/21 04:17 02/01/21 04:17 A&P Assessment and plan (1) Histoplasmosis: Patient presenting with symptoms of cough dyspnea for 6 weeks prior to admission, with rapidly developing respiratory failure during the course of admission. Currently with ARDS requiring mechanical ventilation. 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 continue liposomal amphotericin B(AmBisome) 3 mg/kg/day (started ). Closely monitor renal function, electrolytes, maintain adequate hydration. Continue methylprednisolone 0.5 to 1 mg/kg/day until clinically improving ARDS. Will follow Status: Acute (2) ARDS (adult respiratory distress syndrome): Status: Acute (3) Cardiogenic shock: Status: Acute Attestations Medical Necessity Statement*: ongoing need for ventilatory support, iv antifungals, intensive care management Coding Level of Care Code Acute M[employer] Laminating Machine Feeder for [facility] Fwd Diagnoses Histoplasmosis B39.9 ARDS (adult respiratory distress syndrome) J80 Cardiogenic shock R57.0
--- NOTE | 2021-02-01 18:47 | P.PN_ITS ---
Subjective Subjective: Interval history: Patient's condition is unchanged from before. Intermittently going into afib with RVR Vitals/I&O/Wt Last Vital Signs Temp 99.3 F 02/01/21 12:00 Pulse 105 H 02/01/21 18:00 Resp 24 H 02/01/21 17:49 BP 157/73 02/01/21 18:00 Pulse Ox 90 02/01/21 18:00 02/01/21 02/01/21 02/01/21 06:59 14:59 22:59 Intake Total 1014.105 / 4023.001 564.167 / 564.167 124.5 / 688.667 Output Total 800 / 3450 225 / 225 Balance 214.105 / 573.001 339.167 / 339.167 124.5 / 463.667 Weight last 48 hrs Weight 157 lb 6 oz Weight 156 lb 5 oz Physical Exam Narrative: EXAM NARRATIVE: GENERAL: Patient is intubated NECK: No jugular vein distension. [] HEENT: No cyanosis. No icterus. No pallor. [] HEART: Irregularly irregular, S1 and S2. grade 2/6 systolic murmur, rub or gallop. [] LUNGS: Clear to auscultate bilaterally. [] ABDOMEN: Soft, nontender and nondistended. Positive bowel sounds. No guarding, rebound or tenderness. [] CENTRAL NERVOUS SYSTEM: Grossly nonfocal. [] EXTREMITIES: Lower extremities with 1+ edema bilaterally. Pulses palpable in the lower extremities, both dorsalis pedis and posterior tibial. [] Urinary Catheter Management^: Ramirez: Cath Placed During This Visit: yes Reason for Continuing Indwelling Catheter: Accurate Measurement of Urinary Output in Critically Ill Patients Urinary Catheter Date of Insertion: 01/24/21 Urinary Catheter Time of Insertion: 15:29 Data : 02/01/21 04:17 02/01/21 04:17 A&P Assessment and plan (1) Mitral regurgitation: Status: Acute Qualifiers: Cardiac valve disease etiology: etiology unspecified Qualified Code(s): I34.0 - Nonrheumatic mitral (valve) insufficiency (2) Acute respiratory failure: Status: Acute Qualifiers: Respiratory failure complication: hypoxia Qualified Code(s): J96.01 - Acute respiratory failure with hypoxia (3) New onset a-fib: Status: Acute (4) ARDS (adult respiratory distress syndrome): Status: Acute (5) Pneumonia: Status: Acute Qualifiers: Aspiration pneumonia type: unspecified Laterality: right Lung location: lower lobe of lung Pneumonia type: aspiration pneumonia Qualified Code(s): J69.0 - Pneumonitis due to inhalation of food and vomit Patient has acute respiratory failure and is intubated. Underlying etiology likely pneumonia with possibility of pulmonary edema from A. fib with RVR. Rapid ventricular rate is secondary to to lying pneumonia and pulmonary edema. Patient has histoplasma infection and ARDS. Treatment started for it. Conservative management for atrial fibrillation at this time. Patient on oral amiodarone, continue. We will add metoprolol. Labs show she is dry, will benefit from IV fluid resuscitation Continue anticoagulation for stroke prevention. However Hgb continues to drop. Close monitoring of HandH and possible source of bleeding. Not in cardiogenic shock. Blood pressure is stable. Agree with holding off on diuretics at this time. Mitral regurgitation is mild on transthoracic echocardiogram. Will hold off on further work-up for MRRachel Thank you for involving us with the care of this patient. We will continue to follow. Please call with questions. Attestations Medical Necessity Statement*: Care expected to cross 2 midnights Coding Level of Care Code Acute Business School Dean for [facility] Fwd Diagnoses Mitral regurgitation I34.0 Cardiac valve disease etiology: etiology unspecified Acute respiratory failure J96.01 Respiratory failure complication: hypoxia New onset a-fib I48.91 ARDS (adult respiratory distress syndrome) J80 Pneumonia J69.0 Aspiration pneumonia type: unspecified Laterality: right Lung location: lower lobe of lung Pneumonia type: aspiration pneumonia
[2021-02-01] MEDS: artificial tears Op Soln 15 mL Btl 1 DROP EYE-BOTH (20:18)
[2021-02-01] MEDS: artificial tears Op Oint 3.5 gm 1 APPLIC EYE-BOTH (20:47)
--- NOTE | 2021-02-01 20:48 | PC.NURSE ---
[employer] Crm Developer; Eye drops given to bilateral eyes, per order for Bedtime application. Med verified with 2nd RN Earnest.
--- NOTE | 2021-02-01 21:29 | XRR_ITS ---
PROCEDURE INFORMATION: Exam: XR Chest Exam date and time: 02/01/2021 9:29 PM Age: 75 years old Clinical indication: Shortness of breath; Additional info: Work of breathing change. Md orders TECHNIQUE: Imaging protocol: XR of the chest. Views: 1 view. COMPARISON: CR XR chest 1V portable [id number] 02/01/2021 1:15 PM FINDINGS: Tubes, catheters and devices: Endotracheal tube terminates in proper position above the alexa. Lungs: Diffuse patulous consolidations throughout both lungs, similar in appearance to previous exam. Pleural spaces: Unremarkable. No pleural effusion. No pneumothorax. Heart/Mediastinum: Unremarkable. No cardiomegaly. Bones/joints: The osseous structures are intact. XR/XR chest 1V portable [id number] IMPRESSION: Similar appearance of extensive patulous consolidations throughout both lungs.
--- NOTE | 2021-02-01 21:30 | PC.NURSE ---
New orders; Patient work of breathing change. Increased accessory muscle use. SBP increased, and sustaining around 170's. Sedation gtt titrated per protocol. RN notified MD. New orders received for RT to suction patient. And to obtain new chest xray. Orders placed in chart as indicated.
[2021-02-01] MEDS: propofol 1,000 MG/100 ML INJ 2.32 MG IV (22:12)
--- NOTE | 2021-02-01 22:23 | PC.NURSE ---
New orders; Patient work of breathing change. Increased accessory muscle use. SBP increased, and sustaining around 170's. Sedation gtt titrated per protocol. RN notified MD [place]. Discussed patient's latest ABG results, capnography, work of breathing, and gtt's infusing. New orders received for RT to suction patient. And to obtain new chest xray. And obtain ABG. Orders placed in chart as indicated.
[2021-02-01 22:39] LABS: ABG PCO2 85.4 mmHg (35-45); Alveolar-Arterial Oxygen Gradi 39.4 mmHg (5-10); Arterial Blood Gas Hematocrit 28.3 % (37-47); Blood Gas Allen Test Pos; Blood Gas Operator Identificat JB; Blood Gas Sample Site Radial, right; Blood Gas Sample Type Arterial; Blood Gas Tidal Volume 0.35; Carboxyhemoglobin 1.1 %THgb (0.4-20.1); HCO3 ABG 41.8 mmol/L (22-26); HGB O2 Sat 88.3 % (95-100); Ionized Calcium Level - ABG 1.3 mmol/L (1.1-1.4); Methemoglobin 0.5 % (0.4-1.5); Oxygen Device VENT; Oxygen Saturation ABG 89.7; PO2 ABG 63.2 mmHg (80.0-100.0); Potassium Level - ABG 4.3 mmol/L (3.5-5.0); Total Hemoglobin 9.2 g/dL (12-16)
--- NOTE | 2021-02-01 23:00 | PC.NURSE ---
at bedside for assessment. ABG results discussed. MD notified of gtt titrations. Orders to continue with current POC, and diagnostic medical sonographer/infusion rates.
[2021-02-02] VITALS (38 sets, daily range): BP systolic 113–175; BP diastolic 52–92; PULSE 65–118; RESP 19–33; TEMP 36.9–37.3; O2SAT 85–98
[2021-02-02] MEDS: propofol 1,000 MG/100 ML INJ 18.57 MG IV ×2 (02:15→12:59)
[2021-02-02] MEDS: dexmedetomidine 400 MCG in sodium chloride 0.9% (100 ml) 100 ML 11.14 MCG IV (03:49)
[2021-02-02] MEDS: levothyroxine 25 mcg Tablet PO (06:35)
[2021-02-02] MEDS: enoxaparin 80 mg/0.8 mL Syringe SUBCUT ×2 (06:35→18:32)
[2021-02-02] MEDS: budesonide 0.5 mg/2 mL Neb INHALATION ×2 (07:39→21:01)
[2021-02-02] MEDS: metoprolol tartrate 25 mg Tablet PO ×2 (08:14→20:16)
[2021-02-02] MEDS: amiodarone 200 mg Tablet PO (08:14)
[2021-02-02] MEDS: pantoprazole 40 mg SDV IVP (08:14)
--- NOTE | 2021-02-02 08:23 | PC.CHAP ---
Pastoral Care Encounter/Spiritual Assessment Type of Contact [] Declined ultrasound supervisor visit [] Patient/Family/Request visit [] Outpatient visit [] Follow-up visit [] Physician referral [] Code/Alert [x] Routine visit [] Staff referral [] Actively dying [] Patient sleeping [] Family support [] [] Out of room [] Palliative care [] [] Receiving care in room [] Pre-surgical visit [] Trauma [] Long length of stay [x] ICU visit [x] Other:still on ventilator .. not noticing any improvement... Relational/Emotional Strength [] Patient feels connected with others/family/visitors/staff [] Distress [] Loneliness/isolation [] Abandonment Spirituality of Patient [] Person of Trisha [] Attends Scientologist of their Trisha [] Believes in Prayer [] Reads Bible or Mormon materials [] There are Spiritual issues to be addressed Industrial Arts Teacher Interventions [x] Prayer [] Active listening [] Non-anxious presence [] Spiritual/emotional support [] Crisis/trauma care [] Spiritual counseling [] Bereavement support [] Provided bereavement packet [] Provided Bible/devotional materials [] Provided toy/stuffed animal, coloring book to patient or family member [] Provided Communion [] Anointing/[place] [] Salvation [x] Completed spiritual assessment [] Other: Impact on Illness or Injury [] Angry [] Fearful [] Anxious [] Often cries [] Exhaustion [] Unable to work [] Unable to attend adventist [] Unable to walk/stand [] Unable to read [] Unable to drive [] Unable to eat/drink [] Unable to sleep [] Unable to be with family [] Patient intubated [] Other: Summary Time spent with patient
--- NOTE | 2021-02-02 08:32 | P.PN_ITS ---
Subjective Subjective: Interval history: Sedation was being weaned overnight. She reportedly was waking up, nodding her head faintly to answers, however, was also becoming more tachypneic, so sedation was resumed with propofol, Precedex was added. Currently she is sedated, respiratory rate in the low 20s. Vitals/I&O/Wt Last Vital Signs Temp 98.7 F 02/02/21 04:00 Pulse 110 H 02/02/21 07:49 Resp 23 H 02/02/21 07:41 BP 137/67 02/02/21 04:00 Pulse Ox 91 02/02/21 07:41 02/01/21 02/02/21 02/02/21 22:59 06:59 14:59 Intake Total 485.032 / 1049.199 288.130 / 1337.329 46.046 / 46.046 Output Total 200 / 425 1250 / 1675 Balance 285.032 / 624.199 -961.870 / -337.671 46.046 / 46.046 Weight last 48 hrs Weight 72.517 kg Weight 71.384 kg Physical Exam Const: COMMON NORMALS: no acute distress OTHER: Sedated. Not in distress. HENMT: COMMON NORMALS: oropharynx normal Neck/C-Spine: COMMON NORMALS: no JVD Resp: COMMON NORMALS: normal respiratory effort AUSCULTATION: rales bilateral at the base Cardio: COMMON NORMALS: no JVD, regular rhythm, S1 normal heart sound present, S2 normal heart sound present and No murmurs present (Cardio) RHYTHM: regular rhythm HEART SOUNDS: S1 normal heart sound present and S2 normal heart sound present GI: COMMON NORMALS: Normal to inspection, nondistended, normoactive bowel sounds present, Soft to palpation and non-tender PALPATION: Yes Soft to palpa tion Extremity: COMMON NORMALS: no joint enlargement and no pedal edema Neuro: COMMON NORMALS: moves all extremities Skin: COMMON NORMALS: no rashes or lesions noted GENERAL SKIN EXAM: no rashes or lesions noted Urinary Catheter Management^: Ramirez: Cath Placed During This Visit: yes Reason for Continuing Indwelling Catheter: Accurate Measurement of Urinary Output in Critically Ill Patients Urinary Catheter Date of Insertion: 01/24/21 Urinary Catheter Time of Insertion: 15:29 Data : 02/01/21 04:17 02/01/21 04:17 A&P Assessment and plan (1) Histoplasmosis: Continue AmBisome. Methylprednisolone. Mechanical ventilatory support. Became tachypneic last night try to wean sedation, did reportedly respond by nodding her head. Recheck blood counts today, morning labs still pending. Requested for Hemoccult today. Positive histoplasma galactomannan. Histoplasma infection with ARDS. Monitor renal function. Status: Acute (2) Cardiogenic shock: Resolved Status: Acute (3) ARDS (adult respiratory distress syndrome): Pulmonology assessment appreciated. FiO2 had to be increased to 65%. Wean down sedation as tolerating. As above. Status: Acute (4) Pneumonia: As above. Status: Acute Qualifiers: Aspiration pneumonia type: unspecified Laterality: right Lung location: lower lobe of lung Pneumonia type: aspiration pneumonia Qualified Code(s): J69.0 - Pneumonitis due to inhalation of food and vomit (5) New onset a-fib: Continue amiodarone. Status: Acute (6) Mitral regurgitation: Mild Status: Acute Qualifiers: Cardiac valve disease etiology: etiology unspecified Qualified Code(s): I34.0 - Nonrheumatic mitral (valve) insufficiency (7) Cardiogenic pulmonary edema: Status: Acute (8) Acute kidney injury: Stable - Resolved. Resolved Noted rising BUN. Metabolic alkalosis. Hold additional diuresis. Status: Acute (9) Hyperkalemia: Resolved. Status: Acute (10) Hyponatremia: Resolved. Status: Acute (11) Acute respiratory failure with hypoxia: Additional endotracheal cultures. Status: Acute Additional A&P Information HTN Hypothyroidism Attestations Medical Necessity Statement*: Continue AmBisome, steroid for ARDS secondary to pulmonary histoplasmosis. Coding Level of Care Code Acute Infrastructure Architect for [facility] Fwd Diagnoses Histoplasmosis B39.9 Cardiogenic shock R57.0 ARDS (adult respiratory distress syndrome) J80 Pneumonia J69.0 Aspiration pneumonia type: unspecified Laterality: right Lung location: lower lobe of lung Pneumonia type: aspiration pneumonia New onset a-fib I48.91 Mitral regurgitation I34.0 Cardiac valve disease etiology: etiology unspecified Cardiogenic pulmonary edema I50.1 Acute kidney injury N17.9 Hyperkalemia E87.5 Hyponatremia E87.1 Acute respiratory failure with hypoxia J96.01
[2021-02-02] MEDS: propofol 1,000 MG/100 ML INJ 23.22 MG IV (08:38)
--- NOTE | 2021-02-02 08:57 | PC.OT ---
Occupational therapy treatment held per mobilization protocol, FiO2 too high and sedation level too high for participation.
--- NOTE | 2021-02-02 10:16 | P.PN_ITS ---
Subjective Subjective: Interval history: Patient's condition is unchanged. She is in normal sinus rhythm. On metoprolol Vitals/I&O/Wt Last Vital Signs Temp 98.4 F 02/02/21 08:00 Pulse 76 02/02/21 09:00 Resp 19 H 02/02/21 09:40 BP 115/54 02/02/21 09:00 Pulse Ox 98 02/02/21 09:40 02/01/21 02/02/21 02/02/21 22:59 06:59 14:59 Intake Total 485.032 / 1049.199 288.130 / 6750.874 6150.217 / 1053.217 Output Total 200 / 425 1250 / 1675 250 / 250 Balance 285.032 / 624.199 -961.870 / -337.671 803.217 / 803.217 Weight last 48 hrs Weight 159 lb 13.962 oz Weight 157 lb 6 oz Physical Exam Narrative: EXAM NARRATIVE: GENERAL: Patient is intubated NECK: No jugular vein distension. [] HEENT: No cyanosis. No icterus. No pallor. [] HEART: Irregularly irregular, S1 and S2. grade 2/6 systolic murmur, rub or gallop. [] LUNGS: Clear to auscultate bilaterally. [] ABDOMEN: Soft, nontender and nondistended. Positive bowel sounds. No guarding, rebound or tenderness. [] CENTRAL NERVOUS SYSTEM: Grossly nonfocal. [] EXTREMITIES: Lower extremities with 1+ edema bilaterally. Pulses palpable in the lower extremities, both dorsalis pedis and posterior tibial. [] Urinary Catheter Management^: Ramirez: Cath Placed During This Visit: yes Reason for Continuing Indwelling Catheter: Accurate Measurement of Urinary Output in Critically Ill Patients Urinary Catheter Date of Insertion: 01/24/21 Urinary Catheter Time of Insertion: 15:29 Data : 02/02/21 09:56 02/02/21 09:56 A&P Assessment and plan (1) Mitral regurgitation: Status: Acute Qualifiers: Cardiac valve disease etiology: etiology unspecified Qualified Code(s): I34.0 - Nonrheumatic mitral (valve) insufficiency (2) Acute respiratory failure: Status: Acute Qualifiers: Respiratory failure complication: hypoxia Qualified Code(s): J96.01 - Acute respiratory failure with hypoxia (3) New onset a-fib: Status: Acute (4) ARDS (adult respiratory distress syndrome): Status: Acute (5) Pneumonia: Status: Acute Qualifiers: Aspiration pneumonia type: unspecified Laterality: right Lung location: lower lobe of lung Pneumonia type: aspiration pneumonia Qualified Code(s): J69.0 - Pneumonitis due to inhalation of food and vomit Patient has acute respiratory failure and is intubated. Underlying etiology pneumonia and ARDS. Patient has histoplasma infection and ARDS. Treatment started for it. Conservative management for atrial fibrillation at this time. Patient on oral amiodarone, continue. Can uptitrate metoprolol as needed. Patient is dry and will benefit from fluid resuscitation. BUN Cr ratio is elevated. Sodium level is 147. Rule out possible GI bleeding given her elevated BUN Continue anticoagulation for stroke prevention. However Hgb continues to drop. Close monitoring of H&H and possible source of bleeding. Not in cardiogenic shock. Blood pressure is stable. Keep holding diuretics Mitral regurgitation is mild on transthoracic echocardiogram. Will hold off on further work-up for MRRachel Thank you for involving us with the care of this patient. We will continue to follow. Please call with questions. Attestations Medical Necessity Statement*: Care expected to cross 2 midnights. Coding Level of Care Code Acute Government Affairs Specialist for [facility] Fwd Diagnoses Mitral regurgitation I34.0 Cardiac valve disease etiology: etiology unspecified Acute respiratory failure J96.01 Respiratory failure complication: hypoxia New onset a-fib I48.91 ARDS (adult respiratory distress syndrome) J80 Pneumonia J69.0 Aspiration pneumonia type: unspecified Laterality: right Lung location: lower lobe of lung Pneumonia type: aspiration pneumonia
[2021-02-02 10:20] LABS: Basophils % 0.1 %; Eosinophils % 0.1 %; Hemoglobin 7.4 g/dL (11.5-15.3); Lymphocytes # 0.7 10^3/uL (0.8-4.8); Lymphocytes % 5.1 %; Mean Corpuscular HGB Conc 28.5 g/dL (30.0-36.0); Mean Corpuscular Hemoglobin 28.9 pg (28.0-34.0); Mean Corpuscular Volume 101.6 fL (81-99); Mean Platelet Volume 10.2 fL (7.4-10.4); Monocytes # 1.3 10^3/uL (0.2-0.9); Monocytes % 9.5 %; Neutrophils # 11.48 10^3/uL (1.8-7.7); Nucleated Red Blood Cells % 0 %; Platelet Count 397 10^3/cmm (130-400); Red Blood Count 2.56 10^6/uL (4.1-5.3); Red Cell Distribution Width 14.6 % (12.1-15.1); White Blood Count 13.7 10^3/uL (4.0-10.0)
[2021-02-02 10:41] LABS: Alanine Aminotransferase 9 U/L (0-33); Albumin Level 4.1 g/dL (3.5-5.2); Alkaline Phosphatase 50 IU/L (35-105); Anion Gap 13.4 (5-19); Aspartate Amino Transferase 15 U/L (0-32); Calcium 9.4 mg/dL (8.5-10.5); Chloride 97 mmol/L (98-107); Globulin 2.6 g/dL (1.3-4.6); Glucose 161 mg/dL (65-115); Osmolality Calculated 341 mOsm/kg (285-295); Potassium 4.4 mmol/L (3.5-5.1); Sodium 147 mmol/L (136-145); Total Bilirubin 0.2 mg/dL (0.15-1.2); Total Protein 6.7 g/dL (6.6-8.7)
[2021-02-02 10:46] LABS: Carbon Dioxide 41 mmol/L (22-29)
[2021-02-02 10:47] LABS: Blood Urea Nitrogen 106 mg/dL (8-23)
--- NOTE | 2021-02-02 14:00 | PC.NURSE ---
Dr. Abad gave verbal order to titrate precedex up to 1.2 for proper sedation for patient.
[2021-02-02] MEDS: dexmedetomidine 400 MCG in sodium chloride 0.9% (100 ml) 100 ML 9.28 MCG IV (14:58)
[2021-02-02 15:51] LABS: ABG PH Result 7.45 (7.35-7.45); Arterial Blood Gas Hematocrit 25.5 % (37-47); Base Excess ABG 15.2 mmol/L (-2.0-2.0); Blood Gas Allen Test Pos; Blood Gas Operator Identificat CAK; Blood Gas Sample Site Radial, left; Blood Gas Sample Type Arterial; Blood Gas Tidal Volume 0.42; HCO3 ABG 41.2 mmol/L (22-26); Oxygen Device VENT; PO2 ABG 46.9 mmHg (80.0-100.0)
--- NOTE | 2021-02-02 16:26 | PM.PN ---
Subjective Subjective: Interval history: The patient is intubated and sedated. She was able to answer simple questions by nodding her head. Overall, there has been no significant progress in the patient's clinical status. She continues to be hypoxic requiring a significant amount of oxygen. Currently the patient is on 65% oxygen. We were able to increase the minute ventilation between 12 to 13 L with reduction of PCO2 to 60s. Patient has hyponatremia. More importantly, she has developed rapid worsening of BUN and mild elevation of creatinine as well. Bedside ultrasound did not reveal any evidence of hypovolemia. In fact, the patient is being fluid positive for the past 2 days. I am concerned whether the patient is developing ATN in the setting of amphotericin therapy. Medications: Reviewed: Yes Vitals/I&O/Wt Last Vital Signs Temp 98.4 F 02/02/21 08:00 Pulse 81 02/02/21 16:00 Resp 29 H 02/02/21 15:21 BP 143/54 02/02/21 16:00 Pulse Ox 87 L 02/02/21 16:00 02/02/21 02/02/21 02/02/21 06:59 14:59 22:59 Intake Total 288.130 / 9763.829 1819.895 / 1384.895 Output Total 1250 / 1675 250 / 250 Balance -961.870 / -820.125 0278.895 / 1134.895 Weight last 48 hrs Weight 159 lb 13.962 oz Weight 157 lb 6 oz Physical Exam Narrative: EXAM NARRATIVE: General: Patient is intubated and sedated, intermittently following simple commands Neck: No JVD Respiratory: Auscultation: Bilateral diffuse crackles, primarily at the lung bases Cardiovascular: Variable first heart sound, no murmur Abdomen: Soft, nontender, nondistended, positive bowel sound Skin: No rash Neuro: Patient is intermittently following commands Urinary Catheter Management^: Ramirez: Cath Placed During This Visit: yes Reason for Continuing Indwelling Catheter: Accurate Measurement of Urinary Output in Critically Ill Patients Urinary Catheter Date of Insertion: 01/24/21 Urinary Catheter Time of Insertion: 15:29 Data : 02/02/21 09:56 02/02/21 09:56 Micro: Microbiology 02/02/21 09:47 Gram Stain - Final Sputum - Endotracheal Tube Aspirate Attestation for Other Data: I personally reviewed and interpreted the following: Other data: I have reviewed the patient laboratory, microbiologic and radiologic data. The patient has mild leukocytosis. Hemoglobin stable. Chronic hypercapnic respiratory failure and mild hyponatremia. The BUN has increased significantly since she was started on amphotericin. 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 The only positive test that indicated acute histoplasmosis is urinary antigen. The work-up from bronchoalveolar lavage had been negative. The patient is currently on liposomal amphotericin and Solu-Medrol 40 mg daily. Clinically, she is stable but no rapid improvement in her oxygen requirement as well. Importantly, the patient has developed rapid worsening of BUN and mild elevation of creatinine. The primary concern is whether this is secondary to amphotericin subsidy. Bedside ultrasound revealed normal IVC diameter without any evidence of hypo or hypervolemia. We will discuss with our nephrology colleagues regarding the rapidly increasing BUN level which could certainly be affecting her mental status as well. Status: Acute (2) ARDS (adult respiratory distress syndrome): The patient is currently on FiO2 of 65%. Patient is currently on volume control with a PEEP of 10. The tidal volume was increased to 420. This has helped with reduction of PCO2 to an acceptable level of 60. We will maintain the minute ventilation between 12 to 13 L. Optimize sedation with Precedex and fentanyl. If the patient does not show any evidence of improvement in the next 3 days, especially if the kidney function worsens to a point that she may need dialysis, will have more conversation with the family. Status: Acute (3) New onset a-fib: She is in sinus rhythm. Fully anticoagulated. We will continue with metoprolol. Status: Acute Attestations Medical Necessity Statement*: Will defer to the primary team Coding Level of Care Code Acute Judicial Clerk for [facility] Diagnoses Histoplasmosis B39.9 ARDS (adult respiratory distress syndrome) J80 New onset a-fib I48.91
[2021-02-02 16:31] LABS: Creatine Phosphokinase 18 U/L (26-192); Magnesium 2.7 mg/dL (1.7-2.3); Phosphorus 4.8 mg/dL (2.5-4.5)
[2021-02-02] MEDS: famotidine 20 mg/2 mL INJ IVP (16:33)
[2021-02-02] MEDS: artificial tears Op Oint 3.5 gm 1 APPLIC EYE-BOTH (20:17)
[2021-02-02] MEDS: artificial tears Op Soln 15 mL Btl 1 DROP EYE-BOTH (20:17)
--- NOTE | 2021-02-02 23:07 | PC.NURSE ---
New Orders; New orders received from MD [place] independent consultant for placement of rectal tube/flexi seal for fecal containment
[2021-02-03] VITALS (37 sets, daily range): BP systolic 97–170; BP diastolic 51–82; PULSE 76–108; RESP 24–31; TEMP 36.8–38.4; O2SAT 85–97
[2021-02-03] MEDS: dexmedetomidine 400 MCG in sodium chloride 0.9% (100 ml) 100 ML 12.99 MCG IV ×3 (00:25→17:18)
[2021-02-03 04:06] LABS: Basophils # 0.1 10^3/uL (0.0-0.1); Basophils % 0.3 %; Eosinophils % 0.1 %; Hematocrit 29.3 % (37.0-47.0); Hemoglobin 8.6 g/dL (11.5-15.3); Lymphocytes # 0.4 10^3/uL (0.8-4.8); Lymphocytes % 2.5 %; Mean Corpuscular HGB Conc 29.4 g/dL (30.0-36.0); Mean Corpuscular Hemoglobin 28.9 pg (28.0-34.0); Mean Corpuscular Volume 98.3 fL (81-99); Mean Platelet Volume 10.7 fL (7.4-10.4); Monocytes # 0.6 10^3/uL (0.2-0.9); Monocytes % 3.7 %; Neutrophils # 15.49 10^3/uL (1.8-7.7); Nucleated Red Blood Cells % 0 %; Platelet Count 499 10^3/cmm (130-400); Red Blood Count 2.98 10^6/uL (4.1-5.3); Red Cell Distribution Width 14.2 % (12.1-15.1); White Blood Count 16.9 10^3/uL (4.0-10.0)
[2021-02-03 04:35] LABS: Alanine Aminotransferase 12 U/L (0-33); Alkaline Phosphatase 55 IU/L (35-105); Anion Gap 15.3 (5-19); Aspartate Amino Transferase 16 U/L (0-32); Calcium 9.5 mg/dL (8.5-10.5); Carbon Dioxide 38 mmol/L (22-29); Chloride 97 mmol/L (98-107); Globulin 3.1 g/dL (1.3-4.6); Glucose 187 mg/dL (65-115); Osmolality Calculated 337 mOsm/kg (285-295); Potassium 4.3 mmol/L (3.5-5.1); Sodium 146 mmol/L (136-145); Total Bilirubin 0.3 mg/dL (0.15-1.2); Total Protein 7.1 g/dL (6.6-8.7)
[2021-02-03 04:48] LABS: Blood Urea Nitrogen 98 mg/dL (8-23)
[2021-02-03] MEDS: famotidine 20 mg/2 mL INJ IVP ×2 (05:46→17:22)
[2021-02-03] MEDS: levothyroxine 25 mcg Tablet PO (05:47)
[2021-02-03] MEDS: enoxaparin 80 mg/0.8 mL Syringe SUBCUT ×2 (06:41→19:56)
[2021-02-03] MEDS: budesonide 0.5 mg/2 mL Neb INHALATION ×2 (07:34→19:36)
--- NOTE | 2021-02-03 09:03 | PM.PN ---
Subjective Subjective: Interval history: Treatment visit she is generally weak although little bit more awake today with change of sedation. She nods some answers weakly, to me she answered that she could hear me, denied pain, but did not really answer other questions. Did not follow commands. She is reported to get anxious sometimes with breathing rate, heart rate rising. Vitals/I&O/Wt Last Vital Signs Temp 98.2 F 02/03/21 04:00 Pulse 90 02/03/21 06:00 Resp 30 H 02/03/21 07:34 BP 140/60 02/03/21 04:00 Pulse Ox 90 02/03/21 07:34 02/02/21 02/03/21 02/03/21 22:59 06:59 14:59 Intake Total 425.678 / 1810.573 181.530 / 1992.103 104 / 104 Output Total 1000 / 1250 1500 / 2750 Balance -574.322 / 560.573 -1318.470 / -757.897 104 / 104 Weight last 48 hrs Weight 73.243 kg Weight 72.517 kg Physical Exam Const: COMMON NORMALS: no acute distress OTHER: Weakly nods answers to a few questions. Sedated. Not in distress. HENMT: COMMON NORMALS: oropharynx normal Neck/C-Spine: COMMON NORMALS: no JVD Resp: AUSCULTATION: rales bilateral at the base Cardio: COMMON NORMALS: no JVD, regular rhythm, S1 normal heart sound present, S2 normal heart sound present and No murmurs present (Cardio) RHYTHM: regular rhythm HEART SOUNDS: S1 normal heart sound present and S2 normal heart sound present GI: COMMON NORMALS: Normal to inspection, nondistended, normoactive bowel sounds present, Soft to palpation and non-tender PALPATION: Yes Soft to palpation Extremity: COMMON NORMALS: no joint enlargement and no pedal edema Neuro: COMMON NORMALS: moves all extremities Skin: COMMON NORMALS: no rashes or lesions noted GENERAL SKIN EXAM: no rashes or lesions noted Urinary Catheter Management^: Ramirez: Cath Placed During This Visit: yes Reason for Continuing Indwelling Catheter: Accurate Measurement of Urinary Output in Critically Ill Patients Urinary Catheter Date of Insertion: 01/24/21 Urinary Catheter Time of Insertion: 15:29 Data : 02/03/21 02:53 02/03/21 02:53 Micro: Microbiology 02/02/21 09:47 Gram Stain - Final Sputum - Endotracheal Tube Aspirate A&P Assessment and plan (1) 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 Continue to wean down as tolerating. She does on occasion get restless with changes in sedation. There is limitation to being able to increase Precedex further due to bradycardia. She does get tachypneic on occasion. Continue fentanyl. Continue Precedex at this time. We will add Ativan pushes as needed. Continue AmBisome at this time - continue for at least 2 wks if poss due to high risk of failure with other regimens, to then step down to itraconazole. Methylprednisolone. Mechanical ventilatory support. Appreciate nephrology assessment with regards to acute kidney injury which looks a little bit better today. With BUN elevation Hemoccult has been requested as well, although not yet collected. Having bowel movements, not noted to have hematochezia or melena. 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 Updated and discussed with her son. Status: Acute (2) Cardiogenic shock: Resolved Status: Acute (3) ARDS (adult respiratory distress syndrome): Pulmonology assessment appreciated. FiO2 had to be increased to 60%. Continue to wean down sedation as tolerating. She appears in negative balance, but I&O's not accurate per discussion with nursing staff. Will be adjusted. As above. Status: Acute (4) Pneumonia: As above. Status: Acute Qualifiers: Aspiration pneumonia type: unspecified Laterality: right Lung location: lower lobe of lung Pneumonia type: aspiration pneumonia Qualified Code(s): J69.0 - Pneumonitis due to inhalation of food and vomit (5) New onset a-fib: Continue amiodarone. Status: Acute (6) Mitral regurgitation: Mild Status: Acute Qualifiers: Cardiac valve disease etiology: etiology unspecified Qualified Code(s): I34.0 - Nonrheumatic mitral (valve) insufficiency (7) Cardiogenic pulmonary edema: Status: Acute (8) Acute kidney injury: Stable - Resolved. Resolved Noted rising BUN. Metabolic alkalosis. Hold additional diuresis. Status: Acute (9) Hyperkalemia: Resolved. Status: Acute (10) Hyponatremia: Resolved. Status: Acute (11) Acute respiratory failure with hypoxia: Additional endotracheal cultures. Status: Acute Additional A&P Information HTN Hypothyroidism Attestations Medical Necessity Statement*: Continue admission for assessment management of hypoxic respiratory failure with pulmonary histoplasmosis with ARDS. Coding Level of Care Code Acute Flux Plant Operator for Chg Fwd Diagnoses Histoplasmosis B39.9 Cardiogenic shock R57.0 ARDS (adult respiratory distress syndrome) J80 Pneumonia J69.0 Aspiration pneumonia type: unspecified Laterality: right Lung location: lower lobe of lung Pneumonia type: aspiration pneumonia New onset a-fib I48.91 Mitral regurgitation I34.0 Cardiac valve disease etiology: etiology unspecified Cardiogenic pulmonary edema I50.1 Acute kidney injury N17.9 Hyperkalemia E87.5 Hyponatremia E87.1 Acute respiratory failure with hypoxia J96.01
[2021-02-03] MEDS: metoprolol tartrate 25 mg Tablet PO ×2 (09:14→19:55)
--- NOTE | 2021-02-03 09:48 | PC.SOCIAL ---
IMM NOT GIVEN IMM not updated due to patient being intubated at this time.
--- NOTE | 2021-02-03 11:30 | PC.OT ---
Patient not responsive enough to participate in occupational therapy session. PROM performed on elbow, wrist, and hand.
--- NOTE | 2021-02-03 12:12 | CT_ITS ---
WS: [id number] CT HEAD TECHNIQUE: Noncontrast CT of the head obtained from the skullbase to the vertex. CLINICAL INFORMATION: altered neuro status COMPARISON: None. DLP: 869.[address] scans at [facility] use at least one of these dose optimization techniques: automat ed exposure control; mA and/or kV adjustment per patient size (includes targeted exams where dose is matched to clinical indication); or iterative reconstruction. FINDINGS: No evidence of intracranial hemorrhage or mass effect. Ventricular system and basal cisterns are camacho nt. Mild small vessel changes with mild parenchymal volume loss. No extra-axial fluid collections. No evidence of mass or mass effect. Normal beasley-white differentiation. Opacification mastoid air cells bilaterally. Fluid within the left maxillary sinus and left sphenoid sinus. CT/CT head wo con* [id number] IMPRESSION: 1. No evidence of intracranial hemorrhage or mass effect. 2. Mild small vessel changes. Mild parenchymal volume loss. 3. Opacification of the mastoid air cells bilaterally. 4. Secretions within left maxillary sinus and left sphenoid sinus. 5. No acute intracranial findings.
--- NOTE | 2021-02-03 12:15 | XR_ITS ---
WS: [id number] Portable AP upright chest, 02/03/2021 Clinical Data: follow up Comparison: Portable chest, 02/01/2021. Findings: The endotracheal tube and nasogastric tube remain in the same position. The bilateral patch y opacities throughout both lungs have not changed. The heart size is normal. Monitor leads on the ch est wall. There are orthopedic anchors in the right glenoid and right humeral head. XR/XR chest 1V portable [id number] Impression: 1. No change in position of multiple tubes. 2. No change in patchy bilateral opacities of the lungs.
[2021-02-03] MEDS: LORazepam 2 mg/mL INJ 1 mL 1 MG IVP ×2 (13:08→18:52)
--- NOTE | 2021-02-03 13:29 | P.CONIM_ITS ---
Providers/Reason For Consult Consulting Physician/Specialty*: Sydni Gonzalez DO, telenephrology Reason for Consult*: HAKEEM, metabolic alkalosis Attending Physician: Baldemar Wood Primary Care Provider: Clayton Umana DO History of Present Illness History of Present Illness Hamida Saha is a 75 year old female treated for histoplasmosis, ards, VDRF, cardiogenic shock. Review of Systems General: Reports: ROS unobtainable due to endotracheal tube and ROS unobtainable due to medical condition Meds/Allergies Home Medications and Allergies Home Medications Medication Instructions Recorded Confirmed Last Taken Type amitriptyline 25 mg PO DAILY 01/11/21 01/11/21 01/10/21 History fluoxetine 40 mg PO DAILY 01/11/21 01/11/21 01/11/21 History levofloxacin 500 mg PO DAILY 01/11/21 01/11/21 01/11/21 History lisinopril 10 mg PO BID 01/11/21 01/11/21 01/11/21 History metoprolol tartrate 25 mg PO BID 01/11/21 01/11/21 01/11/21 History naproxen 500 mg PO BID 01/11/21 01/11/21 01/10/21 History omeprazole 20 mg PO DAILY 01/11/21 01/11/21 01/11/21 History prednisone 40 mg PO DAILY 01/11/21 01/11/21 01/11/21 History tizanidine See Rx Instructions .ROUTE .COMPLEX 01/11/21 01/11/21 01/10/21 History Allergies Allergy/AdvReac Type Severity Reaction Status Date / Time codeine Allergy Intermediate ALGY-Joint Verified 01/11/21 15:09 Pain Penicillins Allergy Intermediate ALGY-Rash Verified 01/11/21 15:09 propoxyphene [From Darvon] Allergy Intermediate Unknown Verified 01/11/21 15:09 Current Medications Current Medications Generic Name Dose Route Start Last Admin Trade Name Freq PRN Reason Stop Dose Admin Acetaminophen 650 mg 01/11/21 18:14 01/26/21 02:18 Acetaminophen 325 Mg Tablet PO 650 mg Q6H PRN Administration Mild/Mod Pain Or Temp >/= 101 Albuterol Sulfate 1 puff 01/11/21 18:14 01/19/21 07:54 Albuterol 8 Gm Mdi INHALATION 1 puff Q4H.RESPIRATORY PRN Administration sob Amiodarone HCl 200 mg 01/29/21 09:00 02/02/21 08:14 Amiodarone 200 Mg Tablet PO 200 mg DAILY OSVALDO Administration Artificial Tears 1 drop 01/29/21 18:05 02/02/21 20:17 Artificial Tears Op Soln 15 Ml Btl EYE-BOTH 1 drop Q4H PRN Administration DRY EYE(S) Artificial Tears 1 applic 01/30/21 21:00 02/02/21 20:17 Artificial Tears Op Oint 3.5 Gm EYE-BOTH 1 applic BEDTIME OSVALDO Administration Budesonide 0.5 mg 01/19/21 20:00 02/03/21 07:34 Budesonide 0.5 Mg/2 Ml Neb INHALATION 0.5 mg BID.RESPIRATORY OSVALDO Administration Bumetanide 1 mg 01/29/21 18:00 01/30/21 05:22 Bumetanide 0.25 Mg/Ml Sdv 4 Ml IV 1 mg Q12H OSVALDO Administration Enoxaparin Sodium 80 mg 01/24/21 19:30 02/03/21 06:41 Enoxaparin 80 Mg/0.8 Ml Syringe SUBCUT 80 mg Q12H OSVALDO Administration Famotidine 20 mg 02/02/21 17:00 02/03/21 05:46 Famotidine 20 Mg/2 Ml Inj IVP 20 mg Q12H OSVALDO Administration Fluoxetine HCl 40 mg 01/18/21 09:00 01/25/21 09:02 Fluoxetine 20 Mg Capsule PO 40 mg DAILY OSVALDO Administration Glycerin 1 each 01/23/21 11:27 01/23/21 14:44 Glycerin Adult Supp OR 1 each DAILY PRN Administration CONSTIPATION Fentanyl 1,000 mcg/ Sodium 100 mls @ 0 mls/hr 01/24/21 17:00 02/03/21 13:07 Chloride IV 75 mcg/hr .Q0M OSVALDO 7.5 mls/hr Administration Protocol Per Protocol Amphotericin B 213 mg/ 250 mls @ 375 mls/hr 01/30/21 20:00 02/02/21 22:20 Dextrose IV Infused Q24H OSVALDO Infusion Dexmedetomidine HCl 400 mcg/ 104 mls @ 0 mls/hr 02/01/21 13:30 02/03/21 08:52 Sodium Chloride IV 0.7 mcg/kg/hr .Q0M OSVALDO 12.99 mls/hr Administration Protocol Per Protocol Levothyroxine Sodium 25 mcg 01/13/21 10:00 02/03/21 05:47 Levothyroxine 25 Mcg Tablet PO 25 mcg QAM OSVALDO Administration Lorazepam 1 mg 02/03/21 09:11 02/03/21 13:08 Lorazepam 2 Mg/Ml Inj 1 Ml IVP 1 mg Q4H PRN Administration ANXIETY Methylprednisolone Sodium Succinate 40 mg 01/30/21 19:00 02/02/21 20:16 Methylprednisolone Sod Succ 40 Mg/Ml Inj IVP 40 mg Q24H OSVALDO Administration Metoprolol Tartrate 25 mg 02/01/21 21:00 02/03/21 09:14 Metoprolol Tartrate 25 Mg Tablet PO 25 mg BID@0900,2100 OSVALDO Administration Pantoprazole Sodium 40 mg 01/26/21 09:00 02/02/21 08:14 Pantoprazole 40 Mg Sdv IVP 40 mg DAILY OSVALDO Administration PFSH Acute PFSH: Medical History CAD (coronary artery disease) Depression with anxiety Hypertension Surgical History History of cholecystectomy History of total hysterectomy Family History Mother CAD (coronary artery disease) Diabetes Hypertension Alzheimer's dementia Father CAD (coronary artery disease) Diabetes Hypertension Dementia Social History Smoking and tobacco status: former smoker Alcohol intake: never Substance/Drug Use: never Vitals/I&O/Wt Last Vital Signs Temp 100.3 F H 02/03/21 12:00 Pulse 95 02/03/21 12:00 Resp 26 H 02/03/21 13:16 BP 149/62 02/03/21 12:00 Pulse Ox 92 02/03/21 13:16 02/02/21 02/03/21 02/03/21 22:59 06:59 14:59 Intake Total 1225.678 / 2610.573 181.530 / 2792.103 550.125 / 550.125 Output Total 1000 / 1250 1500 / 2750 700 / 700 Balance 225.678 / 1360.573 -1318.470 / 42.103 -149.875 / -149.875 Weight last 48 hrs Weight 73.243 kg Weight 72.517 kg Physical Exam Urinary Catheter Management^: Ramirez: Cath Placed During This Visit: yes Reason for Continuing Indwelling Catheter: Accurate Measurement of Urinary Output in Critically Ill Patients Urinary Catheter Date of Insertion: 01/24/21 Urinary Catheter Time of Insertion: 15:29 Data Micro: Micro: Microbiology 02/03/21 09:45 Occult Blood (FIT) - Final Stool - Stool Asp irate 02/02/21 09:47 Gram Stain - Final Sputum - Endotrac heal Tube Aspirate Imaging^: US: Radiologist's impression: Renal ultrasound normal 01/12/21 A&P Additional A&P Information Impression: 1. Rising BUN since 01/28 likely multifactorial, including use of steroids. 2. High urine output off diuretics and mild hypernatremia raises suspicion for diabetes insipidus, but today's urine output appears to be less. 3. Metabolic alkalosis, respiratory acidosis 4. Anemia, rule-out GI blood loss, Hb stable Recommend: will check urine osmolality. Use lowest therapeutic dose of Amphotericin B. Coding Level of Care Code Acute Mechanical Designer for Chg Jocelyne
--- NOTE | 2021-02-03 13:51 | PM.PN ---
Subjective Subjective: Interval history: The patient was seen and examined. She is sedated however she is able to answer simple questions by nodding her head. I was able to come down on her FiO2 to 55% and her oxygen saturations staying above 88%. Chest x-ray obtained today revealed bilateral infiltrate. Her creatinine has come down as well as the BUN had remained stable. Medications: Reviewed: Yes Vitals/I&O/Wt Last Vital Signs Temp 100.3 F H 02/03/21 12:00 Pulse 95 02/03/21 12:00 Resp 26 H 02/03/21 13:16 BP 149/62 02/03/21 12:00 Pulse Ox 92 02/03/21 13:16 02/02/21 02/03/21 02/03/21 22:59 06:59 14:59 Intake Total 1225.678 / 2610.573 181.530 / 2792.103 550.125 / 550.125 Output Total 1000 / 1250 1500 / 2750 700 / 700 Balance 225.678 / 1360.573 -1318.470 / 42.103 -149.875 / -149.875 Weight last 48 hrs Weight 161 lb 7.571 oz Weight 159 lb 13.962 oz Physical Exam Narrative: EXAM NARRATIVE: General: Patient is intubated and sedated, intermittently following simple commands Neck: No JVD Respiratory: Auscultation: Bilateral diffuse crackles better than before, primarily at the lung bases Cardiovascular: Variable first heart sound, no murmur Abdomen: Soft, nontender, nondistended, positive bowel sound Skin: No rash Neuro: Patient is intermittently following commands Urinary Catheter Management^: Ramirez: Cath Placed During This Visit: yes Reason for Continuing Indwelling Catheter: Accurate Measurement of Urinary Output in Critically Ill Patients Urinary Catheter Date of Insertion: 01/24/21 Urinary Catheter Time of Insertion: 15:29 Data : 02/03/21 02:53 02/03/21 02:53 Micro: Microbiology 02/02/21 09:47 Gram Stain - Final Sputum - Endotracheal Tube Aspirate Sputum Culture - Preliminary 02/03/21 09:45 Occult Blood (FIT) - Final Stool - Stool Aspirate Attestation for Other Data: I personally reviewed and interpreted the following: A&P Assessment and plan (1) Histoplasmosis: 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 The only positive test that indicated acute histoplasmosis is urinary antigen. The work-up from bronchoalveolar lavage had been negative. The patient is currently on liposomal amphotericin and Solu-Medrol 40 mg daily. Clinically she is slowly improving. Her oxygen requirement has come down from 75% to 55%. The BUN and creatinine seems to be stable. The patient will continue the amphotericin for the time being with the hope to continue this for 2 weeks followed by itraconazole therapy. Status: Acute (2) ARDS (adult respiratory distress syndrome): The patient is currently on FiO2 of 55%. Patient is currently on volume control with a PEEP of 10. The tidal volume was increased to 420. This has helped with reduction of PCO2 to an acceptable level of 60. We will maintain the minute ventilation between 12 to 13 L. The patient continues to be significantly tachypneic even with sedation on. We will need to obtain a head CT scan and make sure there is no evidence of MANAGER [employer] involvement either by histoplasma or any vascular process. Optimize sedation with Precedex and fentanyl. We will reevaluate the patient regarding future course of action on Saturday. The patient does not have any evidence of superadded bacterial infection at this time. However, if there is any worsening of the clinical condition she will need to be started on antibiotic. Status: Acute (3) New onset a-fib: She is in sinus rhythm. Fully anticoagulated. We will continue with metoprolol. Status: Acute Attestations Medical Necessity Statement*: Will defer to the primary team Coding Level of Care Code Acute Unix Administrator for tianna Casanova Diagnoses Histoplasmosis B39.9 ARDS (adult respiratory distress syndrome) J80 New onset a-fib I48.91
--- NOTE | 2021-02-03 15:35 | PC.NURSE ---
Patient was taken to CT at 1500 with nursing staff and RT. Tolerated well
--- NOTE | 2021-02-03 16:06 | PM.PN ---
Subjective Subjective: Interval history: Patient's overall condition is unchanged from before. Heart rate is controlled. Vitals/I&O/Wt Last Vital Signs Temp 100.3 F H 02/03/21 12:00 Pulse 102 H 02/03/21 14:55 Resp 26 H 02/03/21 15:25 BP 149/62 02/03/21 12:00 Pulse Ox 90 02/03/21 15:25 02/03/21 02/03/21 02/03/21 06:59 14:59 22:59 Intake Total 181.530 / 2792.103 550.125 / 550.125 Output Total 1500 / 2750 700 / 700 Balance -1318.470 / 42.103 -149.875 / -149.875 Weight last 48 hrs Weight 161 lb 7.571 oz Weight 159 lb 13.962 oz Physical Exam Narrative: EXAM NARRATIVE: GENERAL: Patient is intubated NECK: No jugular vein distension. [] HEENT: No cyanosis. No icterus. No pallor. [] HEART: Irregularly irregular, S1 and S2. grade 2/6 systolic murmur, rub or gallop. [] LUNGS: Clear to auscultate bilaterally. [] ABDOMEN: Soft, nontender and nondistended. Positive bowel sounds. No guarding, rebound or tenderness. [] CENTRAL NERVOUS SYSTEM: Grossly nonfocal. [] EXTREMITIES: Lower extremities with 1+ edema bilaterally. Pulses palpable in the lower extremities, both dorsalis pedis and posterior tibial. [] Urinary Catheter Management^: Ramirez: Cath Placed During This Visit: yes Reason for Continuing Indwelling Catheter: Accurate Measurement of Urinary Output in Critically Ill Patients Urinary Catheter Date of Insertion: 01/24/21 Urinary Catheter Time of Insertion: 15:29 Data : 02/06/21 03:40 02/06/21 03:40 Micro: Microbiology 02/02/21 09:47 Gram Stain - Final Sputum - Endotracheal Tube Aspirate Sputum Culture - Preliminary 02/03/21 09:45 Occult Blood (FIT) - Final Stool - Stool Aspirate A&P Assessment and plan (1) Mitral regurgitation: Status: Acute Qualifiers: Cardiac valve disease etiology: etiology unspecified Qualified Code(s): I34.0 - Nonrheumatic mitral (valve) insufficiency (2) Acute respiratory failure: Status: Acute Qualifiers: Respiratory failure complication: hypoxia Qualified Code(s): J96.01 - Acute respiratory failure with hypoxia (3) New onset a-fib: Status: Acute (4) ARDS (adult respiratory distress syndrome): Status: Acute (5) Pneumonia: Status: Acute Qualifiers: Aspiration pneumonia type: unspecified Laterality: right Lung location: lower lobe of lung Pneumonia type: aspiration pneumonia Qualified Code(s): J69.0 - Pneumonitis due to inhalation of food and vomit Patient has acute respiratory failure and is intubated. Underlying etiology likely pneumonia with possibility of pulmonary edema from A. fib with RVR. Rapid ventricular rate is secondary to to lying pneumonia and pulmonary edema. Patient has histoplasma infection and ARDS. Treatment started for it. Conservative management for atrial fibrillation at this time. Patient on oral amiodarone, continue. Patient now on metoprolol. Uptitrate as needed. Continue anticoagulation for stroke prevention. However Hgb continues to drop. Close monitoring of H&H and possible source of bleeding. Not in cardiogenic shock. Blood pressure is stable. Keep holding diuretics. Mitral regurgitation is mild on transthoracic echocardiogram. Will hold off on further work-up for MR. Thank you for involving us with the care of this patient. We will continue to follow. Please call with questions. Attestations Medical Necessity Statement*: Care expected to cross 2 midnights. Coding Level of Care Code Acute Concrete Block Mason for Zay Casanova Diagnoses Mitral regurgitation I34.0 Cardiac valve disease etiology: etiology unspecified Acute respiratory failure J96.01 Respiratory failure complication: hypoxia New onset a-fib I48.91 ARDS (adult respiratory distress syndrome) J80 Pneumonia J69.0 Aspiration pneumonia type: unspecified Laterality: right Lung location: lower lobe of lung Pneumonia type: aspiration pneumonia
--- NOTE | 2021-02-03 18:47 | PC.NURSE ---
Patient has been having labored breathing this shift with use of accessory muscles. PRN medication given with no relief. Respirations in 30's.
--- NOTE | 2021-02-03 19:45 | PC.NURSE ---
Assuming care; Patient resting in bed. Increased work of breathing noted, with great use of accessory muscles noted. Vent settings as follows; 60% FiO2, 420 TV, 25 RR, 10 Peep. 23 @lip. Gtt running as follows; Fentanyl @100mcg/hr, and Precedex @0.7mcg/kg/min. Mar titrated to match found gtt settings on pump (Fentanyl updated from 75mcg/hr to 100mcg/hr). Patient turned and cleaned of fecal incontinence. New optifoam applied to sacrum of stage 2 pressure injury. Rectal tube patent, but includes leak with fully inflated balloon. Fever noted of 101.2 and tx with PO APAP through OG. Patient answered RN questions via head nodding as indicated. Room visible from nurses station. Continuing to monitor.
[2021-02-03] MEDS: acetaminophen 325 mg Tablet 650 MG PO (19:55)
[2021-02-03] MEDS: artificial tears Op Soln 15 mL Btl 1 DROP EYE-BOTH (19:57)
[2021-02-03] MEDS: artificial tears Op Oint 3.5 gm 1 APPLIC EYE-BOTH (19:57)
--- NOTE | 2021-02-03 21:06 | PM.PN ---
Subjective Subjective: Interval history: Infectious disease progress note Remains intubated, sedated hemodynamically stable BUN rising, Cr at 0.9, renal consult today Medications: Reviewed: Yes Vitals/I&O/Wt Last Vital Signs Temp 100.3 F H 02/03/21 12:00 Pulse 104 H 02/03/21 19:36 Resp 29 H 02/03/21 19:38 BP 112/55 02/03/21 17:00 Pulse Ox 88 L 02/03/21 19:38 02/03/21 02/03/21 02/03/21 06:59 14:59 22:59 Intake Total 181.530 / 2792.103 550.125 / 550.125 709 / 1259.125 Output Total 1500 / 2750 700 / 700 525 / 1225 Balance -1318.470 / 42.103 -149.875 / -149.875 184 / 34.125 Weight last 48 hrs Weight 73.243 kg Weight 72.517 kg Physical Exam Urinary Catheter Management^: Ramirez: Cath Placed During This Visit: yes Reason for Continuing Indwelling Catheter: Accurate Measurement of Urinary Output in Critically Ill Patients Urinary Catheter Date of Insertion: 01/24/21 Urinary Catheter Time of Insertion: 15:29 Data : 02/04/21 03:40 02/04/21 03:40 Micro: Microbiology 02/02/21 09:47 Gram Stain - Final Sputum - Endotracheal Tube Aspirate Sputum Culture - Preliminary 02/03/21 09:45 Occult Blood (FIT) - Final Stool - Stool Aspirate A&P Assessment and plan (1) Histoplasmosis: Patient presenting with symptoms of cough dyspnea for 6 weeks prior to admission, with rapidly developing respiratory failure during the course of admission. Currently with ARDS requiring mechanical ventilation. 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 continue liposomal amphotericin B(AmBisome) 3 mg/kg/day (started 01/30-). BUN increasing, Cr trended up to 1.1 however now trending down. Adequate urine output. Continue Ambisome while optimizing hydration. If creatinine worsens or developing oliguric renal failure, may need to switch to itraconazole, however higher risk of treatment failure with the latter option if switched while still with severe disease. Therefore, prefer to continue Ambisome with close monitoring and switch to itraconazole as step down treatment once improving, typically expect 10-14 days. Continue methylprednisolone 0.5 to 1 mg/kg/day until clinically improving ARDS. Will follow Status: Acute (2) ARDS (adult respiratory distress syndrome): Status: Acute (3) Cardiogenic shock: Status: Acute Attestations Medical Necessity Statement*: ongoing need for iv antifungals, ventilatory support for ARDS Coding Level of Care Code Acute Hand Singer for Zay Casanova Diagnoses Histoplasmosis B39.9 ARDS (adult respiratory distress syndrome) J80 Cardiogenic shock R57.0
[2021-02-03 22:22] LABS: ABG PH Result 7.45 (7.35-7.45); Arterial Blood Gas Hematocrit 28.4 % (37-47); Base Excess ABG 12.4 mmol/L (-2.0-2.0); Blood Gas Sample Type Arterial; Carboxyhemoglobin 1.2 %THgb (0.4-20.1); HCO3 ABG 38.1 mmol/L (22-26); HGB O2 Sat 91.9 % (95-100); Ionized Calcium Level - ABG 1.3 mmol/L (1.1-1.4); Methemoglobin 0.2 % (0.4-1.5); Oxygen Saturation ABG 93.1; PO2 ABG 64.2 mmHg (80.0-100.0); Potassium Level - ABG 3.9 mmol/L (3.5-5.0); Total Hemoglobin 9.3 g/dL (12-16)
[2021-02-03 22:23] LABS: Alveolar-Arterial Oxygen Gradi 38.7 mmHg (5-10); Blood Gas Sample Site Brachial, right; Blood Gas Tidal Volume 0.42; Oxygen Device VENT
[2021-02-04] VITALS (37 sets, daily range): BP systolic 92–186; BP diastolic 52–88; PULSE 68–102; RESP 24–32; TEMP 37.1–37.5; O2SAT 88–99
[2021-02-04] MEDS: dexmedetomidine 400 MCG in sodium chloride 0.9% (100 ml) 100 ML 12.99 MCG IV ×3 (01:10→19:06)
[2021-02-04 03:52] LABS: Basophils # 0.1 10^3/uL (0.0-0.1); Basophils % 0.3 %; Eosinophils % 0.1 %; Hematocrit 29.5 % (37.0-47.0); Hemoglobin 8.8 g/dL (11.5-15.3); Lymphocytes % 4.8 %; Mean Corpuscular HGB Conc 29.8 g/dL (30.0-36.0); Mean Corpuscular Hemoglobin 29.2 pg (28.0-34.0); Mean Platelet Volume 10.5 fL (7.4-10.4); Monocytes # 0.8 10^3/uL (0.2-0.9); Neutrophils # 17.78 10^3/uL (1.8-7.7); Neutrophils % 88.8 %; Nucleated Red Blood Cells % 0 %; Platelet Count 557 10^3/cmm (130-400); Red Blood Count 3.01 10^6/uL (4.1-5.3); Red Cell Distribution Width 14.6 % (12.1-15.1)
--- NOTE | 2021-02-04 04:35 | PC.NURSE ---
Continued increased work of breathing noted, with sudden increase and run of HR in 170's noted. SBP increased into 180's. Use of accessory muscle at a constant, and noted with each breath. MD notified of findings. New orders for RT to evaluate vent settings/pt, obtain an ABG, and to report back findings. MD then came to bedside to assess and round on pt. No new orders received at this time.
[2021-02-04 04:36] LABS: Alanine Aminotransferase 13 U/L (0-33); Albumin Level 3.8 g/dL (3.5-5.2); Alkaline Phosphatase 48 IU/L (35-105); Anion Gap 14.3 (5-19); Aspartate Amino Transferase 14 U/L (0-32); Calcium 9.5 mg/dL (8.5-10.5); Carbon Dioxide 34 mmol/L (22-29); Chloride 107 mmol/L (98-107); Glucose 206 mg/dL (65-115); Osmolality Calculated 342 mOsm/kg (285-295); Potassium 4.3 mmol/L (3.5-5.1); Sodium 151 mmol/L (136-145); Total Bilirubin 0.3 mg/dL (0.15-1.2); Total Protein 6.8 g/dL (6.6-8.7)
[2021-02-04 04:49] LABS: Blood Urea Nitrogen 81 mg/dL (8-23)
[2021-02-04] MEDS: famotidine 20 mg/2 mL INJ IVP ×2 (05:59→16:27)
[2021-02-04] MEDS: LORazepam 2 mg/mL INJ 1 mL 1 MG IVP ×2 (06:15→10:58)
[2021-02-04] MEDS: enoxaparin 80 mg/0.8 mL Syringe SUBCUT ×2 (06:15→19:00)
[2021-02-04] MEDS: levothyroxine 25 mcg Tablet PO (06:16)
[2021-02-04] MEDS: acetaminophen 325 mg Tablet 650 MG PO (06:16)
--- NOTE | 2021-02-04 06:34 | PC.NURSE ---
Shift Summary; Patient has struggled throughout shift. Increased work of breathing with accessory muscle use. RT and RN found patient began to gasp around ET tube, and what appeared to be auto peeping. SPO2 fluctuations between 84-91% as of this early AM. MD on unit when work of breathing became even more labored. PRN medications given in attempts to decrease any anxiety or patient struggle against ET tube/vent settings. RR ranging from between 30'-40's. Temps tx with PRN APAP via OG tube. Personal hygiene completed on multiple occasions with need. No other new orders received. Gtt remain at Fent @100mcg/hr, and Precedex@ 0.7. 1900 u/o. Report given to onckeshav huynh RN
--- NOTE | 2021-02-04 07:54 | XRR_ITS ---
PROCEDURE INFORMATION: Exam: XR Chest Exam date and time: 02/04/2021 7:54 AM Age: 75 years old Clinical indication: Shortness of breath; Additional info: Hypoxia TECHNIQUE: Imaging protocol: XR of the chest. Views: 1 view. COMPARISON: CR XR chest 1V portable [id number] 02/03/2021 12:28 PM FINDINGS: Tubes, catheters and devices: Endotracheal tube in proper positioning above the alexa. Lungs: Similar diffuse patulous consolidations throughout both lungs. Pleural spaces: No evident pleural effusion/pneumothorax. Heart/Mediastinum: No mediastinal shift. No cardiomegaly. Bones/joints: Osseous structures are intact. Artifact from patient's hair projecting over the thoracic inlet and lower cervical soft tissues versus extensive subcutaneous emphysema in these regions. XR/XR chest 1V portable [id number] IMPRESSION: Similar radiographic appearance of extensive bilateral consolidations. Endotracheal tube in expected positioning.
[2021-02-04] MEDS: metoprolol tartrate 25 mg Tablet PO (08:30)
[2021-02-04] MEDS: budesonide 0.5 mg/2 mL Neb INHALATION ×2 (08:45→20:58)
--- NOTE | 2021-02-04 09:32 | PM.PN ---
Subjective Subjective: Interval history: Last night she spiked a fever. Overnight tube feeds, water flushes were discontinued due to concern that her breathing pattern had changed. Sedation was maintained. Medications: Reviewed: Yes Vitals/I&O/Wt Last Vital Signs Temp 99 F 02/04/21 07:00 Pulse 94 02/04/21 09:00 Resp 28 H 02/04/21 08:48 BP 127/70 02/04/21 09:00 Pulse Ox 89 L 02/04/21 09:00 02/03/21 02/04/21 02/04/21 22:59 06:59 14:59 Intake Total 1112.708 / 1662.833 172.188 / 1835.021 Output Total 725 / 1425 1700 / 3125 Balance 387.708 / 237.833 -1527.812 / -1289.979 Weight last 48 hrs Weight 75.659 kg Weight 73.243 kg Physical Exam Const: COMMON NORMALS: no acute distress OTHER: Sedated. Not in distress. HENMT: COMMON NORMALS: oropharynx normal Neck/C-Spine: COMMON NORMALS: no JVD Resp: COMMON NORMALS: normal respiratory effort EFFORT & INSPECTION: Yes tachypneic AUSCULTATION: rales bilateral at the base (coarse) Cardio: COMMON NORMALS: no JVD, regular rhythm, S1 normal heart sound present, S2 normal heart sound present and No murmurs present (Cardio) RHYTHM: regular rhythm HEART SOUNDS: S1 normal heart sound present and S2 normal heart sound present GI: COMMON NORMALS: Normal to inspection, nondistended, normoactive bowel sounds present, Soft to palpation and non-tender PALPATION: Yes Soft to palpation Extremity: COMMON NORMALS: no joint enlargement and no pedal edema Neuro: COMMON NORMALS: moves all extremities Skin: COMMON NORMALS: no rashes or lesions noted GENERAL SKIN EXAM: no rashes or lesions noted Urinary Catheter Management^: Ramirez: Cath Placed During This Visit: yes Reason for Continuing Indwelling Catheter: Accurate Measurement of Urinary Output in Critically Ill Patients Urinary Catheter Date of Insertion: 01/24/21 Urinary Catheter Time of Insertion: 15:29 Data : 02/04/21 03:40 02/04/21 03:40 Micro: Microbiology 02/02/21 09:47 Gram Stain - Final Sputum - Endotracheal Tube Aspirate Sputum Culture - Preliminary 02/03/21 09:45 Occult Blood (FIT) - Final Stool - Stool Aspirate A&P Assessment and plan (1) Histoplasmosis: Pulmonary spondylosis with ARDS. Overnight noted change in breathing pattern, tachypnea, tachycardic. Tube feeds, oral flushes were held. She still somewhat tachypnea, in the mid to high 20s, tachycardia has improved. 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 FiO2 actually increased slightly from 55% to 60%. Resume workforce, tube feeds, will give her gentle hydration with close monitoring low rate D5 unless nephrology prefers another fluid. Repeat chest x-ray today to assess for any focal opacity. Given fever last night, tachypnea, tachycardia, worsening of leukocytosis up to 20,000, will empirically cover with antibiotics. Collect endotracheal culture. Continue AmBisome at this time - continue for at least 2 wks if poss due to high risk of failure with other regimens, to then step down to itraconazole. Methylprednisolone. Mechanical ventilatory support. Appreciate nephrology assessment with regards to acute kidney injury which looks a little bit better today. With BUN elevation Hemoccult has been requested as well, although not yet collected. Having bowel movements, not noted to have hematochezia or melena. 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 Updated and discussed with her son. Status: Acute (2) ARDS (adult respiratory distress syndrome): As above. Status: Acute (3) Cardiogenic shock: Resolved Status: Acute (4) Pneumonia: As above. Status: Acute Qualifiers: Aspiration pneumonia type: unspecified Laterality: right Lung location: lower lobe of lung Pneumonia type: aspiration pneumonia Qualified Code(s): J69.0 - Pneumonitis due to inhalation of food and vomit (5) New onset a-fib: Continue amiodarone. Status: Acute (6) Mitral regurgitation: Mild Status: Acute Qualifiers: Cardiac valve disease etiology: etiology unspecified Qualified Code(s): I34.0 - Nonrheumatic mitral (valve) insufficiency (7) Cardiogenic pulmonary edema: Status: Acute (8) Acute kidney injury: Stable - Resolved. Resolved Noted rising BUN. Metabolic alkalosis. Hold additional diuresis. Status: Acute (9) Hyperkalemia: Resolved. Status: Acute (10) Hyponatremia: Resolved. Status: Acute (11) Acute respiratory failure with hypoxia: Additional endotracheal cultures. Status: Acute Additional A&P Information HTN Hypothyroidism Attestations Medical Necessity Statement*: Continue admission for cyst management of hypoxic respiratory failure, ARDS with pulmonary histoplasmosis, possible superimposed bacterial infection with worsening of condition. Coding Level of Care Code Acute Rubber Grinder for Chg Fwd Diagnoses Histoplasmosis B39.9 ARDS (adult respiratory distress syndrome) J80 Cardiogenic shock R57.0 Pneumonia J69.0 Aspiration pneumonia type: unspecified Laterality: right Lung location: lower lobe of lung Pneumonia type: aspiration pneumonia New onset a-fib I48.91 Mitral regurgitation I34.0 Cardiac valve disease etiology: etiology unspecified Cardiogenic pulmonary edema I50.1 Acute kidney injury N17.9 Hyperkalemia E87.5 Hyponatremia E87.1 Acute respiratory failure with hypoxia J96.01
--- NOTE | 2021-02-04 09:36 | P.PN_ITS ---
Subjective Subjective: Interval history: remains intubated Medications: Reviewed: Yes Vitals/I&O/Wt Last Vital Signs Temp 99 F 02/04/21 07:00 Pulse 94 02/04/21 09:00 Resp 28 H 02/04/21 08:48 BP 127/70 02/04/21 09:00 Pulse Ox 89 L 02/04/21 09:00 02/03/21 02/04/21 02/04/21 22:59 06:59 14:59 Intake Total 1112.708 / 1662.833 172.188 / 1835.021 Output Total 725 / 1425 1700 / 3125 Balance 387.708 / 237.833 -1527.812 / -1289.979 Weight last 48 hrs Weight 75.659 kg Weight 73.243 kg Physical Exam Const: COMMON NORMALS: no acute distress Resp: AUSCULTATION: crackles Cardio: COMMON NORMALS: regular rate RATE: regular rate Extremity: COMMON NORMALS: no pedal edema Urinary Catheter Management^: Ramirez: Cath Placed During This Visit: yes Reason for Continuing Indwelling Catheter: Accurate Measurement of Urinary Output in Critically Ill Patients Urinary Catheter Date of Insertion: 01/24/21 Urinary Catheter Time of Insertion: 15:29 Data : 02/04/21 03:40 02/04/21 03:40 Micro: Microbiology 02/02/21 09:47 Gram Stain - Final Sputum - Endotracheal Tube Aspirate Sputum Culture - Preliminary 02/03/21 09:45 Occult Blood (FIT) - Final Stool - Stool Aspirate A&P Additional A&P Information Impression: 1. Hypernatremia, likely due to voume depletion 2. Rising BUN since 01/28 likely multifactorial, including use of steroids. 3. Metabolic alkalosis, respiratory acidosis 4. Anemia, rule-out GI blood loss, Hb stable 5. Histoplasmosis, ARDS, VDRF, sepsis Recommend: IVF .45 NSS, repeat serum sodium later today Attestations Medical Necessity Statement*: see above Time Spent in Patient Care: 16 - 35 minutes Coding Level of Care Code Acute Fiberglass Grinder for Chg Fwd Exam Expanded Problem Focused
[2021-02-04] MEDS: sodium chloride 0.45% 1,000 ML 100 ML IV ×2 (09:46→19:00)
[2021-02-04] MEDS: levofloxacin-dextrose 5 % 750 MG/150 ML PREMIX 100 MG IV (09:54)
[2021-02-04] MEDS: vancomycin 1,000 MG in sodium chloride 0.9% 250 ML 250 MG IV (11:23)
--- NOTE | 2021-02-04 11:41 | PM.PN ---
Subjective Subjective: Interval history: Infectious disease progress note Chart reviewed, care plan discussed with primary team Overnight Tmax to 101F, WBC trending up to 20K Vent settings at 60% fi02, PEEP 10, sp02 80-91% Hypernatremia 151, Cr stable 0.9 , BUN trending down CXR unchanged Medications: Reviewed: Yes Vitals/I&O/Wt Last Vital Signs Temp 99 F 02/04/21 07:00 Pulse 94 02/04/21 09:00 Resp 32 H 02/04/21 10:24 BP 127/70 02/04/21 09:00 Pulse Ox 89 L 02/04/21 10:24 02/03/21 02/04/21 02/04/21 22:59 06:59 14:59 Intake Total 1112.708 / 1662.833 172.188 / 1835.021 354 / 354 Output Total 725 / 1425 1700 / 3125 Balance 387.708 / 237.833 -1527.812 / -1289.979 354 / 354 Weight last 48 hrs Weight 75.659 kg Weight 73.243 kg Physical Exam Urinary Catheter Management^: Ramirez: Cath Placed During This Visit: yes Reason for Continuing Indwelling Catheter: Accurate Measurement of Urinary Output in Critically Ill Patients Urinary Catheter Date of Insertion: 01/24/21 Urinary Catheter Time of Insertion: 15:29 Data : 02/04/21 03:40 02/04/21 03:40 Micro: Microbiology 02/02/21 09:47 Gram Stain - Final Sputum - Endotracheal Tube Aspirate Sputum Culture - Preliminary 02/03/21 09:45 Occult Blood (FIT) - Final Stool - Stool Aspirate Coding Level of Care Code Acute Membership Coordinator for Zay Casanova
--- NOTE | 2021-02-04 11:44 | PM.PN ---
Subjective Subjective: Interval history: Infectious Disease progress note Chart reveiwed, care plan discussed with hospitalist Overnight Tmax 101F , WBC 20K Vent settings fi02 60%, PEEP 10, spo2 89-91% , CXR unchanged hemodynamics stable hypernatremia 151, cr stable 0.8 , urine output ~2L , Medications: Reviewed: Yes Vitals/I&O/Wt Last Vital Signs Temp 99 F 02/04/21 07:00 Pulse 94 02/04/21 09:00 Resp 32 H 02/04/21 10:24 BP 127/70 02/04/21 09:00 Pulse Ox 89 L 02/04/21 10:24 02/03/21 02/04/21 02/04/21 22:59 06:59 14:59 Intake Total 1112.708 / 1662.833 172.188 / 1835.021 354 / 354 Output Total 725 / 1425 1700 / 3125 Balance 387.708 / 237.833 -1527.812 / -1289.979 354 / 354 Weight last 48 hrs Weight 75.659 kg Weight 73.243 kg Physical Exam Urinary Catheter Management^: Ramirez: Cath Placed During This Visit: yes Reason for Continuing Indwelling Catheter: Accurate Measurement of Urinary Output in Critically Ill Patients Urinary Catheter Date of Insertion: 01/24/21 Urinary Catheter Time of Insertion: 15:29 Data : 02/04/21 03:40 02/04/21 03:40 Micro: Microbiology 02/02/21 09:47 Gram Stain - Final Sputum - Endotracheal Tube Aspirate Sputum Culture - Preliminary 02/03/21 09:45 Occult Blood (FIT) - Final Stool - Stool Aspirate A&P Assessment and plan (1) Histoplasmosis: Patient presenting with symptoms of cough dyspnea for 6 weeks prior to admission, with rapidly developing respiratory failure during the course of admission. Currently with ARDS requiring mechanical ventilation. 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 continue liposomal amphotericin B(AmBisome) 3 mg/kg/day (started 01/30-). Cr stable thus far, elevated BUN noted, trending down with hydration Closely monitor renal function, electrolytes, maintain adequate hydration. Increase steroids to 1mg/kg daily from current 0.5mg/kg/d given increasing oxygen requirements Repeat CXR Will follow Status: Acute (2) ARDS (adult respiratory distress syndrome): As above Status: Acute (3) Sepsis: Fever, leukocytosis trending up Evaluate for additional bacterial infections Stat Blood cx, Change Ramirez (placed 01/24), obtain UA and urine cx from new Ramirez, Repeat CXR ordered, Sputum cx with GPC clusters pending identification, Remove CVC Femoral line(placed 01/24) and obtain alternate peripheral iv access, Check C diff Agree with empiric Levaquin and Iv vancomycin while undergoing sepsis w/up Status: Acute Qualifiers: Sepsis type: sepsis due to unspecified organism Sepsis acute organ dysfunction status: with acute organ dysfunction Severe sepsis acute organ dysfunction type: acute respiratory failure Acute respiratory failure type: with hypoxia Severe sepsis shock status: without septic shock Qualified Code(s): A41.9 - Sepsis, unspecified organism; R65.20 - Severe sepsis without septic shock; J96.01 - Acute respiratory failure with hypoxia Additional A&P Information Will follow Attestations Medical Necessity Statement*: ongoing need for iv antifungals, iv abx, ventilatory support Coding Level of Care Code Acute Strategic Consultant for [facility] Diagnoses Histoplasmosis B39.9 ARDS (adult respiratory distress syndrome) J80 Sepsis A41.9; R65.20; J96.01 Sepsis type: sepsis due to unspecified organism Sepsis acute organ dysfunction status: with acute organ dysfunction Severe sepsis acute organ dysfunction type: acute respiratory failure Acute respiratory failure type: with hypoxia Severe sepsis shock status: without septic shock
--- NOTE | 2021-02-04 12:24 | PC.OT ---
Occupational therapy withheld per nursing
[2021-02-04 13:31] LABS: Bacteria Urine 1+ /hpf; Bilirubin Urine 1+ (Negative); Blood Urine Neg (Negative); Glucose Urine UA Norm (Normal); Ketones Urine Negative (Negative); Leukocyte Esterase Urine Negative (Negative); Nitrate Urine Negative (Negative); Protein Urine Neg (Negative); Specific Gravity, Urine 1.015 (1.005-1.030); Squamous Epithelial Cell Urine 0-4 /hpf (0-5); Urine Appearance Clear (CLEAR); Urine Color Dark Yellow (Yellow); Urobilinogen Urine 1 mg/dL (Negative); WBC Urine 0-4 /hpf (0-5); pH Urine 5 (5-7)
[2021-02-04 13:32] LABS: Add Urine Culture? No
--- NOTE | 2021-02-04 15:02 | XRR_ITS ---
PROCEDURE INFORMATION: Exam: XR Chest Exam date and time: 02/04/2021 3:02 PM Age: 75 years old Clinical indication: Device placement; Patient HX: R picc line placement TECHNIQUE: Imaging protocol: XR of the chest. Views: 1 view. COMPARISON: CR (CHEST, ) 02/04/2021 1:02 PM FINDINGS: Tubes, catheters and devices: Endotracheal tube in proper position above the alexa. Enteric tube with side port projecting at the gastroesophageal junction. Right PICC line terminates within the mid SVC. Lungs: Similar diffuse patulous consolidations within the lungs. Pleural spaces: No evident pneumothorax/pleural effusion. Heart/Mediastinum: Unremarkable. No cardiomegaly. Bones/joints: Osseous structures are intact. Redemonstrated findings of artifact from patient's hair versus extensive subcutaneous emphysema centered throughout the lower cervical soft tissues and upper chest wall. XR/XR chest 1V portable [id number] IMPRESSION: 1. Right PICC line insertion terminates within the mid SVC. 2. Enteric tube with side port terminating in the region of the gastroesophageal junction. Recommend advancement for proper positioning within the stomach. 3. Otherwise, no significant interval change from prior study.
[2021-02-04 17:53] LABS: Calcium 8.6 mg/dL (8.5-10.5); Carbon Dioxide 31 mmol/L (22-29); Chloride 106 mmol/L (98-107); Glucose 181 mg/dL (65-115); Osmolality Calculated 337 mOsm/kg (285-295); Sodium 147 mmol/L (136-145)
[2021-02-04 17:59] LABS: Anion Gap 14.7 (5-19); Potassium 4.7 mmol/L (3.5-5.1)
[2021-02-04 18:00] LABS: Blood Urea Nitrogen 91 mg/dL (8-23)
--- NOTE | 2021-02-04 19:09 | PC.NUTR ---
TF follow up: Current orders for Jevity 1.2 @ 40 ml/hr, with 400 ml H2O flushes q 6 hrs, providing 1152 kcal, 53 g protein, 2375 ml fluid. Additional kcal received from medications in dextrose. TF not currently meeting estimated nutritional needs, nor protein needs for wound healing, however will not recommend increase at this time given worsening status and possible aspiration per nurse. Notified Dr. Wood of nurse report, as well as wt gain and current fluid provision. See RD assessments for further details.
[2021-02-05] VITALS (31 sets, daily range): BP systolic 101–145; BP diastolic 49–71; PULSE 57–93; RESP 25–33; TEMP 36.4–36.6; O2SAT 90–959
[2021-02-05] MEDS: vancomycin 1,000 MG in sodium chloride 0.9% 250 ML 250 MG IV (03:39)
[2021-02-05] MEDS: dexmedetomidine 400 MCG in sodium chloride 0.9% (100 ml) 100 ML 12.99 MCG IV ×4 (04:01→20:48)
[2021-02-05] MEDS: famotidine 20 mg/2 mL INJ IVP ×2 (04:24→17:36)
--- NOTE | 2021-02-05 04:52 | XRR_ITS ---
PROCEDURE INFORMATION: Exam: XR Chest Exam date and time: 02/05/2021 4:52 AM Age: 75 years old Clinical indication: Condition or disease; Other: Subq empysema TECHNIQUE: Imaging protocol: XR of the chest. Views: 1 view. COMPARISON: CR XR chest 1V portable [id number] 02/04/2021 3:10 PM FINDINGS: Tubes, catheters and devices: An endotracheal tube is placed with its tip approximately 3.8 cm from the alexa. PICC line is placed via the right upper extremity with its tip at the level the superior vena cava. A nasogastric tube is present with its tip at least in the proximal stomach. EKG leads overlie the chest. Lungs: Bilateral interstitial opacities are present similar those seen in yesterday's examination. Pleural spaces: Unremarkable. No pleural effusion. No pneumothorax. Heart/Mediastinum: Unremarkable. No cardiomegaly. Bones/joints: Unremarkable. Soft tissues: There is subcutaneous emphysema seen along the neck base and shoulders as well as along the chest wall bilaterally, right more prominent than left. XR/XR chest 1V portable [id number] IMPRESSION: 1. There is little change in the appearance of the chest compared with yesterday's examination. 2. Stable positioning of life support tubing.
[2021-02-05] MEDS: levothyroxine 25 mcg Tablet PO (05:01)
[2021-02-05 05:10] LABS: Basophils # 0.1 10^3/uL (0.0-0.1); Basophils % 0.3 %; Eosinophils # 0.2 10^3/uL (0.0-0.8); Eosinophils % 1.1 %; Hematocrit 24.7 % (37.0-47.0); Hemoglobin 7.4 g/dL (11.5-15.3); Lymphocytes # 0.9 10^3/uL (0.8-4.8); Lymphocytes % 5.9 %; Mean Corpuscular Hemoglobin 29.2 pg (28.0-34.0); Mean Corpuscular Volume 97.6 fL (81-99); Mean Platelet Volume 10.5 fL (7.4-10.4); Monocytes % 6.6 %; Neutrophils # 12.47 10^3/uL (1.8-7.7); Neutrophils % 83.9 %; Nucleated Red Blood Cells % 0 %; Platelet Count 372 10^3/cmm (130-400); Red Blood Count 2.53 10^6/uL (4.1-5.3); Red Cell Distribution Width 14.4 % (12.1-15.1); White Blood Count 14.9 10^3/uL (4.0-10.0)
[2021-02-05 05:37] LABS: Alanine Aminotransferase 20 U/L (0-33); Albumin Level 2.8 g/dL (3.5-5.2); Alkaline Phosphatase 54 IU/L (35-105); Anion Gap 12.8 (5-19); Aspartate Amino Transferase 25 U/L (0-32); Calcium 8.3 mg/dL (8.5-10.5); Carbon Dioxide 30 mmol/L (22-29); Chloride 108 mmol/L (98-107); Glucose 159 mg/dL (65-115); Osmolality Calculated 333 mOsm/kg (285-295); Potassium 4.8 mmol/L (3.5-5.1); Sodium 146 mmol/L (136-145); Total Bilirubin 0.2 mg/dL (0.15-1.2); Total Protein 5.8 g/dL (6.6-8.7)
[2021-02-05 05:51] LABS: Blood Urea Nitrogen 89 mg/dL (8-23)
[2021-02-05] MEDS: enoxaparin 80 mg/0.8 mL Syringe SUBCUT ×2 (08:02→18:33)
--- NOTE | 2021-02-05 08:36 | P.PN_ITS ---
Subjective Subjective: Interval history: remains intubated, 70% FIO2 Medications: Reviewed: Yes Vitals/I&O/Wt Last Vital Signs Temp 98.8 F 02/04/21 12:00 Pulse 57 L 02/05/21 06:00 Resp 25 H 02/05/21 06:13 BP 103/49 02/05/21 04:00 Pulse Ox 959 H 02/05/21 06:13 02/04/21 02/05/21 02/05/21 22:59 06:59 14:59 Intake Total 1377.333 / 7919.237 6273 / 3435.333 14.7 / 14.7 Output Total 350 / 550 1000 / 1550 Balance 1027.333 / 1431.333 454 / 1885.333 14.7 / 14.7 Weight last 48 hrs Weight 78.953 kg Weight 75.659 kg Physical Exam Urinary Catheter Management^: Ramirez: Cath Placed During This Visit: yes, but has since been removed by the nurse Reason for Continuing Indwelling Catheter: Accurate Measurement of Urinary Output in Critically Ill Patients Urinary Catheter Date of Insertion: 02/04/21 Urinary Catheter Time of Insertion: 12:52 Date Urinary Catheter Removed: 02/04/21 Time Urinary Catheter Discontinued: 12:49 Data : 02/05/21 04:40 02/05/21 04:40 Micro: Microbiology 02/04/21 16:55 Blood Culture - Preliminary Blood SPECIMEN COLLECTED 02/04/21 16:57 Blood Culture - Preliminary Blood SPECIMEN COLLECTED 02/02/21 09:47 Gram Stain - Final Sputum - Endotracheal Tube Aspirate Sputum Culture - Final A&P Additional A&P Information Impression: 1. Hypernatremia, improving with hypotonic hydration 2. Rising BUN since 01/28 likely multifactorial, including use of steroids. 3. Metabolic alkalosis, respiratory acidosis 4. Anemia, rule-out GI blood loss, consider transfusion pRBC 5. Histoplasmosis, ARDS, VDRF, sepsis Recommend: continue IVF, check magnesium, phos Attestations Medical Necessity Statement*: see above Time Spent in Patient Care: 16 - 35 minutes Coding Level of Care Code Acute Senior Product Development Engineer for Zay Casanova
[2021-02-05] MEDS: budesonide 0.5 mg/2 mL Neb INHALATION ×2 (08:54→20:43)
--- NOTE | 2021-02-05 09:13 | PM.PN ---
Subjective Subjective: Interval history: Intubated, sedated, calm. Medications: Reviewed: Yes Vitals/I&O/Wt Last Vital Signs Temp 97.5 F L 02/05/21 08:00 Pulse 71 02/05/21 08:54 Resp 29 H 02/05/21 09:01 BP 106/52 02/05/21 08:00 Pulse Ox 94 02/05/21 09:01 02/04/21 02/05/21 02/05/21 22:59 06:59 14:59 Intake Total 1377.333 / 7729.670 7171 / 3435.333 14.7 / 14.7 Output Total 350 / 550 1000 / 1550 Balance 1027.333 / 1431.333 454 / 1885.333 14.7 / 14.7 Weight last 48 hrs Weight 78.953 kg Weight 75.659 kg Physical Exam Const: COMMON NORMALS: no acute distress OTHER: Sedated. Not in distress. HENMT: COMMON NORMALS: oropharynx normal Neck/C-Spine: COMMON NORMALS: no JVD Resp: COMMON NORMALS: normal respiratory effort EFFORT & INSPECTION: Yes tachypneic (less) AUSCULTATION: rales bilateral at the base (coarse) Cardio: COMMON NORMALS: no JVD, regular rhythm, S1 normal heart sound present, S2 normal heart sound present and No murmurs present (Cardio) RHYTHM: regular rhythm HEART SOUNDS: S1 normal heart sound present and S2 normal heart sound present GI: COMMON NORMALS: Normal to inspection, nondistended, normoactive bowel sounds present, Soft to palpation and non-tender PALPATION: Yes Soft to palpation Extremity: COMMON NORMALS: no joint enlargement and no pedal edema Neuro: COMMON NORMALS: moves all extremities Skin: COMMON NORMALS: no rashes or lesions noted GENERAL SKIN EXAM: no rashes or lesions noted Urinary Catheter Management^: Ramirez: Cath Placed During This Visit: yes, but has since been removed by the nurse Reason for Continuing Indwelling Catheter: Accurate Measurement of Urinary Output in Critically Ill Patients Urinary Catheter Date of Insertion: 02/04/21 Urinary Catheter Time of Insertion: 12:52 Date Urinary Catheter Removed: 02/04/21 Time Urinary Catheter Discontinued: 12:49 Data : 02/05/21 04:40 02/05/21 04:40 Micro: Microbiology 02/04/21 16:00 Catheter Tip Culture - Preliminary Central Line 02/04/21 16:55 Blood Culture - Preliminary Blood SPECIMEN COLLECTED 02/04/21 16:57 Blood Culture - Preliminary Blood SPECIMEN COLLECTED 02/02/21 09:47 Gram Stain - Final Sputum - Endotracheal Tube Aspirate Sputum Culture - Final A&P Assessment and plan (1) 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 Consistently saturating 94%. Hemoglobin 10.2 reduce FiO2. Maintain lower PEEP. Subcutaneous emphysema about the same as yesterday. Involving upper chest, neck. No pneumothorax on repeat chest x-ray this morning. Renal function remains about stable. Creatinine 0.9, BUN 89. Avoid IVF so as to keep lungs compliant. Cautious use of diuretic if needed. Pulmonary histoplasmosis with ARDS. Tolerating TF. Last night report at night before she may have had an episode of regurgitation of tube feeds. Also reports of intermittent positional airleak. No air leak currently. Cuff did have to be reinflated. So far tolerating resumed TF. Improvement in leukocytosis. Follow-up endotracheal culture. Continue AmBisome at this time - continue for at least 2 wks if poss due to high risk of failure with other regimens, to then step down to itraconazole. Methylprednisolone. Mechanical ventilatory support. 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 Leukocytosis with improvement today to 14,000. Follow-up endotracheal culture. Continue AmBisome at this time - continue for at least 2 wks if poss due to high risk of failure with other regimens, to then step down to itraconazole. Methylprednisolone. Mechanical ventilatory support. 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 Could not reach her son for update by phone today. Status: Acute (2) ARDS (adult respiratory distress syndrome): As above. Status: Acute (3) Sepsis: Leukocytosis worse yesterday to 20 leukocytosis worse on 02/04 up to 20,000. Night of 02/03 also febrile 101.2. Appreciate infectious disease recommendations. Blood cultures collected. Ramirez exchanged. Femoral catheter removed, tip sent for culture. Empiric antibiotics were added with Levaquin, vancomycin. So far condition has improved. Leukocytosis down to 14.9. No fever. Status: Acute Qualifiers: Sepsis type: sepsis due to unspecified organism Sepsis acute organ dysfunction status: with acute organ dysfunction Severe sepsis acute organ dysfunction type: acute respiratory failure Acute respiratory failure type: with hypoxia Severe sepsis shock status: without septic shock Qualified Code(s): A41.9 - Sepsis, unspecified organism; R65.20 - Severe sepsis without septic shock; J96.01 - Acute respiratory failure with hypoxia (4) Hypernatremia: Reached out to pharmacy to switch base fluid on infusions to D5 where possible. Status: Acute (5) Pneumonia: As above. Status: Acute Qualifiers: Aspiration pneumonia type: unspecified Laterality: right Lung location: lower lobe of lung Pneumonia type: aspiration pneumonia Qualified Code(s): J69.0 - Pneumonitis due to inhalation of food and vomit (6) New onset a-fib: Continue metoprolol. Off amiodarone. Status: Acute (7) Acute kidney injury: Taken off amiodarone, Protonix switched to famotidine, propofol discontinued in case contributing to acute kidney injury, with transient improvement. Creatinine remains 0.9. BUN remains elevated. Does have Hemoccult positive is also possibility of contribution from slow GI bleed, although we have not noticed any rapid decline in hemoglobin, katie melena or hematochezia. Status: Acute (8) Acute respiratory failure with hypoxia: Additional endotracheal cultures. Status: Acute (9) Anemia: Normocytic, upper normal MCV. Fluctuating with slow decline in overall trend. If decreasing further, transfuse. Hemoccult positive. Switched away from Protonix in case possible kidney injury to famotidine. Continue famotidine IV at this time. Consider endoscopic evaluatoin once she is more stable. Status: Acute (10) Cardiogenic shock: Resolved Status: Acute (11) Cardiogenic pulmonary edema: Resolved, symptoms likely related to above infection. Status: Acute (12) Mitral regurgitation: Mild Status: Acute Qualifiers: Cardiac valve disease etiology: etiology unspecified Qualified Code(s): I34.0 - Nonrheumatic mitral (valve) insufficiency (13) Hyponatremia: Resolved. Status: Acute (14) Hyperkalemia: Resolved. Status: Acute Additional A&P Information HTN Hypothyroidism Attestations Medical Necessity Statement*: Continue admission for assessment management of hypoxic respiratory failure, with pulmonary histoplasmosis, ARDS, sepsis. Coding Level of Care Code Acute Vice President Fixed Income for [facility] Fwd Exam Comprehensive Diagnoses Histoplasmosis B39.9 ARDS (adult respiratory distress syndrome) J80 Sepsis A41.9; R65.20; J96.01 Sepsis type: sepsis due to unspecified organism Sepsis acute organ dysfunction status: with acute organ dysfunction Severe sepsis acute organ dysfunction type: acute respiratory failure Acute respiratory failure type: with hypoxia Severe sepsis shock status: without septic shock Hypernatremia E87.0 Pneumonia J69.0 Aspiration pneumonia type: unspecified Laterality: right Lung location: lower lobe of lung Pneumonia type: aspiration pneumonia New onset a-fib I48.91 Acute kidney injury N17.9 Acute respiratory failure with hypoxia J96.01 Anemia D64.9 Cardiogenic shock R57.0 Cardiogenic pulmonary edema I50.1 Mitral regurgitation I34.0 Cardiac valve disease etiology: etiology unspecified Hyponatremia E87.1 Hyperkalemia E87.5
[2021-02-05] MEDS: levofloxacin-dextrose 5 % 750 MG/150 ML PREMIX 100 MG IV (09:56)
--- NOTE | 2021-02-05 10:17 | PC.SOCIAL ---
IMM NOT GIVEN IMM not updated due to patient being intubated at this time.
--- NOTE | 2021-02-05 10:50 | PC.OT ---
Occupational therapy treatment with held per nursing.
[2021-02-05] MEDS: metoprolol tartrate 25 mg Tablet PO (20:56)
[2021-02-05] MEDS: artificial tears Op Oint 3.5 gm 1 APPLIC EYE-BOTH (20:58)
[2021-02-05 22:28] LABS: Quest SARS-CoV-2 RNA DETECTED (NOT DETECTED)
[2021-02-06] VITALS (37 sets, daily range): BP systolic 92–139; BP diastolic 46–76; PULSE 65–93; RESP 24–35; TEMP 36.7–36.8; O2SAT 90–99
[2021-02-06 03:47] LABS: Basophils % 0.2 %; Eosinophils % 0.2 %; Hematocrit 25.7 % (37.0-47.0); Hemoglobin 7.5 g/dL (11.5-15.3); Lymphocytes # 0.7 10^3/uL (0.8-4.8); Lymphocytes % 3.5 %; Mean Corpuscular HGB Conc 29.2 g/dL (30.0-36.0); Mean Corpuscular Hemoglobin 28.6 pg (28.0-34.0); Mean Corpuscular Volume 98.1 fL (81-99); Mean Platelet Volume 11.1 fL (7.4-10.4); Monocytes # 0.9 10^3/uL (0.2-0.9); Monocytes % 4.9 %; Neutrophils # 17.03 10^3/uL (1.8-7.7); Neutrophils % 88.2 %; Nucleated Red Blood Cells % 0 %; Platelet Count 395 10^3/cmm (130-400); Red Blood Count 2.62 10^6/uL (4.1-5.3); Red Cell Distribution Width 14.4 % (12.1-15.1); White Blood Count 19.3 10^3/uL (4.0-10.0)
[2021-02-06 04:22] LABS: Alanine Aminotransferase 24 U/L (0-33); Alkaline Phosphatase 54 IU/L (35-105); Aspartate Amino Transferase 23 U/L (0-32); Blood Urea Nitrogen 79 mg/dL (8-23); Calcium 8.3 mg/dL (8.5-10.5); Carbon Dioxide 28 mmol/L (22-29); Chloride 106 mmol/L (98-107); Globulin 2.9 g/dL (1.3-4.6); Glucose 228 mg/dL (65-115); Osmolality Calculated 329 mOsm/kg (285-295); Sodium 144 mmol/L (136-145); Total Bilirubin 0.2 mg/dL (0.15-1.2); Total Protein 5.9 g/dL (6.6-8.7)
[2021-02-06 04:26] LABS: Magnesium 2.1 mg/dL (1.7-2.3); Phosphorus 4.8 mg/dL (2.5-4.5)
[2021-02-06] MEDS: dexmedetomidine 400 MCG in sodium chloride 0.9% (100 ml) 100 ML 12.99 MCG IV (05:37)
[2021-02-06] MEDS: levothyroxine 25 mcg Tablet PO (05:38)
[2021-02-06] MEDS: famotidine 20 mg/2 mL INJ IVP ×2 (05:38→18:15)
--- NOTE | 2021-02-06 06:00 | XRR_ITS ---
PROCEDURE INFORMATION: Exam: XR Chest Exam date and time: 02/06/2021 6:00 AM Age: 75 years old Clinical indication: Dyspnea; Additional info: Hypoxia TECHNIQUE: Imaging protocol: XR of the chest. Views: 1 view. COMPARISON: CR (CHEST, ) 02/05/2021 4:49 AM FINDINGS: Tubes, catheters and devices: NG tube terminates in the stomach. Endotracheal tube projects above the level of the alexa. Right upper extremity PICC projects over the SVC. Monitor leads project over the chest wall. Lungs: Bilateral pulmonary infiltrates and suspect pleural effusions, no change. Pleural spaces: Suspect right pneumothorax which appears slightly increased compared to prior exam. Small left apical pneumothorax is not excluded. Heart/Mediastinum: Pneumomediastinum. Bones/joints: No acute fracture. Soft tissues: Diffuse subcutaneous emphysema noted in the soft tissues of the neck and chest wall. XR/XR chest 1V portable [id number] IMPRESSION: 1. Pneumomediastinum. 2. Suspect right pneumothorax which appears slightly increased compared to prior exam. Small left apical pneumothorax is not excluded. 3. Bilateral pulmonary infiltrates and suspect pleural effusions, no change.
[2021-02-06] MEDS: enoxaparin 80 mg/0.8 mL Syringe SUBCUT ×2 (08:13→19:12)
[2021-02-06] MEDS: metoprolol tartrate 25 mg Tablet PO (08:13)
[2021-02-06] MEDS: budesonide 0.5 mg/2 mL Neb INHALATION ×2 (08:15→20:45)
--- NOTE | 2021-02-06 09:21 | XR_ITS ---
WS: [id number] XR chest 1V portable [id number] REASON FOR EXAM: chest tube FINDINGS: Compared to the examination of earlier this a.m. a right chest tube has been placed. A right apical p neumothorax persists. Diffuse infiltrative changes in both lungs again noted. There is pneumomediastinum and extensive air in the base of the neck and chest wall bilaterally. The endotracheal tube and right PICC line are properly positioned. XR/XR chest 1V portable [id number] IMPRESSION: Interval right chest tube placement with persistent right apical pneumothorax.
[2021-02-06] MEDS: levofloxacin-dextrose 5 % 750 MG/150 ML PREMIX 100 MG IV (10:02)
[2021-02-06] MEDS: lidocaine 1% INJ 20 mL XX (10:04)
--- NOTE | 2021-02-06 10:05 | PC.OT ---
OT NOTE: OT TREATMENT WITHHELD PER NURSING REQUEST.
--- NOTE | 2021-02-06 10:57 | P.PN_ITS ---
Subjective Subjective: Interval history: Ms Saha remains critically sick in the ICU. Events noted, remains intubated, vented, chest tubes placed today. Currently off intravenous fluid. Urine output remains robust. Minimal extremity edema. Hemodynamics otherwise remained stable. Vitals/I&O/Wt Last Vital Signs Temp 98.0 F 02/06/21 08:00 Pulse 69 02/06/21 09:00 Resp 31 H 02/06/21 08:21 BP 132/71 02/06/21 09:00 Pulse Ox 99 02/06/21 09:00 02/05/21 02/06/21 02/06/21 22:59 06:59 14:59 Intake Total 104 / 281.474 4589 / 2039.381 130 / 130 Output Total 775 / 775 Balance -671 / -915.538 1910 / 1264.381 130 / 130 Weight last 48 hrs Weight 79.435 kg Weight 78.953 kg Physical Exam Narrative: EXAM NARRATIVE: Constitutional: sedated and vented HEENT: Wet mucosa, no jvp, non icteric Lungs: Bilaterally diminished, rales noted per RN CVS: S1 S2, no murmurs Abdo: Soft, BS ok Ext 4: Minimal edema, peripheral perfusion with no cyanosis Neurological: Grossly non-focal Urinary Catheter Management^: Ramirez: Cath Placed During This Visit: yes, but has since been removed by the nurse Reason for Continuing Indwelling Catheter: Accurate Measurement of Urinary Output in Critically Ill Patients Urinary Catheter Date of Insertion: 02/04/21 Urinary Catheter Time of Insertion: 12:52 Date Urinary Catheter Removed: 02/04/21 Time Urinary Catheter Discontinued: 12:49 Data : 02/06/21 03:40 02/06/21 03:40 Micro: Microbiology 02/04/21 16:55 Blood Culture - Preliminary Blood NEGATIVE TO DATE 02/04/21 16:57 Blood Culture - Preliminary Blood NEGATIVE TO DATE 02/04/21 16:00 Catheter Tip Culture - Preliminary Central Line A&P Additional A&P Information 1. HAKEEM Renal function remained stable. Of note BUN is elevated, likely multifactorial, but in itself not indicative of renal failure. Continue to monitor renal function closely while she is critically sick. Defer volume management i.e. diuretic/intravenous fluids to the ICU team. Avoid usual nephrotoxic agents Strict ins and outs 2. Vent dependent respiratory failure Status post chest tube placement this morning Found to be histoplasmosis with ARDS. On AmBisome Vent management per ICU team. 3. Hemodynamics Remains stable Acute renal issues are quiescent, will continue to follow peripherally at this time. If we may be of assistance in her care please not hesitate to give us a call. Erwin Kat MD Nephrology [phone] Patient seen and examined via telemedicine, with the assistance of the bedside RN > 25 min spent in evaluation and mgmt of patient Attestations Medical Necessity Statement*: eval for HAKEEM Coding Level of Care Code Acute Railroad Dining Car Steward/Stewardess for [facility]
--- NOTE | 2021-02-06 12:15 | PM.PN ---
Subjective Subjective: Interval history: Pt seen from doorway and discussed with RN. No exam due to exam by pulm/intesivist this am for chest tube due to COVID positive and hopeful to decrease tramsmission. Vitals/I&O/Wt Last Vital Signs Temp 98.0 F 02/06/21 08:00 Pulse 69 02/06/21 09:00 Resp 31 H 02/06/21 08:21 BP 132/71 02/06/21 09:00 Pulse Ox 99 02/06/21 09:00 02/05/21 02/06/21 02/06/21 22:59 06:59 14:59 Intake Total 104 / 073.990 2602 / 2039.381 228.5 / 228.5 Output Total 775 / 775 Balance -671 / -825.603 7188 / 1264.381 228.5 / 228.5 Weight last 48 hrs Weight 79.435 kg Weight 78.953 kg Physical Exam Narrative: EXAM NARRATIVE: Seen through door. intubated, increased RR, OG in place. otherwise appears comfortable. geller is full of pale urine. Urinary Catheter Management^: Geller: Cath Placed During This Visit: yes, but has since been removed by the nurse Reason for Continuing Indwelling Catheter: Accurate Measurement of Urinary Output in Critically Ill Patients Urinary Catheter Date of Insertion: 02/04/21 Urinary Catheter Time of Insertion: 12:52 Date Urinary Catheter Removed: 02/04/21 Time Urinary Catheter Discontinued: 12:49 Data : 02/06/21 03:40 02/06/21 03:40 Micro: Microbiology 02/04/21 16:00 Catheter Tip Culture - Final Central Line 02/04/21 16:55 Blood Culture - Preliminary Blood NEGATIVE TO DATE 02/04/21 16:57 Blood Culture - Preliminary Blood NEGATIVE TO DATE A&P Assessment and plan (1) Histoplasmosis: On ampho B since 01/30. Status: Acute (2) COVID-19: New Dx on 02/04 (two days ago). Will start remdesivir and change to decadron Pt is s/p ct chest placement by Dr. Abad. RN reports that he mentioned he reports poor prognosis and perhaps we should discuss with family? While he was here for CT placment, scroll machine operator states he is unavailable. She put me through and I left a message. Status: Acute (3) Sepsis: Not on pressure therapy. Pt tolerating sedation. Status: Resolved Qualifiers: Sepsis type: sepsis due to unspecified organism Sepsis acute organ dysfunction status: with acute organ dysfunction Severe sepsis acute organ dysfunction type: acute respiratory failure Acute respiratory failure type: with hypoxia Severe sepsis shock status: without septic shock Qualified Code(s): A41.9 - Sepsis, unspecified organism; R65.20 - Severe sepsis without septic shock; J96.01 - Acute respiratory failure with hypoxia (4) Anemia: Currently hgb 7.5. Will trend. Status: Acute (5) Acute respiratory failure: On vent. 97% on FIO2 of 70%. new pneumothorax left > right and pneumomediastinum. Status: Acute Qualifiers: Respiratory failure complication: hypoxia Qualified Code(s): J96.01 - Acute respiratory failure with hypoxia (6) ARDS (adult respiratory distress syndrome): as above Status: Acute (7) Acute respiratory failure with hypoxia: as above Status: Acute (8) Pneumonia: as above Status: Acute Qualifiers: Aspiration pneumonia type: unspecified Laterality: right Lung location: lower lobe of lung Pneumonia type: aspiration pneumonia Qualified Code(s): J69.0 - Pneumonitis due to inhalation of food and vomit Additional A&P Information Pneumothorax on right Pneumomediastinum Attestations Medical Necessity Statement*: Pt critically ill on mechanical ventilation and new chest tube. Pt requires continued hospitalization. Coding Level of Care Code Acute Earth Moving Technician for [facility] Diagnoses Histoplasmosis B39.9 COVID-19 U07.1 Sepsis A41.9; R65.20; J96.01 Sepsis type: sepsis due to unspecified organism Sepsis acute organ dysfunction status: with acute organ dysfunction Severe sepsis acute organ dysfunction type: acute respiratory failure Acute respiratory failure type: with hypoxia Severe sepsis shock status: without septic shock Anemia D64.9 Acute respiratory failure J96.01 Respiratory failure complication: hypoxia ARDS (adult respiratory distress syndrome) J80 Acute respiratory failure with hypoxia J96.01 Pneumonia J69.0 Aspiration pneumonia type: unspecified Laterality: right Lung location: lower lobe of lung Pneumonia type: aspiration pneumonia
--- NOTE | 2021-02-06 12:53 | PC.NURSE ---
Right chest tube was placed by Dr. Abad and Carmen Taylor RN in patients room. Management of chest tube was assumed by this nurse after placement. It was reported that 50mcg bolus was given to patient during procedure.
--- NOTE | 2021-02-06 13:33 | P.PCN_ITS ---
Procedure/Consent Time out: Time Out Performed: Yes Consent: Consent for Procedure: Emergency procedure Procedure Narrative: Name of the procedure: Right-sided chest tube placement Indication: Right-sided pneumothorax with positive pressure ventilation Medications: Lidocaine 1% 10 mL. Consent: Emergency procedure Description of the procedure: An ultrasound was performed on the right chest and no pleural movement was noted. The patient was positioned in optimal position. The triangle of safety was cleaned using sterile technique. A 3 cm skin incision was made in the triangle of safety parallel to the third rib. The subcutaneous tissue was dissected using blunt dissection technique. The intercostal muscles are also with the help of hemostat. With sudden loss of resistance the right pleural space was entered. A 28 Kinyarwanda chest tube was inserted into the right pleural cavity with the help of a clamp. No trocar was used. The chest tube was secured at 12 cm vicky with 2-0 silk Complications: None. Acute Procedures Epistaxis Control: Time out performed: Yes
[2021-02-06] MEDS: dexamethasone 4 mg/mL INJ 6 MG IVP (13:45)
[2021-02-06] MEDS: remdesivir 200 MG in sodium chloride 0.9% (100 ml) 100 ML 100 MG IV (13:47)
--- NOTE | 2021-02-06 14:27 | P.PN_ITS ---
Subjective Subjective: Interval history: Infectious disease progress note: Interim events since last being evaluated include development of pneumothorax for which she had chest tube placement earlier today. Increasing 02 requirements with Fi02 70%. Last temp on 02/03. Medications: Reviewed: Yes Vitals/I&O/Wt Last Vital Signs Temp 98.0 F 02/06/21 08:00 Pulse 81 02/06/21 14:00 Resp 31 H 02/06/21 13:09 BP 139/71 02/06/21 13:00 Pulse Ox 91 02/06/21 13:09 02/05/21 02/06/21 02/06/21 22:59 06:59 14:59 Intake Total 104 / 119.878 9270 / 2039.381 724.719 / 724.719 Output Total 775 / 775 475 / 475 Balance -671 / -449.530 3308 / 1264.381 249.719 / 249.719 Weight last 48 hrs Weight 79.435 kg Weight 78.953 kg Physical Exam Urinary Catheter Management^: Ramirez: Cath Placed During This Visit: yes, but has since been removed by the nurse Reason for Continuing Indwelling Catheter: Accurate Measurement of Urinary Output in Critically Ill Patients Urinary Catheter Date of Insertion: 02/04/21 Urinary Catheter Time of Insertion: 12:52 Date Urinary Catheter Removed: 02/04/21 Time Urinary Catheter Discontinued: 12:49 Data : 02/06/21 03:40 02/06/21 03:40 Micro: Microbiology 02/04/21 16:00 Catheter Tip Culture - Final Central Line 02/04/21 16:55 Blood Culture - Preliminary Blood NEGATIVE TO DATE 02/04/21 16:57 Blood Culture - Preliminary Blood NEGATIVE TO DATE A&P Assessment and plan (1) Histoplasmosis: Status: Acute (2) ARDS (adult respiratory distress syndrome): Status: Acute (3) COVID-19: Status: Acute (4) Acute respiratory failure with hypoxia: Status: Acute Additional A&P Information Patient presenting with symptoms of cough dyspnea for 6 weeks prior to admission, with rapidly developing respiratory failure during the course of admission. Currently with ARDS requiring mechanical ventilation. 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 On treatment with liposomal amphotericin B(AmBisome) 3 mg/kg/day (started 01/30-) with concomitant steroids. Started spiking fever on 02/03, work up significant for COVID 19 pneumonia additionally. Also now with development of pneumothorax s/p R side chest tube placement and increasing oxygen requirements. Overall patient remains critically ill with prolonged hypoxic respiratory failure, prolonged ventilatory support, no significant improvement to interval worsening in clinical status, and now with double hit of COVID 19 pneumonia on top of ARDS from histoplasmosis. Given the above, patient's prognosis is poor. Appropriate to initiate goals of care discussion with patient's family. Will follow Attestations Medical Necessity Statement*: vent dependent respiratory failure, ARDS, COVID 19, histoplasmosis , iv antifungals Coding Level of Care Code Acute Distribution Tech for [facility] Diagnoses Histoplasmosis B39.9 ARDS (adult respiratory distress syndrome) J80 COVID-19 U07.1 Acute respiratory failure with hypoxia J96.01
[2021-02-06] MEDS: dexmedetomidine 400 MCG in sodium chloride 0.9% (100 ml) 100 ML IV (21:58)
[2021-02-07] VITALS (29 sets, daily range): BP systolic 86–129; BP diastolic 50–74; PULSE 68–90; RESP 27–30; O2SAT 90–96
[2021-02-07] MEDS: famotidine 20 mg/2 mL INJ IVP (04:08)
[2021-02-07 04:39] LABS: Basophils # 0.1 10^3/uL (0.0-0.1); Basophils % 0.2 %; Hematocrit 25.3 % (37.0-47.0); Hemoglobin 7.6 g/dL (11.5-15.3); Lymphocytes # 0.7 10^3/uL (0.8-4.8); Lymphocytes % 3.4 %; Mean Corpuscular Hemoglobin 29.1 pg (28.0-34.0); Mean Corpuscular Volume 96.9 fL (81-99); Mean Platelet Volume 11.2 fL (7.4-10.4); Monocytes % 4.8 %; Neutrophils # 18.56 10^3/uL (1.8-7.7); Neutrophils % 88.6 %; Nucleated Red Blood Cells % 0.1 %; Platelet Count 403 10^3/cmm (130-400); Red Blood Count 2.61 10^6/uL (4.1-5.3); Red Cell Distribution Width 14.6 % (12.1-15.1)
[2021-02-07 04:58] LABS: Alanine Aminotransferase 21 U/L (0-33); Albumin Level 2.7 g/dL (3.5-5.2); Alkaline Phosphatase 41 IU/L (35-105); Aspartate Amino Transferase 16 U/L (0-32); Blood Urea Nitrogen 77 mg/dL (8-23); Calcium 8.4 mg/dL (8.5-10.5); Carbon Dioxide 28 mmol/L (22-29); Chloride 106 mmol/L (98-107); Glucose 123 mg/dL (65-115); Osmolality Calculated 324 mOsm/kg (285-295); Sodium 145 mmol/L (136-145); Total Bilirubin 0.2 mg/dL (0.15-1.2); Total Protein 5.7 g/dL (6.6-8.7)
--- NOTE | 2021-02-07 06:16 | PC.NURSE ---
No acute changes overnight. Patient kept comfortable. Continue care.
[2021-02-07 08:52] LABS: Osmolality Urine 451 mOsm/kg (50-1200)
--- NOTE | 2021-02-07 10:02 | PC.CHAP ---
Pastoral Care Encounter/Spiritual Assessment Type of Contact [] Declined research and evaluation analyst visit [] Patient/Family/Request visit [] Outpatient visit [] Follow-up visit [] Physician referral [] Code/Alert [x] Routine visit [] Staff referral [] Actively dying [] Patient sleeping [] Family support [] [] Out of room [] Palliative care [] [] Receiving care in room [] Pre-surgical visit [] Trauma [] Long length of stay [x] ICU visit [x] Other: ventilator... isolated Relational/Emotional Strength [] Patient feels connected with others/family/visitors/staff [] Distress [] Loneliness/isolation [] Abandonment Spirituality of Patient [] Person of Trisha [] Attends Zoroastrianism of their Trisha [] Believes in Prayer [] Reads Bible or Pentecostalism materials [] There are Spiritual issues to be addressed Machine Setter Interventions [x] Prayer [] Active listening [] Non-anxious presence [] Spiritual/emotional support [] Crisis/trauma care [] Spiritual counseling [] Bereavement support [] Provided bereavement packet [] Provided Bible/devotional materials [] Provided toy/stuffed animal, coloring book to patient or family member [] Provided Communion [] Anointing/[place] [] Salvation [x] Completed spiritual assessment [] Other: Impact on Illness or Injury [] Angry [] Fearful [] Anxious [] Often cries [] Exhaustion [] Unable to work [] Unable to attend yazdanism [] Unable to walk/stand [] Unable to read [] Unable to drive [] Unable to eat/drink [] Unable to sleep [] Unable to be with family [] Patient intubated [] Other: Summary Time spent with patient
--- NOTE | 2021-02-07 14:46 | PC.RESP ---
extubated pt terminally extubated per family wishes,
--- NOTE | 2021-02-07 14:50 | PC.SOCIAL ---
IMM Not Update Pg. 2of IMM not updated r/t prognosis at this time.
[2021-02-07 15:42] LABS: Osmolality Serum 352 mOsm/kg (278-305)
--- NOTE | 2021-02-07 17:07 | PM.DDS ---
Discharge Providers DDS Date of Admission: 01/11/21 16:56 Date Summary Completed: 02/07/21 Attending Provider at Admission: Dar Dutta MD Attending Provider at Discharge: Reji Santacruz DO Primary Care Provider: DO LISTETE Dye Diagnoses Hospital Diagnoses (1) Histoplasmosis: (2) ARDS (adult respiratory distress syndrome): (3) COVID-19: (4) Acute respiratory failure with hypoxia: Reason for Visit Reason for Visit: SOB, WEAK Summary Date and Time of Date of : 02/07/21 Summary Summary: Patient presenting with symptoms of cough dyspnea for 6 weeks prior to admission, with rapidly developing respiratory failure during the course of admission. Pt required mechanical ventilation. 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 treated with liposomal amphotericin B(AmBisome) 3 mg/kg/day (started 01/30-) with concomitant steroids. Started spiking fever on 02/03, work up significant for COVID 19 pneumonia additionally. Also developed of pneumothorax s/p R side chest tube placement and increasing oxygen requirements. Overall patient remained critically ill with prolonged hypoxic respiratory failure, prolonged ventilatory support, no significant improvement to interval worsening in clinical status, and now with double hit of COVID 19 pneumonia on top of ARDS from histoplasmosis. With patient's prognosis is poor goals of care discussion with patient's family ensued and suggested transition to comfort measures. I spoke with Aroldo and Isabel yesterday and they agreed with transition. Today a daughter and her were at the bedside for terminal extubation. She peacefully about 30 min later. Additional Data Confirmation of as documented by pronouncing clinician: no pulse, no respirations and no heart sounds Family: at bedside Additional persons at bedside: nursing staff Attending/PCP notified?: I am attending Was code activated?: No Autopsy requested?: No Advance directives?: No Hospice patient?: No Discharge Plan Discharge Patient Disposition: At Medical Facility Condition: Stable Prescriptions: Discontinued fluoxetine 40 mg capsule 40 mg PO DAILY RF: 0 tizanidine 4 mg tablet See Rx Instructions .ROUTE .COMPLEX RF: 0 prednisone 20 mg tablet 40 mg PO DAILY RF: 0 amitriptyline 25 mg tablet 25 mg PO DAILY RF: 0 lisinopril 10 mg tablet 10 mg PO BID RF: 0 omeprazole 20 mg capsule,delayed release(DR/EC) 20 mg PO DAILY RF: 0 levofloxacin 500 mg tablet 500 mg PO DAILY RF: 0 naproxen 500 mg tablet 500 mg PO BID RF: 0 metoprolol tartrate 25 mg Tablet 25 mg PO BID RF: 0 Discharge Orders: Discharge Order (Routine); Ordered 02/07/21 Ordered By: Reji KNOX Attestations Time Spent in /Discharge Care*: greater than 30 min Quality - AMI: AMI present?: No Quality - Stroke: CVA present?: No Quality - VTE: VTE present?: No Deep Vein Thrombosis/Pulmonary Embolism Present on Admission: No Coding Level of Care Code Acute [employer] [facility] Fwd Diagnoses Histoplasmosis B39.9 ARDS (adult respiratory distress syndrome) J80 COVID-19 U07.1 Acute respiratory failure with hypoxia J96.01
--- NOTE | 2021-02-07 17:30 | PC.NURSE ---
Patient at 1530 with family in the room. Dr kinsey. home called. Patient removed at 1730. Belongings placed at nursing station.
== END 2021-02-07 17:30 | disposition expired | DRG 207 ==
LOC: ER 14:51 → MEDSURG 16:57 → ICU 01-17 14:45 → MEDSURG 01-21 15:59 → ICU 01-24 11:27
PROVIDERS: Hospitalist; Internal Medicine; Internal Medicine Critical Care Medicine; Internal Medicine Pulmonary Disease; Student in an Organized Health Care Education/Training Program; Admitting Provider Family Medicine; Emergency Provider Family Medicine; PCP Electrodiagnostic Medicine; Visit Provider Internal Medicine
PROC: 0BJ08ZZ Inspection of Tracheobronchial Tree, Via Natural or Artificial Opening Endoscopic (ICD-10-PCS; CPT 31622; principal; 2021-01-24 07:00)
DX: B39.0 Acute pulmonary histoplasmosis capsulati (principal); U07.1 COVID-19; J12.82 Pneumonia due to coronavirus disease 2019; J80 Acute respiratory distress syndrome; A41.9 Sepsis, unspecified organism; N17.9 Acute kidney failure, unspecified; E87.1 Hypo-osmolality and hyponatremia; J93.9 Pneumothorax, unspecified; E87.4 Mixed disorder of acid-base balance; I25.10 Atherosclerotic heart disease of native coronary artery without angina pectoris; I25.2 Old myocardial infarction; Z87.891 Personal history of nicotine dependence; I11.0 Hypertensive heart disease with heart failure; I50.9 Heart failure, unspecified; F41.8 Other specified anxiety disorders; E87.5 Hyperkalemia; L27.1 Localized skin eruption due to drugs and medicaments taken internally; T50.905A Adverse effect of unspecified drugs, medicaments and biological substances, initial encounter; E03.9 Hypothyroidism, unspecified; I48.91 Unspecified atrial fibrillation; R57.0 Cardiogenic shock; Z66 Do not resuscitate; Z51.5 Encounter for palliative care; J98.2 Interstitial emphysema; D64.9 Anemia, unspecified; E86.0 Dehydration; K44.9 Diaphragmatic hernia without obstruction or gangrene; I34.0 Nonrheumatic mitral (valve) insufficiency
CPT/HCPCS: 36415; 36569; 36592; 36600; 51702; 70450; 71045; 71046; 71250; 71275; 76770; 80048; 80051; 80053; 80162; 80202; 80500; 81001; 82274; 82330; 82550; 82728; 82803; 82805; 83605; 83615; 83735; 83880; 83930; 83935; 84100; 84145; 84443; 84484; 85025; 85378; 85610; 85651; 86140; 86225; 86235; 86403; 86480; 86698; 86705; 86706; 86709; 86803; 87015; 87040; 87070; 87075; 87102; 87106; 87116; 87186; 87205; 87206; 87305; 87340; 87385; 87426; 87449; 87486; 87493; 87496; 87581; 87633; 87635; 87641; 87799; 87801; 87806; 89050; 92523; 92526; 92610; 93005; 93306; 93970; 94002; 94003; 94640; 94660; 94664; 94762; 94799; 96365; 96372; 96375; 97110; 97116; 97161; 97165; 97530; 97535; 99285; C9113; J0282; J0289; J0330; J0456; J0696; J0743; J1100; J1160; J1200; J1450; J1650; J1940; J1956; J2001; J2060; J2250; J2405; J2704; J2920; J2930; J3010; J3370; J3475; J3480; J3490; J3535; J7030; J7050; J7060; J7512; J7614; J7626; J7644; P9047; Q3014; Q9967; S0030